=== PATIENT | female | born 1990 | race African-American/Black ===

== ENCOUNTER 2022-05-04 23:57 | Emergency (ER) | payer MEDICAID, SELFPAY ==
[2022-05-05 00:15] VITALS: BP 136/82; PULSE 86; RESP 16; TEMP 36.9; O2SAT 99
[2022-05-05 00:56] LABS: PCR FLU A POSITIVE PCR FLU A (Negative); PCR FLU B Negative PCR FLU B (Negative); PCR RSV Negative PCR RSV (Negative)
[2022-05-05 00:59] LABS: SARS PCR* Negative SARS-CoV-2 (Negative)
--- OUTSIDE RECORDS SUMMARY | 2022-05-05 01:05 | XMS_ITS | Encounter Summary ---
:1990 Author Organization [facility] Address [address] [place] [address] Care Team Providers Name Role Phone Harris Zaidi MD Unavailable No Ref-Primary, Physician Primary Care Provider [phone] Reason for Visit Reason Comments Eye Pain Encounter Details Date Type Department Care Team Description 06/30/2021 Emergency [facility] Candice Cedillo eal ulcer of left [facility] MD [place] [facility] [place] [facility] Leslie m [facility] [place] [address] [place] [address] [employer], [place] [phone] (Wo rk) [address] [phone] Social History Tobacco Use Types Packs/Day Years Used Date Smoking Tobacco: Every Day Smokeless Tobacco: Never Alcohol Use Standard Drinks/Week Comments Yes 0 (1 standard drink = 0.6 oz pure alcoho l) occ Sex Assigned at Date Recorded Not on file COVID-19 Exposure Response Date Recorded In the last month, have you been in contact with No / Unsure 06/29/2021 11:48 PM MOBILE HOME SERVICER someone who was confirmed or suspected to have Coronavirus / COVID-19? documented as of this encounter Last Filed Vital Signs Vital Sign Reading Time Taken Comments Blood Pressure 145/92 06/30/2021 12:21 AM MOBILE HOME SERVICER Pulse 89 06/30/2021 12:21 AM MOBILE HOME SERVICER Temperature 37.6 ??C (99.6 ??F) 06/29/2021 11:51 PM MOBILE HOME SERVICER Respiratory Rate 22 06/29/2021 11:51 PM MOBILE HOME SERVICER Oxygen Saturation 99% 06/29/2021 11:51 PM MOBILE HOME SERVICER Inhaled Oxygen Concentration - - Weight 77.1 kg (170 lb) 06/29/2021 11:51 PM MOBILE HOME SERVICER Height 160 cm (5' 3) 06/29/2021 11:51 PM MOBILE HOME SERVICER Body Mass Index 30.11 06/29/2021 11:51 PM MOBILE HOME SERVICER documented in this encounter Discharge Instructions Discharge InstructionsCandice Cedillo MD - 06/30/2021 12:11 AM MOBILE HOME SERVICER Please be seen by an semiconductor dies loader tomorrow LE HOME SERVICER AttachmentsThe following attachments cannot be sent through Care Everywhere. Corneal Ulcer, Treatment for (Cymro)Corneal Ulcer, Understanding (Cymro) documented in this encounter Medications at Time of Discharge Medication Sig Dispensed Refills Start Date End Date ferrous sulfate (FEROSUL) Daily 0 12/17/2020 325 (65 Fe) MG tablet escitalopram (LEXAPRO) 10 Take 1 tablet (10 30 tablet 1 09/06/2021 MG tabletIndications: mg) by mouth daily Generalized anxiety disorder, Severe major depression (H) hydrOXYzine (ATARAX) 25 Take 1 tablet (25 60 tablet 0 07/0109/06/2021 MG tabletIndications: mg) by mouth 3 times Generalized anxiety daily as needed for disorder anxiety ketoconazole (NIZORAL) 2 Apply to the 120 mL 11 8 09/20/2021 % shampooIndications: affected area and Tinea versicolor wash off after 5 minutes. norelgestromin-ethinyl Remove old patch and 9 patch 3 06/201709/06/2021 estradiol (ORTHO EVRA) apply new patch onto 150-35 MCG/24HR the skin once a week patchIndications: for 3 weeks (21 Encounter for initial days). Do not wear prescription of patch week 4 (days transdermal patch -), then repeat. hormonal contraceptive device ofloxacin (OCUFLOX) 0.3 % Instill 1 drop into 10 mL 0 0 06/30/2021 09/06/2021 ophthalmic solution the left eye every 30 minutes while awake and every 4 hours while asleep for the first two days, then on day 3, instill 1 drop every hour while awake for four days, then 1 drop four times a day until resolved. oxyCODONE (ROXICODONE) 5 Take 1 tablet (5 mg) 6 tablet 0 0 06/30/2021 09/06/2021 MG tablet by mouth every 6 hours as needed for pain documented as of this encounter ED Notes Yara Hood RN - 06/29/2021 11:49 PM CST Put in contacts this morning, took out about 1700, left eye pain and burning and associated headache. Opening eyes makes pain worse LE HOME SERVICER Candice Cedillo MD - 06/29/2021 11:47 PM CST EMERGENCY DEPARTMENT ENCOUNTER NAME: Trinity Odell AGE: [age] year old female DATE OF : 1990 EVALUATION DATE & TIME: No admission date for patient encounter. PCP: Lainey Brito ED PROVIDER: Candice Cedillo M.D. Chief Complaint Patient presents with ??? Eye Pain FINAL IMPRESSION: 1. Corneal ulcer of left eye ED COURSE & MEDICAL DECISION MAKING: Pertinent Labs & Imaging studies reviewed. (See chart for details) 30 year old female presents to the Emergency Department for evaluation of left eye pain. The patientwears contact lenses, first put in her contacts this morning, around 5 PM when she came home from work and she took out her left contacts she had immediate, searing pain in her left eye. The pain is worse with lights. It is a constant pain, slightly improved with closing her eye. She rates the pain a 10 out of 10 and has clear tearing. She otherwise has no constitutional symptoms. She denies any trauma to the eye. She has never had pain like this. On my exam with fluorescein dye and Mares lamp I seea corneal abrasion on her left eye overlying the left pupil. Plan to treat with quinolone eyedrops and follow-up with ophthalmology tomorrow. Patient is comfortable with this plan. The pain did improvewith topical tetracaine drops. At the conclusion of the encounter I discussed the results of all of the tests and the disposition. The questions were answered. The patient or family acknowledged understanding and was agreeable with the care plan. 11:50 PM I met with patient for initial interview and exam. PPE includes N95, protective glasses, gloves. 11:55 AM Performed eye exam with Wood's lamp. We discussed the plan for discharge and the patient isagreeable. Reviewed supportive cares, symptomatic treatment, outpatient follow up, and reasons to return to the Emergency Department. All questions and concerns were addressed. Patient to be discharged by ED RN. MEDICATIONS GIVEN IN THE EMERGENCY: Medications tetracaine (PONTOCAINE) 0.5 % ophthalmic solution 1-2 drop (2 drops Left Eye Given 06/30/21 0003) fluorescein (FUL-SANDY) ophthalmic strip 1 strip (1 strip Left Eye Given 06/30/21 0002) HPI Patient information was obtained from: patient Use of Faculty I On Call Medical Assistant: N/A Trinity Odell is a 30 year old female with no pertinent medical history who presents to this ED by walk in for evaluation of eye pain. Today at 5pm the patient took out her contacts and had sudden onset of severe left eye pain. Describes pain as searing/sharp, rated 10/10. Lights make pain worse; feels better with eyes closed. There are clear tears from the left eye, no discharge. Endorses associated diffuse headache. Denies trauma to eye. No history of similar symptoms. Patient is a smoker. Denies cough, congestion, nausea, vomiting, fever, chills, sweats, or any additional complaints at this time. REVIEW OF SYSTEMS Review of Systems Constitutional: Negative for chills, diaphoresis and fever. HENT: Negative for congestion. Eyes: Positive for photophobia (left eye) and pain (left eye). Negative for discharge. Respiratory: Negative for cough. Gastrointestinal: Negative for nausea and vomiting. Neurological: Positive for headaches. All other systems reviewed and are negative. PAST MEDICAL HISTORY: No past medical history on file. PAST SURGICAL HISTORY: No past surgical history on file. CURRENT MEDICATIONS: No current facility-administered medications for this encounter. Current Outpatient Medications Medication ??? ofloxacin (OCUFLOX) 0.3 % ophthalmic solution ??? oxyCODONE (ROXICODONE) 5 MG tablet ??? escitalopram (LEXAPRO) 10 MG tablet ??? hydrOXYzine (ATARAX) 25 MG tablet ??? ketoconazole (NIZORAL) 2 % shampoo ??? norelgestromin-ethinyl estradiol (ORTHO EVRA) 150-35 MCG/24HR patch ALLERGIES: No Known Allergies FAMILY HISTORY: Family History Problem Relation Age of Onset ??? Depression Mother ??? Anxiety Disorder Mother ??? Bipolar Disorder Mother ??? Depression Brother SOCIAL HISTORY: Social History Socioeconomic History ??? Marital status: Single Spouse name: Not on file ??? Number of children: Not on file ??? Years of education: Not on file ??? Highest education level: Not on file Occupational History ??? Not on file Tobacco Use ??? Smoking status: Current Every Day Smoker ??? Smokeless tobacco: Never Used Substance and Sexual Activity ??? Alcohol use: Yes Comment: occ ??? Drug use: No ??? Sexual activity: Yes Partners: Male control/protection: Injection Other Topics Concern ??? Parent/sibling w/ CABG, IA or angioplasty before 65F 55M? Not Asked Social History Narrative ??? Not on file Social Determinants of Health Financial Resource Strain: Not on file Food Insecurity: Not on file Transportation Needs: Not on file Physical Activity: Not on file Stress: Not on file Social Connections: Not on file Intimate Partner Violence: Not on file Housing Stability: Not on file VITALS: BP (!) 145/92 Pulse 89 Temp 99.6 ??F (37.6 ??C) (Oral) Resp 22 Ht 1.6 m (5' 3) Wt 77.1 kg(170 lb) SpO2 99% BMI 30.11 kg/m?? PHYSICAL EXAM Constitutional: Well developed, Well nourished, NAD HENT: Normocephalic, Atraumatic, Bilateral external ears normal, Oropharynx normal, mucous membranesmoist, Nose normal. Neck- Normal range of motion, No tenderness, Supple, No stridor. Eyes: With florescein dye and mares lamp, patient has a circular corneal ulcer overlying pupil alongthe medial lower quadrant. No foreign bodies. No corneal abrasions. No periorbital edema.PERRL, EOMI, Conjunctiva normal, No discharge. Respiratory: Normal breath sounds, No respiratory distress, No wheezing, Speaks full sentences easily. No cough. Cardiovascular: Normal heart rate, Regular rhythm Musculoskeletal: Good range of motion in all major joints. No tenderness to palpation or major deformities noted. Integument: Warm, Dry, No erythema, No rash. No petechiae. Neurologic: Alert & oriented x 3, Normal motor function, No focal deficits noted. Psychiatric: Affect normal, Judgment normal, Mood normal. Cooperative. I, Minoo Rangel, am serving as a scribe to document services personally performed by Dr. Cedillo based on my observation and the provider's statements to me. I, Candice Cedillo MD attest that Minoo Rangel is acting in a scribe capacity, has observed my performance of the services and has documented them in accordance with my direction. Candice Cedillo M.D. Emergency Medicine [facility] EMERGENCY ROOM [address] [place] [id number] Dept: [phone] Candice Cedillo MD 06/30/21 0045 LE HOME SERVICER documented in this encounter Plan of Treatment Not on filedocumented as of this encounter Visit Diagnoses Diagnosis Corneal ulcer of left eye Corneal ulcer, unspecified documented in this encounter Administered Medications Inactive Administered Medications - up to 3 most recent administrations Medication Order MAR Action Action Date Dose Rate Site fluorescein (FUL-SANDY) ophthalmic Given 06/30/2021 12:02 AM MOBILE HOME SERVICER 1 strip strip 1 strip 1 strip, Left Eye, ONCE, On [place] 06/30/21 at 0000, For 1 dose tetracaine (PONTOCAINE) 0.5 % ophthalmic Given 06/30/2021 12:03 AM MOBILE HOME SERVICER 2 drops solution 1-2 drop 1-2 drop, Left Eye, ONCE, On [place] 06/30/21 at 0000, For 1 dose documented in this encounter Active and Recently Administered Medications Times are shown in MOBILE HOME SERVICER. Scheduled Medication Order 06/28/2021 06/29/202106/3006/30/2021 fluorescein (FUL-SANDY) ophthalmic strip 1 strip (COMPLETED) 0002 (Given - Provider: Yara Hood RN - Comment: provider administered) 1 strip, Left Eye, ONCE, On [place] 06/30/21 at 0000, For 1 dose tetracaine (PONTOCAINE) 0.5 % ophthalmic solution 1-2 drop (COMP LETED) 0003 (Given - Provider: Yara Hood RN - Comment: provider administered) 1-2 drop, Left Eye, ONCE, On [place] 06/30/21 at 0000, For 1 dose documented in this encounter Additional Health Concerns Assessment Noted Time PHQ-9 Depression Total Score: 17 07/01/2019 11:[address] documented as of this encounter Care Teams Wholesale Manager Relationship Specialty Start Date End Date No Ref-Primary, Physician PCP - General 06/30/21 Harris Zaidi MD Assigned PCP 02/13/21 09/10/21 [address] [place] [address] documented as of this encounter
--- OUTSIDE RECORDS SUMMARY | 2022-05-05 01:05 | XMS_ITS | Encounter Summary ---
:1990 Author Organization [facility] Address [address] [place] [address] Care Team Providers Name Role Phone No Ref-Primary, Physician Primary Care Provider [phone] Familia Nicole DO Unavailable Encounter Details Date Type Department Care Team Description 01/31/2022 Travel Social History Tobacco Use Types Packs/Day Years Used Date Smoking Tobacco: Some Days Cigarettes Smokeless Tobacco: Never Comments: pack a week Alcohol Use Standard Drinks/Week Comments Yes 0 (1 standard drink = 0.6 oz pure alcoho l) occ Sex Assigned at Date Recorded Not on file COVID-19 Exposure Response Date Recorded In the last 10 days, have you been in contact with No / Unsu re 01/31/2022 11:04 AM CDT someone who was confirmed or suspected to have Coronavirus/COVID-19? documented as of this encounter Plan of Treatment Not on filedocumented as of this encounter Visit Diagnoses Not on filedocumented in this encounter Additional Health Concerns Assessment Noted Time PHQ-9 Depression Total Score: 2 09/21/2021 7:02 AM CDT documented as of this encounter Care Teams Lumber Yard Worker Relationship Specialty Start Date End Date No Ref-Primary, Physician PCP - General 06/30/21 Familia Nicole DO Assigned PCP 01/28/22 04/07/22 [address] [address] [place], [place] [id number] documented as of this encounter
--- OUTSIDE RECORDS SUMMARY | 2022-05-05 01:05 | XMS_ITS | Encounter Summary ---
:1990 Author Organization [facility] Address [facility] [place] [address] Care Team Providers Name Role Phone No Ref-Primary, Physician Primary Care Provider [phone] Familia Nicole DO Unavailable Encounter Details Date Type Department Care Team Description 09/19/2021 Travel Social History Tobacco Use Types Packs/Day Years Used Date Smoking Tobacco: Every Day Cigarettes Smokeless Tobacco: Never Alcohol Use Standard Drinks/Week Comments Yes 0 (1 standard drink = 0.6 oz pure alcoho l) occ Sex Assigned at Date Recorded Not on file COVID-19 Exposure Response Date Recorded In the last month, have you been in contact with No / Unsure 09/19/2021 8:03 AM CDT someone who was confirmed or suspected to have Coronavirus / COVID-19? documented as of this encounter Plan of Treatment Not on filedocumented as of this encounter Visit Diagnoses Not on filedocumented in this encounter Additional Health Concerns Assessment Noted Time PHQ-9 Depression Total Score: 5 09/07/2021 7:02 AM CDT documented as of this encounter Care Teams Commis Chef Relationship Specialty Start Date End Date No Ref-Primary, Physician PCP - General 06/30/21 Familia Nicole DO Assigned PCP 09/11/21 09/24/21 [address] [place] [address] documented as of this encounter
--- OUTSIDE RECORDS SUMMARY | 2022-05-05 01:05 | XMS_ITS | Encounter Summary ---
:1990 Author Organization [facility] Address [address] [place] [address] Care Team Providers Name Role Phone Harris Zaidi MD Unavailable No Ref-Primary, Physician Primary Care Provider [phone] Encounter Details Date Type Department Care Team Description 09/06/2021 Travel Social History Tobacco Use Types Packs/Day Years Used Date Smoking Tobacco: Every Day Cigarettes Smokeless Tobacco: Never Alcohol Use Standard Drinks/Week Comments Yes 0 (1 standard drink = 0.6 oz pure alcoho l) occ Sex Assigned at Date Recorded Not on file COVID-19 Exposure Response Date Recorded In the last month, have you been in contact with No / Unsure 09/06/2021 2:14 PM CDT someone who was confirmed or suspected to have Coronavirus / COVID-19? documented as of this encounter Plan of Treatment Not on filedocumented as of this encounter Visit Diagnoses Not on filedocumented in this encounter Additional Health Concerns Assessment Noted Time PHQ-9 Depression Total Score: 5 09/07/2021 7:02 AM CDT documented as of this encounter Care Teams Interior Design Teacher Relationship Specialty Start Date End Date No Ref-Primary, Physician PCP - General 06/30/21 Harris Zaidi MD Assigned PCP 02/13/21 09/10/21 [address] [place] [address] documented as of this encounter
--- OUTSIDE RECORDS SUMMARY | 2022-05-05 01:05 | XMS_ITS | Encounter Summary ---
:1990 Author Organization [facility] Address [facility] [place] [address] Care Team Providers Name Role Phone No Ref-Primary, Physician Primary Care Provider [phone] Minoo Daniels PA-C Unavailable [phone] Reason for Visit Reason Onset Date Comments No Show 09/27/2021 Encounter Details Date Type Department Care Team Description 09/27/2021 Office Visit [facility] Minoo Danielss how for Clinic Eliza Arguelles PA-C appointment (Primary [address] [address] [facility] [place], [place] [address] [phone] Social History Tobacco Use Types Packs/Day Years [...] been in contact with No / Unsure 09/20/2021 2:48 PM CDT someone who was confirmed or suspected to have Coronavirus / COVID-19? documented as of this encounter Progress Notes José Johnson - 09/27/2021 1:30 PM CDT Pre-Visit Planning Next 5 appointments (look out 90 days) Sep 27, 2021 1:30 PM (Arrive by 1:15 PM) [facility] Placement with Minoo Daniels PA-C [facility] [address] [facility] [id number] Appointment Notes for this encounter: [facility] placement Questionnaires Reviewed/Assigned No additional questionnaires are needed Patient preferred phone number: [phone] Unable to reach. Left voicemail. Advised patient to call clinic back at [phone]. Minoo Daniels PA-C - 09/27/2021 1:30 PM CDT This patient was a no show for this scheduled appointment. documented in this encounter Plan of Treatment Not on filedocumented as of this encounter Visit Diagnoses Diagnosis No-show for appointment - Primary documented in this encounter Additional Health Concerns Assessment Noted Time PHQ-9 Depression Total Score: 2 09/21/2021 7:02 AM CDT documented as of this encounter Care Teams Perennial House Manager Relationship Specialty Start Date End Date No Ref-Primary, Physician PCP - General 06/30/21 Minoo Daniels PA-C Assigned PCP 09/25/21 01/27/22 [address] [place] [address] documented as of this encounter
--- OUTSIDE RECORDS SUMMARY | 2022-05-05 01:05 | XMS_ITS | Encounter Summary ---
:1990 Author Organization [facility] Address [address] [place] [address] Care Team Providers Name Role Phone No Ref-Primary, Physician Primary Care Provider [phone] Minoo Daniels PA-C Unavailable [phone] Encounter Details Date Type Department Care Team Description 10/25/2021 Travel Social History Tobacco Use Types Packs/Day [...] in contact with No / Unsu re 10/25/2021 1:46 PM CDT someone who was confirmed or suspected to have Coronavirus/COVID-19? documented as of this encounter Plan of Treatment Not on filedocumented as of this encounter Visit Diagnoses Not on filedocumented in this encounter Additional Health Concerns Assessment Noted Time PHQ-9 Depression Total Score: 2 09/21/2021 7:02 AM CDT documented as of this encounter Care Teams Slubber Hand Relationship Specialty Start Date End Date No Ref-Primary, Physician PCP - General 06/30/21 Minoo Daniels PA-C Assigned PCP 09/25/21 01/27/22 [address] [place] [address] documented as of this encounter
--- OUTSIDE RECORDS SUMMARY | 2022-05-05 01:05 | XMS_ITS | Clinical Summary ---
:1990 Author Organization [place] Address [facility] [place] [address] Care Team Providers Name Role Phone No Ref-Primary, Physician Primary Care Provider [phone] Minoo Daniels PA-C Unavailable [phone] Allergies No known active allergies Medications Medication Sig Dispensed Refills Start Date End Date Status norelgestromin-ethinyl Remove old patch 9 patch 3 09/06/2021 Active estradiol (ORTHO EVRA) and apply new 150-35 MCG/24HR patch onto the patchIndications: skin once a week Encounter for initial for 3 weeks (21 prescription of days). Do not transdermal patch wear patch week 4 hormonal contraceptive (days 22-28), device then repeat. venlafaxine TAKE 1 CAPSULE 0 07/18/2021 Ac tive (EFFEXOR-XR) 75 MG 24 (75 MG) BY MOUTH hr capsule DAILY ferrous sulfate Daily 0 12/17/2020 Act дмитрий (FEROSUL) 325 (65 Fe) MG tablet nicotine (NICODERM CQ) Place 1 patch 14 patch 1 09/06/2021 Active 7 MG/24HR 24 hr onto the skin patchIndications: every 24 hours Tobacco use disorder cyclobenzaprine Take 1-2 tablets 30 tablet 0 09/20/2021 Active (FLEXERIL) 5 MG (5-10 mg) by tabletIndications: mouth 3 times Cervicalgia daily as needed for muscle spasms etonogestrel 1 each (68 mg) by 0 Active (NEXPLANON) 68 MG Subdermal route IMPLIndications: once Nexplanon insertion Active Problems Problem Noted Date Nexplanon insertion 09/27/2021 Overview: Placed 10/25/2021, removal due 10/25/24. Lot # [id number] Exp: [id number] [facility] [id number] Major depressive disorder, recurrent episode, severe w ith anxious distress 01/17/2018 Tobacco use disorder 10/24/2017 Resolved Problems Problem Noted Date Resolved Date Injury of right great toe, initial encounter 10/24/2017 09/27/2021 Severe episode of recurrent major depressive disorder, 10/2401/17/2018 without psychotic features Immunizations Name Administration Dates Next Due COVID-19,PF,Diego 10/18/2020 HPV Quadrivalent 09/27/2010, 05/20/2009, 01/19/2009 Hep B, Peds or Adolescent 03/25/2004 Hib, Unspecified 06/14/1992, 08/20/1991, 06/04/1991, 01/29/1991 Historical DTP/aP 06/14/1992, 08/20/1991, 06/04/1991, 01/29/1991 Influenza (IIV3) PF 04/28/2005 Influenza Vaccine IM > 6 months 05/27/2020, 03/31/2016, 12/07/2014, Valent IIV4 (Alfuria,Fluzone) 03/18/2014 MMR 06/02/1992 OPV, trivalent, live 06/14/1992, 08/20/1991, 06/04/1991, 01/29/1991 TD (ADULT, 7+) 03/25/2004 TDAP Vaccine (Boostrix) 08/16/2012, 09/27/2010 Tdap (Adacel,Boostrix) 11/11/2020 Family History Medical History Relation Comments Depression Brother Anxiety Disorder Mother Bipolar Disorder Mother Depression Mother Relation Status Comments Brother Alive Father Alive Mother Alive Social History Tobacco Use Types Packs/Day Years Used Date Smoking Tobacco: Some Days Cigarettes Smokeless Tobacco: Never Tobacco Cessation: Ready to Quit: No; Co unseling Given: Yes Comments: pack a week Alcohol Use Standard Drinks/Week Comments Yes 0 (1 standard drink = 0.6 oz pure alcoho l) occ Sex Assigned at Date Recorded Not on file Last Filed Vital Signs Vital Sign Reading Time Taken Comments Blood Pressure 118/68 10/25/2021 1:58 PM CDT Pulse 76 10/25/2021 1:58 PM CDT Temperature 36.7 ??C (98.1 ??F) 10/25/2021 1:58 PM CDT Respiratory Rate 18 10/25/2021 1:58 PM CDT Oxygen Saturation 98% 10/25/2021 1:58 PM CDT Inhaled Oxygen Concentration - - Weight 84.1 kg (185 lb 8 oz) 10/25/2021 1:58 PM CDT Height 160 cm (5' 3) 10/25/2021 1:58 PM CDT Body Mass Index 32.86 10/25/2021 1:58 PM CDT Plan of Treatment Health Maintenance Due Date Last Done Comments ADVANCE CARE PLANNING 1990 ANNUAL REVIEW OF HM ORDERS 1990 DEPRESSION ACTION PLAN 1990 NICOTINE/TOBACCO CESSATION 1990 COUNSELING Q 1 YR Pneumococcal Vaccine: 1996 Pediatrics (0 to 5 Years) and At-Risk Patients (6 to 64 Years) (1 - PCV) HEPATITIS B IMMUNIZATION 04/22/2004 03/25/2004 (2 of 3 - 3-dose series) HEPATITIS C SCREENING 2008 YEARLY PREVENTIVE VISIT 10/24/2018 10/24/2017 PAP 10/24/2020 10/24/2017, 04/17/2016 COVID-19 Vaccine (2 - 12/13/2020 10/18/2020 Booster for Diego series) INFLUENZA VACCINE (#1) 2022 05/27/2020, 03/31/2016, 05/19/2015, Additional history exists PHQ-9 03/22/2022 09/20/2021, 09/06/2021, 09/06/2021, Additional history exists DTAP/TDAP/TD IMMUNIZATION 11/11/2030 11/11/2020, 08/16/2012 , (9 - Td or Tdap) 09/27/2010, Additional history exists IPV IMMUNIZATION Completed 06/14/1992, 08/20/1991, 06/04/1991, Additional history exists HIV SCREENING Discontinued MENINGITIS IMMUNIZATION Aged Out No longe r eligible based on patient 's age to complete this topic Insurance Payer Benefit Plan / Subscriber ID Effective Dates Phone Addre ss Type Group [facility] [id number] 2021-Present [phone] [address] [place] [address] [facility] 1990 [id number] [facility] (Home) [place] [address] Care Teams Inventory Controller Relationship Specialty Start Date End Date No Ref-Primary, Physician PCP - General 06/30/21 Minoo Daniels PA-C Assigned PCP 04/08/22 [address] [place] [address]
--- OUTSIDE RECORDS SUMMARY | 2022-05-05 01:05 | XMS_ITS | Encounter Summary ---
:1990 Author Organization [place] Address [facility] [place] [address] Care Team Providers Name Role Phone Lainey Brito MD Primary Care Provider [phone] Lainey Brito MD Unavailable Lainey Brito MD Unavailable Reason for Visit Reason Comments Cough chest congestion, heavy ches t, pain in low chest/epigastric area - family is sick with coughs Encounter Details Date Type Department Care Team Description 05/13/2018 Office Visit [facility] Sierra Mcmanus Upper respiratory tract infection, unspecified type (Primary Dx); Clinic Shabbir Mistry PA-C Gastroesophageal reflux disease, esophag itis presence not specified; [place] [address] [place] [address] Constipation, unspecified constipation t ype [address] [id number] Social History Tobacco Use Types Packs/Day Years Used Date Smoking Tobacco: Every Day Smokeless Tobacco: Never Tobacco Cessation: Ready to Quit: No; Co unseling Given: Yes Alcohol Use Standard Drinks/Week Comments Yes 0 (1 standard drink = 0.6 oz pure alcoho l) occ Sex Assigned at Date Recorded Not on file documented as of this encounter Last Filed Vital Signs Vital Sign Reading Time Taken Comments Blood Pressure 108/72 05/13/2018 4:08 PM COMPRESSOR OPERATOR Pulse 76 05/13/2018 4:08 PM COMPRESSOR OPERATOR Temperature 37.2 ??C (98.9 ??F) 05/13/2018 4:08 PM COMPRESSOR OPERATOR Respiratory Rate 16 05/13/2018 4:08 PM COMPRESSOR OPERATOR Oxygen Saturation - - Inhaled Oxygen Concentration - - Weight 83 kg (183 lb) 05/13/2018 4:08 PM COMPRESSOR OPERATOR Height - - Body Mass Index 31.41 03/05/2018 3:27 PM CDT documented in this encounter Patient Instructions Patient InstructionsSierra Mcmanus PA-C - 05/13/2018 4:00 PM COMPRESSOR OPERATOR miralax for constipation Treat the heartburn with omeprazole See primary provider in 1 month is heartburn is not better. RESSOR OPERATOR documented in this encounter Progress Notes Sierra Mcmanus PA-C - 05/13/2018 4:00 PM CST SUBJECTIVE: Trinity Odell is a 27 year old female who presents to clinic today for the following health issues: RESPIRATORY SYMPTOMS ?? Duration: today ?? Description Slight cough and chest pain and congestion ?? Severity: mild ?? Accompanying signs and symptoms: None ?? History (predisposing factors): tobacco abuse ?? Precipitating or alleviating factors: family is sick with coughs and other URI symptoms ?? Therapies tried and outcome: none Constipation ?? Duration: on and off for many years ?? Description: Frequency of bowel movements: 4-5 days Consistency of stool: hard at times ?? Intensity: mild, moderate ?? Accompanying signs and symptoms: Abdominal pain: YES Rectal pain: no Blood in stool: no Nausea/vomitting: no ?? History: Similar problems in past: YES ?? Precipitating or alleviating factors: Medications worsening symptoms: no ?? Therapies tried and outcome: None Chronic laxative use: no Occasion use of stool softner GERD/Heartburn ?? Duration: recently with more issues with this. ?? Did have GERD after and of last child ?? Description (location/character/radiation): epigastric to burning mid sternal pain ?? Intensity: mild, moderate ?? Accompanying signs and symptoms: food getting stuck: no nausea/vomiting/blood: no abdominal pain: YES black/tarry or bloody stools: no : ?? History (similar episodes/previous evaluation): None ?? Precipitating or alleviating factors: worse with fatty foods and spicy foods. current NSAID/Aspirin use: no Therapies tried and outcome: Omeprazole (Prilosec)in the past - 5 years ago when Problem list and histories reviewed & adjusted, as indicated. Additional history: as documented Labs reviewed in [facility] Reviewed and updated as needed this visit by clinical staff Tobacco Allergies Meds Reviewed and updated as needed this visit by Provider Allergies Meds ROS: Constitutional, HEENT, cardiovascular, pulmonary, gi and gu systems are negative, except as otherwise noted. OBJECTIVE: BP 108/72 Pulse 76 Temp 98.9 ??F (37.2 ??C) (Oral) Resp 16 Wt 183 lb (83 kg) LMP 04/17/2018 ? No BMI 31.41 kg/m2 Body mass index is 31.41 kg/(m^2). GENERAL: healthy, alert and no distress HENT: ear canals and TM's normal, nose and mouth without ulcers or lesions NECK: no adenopathy, no asymmetry, masses, or scars and thyroid normal to palpation RESP: lungs clear to auscultation - no rales, rhonchi or wheezes CV: regular rates and rhythm and normal S1 S2, no S3 or S4 ABDOMEN: tenderness epigastric and bowel sounds normal MS: no gross musculoskeletal defects noted, no edema SKIN: no suspicious lesions or rashes Diagnostic Test Results: none ASSESSMENT/PLAN: 1. Upper respiratory tract infection, unspecified type Mild symptoms. Fluids rest Good handwashing Recheck prn 2. Gastroesophageal reflux disease, esophagitis presence not specified - omeprazole (PRILOSEC) [address] capsule; Take 1 capsule (20 mg) by mouth daily Dispense: 30 capsule; Refill: 1 3. Constipation, unspecified constipation type Patient Instructions miralax for constipation Treat the heartburn with omeprazole See primary provider in 1 month is heartburn is not better. 25 minutes spent with patient > 50% of time on counseling and plan of care Letter for work stating ok to work tomorrow. Sierra Mcmanus PA-C [facility] RESSOR OPERATOR documented in this encounter Plan of Treatment Not on filedocumented as of this encounter Visit Diagnoses Diagnosis Upper respiratory tract infection, unspe cified type - Primary Gastroesophageal reflux disease, esophag itis presence not specified Constipation, unspecified constipation t ype documented in this encounter Additional Health Concerns Assessment Noted Time PHQ-9 Depression Total Score: 13 02/14/2018 7:19 AM CD T documented as of this encounter Care Teams Deaf/Hard Of Hearing Specialist Relationship Specialty Start Date End Date Lainey Brito MD PCP - General Family Practice 10/23/17 06/29/21 [id number] [place], [place] [id number] Lainey Brito MD PCP - Assigned PCP 10/05/17 08/20/18 [address] [place] [address] Lainey Brito MD Assigned PCP 10/05/17 07/12/19 [address] [place], [place] [id number] documented as of this encounter
--- OUTSIDE RECORDS SUMMARY | 2022-05-05 01:05 | XMS_ITS | Encounter Summary ---
:1990 Author Organization [facility] Address [address] [place] [address] Care Team Providers Name Role Phone Lainey Brito MD Primary Care Provider [phone] Lainey Brito MD Unavailable Reason for Referral Consultation (Routine) - Closed Specialty Diagnoses / Procedures Referred By Contact Refer red To Contact Podiatry Diagnoses Left foot pain Hermelindo Cary MD [facility] [id number] [place] [phone] [place] [address] Phone: Fax: Referral ID Status Reason Start Date Expiration Date Visits Requ ested Visits Authorized [id number] Closed 10/31/2018 10/31/2019 1 1 edication Prior Authorization (Routine) - Closed Specialty Diagnoses / Procedures Referred By Contact Refer red To Contact Diagnoses [place] [address] [place], [place] [address] Referral ID Status Reason Start Date Expiration Date Visits Requ ested Visits Authorized [id number] Closed iagnostic Imaging XR (Routine) - Closed Specialty Diagnoses / Procedures Referred By Contact Refer red To Contact Diagnoses Left foot pain Hermelindo Cary MD Procedures XR Foot Left G/E 3 Views [id number] [place], [place] [address] Referral ID Status Reason Start Date Expiration Date Visits Requ ested Visits Authorized [id number] Closed 10/31/2018 10/31/2019 1 1 iagnostic Imaging XR (Routine) - Closed Specialty Diagnoses / Procedures Referred By Contact Refer red To Contact Diagnoses Left foot pain Hermelindo Cary MD Procedures XR Ankle Left G/E 3 Views [id number] [facility] [place] [place] [address] Referral ID Status Reason Start Date Expiration Date Visits Requ ested Visits Authorized [id number] Closed 10/31/2018 10/31/2019 1 1 Reason for Visit Reason Comments Foot Injury Encounter Details Date Type Department Care Team Description 10/31/2018 Office Visit [facility] Hermelindo Cary, Left f oot pain Clinic Radha BROOKS (Primary Dx) [address] [facility], [address] [place] [address] [address] [place] [phone] Social History Tobacco Use Types Packs/Day Years Used Date Smoking Tobacco: Every Day Smokeless Tobacco: Never Alcohol Use Standard Drinks/Week Comments Yes 0 (1 standard drink = 0.6 oz pure alcoho l) occ Sex Assigned at Date Recorded Not on file documented as of this encounter Last Filed Vital Signs Vital Sign Reading Time Taken Comments Blood Pressure 110/74 10/31/2018 8:08 AM CDT Pulse 120 10/31/2018 8:08 AM CDT Temperature 37.1 ??C (98.7 ??F) 10/31/2018 8:08 AM CDT Respiratory Rate 20 10/31/2018 8:08 AM CDT Oxygen Saturation - - Inhaled Oxygen Concentration - - Weight - - Height - - Body Mass Index - - documented in this encounter Patient Instructions Patient InstructionsSalazar, Hermelindo, MD - 10/31/2018 8:00 AM CDT 1. Elevate foot 2. Medication 3. Ice daily 10 minutes 4. Follow podiatry documented in this encounter Progress Notes Hermelindo Cary MD - 10/31/2018 8:00 AM CDT SUBJECTIVE: Trinity Odell is a 28 year old female who presents to clinic today for the following health issues: Musculoskeletal problem/pain ?? Duration: yesterday ?? Description Location: LEFT FOOT ?? Intensity: severe, 01/25 ?? Accompanying signs and symptoms: radiation of pain from left knee down to foot, numbness, tingling, weakness of left foot, swelling and discoloration of left foot ?? History Previous similar problem: no Previous evaluation: none ?? 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 Therapies tried and outcome: nothing Additional history: as documented Reviewed and updated as needed this visit by clinical staff Tobacco Allergies Meds Problems Med Hx Surg Hx Fam Hx Soc Hx Reviewed and updated as needed this visit by Provider ROS: Constitutional, HEENT, cardiovascular, pulmonary, gi and gu systems are negative, except as otherwise noted. OBJECTIVE: BP 110/74 (BP Location: Right arm, Patient Position: Sitting, Cuff Size: Adult Regular) Pulse 120 Temp 98.7 ??F (37.1 ??C) (Oral) Resp 20 There is no height or weight on file to calculate BMI. GENERAL: alert and moderate distress RESP: lungs clear to auscultation - no rales, rhonchi or wheezes CV: regular rate and rhythm, normal S1 S2, no S3 or S4, no murmur, click or rub, no peripheral edemaand peripheral pulses strong ABDOMEN: soft, nontender, no hepatosplenomegaly, no masses and bowel sounds normal MS: There are no obvious deformities in her musculoskeletal exam or examination of her extremities however the dorsum of the left foot shows significant swelling and some bruising down to the toes. Shehas decreased range of motion.. Distal pulses are normal as are proximal pulses. Range of motion of her toes is slightly decreased secondary to pain palpation of the underside of her foot reveals some tenderness in the fat pad of thecalcaneus is normal. Range of motion of the ankle flexion extension is decreased secondary to pain no obvious deformitiessqueeze test on the ankle was negative. Diagnostic Test Results: none ASSESSMENT/PLAN: 1. Left foot pain - XR Ankle Left G/E 3 Views; Future - XR Foot Left G/E 3 Views; Future - order for DME; Equipment being ordered: crutches, Dispense: 1 Units; Refill: 0 - nabumetone (RELAFEN) 750 MG tablet; Take 1 tablet (750 mg) by mouth 2 times daily Dispense: 9 tablet; Refill: 0 - HYDROcodone-acetaminophen (NORCO) 5-325 MG tablet; Take 1 tablet by mouth every 6 hours as needed for pain Dispense: 9 tablet; Refill: 0 - PODIATRY/FOOT & ANKLE SURGERY REFERRAL See Patient Instructions Hermelindo Cary MD [facility] 4 visit 25 minutes in exam and counseling greater than 50% of time in counseling regards to her injury to the ankle as well as to the foot. We discussed her x-ray which may indeed show a fracture. We discussed care as well as the need for her crutches and the pain medication that we are giving her which is [place] 1-3 times a day quantity of 9. She may need to follow-up in the next couple of days regarding her pain. Referral for podiatry was also placed in her chart she is seen podiatry in the past. 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 Foot Injury Initial BP 110/74 (BP Location: Right arm, Patient Position: Sitting, Cuff Size: Adult Regular) Pulse 120 Temp 98.7 ??F (37.1 ??C) (Oral) Resp 20 Estimated body mass index is 28.49 kg/m?? as calculated from the following: Height as of 10/10/18: 1.626 m (5' 4). Weight as of 10/10/18: 75.3 kg (166 lb). BP completed using cuff size regular RIGHT arm Tricia Ochoa CMA documented in this encounter Plan of Treatment Scheduled Referrals Name Type Priority Associated Diagnoses Order S chedule PODIATRY/FOOT & ANKLE Referral Routine Left foot pain Orde red: 10/31/2018 SURGERY REFERRAL documented as of this encounter Results XR Ankle Left G/E 3 Views (10/31/2018 8:40 AM CDT) Anatomical Region Laterality Modality Leg, Ankle, Foot Left Computed Radiography Specimen (Source) Anatomical Location Collection Method / Collectio n Time Received Time / Laterality Volume Impressions 10/31/2018 11:27 AM CDT IMPRESSION: Normal ankle. Soft tissue swelling over the dorsum of the forefoot. JOSE WHITTEN MD Narrative 10/31/2018 11:27 AM CDT LEFT ANKLE THREE VIEWS ?? 10/31/2018 8:40 AM HISTORY: ??Left foot pain. COMPARISON: None. Procedure Note Jose Whitten MD - 10/31/2018Formatt ing of this note might be different from the original. LEFT ANKLE THREE VIEWS 10/31/2018 8:40 AM HISTORY: Left foot pain. COMPARISON: None. IMPRESSION: Normal ankle. Soft tissue sw elling over the dorsum of the forefoot. JOSE WHITTEN MD Hermelindo Cary MD IMG DIAGNOSTIC IMAGING ORDER FREDY XR Foot Left G/E 3 Views (10/31/2018 8:32 AM CDT) Anatomical Region Laterality Modality Foot, Ankle Left Computed Radiography Specimen (Source) Anatomical Location Collection Method / Collectio n Time Received Time / Laterality Volume Impressions 10/31/2018 11:00 AM CDT IMPRESSION: Normal. JOSE WHITTEN MD Narrative 10/31/2018 11:00 AM CDT LEFT FOOT THREE VIEWS ??10/31/2018 8:32 AM HISTORY: Left foot pain COMPARISON: None. Procedure Note Jose Whitten MD - 10/31/2018Formatt ing of this note might be different from the original. LEFT FOOT THREE VIEWS 10/31/2018 8:32 AM HISTORY: Left foot pain COMPARISON: None. IMPRESSION: Normal. JOSE WHITTEN MD Hermelindo Cary MD IMG DIAGNOSTIC IMAGING ORDER FREDY documented in this encounter Visit Diagnoses Diagnosis Left foot pain - Primary Pain in limb Left foot pain Pain in limb Left foot pain Pain in limb documented in this encounter Additional Health Concerns Assessment Noted Time PHQ-9 Depression Total Score: 13 10/10/2018 10:20 AM C DT documented as of this encounter Care Teams Print Designer Relationship Specialty Start Date End Date Lainey Brito MD PCP - General Family Practice 10/23/17 06/29/21 [address] [place] [address] Lainey Brito MD Assigned PCP 10/05/17 07/12/19 [address] [place] [address] documented as of this encounter
--- OUTSIDE RECORDS SUMMARY | 2022-05-05 01:05 | XMS_ITS | Encounter Summary ---
:1990 Author Organization [place] Address [facility] [place] [address] Care Team Providers Name Role Phone No Ref-Primary, Physician Primary Care Provider [phone] Minoo Daniels PA-C Unavailable Reason for Visit Reason Comments Procedure implant Encounter Details Date Type Department Care Team Description 10/25/2021 Office Visit [facility] Minoo Daniels lanon insertion (Primary Dx); Clinic Joshua Treerené Arguelles PA-C Insertion of implantable subdermal contr aceptive [address] [facility] [address] [place] [address] Social History Tobacco Use Types Packs/Day Years [...] have Coronavirus/COVID-19? documented as of this encounter Last Filed [...] Mass Index 32.86 10/25/2021 1:58 PM CDT documented in this encounter Progress Notes José Johnson - 10/25/2021 2:00 PM CDT Pre-Visit Planning Next 5 appointments (look out 90 days) October 25, 2021 2:00 PM (Arrive by 1:45 PM) Nexplanon Placement with Minoo Daniels PA-C [facility] ([facility] ) [address] [facility] [address] Appointment Notes for this encounter: LAB TEST Nexplanon placement Questionnaires Reviewed/Assigned No additional questionnaires are needed Patient preferred phone number: [phone] Spoke to patient via phone. Patient does not have additional questions or concerns. Visit is not preventive. Patient is established. Chief complaint confirmed. Health Maintenance Due Topic Date Due ??? ANNUAL REVIEW OF HM ORDERS Never done ??? ADVANCE CARE PLANNING Never done ??? DEPRESSION ACTION PLAN Never done ??? Pneumococcal Vaccine: Pediatrics (0 to 5 Years) and At-Risk Patients (6 to 64 Years) (1 - PCV) Never done ??? HEPATITIS B IMMUNIZATION (2 of 3 - 3-dose primary series) 04/22/2004 ??? HEPATITIS C SCREENING Never done ??? PREVENTIVE CARE VISIT 10/24/2018 ??? PAP 10/24/2020 ??? COVID-19 Vaccine (2 - Booster for Diego series) 12/13/2020 Patient is due for: pap No appointment needed. MyChart Patient is not active on [employer]. Encouraged [employer] activation. Questionnaire Review Offered information on completing questionnaires via [employer]. Call Summary Thank you for your time today. If anything comes up before your appointment, please feel free to contact us at [phone]. Minoo Daniels PA-C - 10/25/2021 2:00 PM CDT Nexplanon Insertion: Is a test required: Yes. Was it positive or negative? Negative Was a consent obtained? Yes Subjective: Triinty Odell is a 31 year old No obstetric history on file. presents for Nexplanon. Patient has been given the opportunity to ask questions about all forms of control, including all options appropriate for Trinity Odell. Discussed that no method of control, except abstinence is 100% effective against or sexually transmitted infection. Trinity Odell understands she may have the Nexplanon removed at any time and it should be removed by a health care provider. The entire insertion procedure was reviewed with the patient, including care after placement. No LMP recorded. Has current contraception. No allergy to betadine or shellfish. Patient declines STD screening HCG Qual Urine Date Value Ref Range Status 04/04/2008 Negative NEG Final hCG Urine Qualitative Date Value Ref Range Status 10/25/2021 Negative Negative Final Comment: This test is for screening purposes. Results should be interpreted along with the clinical picture.Confirmation testing is available if warranted by ordering [id number], HCG Quantitative . BP 118/68 (BP Location: Right arm, Patient Position: Sitting, Cuff Size: Adult Regular) Pulse 76 Temp 98.1 ??F (36.7 ??C) (Oral) Resp 18 Ht 1.6 m (5' 3) Wt 84.1 kg (185 lb 8 oz) SpO2 98% BMI 32.86 kg/m?? PROCEDURE NOTE: -- Nexplanon Insertion Reason for Insertion: contraception Patient was placed supine with left arm exposed. Mela was made 8-10 cm above medial epicondyle and aguiding mela 4 cm above the first. Arm was prepped with Betadine. Insertion point was anesthetized with 2.5 mL 1% lidocaine. After stretching the skin with thumb and index finger around the insertion site, skin punctured with the tip of the needle inserted at 30 degrees and then lowered to horizontal position. The needle was then advanced to its full length. Applicator was then stabilized and slider was unlocked. Slider was pulled back until it stopped and then removed. Correct placement of the implant was confirmed by palpation in the patient's arm and visualizing thepurple top of the obturator. Bandage and pressure dressing applied to insertion site. Lot # [id number] Exp: EBL: minimal Complications: none ASSESSMENT: ICD-10-CM 1. Nexplanon insertion Z30.017 HCG Qual, Urine ([id number]) 2. Insertion of implantable subdermal contraceptive Z30.017 PLAN: Given biodiesel production technician's handouts, including when to have Nexplanon removed, list of danger s/sx, side effects and follow up recommended. Encouraged condom use for prevention of STD. Back up contraception advised for 7 days. Advised to call for any fever, for prolonged or severe pain or bleeding, abnormalvaginal dischage. She was advised to use pain medications (ibuprofen) as needed for mild to moderatepain. Minoo Daniels PA-C documented in this encounter Plan of Treatment Not on filedocumented as of this encounter Procedures Procedure Name Priority Date/Time Associated Comments Diagnosis [place] INSERTION DRUG Routine 10/25/2021 2:16 PM Nexplanon inserti on DELIVERY IMPLANT CDT HCG QUALITATIVE URINE STAT 10/25/2021 1:52 PM Nexplanon ins ertion Results for this CDT procedure are i n the results section. documented in this encounter Results HCG Qual, Urine ([id number]) (10/25/2021 1:52 PM CDT) [facility] Method Time Signature hCG Urine Negative Negative ANDREA 10/25/2021 [facility] Qualitative 1:58 PM CDT Comment: This test is for screening purp oses. Results should be interpreted along with the clinical picture. Confirmation testing is available if warranted by ordering [id number], HCG Quantitative . Specimen Anatomical Collection Method Collection Time Receive d Time (Source) Location / / Volume Laterality Urine URINE SPECIMEN / Non-blood 10/25/2021 1:52 PM 10/25 1:52 Unknown Collection / CDT PM CDT Unknown Minoo Daniels PA-C LAB - URINE ORDERABLE S Performing Organization Address City/State/ZIP Code Phon [place] [address] Lab [address] [facility] (no room number, 1st floor of clinic) [place] [address], [facility] [address] [facility] (no room number, 1st floor of clinic) documented in this encounter Visit Diagnoses Diagnosis Nexplanon insertion - Primary Insertion of implantable subdermal contr aceptive Insertion of implantable subdermal contr aceptive documented in this encounter Administered Medications Inactive Administered Medications - up to 3 most recent administrations Medication Order MAR Action Action Date Dose Rate Site etonogestrel (NEXPLANON) Given 10/25/2021 2:16 PM 68 mg Left Upper Arm subdermal implant 68 mg CDT 68 mg (1 each), Subdermal, ONCE, On Sun10/25/21 at 1430, For 1 dose, For Clinic Use Only. documented in this encounter Additional Health Concerns Assessment Noted Time PHQ-9 Depression Total Score: 2 09/21/2021 7:02 AM CDT documented as of this encounter Care Teams Chef De Cuisine Relationship Specialty Start Date End Date No Ref-Primary, Physician PCP - General 06/30/21 Minoo Daniels PA-C Assigned PCP 09/25/21 01/27/22 [address] [place], [place] [id number] documented as of this encounter
--- OUTSIDE RECORDS SUMMARY | 2022-05-05 01:05 | XMS_ITS | Encounter Summary ---
:1990 Author Organization [place] Address [facility] [place] [address] Care Team Providers Name Role Phone Lainey Brito MD Primary Care Provider [phone] Lainey Brito MD Unavailable Lainey Brito MD Unavailable Reason for Visit Reason Onset Date Comments Panel Management 05/23/2018 Encounter Details Date Type Department Care Team Description 05/23/2018 Telephone [facility] Lainey Brito, Panel Management Eliza BROOKS [address] [facility] [address] [place] [phone] [place] [address] (Wo rk) Social History Tobacco Use Types Packs/Day Years Used Date Smoking Tobacco: Every Day Smokeless Tobacco: Never Alcohol Use Standard Drinks/Week Comments Yes 0 (1 standard drink = 0.6 oz pure alcoho l) occ Sex Assigned at Date Recorded Not on file documented as of this encounter Miscellaneous Notes Telephone Encounter - Gemma Peter - 06/06/2018 9:42 AM CST Sent patient letter and PHQ 9 Gemma Peter Loss Prevention Representative R ASSEMBLER Telephone Encounter - Payton Martinez - 05/30/2018 8:56 AM CST 2nd attempt. LVM to call clinic. Pt is due for a DAP and PHQ9. JOSE Holbrook R ASSEMBLER Telephone Encounter - Jorge Miramontes CMA - 05/23/2018 4:37 PM CST Panel Management Review Patient has the following on her problem list: Depression / Dysthymia review Measure: Needs PHQ-9 score of 4 or less during index window. Administer PHQ-9 and if score is 5 or more, send encounter to provider for next steps. 5 - 7 month window range: yes PHQ-9 SCORE 01/16/2018 02/07/2018 02/13/2018 PHQ-9 Total Score 17 16 13 If PHQ-9 recheck is 5 or more, route to provider for next steps. Patient is due for: PHQ9 and DAP Composite cancer screening Chart review shows that this patient is due/due soon for the following None Summary: Patient is due/failing the following: DAP and PHQ9 Action needed: Patient needs to do PHQ9. Type of outreach: Phone, left message for patient to call back. Questions for provider review: None Jorge Miramontes CMA Chart routed to Care Team . R ASSEMBLER documented in this encounter Plan of Treatment Not on filedocumented as of this encounter Visit Diagnoses Not on filedocumented in this encounter Additional Health Concerns Assessment Noted Time PHQ-9 Depression Total Score: 13 02/14/2018 7:19 AM CD T documented as of this encounter Care Teams Packing Checker Relationship Specialty Start Date End Date Lainey Brito MD PCP - General Family Practice 10/23/17 06/29/21 [address] [place] [address] Lainey Brito MD PCP - Assigned PCP 10/05/17 08/20/18 [address] [place] [address] Lainey Brito MD Assigned PCP 10/05/17 07/12/19 [address] [place] [address] documented as of this encounter
--- OUTSIDE RECORDS SUMMARY | 2022-05-05 01:05 | XMS_ITS | Encounter Summary ---
:1990 Author Organization [place] Address [facility] [place] [address] Care Team Providers Name Role Phone Lainey Brito MD Primary Care Provider [phone] Harris Zaidi MD Unavailable Reason for Visit Reason Onset Date Comments Panel Management 09/05/2019 Encounter Details Date Type Department Care Team Description 09/05/2019 Telephone [facility] Eda Zaidi MD Panel Management [address] [address] [place] [address] [phone] Social History Tobacco Use Types Packs/Day Years Used Date Smoking Tobacco: Every Day Smokeless Tobacco: Never Alcohol Use Standard Drinks/Week Comments Yes 0 (1 standard drink = 0.6 oz pure alcoho l) occ Sex Assigned at Date Recorded Not on file documented as of this encounter Miscellaneous Notes Telephone Encounter - Akhtar, Zoya Tejada BORING MILL OPERATOR FOR METAL - 09/05/2019 2:49 PM CDT Panel Management Review Patient has the following on her problem list: Depression / Dysthymia review Measure: Needs PHQ-9 score of 4 or less during index window. Administer PHQ-9 and if score is 5 or more, send encounter to provider for next steps. 5 - 7 month window range: PHQ-9 SCORE 02/07/2018 02/13/2018 07/01/2019 PHQ-9 Total Score 16 13 17 Some encounter information is confidential and restricted. Go to Review Flowsheets activity to see all data. If PHQ-9 recheck is 5 or more, route to provider for next steps. Patient is due for: PHQ9 Composite cancer screening Chart review shows that this patient is due/due soon for the following None Summary: Patient is due/failing the following: PHQ9 Action needed: Patient needs to do PHQ9. Type of outreach: Dr. Zaidi requesting a phone visit - lmom Questions for provider review: None db Chart routed to . documented in this encounter Plan of Treatment Not on filedocumented as of this encounter Visit Diagnoses Not on filedocumented in this encounter Additional Health Concerns Assessment Noted Time PHQ-9 Depression Total Score: 17 07/01/2019 11:[address] documented as of this encounter Care Teams Sas Bi Developer Relationship Specialty Start Date End Date Lainey Brito MD PCP - General Family Practice 10/23/17 06/29/21 [address] [place] [address] Harris Zaidi MD Assigned PCP 07/13/19 07/03/20 [address] [place] [address] documented as of this encounter
--- OUTSIDE RECORDS SUMMARY | 2022-05-05 01:05 | XMS_ITS | Encounter Summary ---
:1990 Author Organization [place] Address [address] [place] [address] Care Team Providers Name Role Phone Lainey Brito MD Primary Care Provider [phone] Lainey Brito MD Unavailable Encounter Details Date Type Department Care Team Description 11/05/2020 Travel Social History Tobacco Use Types Packs/Day Years Used Date Smoking Tobacco: Every Day Smokeless Tobacco: Never Alcohol Use Standard Drinks/Week Comments Yes 0 (1 standard drink = 0.6 oz pure alcoho l) occ Sex Assigned at Date Recorded Not on file COVID-19 Exposure Response Date Recorded In the last month, have you been in contact with No / Unsure 11/05/2020 9:36 PM CDT someone who was confirmed or suspected to have Coronavirus / COVID-19? documented as of this encounter Plan of Treatment Not on filedocumented as of this encounter Visit Diagnoses Not on filedocumented in this encounter Additional Health Concerns Assessment Noted Time PHQ-9 Depression Total Score: 17 07/01/2019 11:[address] documented as of this encounter Care Teams Cloth Handler Relationship Specialty Start Date End Date Lainey Brito MD PCP - General Family Practice 10/23/17 06/29/21 [address] [place] [address] Lainey Brito MD Assigned PCP 07/04/20 02/12/21 [address] [place], [place] [address] documented as of this encounter
--- OUTSIDE RECORDS SUMMARY | 2022-05-05 01:05 | XMS_ITS | Encounter Summary ---
:1990 Author Organization [place] Address [address] [place] [address] Care Team Providers Name Role Phone Lainey Brito MD Primary Care Provider [phone] Lainey Brito MD Unavailable Reason for Visit Diagnostic Imaging XR (Routine) - Closed Specialty Diagnoses / Procedures Referred By Contact Refer red To Contact Diagnoses Left foot pain Hermelindo Cary MD Procedures XR Foot Left G/E 3 Views [address] [place], [place] [address] Referral ID Status Reason Start Date Expiration Date Visits Requ ested Visits Authorized [id number] Closed 10/31/2018 10/31/2019 1 1 Encounter Details Date Type Department Care Team Description 10/31/2018 Ancillary Procedure [facility] Hermelindo Cary Left foot pain Clinic Radha BROOKS [address] [place] [address], [address] [place] [address] [place], [place] [id number] Social History Tobacco Use Types Packs/Day Years Used Date Smoking Tobacco: Every Day Smokeless Tobacco: Never Alcohol Use Standard Drinks/Week Comments Yes 0 (1 standard drink = 0.6 oz pure alcoho l) occ Sex Assigned at Date Recorded Not on file documented as of this encounter Plan of Treatment Not on filedocumented as of this encounter Procedures Procedure Name Priority Date/Time Associated Diagnosis Comme nts XR FOOT LEFT G/E 3 Routine 10/31/2018 8:32 AM Left foot pain R esults for this VIEWS CDT procedure are i n the results section. documented in this encounter Results XR Foot Left G/E 3 Views (10/31/2018 [...] encounter Visit Diagnoses Diagnosis Left foot pain Pain in limb documented in this encounter Additional Health Concerns Assessment Noted Time PHQ-9 Depression Total Score: 13 10/10/2018 10:20 AM C DT documented as of this encounter Care Teams Grinding Mill Operator Relationship Specialty Start Date End Date Lainey Brito MD PCP - General Family Practice 10/23/17 06/29/21 [address] [place] [address] Lainey Brito MD Assigned PCP 10/05/17 07/12/19 [address] [place] [address] documented as of this encounter
--- OUTSIDE RECORDS SUMMARY | 2022-05-05 01:05 | XMS_ITS | Encounter Summary ---
:1990 Author Organization [place] Address [address] [place] [address] Care Team Providers Name Role Phone Harris Zaidi MD Unavailable No Ref-Primary, Physician Primary Care Provider Familia Nicole DO Unavailable Minoo Daniels PA-C Unavailable [phone] Familia Nicole DO Unavailable Minoo Daniels PA-C Unavailable [phone] Encounter Details Date Type Department Care Team Description 06/30/2021 Documentation Only INTERFACED REPORT Unknown, Provider Social History Tobacco Use Types Packs/Day Years Used Date Smoking Tobacco: Every Day Smokeless Tobacco: Never Alcohol Use Standard Drinks/Week Comments Yes 0 (1 standard drink = 0.6 oz pure alcoho l) occ Sex Assigned at Date Recorded Not on file COVID-19 Exposure Response Date Recorded In the last month, have you been in contact with No / Unsure 06/29/2021 11:48 PM CUSTOMER RETENTION REPRESENTATIVE someone who was confirmed or suspected to have Coronavirus / COVID-19? documented as of this encounter Plan of Treatment Not on filedocumented as of this encounter Visit Diagnoses Not on filedocumented in this encounter Additional Health Concerns Assessment Noted Time PHQ-9 Depression Total Score: 17 07/01/2019 11:[address] documented as of this encounter Care Teams Mortgage Processor Relationship Specialty Start Date End Date No Ref-Primary, Physician PCP - General 06/30/21 Harris Zaidi MD Assigned PCP 02/13/21 09/10/21 [address] [place] [address] Familia Nicole DO Assigned PCP 09/11/21 09/24/21 [address] [place] [address] Minoo Daniels PA-C Assigned PCP 09/25/21 01/27/22 [address] [place] [address] Familia Nicole DO Assigned PCP 01/28/22 04/07/22 [address] [place] [address] Minoo Daniels PA-C Assigned PCP 04/08/22 [address] [place] [address] documented as of this encounter
--- OUTSIDE RECORDS SUMMARY | 2022-05-05 01:05 | XMS_ITS | Encounter Summary ---
:1990 Author Organization [place] Address [facility] [place] [address] Care Team Providers Name Role Phone Lainey Brito MD Primary Care Provider [phone] Lainey Brito MD Unavailable Harris Zaidi MD Unavailable Lainey Brito MD Unavailable Harris Zaidi MD Unavailable No Ref-Primary, Physician Primary Care Provider Familia Nicole DO Unavailable Minoo Daniels PA-C Unavailable [phone] Familia Nicole DO Unavailable Minoo Daniels PA-C Unavailable [phone] Reason for Visit Reason Onset Date Comments CD Outpatient 09/25/2018 eval Encounter Details Date Type Department Care Team Description 09/25/2018 Telephone [facility] Generic, Behavioral CD Outpatient (eval ) Behavioral Health MD Elizabeth Intake [address] [place] [address] Social History Tobacco Use Types Packs/Day Years Used Date Smoking Tobacco: Every Day Smokeless Tobacco: Never Alcohol Use Standard Drinks/Week Comments Yes 0 (1 standard drink = 0.6 oz pure alcoho l) occ Sex Assigned at Date Recorded Not on file documented as of this encounter Miscellaneous Notes Telephone Encounter - Bolivar Williamson - 09/25/2018 12:59 PM CDT Pt seeking eval due etoh No legal No MH dep stopped meds No med documented in this encounter Plan of Treatment Not on filedocumented as of this encounter Visit Diagnoses Not on filedocumented in this encounter Additional Health Concerns Assessment Noted Time PHQ-9 Depression Total Score: 13 02/14/2018 7:19 AM CD T documented as of this encounter Care Teams Cottage Supervisor Relationship Specialty Start Date End Date Lainey Brito MD PCP - General Family Practice 10/23/17 06/29/21 [address] [place] [address] No Ref-Primary, Physician PCP - General 06/30/21 Lainey Brito MD Assigned PCP 10/05/17 07/12/19 [address] [place] [address] Harris Zaidi MD Assigned PCP 07/13/19 07/03/20 [address] [place] [address] Lainey Brito MD Assigned PCP 07/04/20 02/12/21 [address] [place] [address] Harris Zaidi MD Assigned PCP 02/13/21 09/10/21 [address] [place] [address] Familia Nicole DO Assigned PCP 09/11/21 09/24/21 [address] [place] [address] Minoo Daniels PA-C Assigned PCP 09/25/21 01/27/22 [address] [place] [address] Familia Nicole DO Assigned PCP 01/28/22 04/07/22 [address] [place] [address] Minoo Daniels PA-C Assigned PCP 04/08/22 [address] [place] [address] documented as of this encounter
--- OUTSIDE RECORDS SUMMARY | 2022-05-05 01:05 | XMS_ITS | Encounter Summary ---
:1990 Author Organization [place] Address [facility] [place] [address] Care Team Providers Name Role Phone Lainey Brito MD Primary Care Provider [phone] Lainey Brito MD Unavailable Encounter Details Date Type Department Care Team Description 07/01/2019 Travel Social History Tobacco Use Types Packs/Day [...] documented as of this encounter Care Teams Resident Care Associate Relationship Specialty Start Date End Date Lainey Brito MD PCP - General Family Practice 10/23/17 06/29/21 [address] [place] [address] Lainey Brito MD Assigned PCP 10/05/17 07/12/19 [address] [place] [address] documented as of this encounter
--- OUTSIDE RECORDS SUMMARY | 2022-05-05 01:05 | XMS_ITS | Encounter Summary ---
:1990 Author Organization [place] Address [facility] [place] [address] Care Team Providers Name Role Phone Lainey Brito MD Primary Care Provider [phone] Lainey Brito MD Unavailable Encounter Details Date Type Department Care Team Description 10/10/2018 Travel Social History Tobacco Use Types Packs/Day [...] documented as of this encounter Care Teams Dairy Management Specialist Relationship Specialty Start Date End Date Lainey Brito MD PCP - General Family Practice 10/23/17 06/29/21 [address] [place] [address] Lainey Brito MD Assigned PCP 10/05/17 07/12/19 [address] [place] [address] documented as of this encounter
--- OUTSIDE RECORDS SUMMARY | 2022-05-05 01:05 | XMS_ITS | Encounter Summary ---
:1990 Author Organization [place] Address [facility] [place] [address] Care Team Providers Name Role Phone Lainey Brito MD Primary Care Provider [phone] Lainey Brito MD Unavailable Encounter Details Date Type Department Care Team Description 10/31/2018 Travel Social History Tobacco Use Types Packs/Day [...] documented as of this encounter Care Teams Animal Caretaker Relationship Specialty Start Date End Date Lainey Brito MD PCP - General Family Practice 10/23/17 06/29/21 [address] [place] [address] Lainey Brito MD Assigned PCP 10/05/17 07/12/19 [address] [place] [address] documented as of this encounter
--- OUTSIDE RECORDS SUMMARY | 2022-05-05 01:05 | XMS_ITS | Encounter Summary ---
:1990 Author Organization [place] Address [facility] [place] [address] Care Team Providers Name Role Phone No Ref-Primary, Physician Primary Care Provider [phone] Familia Nicole DO Unavailable Reason for Visit Reason Comments Contraception Neck Pain Encounter Details Date Type Department Care Team Description 09/20/2021 Office Visit [facility] Minoo Daniels for initial prescription of transdermal patch hormonal contraceptive device (Primary Dx); Clinic [place] LUIS ALBERTO Arguelles Cervicalgia [address] [facility] [address] [place] [id number] [id number] Social History Tobacco Use Types Packs/Day Years [...] Reading Time Taken Comments Blood Pressure 108/72 09/20/2021 3:01 PM CDT Pulse 84 09/20/2021 3:01 PM CDT Temperature 36.7 ??C (98.1 ??F) 09/20/2021 3:01 PM CDT Respiratory Rate 18 09/20/2021 3:01 PM CDT Oxygen Saturation 99% 09/20/2021 3:01 PM CDT Inhaled Oxygen Concentration - - Weight 82.7 kg (182 lb 4.8 oz) 09/20/2021 3:01 PM CDT Height 160 cm (5' 3) 09/20/2021 3:01 PM CDT Body Mass Index 32.29 09/20/2021 3:01 PM CDT documented in this encounter Progress Notes José Johnson - 09/20/2021 3:00 PM CDT Pre-Visit Planning Next 5 appointments (look out 90 days) Sep 20, 2021 3:00 PM (Arrive by 2:40 PM) Provider Visit with Minoo Daniels PA-C [facility] ([facility] ) [id number] [place] [id number] Appointment Notes for this encounter: NECK AND CONTROL FROM PREVIOUS ISSUES Questionnaires Reviewed/Assigned No additional questionnaires are needed Patient preferred phone number: [phone] Unable to reach. Left voicemail. Advised patient to call clinic back at [phone]. Minoo Daniels PA-C - 09/20/2021 3:00 PM CDT Assessment & Plan Encounter for initial prescription of transdermal patch hormonal contraceptive device Pt would like nexplanon. Will quit smoking. Understands if still smoking by the time she turns 35 she will not be able to use the nexplanon. Cervicalgia - methylPREDNISolone (MEDROL DOSEPAK) 4 MG tablet therapy pack; Follow Package Directions - cyclobenzaprine (FLEXERIL) 5 MG tablet; Take 1-2 tablets (5-10 mg) by mouth 3 times daily as needed for muscle spasms Tobacco Cessation: reports that she has been smoking cigarettes. She has never used smokeless tobacco. BMI: Estimated body mass index is 32.29 kg/m?? as calculated from the following: Height as of this encounter: 1.6 m (5' 3). Weight as of this encounter: 82.7 kg (182 lb 4.8 oz). Return in about 2 days (around 09/22/2021) for Contraception Placement. [facility] 30 year [facility] who presents for the following health issues Contraception [facility]v Hpi General Questionnaire Question 09/20/2021 ??2:55 PM CDT - Incomplete I understand that completing this form is intended to provide my doctor and/or care team with helpful information for my upcoming clinic visit. It is not to notify my doctor and/or care team of medicalmatters requiring urgent attention. If I have an urgent medical matter, I should call 911 or my doctor's office. Acknowledge For what are you coming to see the doctor today? Headaches Other Patient has questions about control: Patient has neck pain: burning sensation between shoulder blades. Has pain leaning forward and backwardAnswers for HPI/ROS submitted by the patient on 09/20/2021 PHQ9 TOTAL SCORE: 2 Additional complaints: None HPI additional notes: Trinity presents today with Chief Complaint Patient presents with ??? Contraception ??? Neck Pain Declines IUD, nuva ring, does not want to take a pill daily. Review of Systems Constitutional, HEENT, cardiovascular, pulmonary, gi and gu systems are negative, except as otherwise noted. Objective BP 108/72 (BP Location: Right arm, Patient Position: Sitting, Cuff Size: Adult Regular) Pulse 84 Temp 98.1 ??F (36.7 ??C) (Oral) Resp 18 Ht 1.6 m (5' 3) Wt 82.7 kg (182 lb 4.8 oz) SpO2 99% BMI 32.29 kg/m?? Body mass index is 32.29 kg/m??. Physical Exam Physical Exam GENERAL: healthy, alert, in no acute distress MS: tenderness to palpation of vertebral bodies of cervical spine. FROM with some pain. SKIN: no suspicious lesions, no rashes PSYCH: Alert and oriented times 3; Able to articulate logical thoughts. Affect is normal. documented in this encounter Plan of Treatment Not on filedocumented as of this encounter Visit Diagnoses Diagnosis Encounter for initial prescription of tr ansdermal patch hormonal contraceptive device - Primary Cervicalgia documented in this encounter Additional Health Concerns Assessment Noted Time PHQ-9 Depression Total Score: 2 09/21/2021 7:02 AM CDT documented as of this encounter Care Teams Analytical Consultant Relationship Specialty Start Date End Date No Ref-Primary, Physician PCP - General 06/30/21 Familia Nicole DO Assigned PCP 09/11/21 09/24/21 [id number] [place] [address] documented as of this encounter
--- OUTSIDE RECORDS SUMMARY | 2022-05-05 01:05 | XMS_ITS | Encounter Summary ---
:1990 Author Organization [place] Address [facility] [place] [address] Care Team Providers Name Role Phone Lainey Brito MD Primary Care Provider Lainey Brito MD Unavailable Reason for Visit Reason Onset Date Comments Foot Pain 10/31/2018 More meds Encounter Details Date Type Department Care Team Description 10/31/2018 Telephone [facility] Lainey Brito Foot P ain (More meds) [place] [address] [place] [address] [phone] Social History Tobacco Use Types Packs/Day Years Used Date Smoking Tobacco: Every Day Smokeless Tobacco: Never Alcohol Use Standard Drinks/Week Comments Yes 0 (1 standard drink = 0.6 oz pure alcoho l) occ Sex Assigned at Date Recorded Not on file documented as of this encounter Miscellaneous Notes Telephone Encounter - Jo Almanza RN - 10/31/2018 12:54 PM CDT Patient calling wondering if there is something you could give her to take every 2 hours or so for pain. She states that she just can't wait every 6 hours to take the Freedom. She is having so much pain.I advised her to take Ibuprofen or Tylenol in between and she said that does not work. She would like something else. Please advise further. Dr. Cary is gone for the rest of the day so sending to patient's PCP who she saw last. Jo Almanza, RN documented in this encounter Plan of Treatment Not on filedocumented as of this encounter Visit Diagnoses Diagnosis Left foot pain - Primary Pain in limb documented in this encounter Additional Health Concerns Assessment Noted Time PHQ-9 Depression Total Score: 13 10/10/2018 10:20 AM C DT documented as of this encounter Care Teams Flight Line Service Attendant Relationship Specialty Start Date End Date Lainey Brito MD PCP - General Family Practice 10/23/17 06/29/21 [address] [place] [address] Lainey Brito MD Assigned PCP 10/05/17 07/12/19 [address] [place] [address] documented as of this encounter
--- OUTSIDE RECORDS SUMMARY | 2022-05-05 01:05 | XMS_ITS | Encounter Summary ---
:1990 Author Organization [employer] Address [facility] [place] [address] Care Team Providers Name Role Phone Harris Zaidi MD Unavailable No Ref-Primary, Physician Primary Care Provider Reason for Visit Reason Comments Neck Pain Contraception Encounter Details Date Type Department Care Team Description 09/06/2021 Office Visit [facility] Familia Nicole, Tobacco use disorder (Primary Dx); Clinic [place] DO Encounter for initial prescription of tr ansdermal patch hormonal contraceptive device [address] [facility] [address] [place] [phone] Social History Tobacco Use Types Packs/Day Years [...] Sign Reading Time Taken Comments Blood Pressure 102/62 09/06/2021 2:37 PM CDT Pulse 104 09/06/2021 2:37 PM CDT Temperature 36.9 ??C (98.4 ??F) 09/06/2021 2:37 PM CDT Respiratory Rate 14 09/06/2021 2:37 PM CDT Oxygen Saturation 98% 09/06/2021 2:37 PM CDT Inhaled Oxygen Concentration - - Weight 83.9 kg (185 lb) 09/06/2021 2:37 PM CDT Height - - Body Mass Index 32.77 06/29/2021 11:51 PM [employer]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 Try to return for a preventive health visit sometime this year. Patient Education Ortho Evra Weekly Transdermal Patch 150 mcg/35 mcg per day Uses For control. Instructions DO NOT take this medicine by mouth. Avoid placing the patch near the breast. Keep the medicine at room temperature. Avoid heat and direct light. This patch should not be cut. Wash your hands before and after handling this medicine. Remove old patch before applying new one. Change the location of the new patch. Do not use if the pouch containing the medicine is torn or damaged. Ask your doctor or pharmacist about locations on your body where this patch can be used. Remove the plastic liner that protects the sticky side of the patch before applying to the skin. Be sure the area of skin is clean and dry before putting on a new patch. Apply the patch to a clean, dry, hairless area. Do not shave the hair. It irritates the skin. If needed, use scissors to cut the hair close to the skin. Do not use soap, oils, or alcohol on the area of the skin before applying the patch. Use only water and gently pat dry. Do not rub the skin. Press the patch firmly for a few seconds to make sure it stays in place. If the patch does not stick, speak with your doctor or pharmacist. Do not cover the patch with bandage or tape unless instructed by your doctor or pharmacist. After removing the patch, fold it together and discard it out of reach of children and pets. Use a patch disposal unit to seal close the used patch before putting it into the trash. Avoid getting the medicine in the eyes, nose, or mouth. Wash the medicine off your fingers after applying it. Do not dispose of a used patch by flushing it into the toilet. Put the patch on a different area each time. Wait at least one week before using the same location again. Apply the patch only to normal looking skin. Avoid areas of the skin that are red, have scrapes, or damaged. You can bathe, swim or shower while wearing the patch. Clothing may be worn over the patch. This medicine may cause dark patches to appear on your face. Avoid sunlight and use sunscreen lotionto minimize further darkening of these skin patches. Avoid prolonged or excessive sunlight exposure. Use sunscreen lotion with SPF 15 or higher. Remove patch if it causes pain or burning. Please tell your doctor and pharmacist about all the medicines you take. Include both prescription and [id number] medicines. Also tell them about any vitamins, herbal medicines, or anything else you take for your health. This medicine may affect your blood sugar levels. If you have diabetes, talk to your doctor before changing the dose of your diabetes medicine. It is very important that you keep all appointments for medical exams and tests while on this medicine. Do not use more than 1 patch at any one time. Cautions Some patients taking this medicine have experienced serious side effects. Please speak with your doctor to understand the risks and benefits associated with this medicine. This medicine is associated with an increased risk for serious blood clots. Speak with your doctor about the benefits and risks from using this medicine. This medicine is associated with an increased risk of serious heart problems, heart attack, and stroke. Please speak with your doctor about the risks and benefits of using this medicine. Contact your doctor immediately if you experience chest pain or difficulty breathing. Tell your doctor and pharmacist if you ever had an allergic reaction to a medicine. Symptoms of an allergic reaction can include trouble breathing, skin rash, itching, swelling, or severe dizziness. Do not use the medication any more than instructed. Avoid smoking while on this medicine. Smoking may increase your risk for stroke, heart attack, bloodclots, high blood pressure, and other diseases of the heart and blood vessels. Ask your doctor to show you how to perform a self breast examination. You should check your breasts once a month and report any changes to your doctor. Talk to your doctor about getting a complete physical exam every year while on this medicine. Tell the doctor or pharmacist if you are , planning to be , or . Do not use this medicine if you are . If you become while on this medicine, contactyour doctor immediately. Do not take [place]'s wort while on this medicine. Ask your pharmacist if this medicine can interact with any of your other medicines. Be sure to tell them about all the medicines you take. Please tell all your doctors and dentists that you are on this medicine before they provide care. It is important that you keep taking each dose of this medicine on time even if you are feeling well. If you forget to take a dose on time, take it as soon as you remember. If it is almost time for the next dose, do not take the missed dose. Return to your normal dosing schedule. Do not take 2 doses ofthis medicine at one time. Do not start or stop any other medicines without first speaking to your doctor or pharmacist. Do not share this medicine with anyone who has not been prescribed this medicine. Call your doctor if you have a skin reaction that does not improve within 2 days of removing the patch. Side Effects The following is a list of some common side effects from this medicine. Please speak with your doctor about what you should do if you experience these or other side effects. ?? bloating ?? breast pain or swelling ?? headaches ?? brown colored patches on the face ?? nausea ?? skin irritation where medicine is applied ?? stomach upset or abdominal pain ?? vomiting ?? weight gain Call your doctor or get medical help right away if you notice any of these more serious side effects: ?? increased risk of a blood clot ?? breast lumps ?? increased risk of cancer ?? chest pain ?? changes in memory, mood, or thinking ?? swelling of the legs, feet, and hands ?? fainting ?? severe or persistent headache ?? jaw pain ?? sudden leg pain, swelling, warmth or redness ?? symptoms of liver damage (such as yellowing of skin or eyes, dark urine, unusual tiredness or weakness; severe stomach or back pain) ?? shortness of breath ?? symptoms of stroke (such as one-sided weakness, slurred speech, confusion) ?? sweating ?? cramping of the uterus or bleeding from the vagina ?? vaginal bleeding or spotting between periods ?? blurring or changes of vision A few people may have an allergic reactions to this medicine. Symptoms can include difficulty breathing, skin rash, itching, swelling, or severe dizziness. If you notice any of these symptoms, seek medical help quickly. Extra Please speak with your doctor, nurse, or pharmacist if you have any questions about this medicine. [email or web address] IMPORTANT NOTE: This document tells you briefly how to take your medicine, but it does not tell you all there is to know about it.Your doctor or pharmacist may give you other documents about your medicine. Please talk to them if you have any questions.Always follow their advice. There is a more complete description of this medicine available in Hungarian.Scan this code on your smartphone or tablet or use the web address below. You can also ask your pharmacist for a printout. If you have any questions,please ask your pharmacist. ?? 2020 [employer]. documented in this encounter Progress Notes José Johnson - 09/06/2021 2:30 PM CDT Pre-Visit Planning Next 5 appointments (look out 90 days) Sep 06, 2021 2:30 PM (Arrive by 2:10 PM) Provider Visit with Familia Nicole DO [facility] ([facility] ) [id number] [place] [id number] Appointment Notes for this encounter: Neck pain and might have pulled something, has pressure, and control options Questionnaires Reviewed/Assigned No additional questionnaires are needed Patient preferred phone number: [phone] Unable to reach. Left voicemail. Advised patient to call clinic back at [phone]. Familia Nicole DO - 09/06/2021 2:30 PM CDT Assessment & Plan See after visit summary for helpful information and advice given to patient. Encounter for initial prescription of transdermal patch hormonal contraceptive device - norelgestromin-ethinyl estradiol (ORTHO EVRA) 150-35 MCG/24HR patch Dispense: 9 patch; Refill: 3 Tobacco use disorder - nicotine (NICODERM CQ) 7 MG/24HR 24 hr patch Dispense: 14 patch; Refill: 1 Tobacco Cessation: reports that she has been smoking cigarettes. She has never used smokeless tobacco. BMI: Estimated body mass index is 32.77 kg/m?? as calculated from the following: Height as of 06/29/21: 1.6 m (5' 3). Weight as of this encounter: 83.9 kg (185 lb). Return in about 3 months (around 12/07/2021). Familia DO [facility] is a 30 year old who presents for the following health issues History of Present Illness Mental Health Follow-up: Today's PHQ-9 PHQ-9 Total Score: 5 PHQ-9 Q9 Thoughts of better off /self-harm past 2 weeks : (P) Not at all How difficult have these problems made it for you to do your work, take care of things at home, or get along with other people: Not difficult at all Today's CARLOS-7 Score: 7 Reason for visit: control Symptom onset: More than a month Symptom intensity: Mild She eats 2-3 servings of fruits and vegetables daily.She consumes 3 sweetened beverage(s) daily.She exercises with enough effort to increase her heart rate 30 to 60 minutes per day. She exercises with enough effort to increase her heart rate 7 days per week. She is missing 2 dose(s) of medications perweek. PHQ-9 SCORE 02/13/2018 07/01/2019 09/06/2021 PHQ-9 Total Score MyChart - - 5 (Mild depression) PHQ-9 Total Score 13 17 5 Some encounter information is confidential and restricted. Go to Review Flowsheets activity to see all data. CARLOS-7 SCORE 02/13/2018 07/01/2019 09/06/2021 Total Score - - 7 (mild anxiety) Total Score 16 13 7 Some encounter information is confidential and restricted. Go to Review Flowsheets activity to see all data. Was on nexplanon before and didn't like it. Gained weight after Depo. Not sure what to go with. Review of Systems Patient is seen for primary reason of wanting to discuss control options. Another concern is neck discomfort. Patient had neck pain in T1 spinus process area which was especially bad about 3 weeks ago. It is trending better. Is hurts with forward and backward neck movement. She states she does not need any referral for treatment or medication management, she will just give it time. No reported head or neck trauma. She does not want to do a BC shot, and she does not want an implant under skin for contraception. She does not feel she will reliably take oral. She is currently menstruating, having started this about 24 hours ago. She tolerated using Ortho Evra patch in the past. Patient smokes 1/4 PPD, and states will quit with starting control. She was agreeable to my suggestion of using a nicotine transdermal patch if needed to help with tobacco use sensation. Objective BP 102/62 Pulse 104 Temp 98.4 ??F (36.9 ??C) (Oral) Resp 14 Wt 83.9 kg (185 lb) SpO2 98% BMI 32.77 kg/m?? Body mass index is 32.77 kg/m??. Physical Exam Vital signs reviewed. Patient is in no acute appearing distress. Breathing appears nonlabored. Patient is alert and oriented ??3. Patient is very pleasant, making good eye contact and responding with clear fluent speech. Neck exam: Patient has normal active range of motion of head and neck with no significant discomfortat exam. Heart: Heart rate is regular without murmur. Lungs: Lungs are clear to auscultation with good airflow bilaterally. Skin/extremities: Warm and dry, with no lower leg edema. documented in this encounter Plan of Treatment Not on filedocumented as of this encounter Visit Diagnoses Diagnosis Tobacco use disorder - Primary Encounter for initial prescription of tr ansdermal patch hormonal contraceptive device documented in this encounter Additional Health Concerns Assessment Noted Time PHQ-9 Depression Total Score: 5 09/07/2021 7:02 AM CDT documented as of this encounter Care Teams Collections Curator Relationship Specialty Start Date End Date No Ref-Primary, Physician PCP - General 06/30/21 Harris Zaidi MD Assigned PCP 02/13/21 09/10/21 [address] [place] [address] documented as of this encounter
--- OUTSIDE RECORDS SUMMARY | 2022-05-05 01:05 | XMS_ITS | Encounter Summary ---
:1990 Author Organization [place] Address [facility]0 [facility] 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 Reason for Visit Reason Comments Establish Care Encounter Details Date Type Department Care Team Description 07/01/2019 Office Visit [facility] Harris Zaidi MD Generalized anxiety disorder (Primary Dx ); Clinic [address] Severe major depression (H) [address] [place] [id number] [phone] Social History Tobacco Use Types Packs/Day Years Used Date Smoking Tobacco: Every Day Smokeless Tobacco: Never Alcohol Use Standard Drinks/Week Comments Yes 0 (1 standard drink = 0.6 oz pure alcoho l) occ Sex Assigned at Date Recorded Not on file documented as of this encounter Last Filed Vital Signs Vital Sign Reading Time Taken Comments Blood Pressure 124/72 07/01/2019 10:43 AM WATERPROOFING MACHINE OPERATOR Pulse 59 07/01/2019 10:43 AM WATERPROOFING MACHINE OPERATOR Temperature 37.2 ??C (98.9 ??F) 07/01/2019 10:43 AM WATERPROOFING MACHINE OPERATOR Respiratory Rate 18 07/01/2019 10:43 AM WATERPROOFING MACHINE OPERATOR Oxygen Saturation 99% 07/01/2019 10:43 AM WATERPROOFING MACHINE OPERATOR Inhaled Oxygen Concentration - - Weight 77.1 kg (170 lb) 07/01/2019 10:43 AM WATERPROOFING MACHINE OPERATOR Height 163.2 cm (5' 4.25) 07/01/2019 10:43 AM WATERPROOFING MACHINE OPERATOR Body Mass Index 28.95 07/01/2019 10:43 AM WATERPROOFING MACHINE OPERATOR documented in this encounter Patient Instructions Patient InstructionsHarris Zaidi MD - 07/01/2019 10:40 AM CST Images from the original note were not included. Patient Education Counseling for Depression For some people, counseling, also called talk therapy, has been found to be as effective as medicinefor mild to moderate depression. When done by a trained professional, this treatment is a powerful way to better understand your thoughts and feelings. Like medicine, it may take time before you noticehow much counseling is helping. Kinds of talk therapy Different counselors use different methods for talk therapy. But all therapy aims to help change howyou think about your problem. Most therapy for depression is often done one-on-one. But it may also be done in a group setting. You and your healthcare provider can discuss the type of therapy you think would work best for you. You can also discuss who the best person is to provide the therapy. How therapy helps Talking about your problems can help them seem less overwhelming. It can help work through problems you have with your life and your relationships. It can also help you understand how depression is clouding your thinking, not letting you see the world the way it really is. Therapy can give you: ?? Insight about your emotions ?? New tools for dealing with your problems ?? Emotional support for making progress Getting better takes time Talk therapy can help you feel better. But change doesn???t happen right away. Depression takes awayyour energy and motivation. So it can be hard to feel like going to therapy and sticking with it. But therapy has been proven to be very valuable in the treatment of depression. Therapy for depression is often done for a set number of sessions. In other cases, you and your therapist decide together atwhat point you no longer need therapy. Additional sources of help In addition to a professional counselor, it may help to talk to other people in your life. You may find support and insight from: ?? A close friend or family member ?? A committee member trained in counseling ?? A local support group or community group ?? A 12-step program (such as Alcoholics Anonymous) for dealing with problems that can contribute todepression, such as alcohol or drug addiction Date Last Reviewed: 06/18/2016 ?? [id number] [employer]. [address] [place] [address]. All rights reserved. This information is not intended as a substitute for professional medical care. Always follow your healthcare professional's instructions. RPROOFING MACHINE OPERATOR documented in this encounter Progress Notes Harris Zaidi MD - 07/01/2019 10:40 AM CST Subjective Trinity Odell is a 28 year old female who presents to clinic today for the following health issues: HPI Patient is a pleasant 28-year-old female who presents the clinic with concerns for anxiety and depression. Is my first encounter with the patient, reportedly she is lost to care and did not follow through with previous appointments from her assigned PCP. Start the visit by saying she needs to get her life together. Has suffered from anxiety and depression throughout her entire life and has only worsened. Per chart review she was prescribed Cymbalta andProzac however did not tolerate the medication well as she had side effects of palpitations and chest tightness. Subsequently self discontinued and was lost to follow-up. She has been on other medical therapy in the past however she does not recall these medications. She is also interested in restarting counseling. Patient reports she had a difficult childhood when growing up, there is a strong family history of anxiety depression and bipolar disorder as her mom was diagnosed with this early on. She grew up only with her mom as her dad was . Her biological dad all for self also suffered from alcoholism.Patient currently works at [employer] and admits that her drinking is also out of control. She oftengoes to the bar where she would drink to excess and sometimes blackout. She has no history of DUIs however she is concerned that she may get one if this habit persists. Current motivating factor is her 6-year-old child's name is Robbie. She wants to get herself yuliya good treatment so that she can be there for him. Continues to smoke however denies using any illicit substances to relax him. She does admit to spending money and access especially after having good tips from a good shift however denies any overt manic symptoms such as the decreased need for sleep, staying up for several nights in a row or feelings of driven by a motor. She does not hear voices or seeing objects that others are not seeing or hearing. She would like to make a follow-up visit and also for a preventative annual exam visit. Reviewed and updated as needed this visit by Provider Review of Systems Cardiovascular: Positive for palpitations. Psychiatric/Behavioral: Negative for hallucinations and suicidal ideas. The patient is nervous/anxious. Medications updated and reviewed. Past, family and surgical history is updated and reviewed in the record. No past medical history on file. Family History Problem Relation Age of Onset ??? Depression Mother ??? Anxiety Disorder Mother ??? Bipolar Disorder Mother ??? Depression Brother Objective BP 124/72 (BP Location: Right arm, Patient Position: Sitting, Cuff Size: Adult Regular) Pulse 59 Temp 98.9 ??F (37.2 ??C) (Oral) Resp 18 Ht 1.632 m (5' 4.25) Wt 77.1 kg (170 lb) SpO2 99% BMI 28.95 kg/m?? Body mass index is 28.95 kg/m??. Physical Exam Vitals signs reviewed. Cardiovascular: Rate and Rhythm: Normal rate and regular rhythm. Pulmonary: Effort: Pulmonary effort is normal. Breath sounds: Normal breath sounds. Neurological: Mental Status: She is alert. Psychiatric: Comments: Appears anxious. Initially guarded however when patient started opening up during the middle of our encounter, she had evidence of some pressured speech. She did have normal and linear thought content. Diagnostic Test Results: Labs reviewed in Epic Assessment & Plan 1. Generalized anxiety disorder Exacerbation of chronic problem due to medical nonadherence and intolerance of medications. CARLOS-7: 13 PHQ-17. Moderate to severe major depression and generalized anxiety disorder. PHQ 9 and CARLOS-7 reviewed. Restart medical therapy with Lexapro to be taken as a daily controller medication and Atarax for as needed for her anxiety. Start outpatient counseling and close follow-up in the next 2 to 4 weeks for reassessment. Continue to monitor for rogerio and gave anticipatory guidance to go to the emergency department if acutely suicidal. At interval visit recommend further discussion and evaluation for binge drinking and alcoholism. - EMOTIONAL / BEHAVIORAL ASSESSMENT - escitalopram (LEXAPRO) 10 MG tablet; Take 1 tablet (10 mg) by mouth daily Dispense: 30 tablet; Refill: 1 - hydrOXYzine (ATARAX) 25 MG tablet; Take 1 tablet (25 mg) by mouth 3 times daily as needed for anxiety Dispense: 60 tablet; Refill: 0 - EMOTIONAL / BEHAVIORAL ASSESSMENT - MENTAL HEALTH REFERRAL - Adult; Outpatient Treatment; Individual/Couples/Family/Group Therapy/Health Psychology; [facility]: [facility] ; We will contact you to schedule the ap pointment or please call with any questions 2. Severe major depression (H) Management as per above. - EMOTIONAL / BEHAVIORAL ASSESSMENT - escitalopram (LEXAPRO) 10 MG tablet; Take 1 tablet (10 mg) by mouth daily Dispense: 30 tablet; Refill: 1 - EMOTIONAL / BEHAVIORAL ASSESSMENT - MENTAL HEALTH REFERRAL - Adult; Outpatient Treatment; Individual/Couples/Family/Group Therapy/Health Psychology; [facility]: [facility] ; We will contact you to schedule the ap pointment or please call with any questions Return in about 1 month (around 08/01/2019) for Anxiety, depression.. Patient declined to make appointment with listed PCP. Harris Zaidi MD [facility] Documentation was prepared using [employer] voice recognition software. Please excuse typographical errors. Please contact me if documentation is unclear. RPROOFING MACHINE OPERATOR documented in this encounter Plan of Treatment Scheduled Referrals Name Type Priority Associated Diagnoses Order S [facility] MENTAL HEALTH REFERRAL - Referral Routine Generalized anxi ety Ordered: 07/01/2019 Adult; Outpatient disorder Treatment; Severe major depression Individual/Couples/Famil (H) y/Group Therapy/Health Psychology; [facility]: [facility] ; We will contact you to schedule the appointment or please call with any questions documented as of this encounter Visit Diagnoses Diagnosis Generalized anxiety disorder - Primary Severe major depression (H) Major depressive disorder, single episod e, severe, without mention of psychotic behavior documented in this encounter Additional Health Concerns Assessment Noted Time PHQ-9 Depression Total Score: 17 07/01/2019 11:[address] documented as of this encounter Care Teams Shear Scrapman Relationship Specialty Start Date End Date Lainey Brito MD PCP - General Family Practice 10/23/17 06/29/21 [address] [place] [address] Lainey Brito MD Assigned PCP 10/05/17 07/12/19 [address] [place] [address] documented as of this encounter
--- OUTSIDE RECORDS SUMMARY | 2022-05-05 01:05 | XMS_ITS | Encounter Summary ---
:1990 Author Organization [place] Address [address] [place] [address] Care Team Providers Name Role Phone Harris Zaidi MD Unavailable No Ref-Primary, Physician Primary Care Provider Encounter Details Date Type Department Care Team Description 08/22/2021 Travel Social History Tobacco Use Types Packs/Day Years Used Date Smoking Tobacco: Every Day Smokeless Tobacco: Never Alcohol Use Standard Drinks/Week Comments Yes 0 (1 standard drink = 0.6 oz pure alcoho l) occ Sex Assigned at Date Recorded Not on file COVID-19 Exposure Response Date Recorded In the last month, have you been in contact with No / Unsure 08/22/2021 8:13 AM VENEER MEASURER someone who was confirmed or suspected to have Coronavirus / COVID-19? documented as of this encounter Plan of Treatment Not on filedocumented as of this encounter Visit Diagnoses Not on filedocumented in this encounter Additional Health Concerns Assessment Noted Time PHQ-9 Depression Total Score: 17 07/01/2019 11:[address] documented as of this encounter Care Teams Corporate Health Consultant Relationship Specialty Start Date End Date No Ref-Primary, Physician PCP - General 06/30/21 Harris Zaidi MD Assigned PCP 02/13/21 09/10/21 [address] [place] [address] documented as of this encounter
--- OUTSIDE RECORDS SUMMARY | 2022-05-05 01:05 | XMS_ITS | Encounter Summary ---
:1990 Author Organization [place] Address [facility] [place] [address] Care Team Providers Name Role Phone No Ref-Primary, Physician Primary Care Provider Familia Nicole DO Unavailable Encounter Details Date Type Department Care Team Description 09/20/2021 Travel Social History Tobacco Use Types Packs/Day [...] documented as of this encounter Care Teams Microsoft Dynamics Ax Developer Relationship Specialty Start Date End Date No Ref-Primary, Physician PCP - General 06/30/21 Familia Nicole DO Assigned PCP 09/11/21 09/24/21 [address] [address] [place], [place] [id number] documented as of this encounter
--- OUTSIDE RECORDS SUMMARY | 2022-05-05 01:05 | XMS_ITS | Encounter Summary ---
:1990 Author Organization [place] Address [address] [place] [address] Care Team Providers Name Role Phone Lainey Brito MD Primary Care Provider [phone] Lainey Brito MD Unavailable Reason for Visit Diagnostic Imaging XR (Routine) - Closed Specialty Diagnoses / Procedures Referred By Contact Refer red To Contact Diagnoses Left foot pain Hermelindo Cary MD Procedures XR Ankle Left G/E [id number] [place] [address] [address] [place], [place] [address] Referral ID Status Reason Start Date Expiration Date Visits Requ ested Visits Authorized [id number] Closed 10/31/2018 10/31/2019 1 1 Encounter Details Date Type Department Care Team Description 10/31/2018 Ancillary Procedure [facility] Hermelindo Cary, Left foot pain Clinic Radha BROOKS [address] [place] [address], [address] [place] [address] [address] [place], [place] [id number] Social History Tobacco Use Types Packs/Day [...] Priority Date/Time Associated Diagnosis Comme nts XR ANKLE LEFT G/E 3 Routine 10/31/2018 8:40 AM Left foot pain Results for this VIEWS CDT procedure are i n the results section. documented in this encounter Results XR Ankle Left G/E [...] documented as of this encounter Care Teams Electrical Worker Relationship Specialty Start Date End Date Lainey Brito MD PCP - General Family Practice 10/23/17 06/29/21 [address] [place] [address] Lainey Brito MD Assigned PCP 10/05/17 07/12/19 [address] [place] [address] documented as of this encounter
--- OUTSIDE RECORDS SUMMARY | 2022-05-05 01:05 | XMS_ITS | Encounter Summary ---
:1990 Author Organization [place] Address [address] [place] [address] Care Team Providers Name Role Phone Harris Zaidi MD Unavailable No Ref-Primary, Physician Primary Care Provider [phone] Encounter Details Date Type Department Care Team Description 08/30/2021 Travel Social History Tobacco Use Types Packs/Day Years Used Date Smoking Tobacco: Every Day Smokeless Tobacco: Never Alcohol Use Standard Drinks/Week Comments Yes 0 (1 standard drink = 0.6 oz pure alcoho l) occ Sex Assigned at Date Recorded Not on file COVID-19 Exposure Response Date Recorded In the last month, have you been in contact with No / Unsure 08/30/2021 8:48 AM CDT someone who was confirmed or suspected to have Coronavirus / COVID-19? documented as of this encounter Plan of Treatment Not on filedocumented as of this encounter Visit Diagnoses Not on filedocumented in this encounter Additional Health Concerns Assessment Noted Time PHQ-9 Depression Total Score: 17 07/01/2019 11:[address] documented as of this encounter Care Teams Tv Technician Relationship Specialty Start Date End Date No Ref-Primary, Physician PCP - General 06/30/21 Harris Zaidi MD Assigned PCP 02/13/21 09/10/21 [address] [place] [address] documented as of this encounter
--- OUTSIDE RECORDS SUMMARY | 2022-05-05 01:05 | XMS_ITS | Encounter Summary ---
:1990 Author Organization [place] Address [facility] [place] [address] Care Team Providers Name Role Phone Lainey Brito MD Primary Care Provider [phone] Lainey Brito MD Unavailable Encounter Details Date Type Department Care Team Description 05/21/2019 Travel Social History Tobacco Use Types Packs/Day [...] documented as of this encounter Care Teams Baby Registry Sales Consultant Relationship Specialty Start Date End Date Lainey Brito MD PCP - General Family Practice 10/23/17 06/29/21 [address] [place] [address] Lainey Brito MD Assigned PCP 10/05/17 07/12/19 [address] [place] [address] documented as of this encounter
--- OUTSIDE RECORDS SUMMARY | 2022-05-05 01:05 | XMS_ITS | Encounter Summary ---
:1990 Author Organization [place] Address [facility]0 [place] [address] Care Team Providers Name Role Phone Lainey Brito MD Primary Care Provider [phone] Lainey Brito MD Unavailable Lainey Brito MD Unavailable Encounter Details Date Type Department Care Team Description 05/26/2018 [facility] Sam Flynn LMF T Major depressive Documentation Services [facility] disorder, [place] [address] [address] recurrent episode, [address] [place], [place] severe with [address] [address] anxious distress [place], [place] [phone] (H) (Primary D x) [phone] (Work) [phone] Social History Tobacco Use Types Packs/Day Years Used Date Smoking Tobacco: Every Day Smokeless Tobacco: Never Alcohol Use Standard Drinks/Week Comments Yes 0 (1 standard drink = 0.6 oz pure alcoho l) occ Sex Assigned at Date Recorded Not on file documented as of this encounter Progress Notes Sam Flynn LMFT - 05/26/2018 4:47 PM CST Images from the original note were not included. Discharge Summary Client not present Client Name: Trinity Odell Date: 1990 Intake / Discharge Date: 01/16/2018 // 05/26/2018 DSM5 Diagnoses: (Sustained by DSM5 Criteria Listed Above) Diagnoses: 296.33 (F33.2) Major Depressive Disorder, Recurrent Episode, Severe With anxious distress 300.02 (F41.1) Generalized Anxiety Disorder ?? Psychosocial &??Contextual Factors: Client is experiencing depression with anxious distress as aresult of accumulating life stressors, unresolved family problems and trauma. In addition, the client has abused alcohol for years which exacerbates her stressors. Presenting Concern: - Sx of depression related to family stress and unresolved family problems/trauma, financial hardship, alcohol use - Sx of anxiety related to financial stressors and family conflict - Hx of alcohol abuse Reason for Discharge: Client did not return Disposition at Time of Last Encounter: Comments: Client was in the preparation stage of treatment. It was recommended she do a CD intake for her issues with alcohol use. She would have benefited from continuing with therapy to learn coping strategiesand work towards her therapy goals. Risk Management: Client has had a history of suicidal ideation: Onset: 13 and frequency: ongoing. Client identified the following triggers to suicidal ideation: everything, family issues and denies a history of suicide attempts, self- injurious behavior, homicidal ideation, homicidal behavior and and other safety concerns A safety and risk management plan has been developed including: Client consented to co-developed safety plan. [facility]'s safety and risk management plan was completed. Client agreed to use safety plan should any safety concerns arise. A copy was given to the patient. Referred To: [facility] CD intake and client may resume counseling services at any time in the future by calling the [facility] Intake Office, . DOMINIQUE [place] 05/26/2018 ER BREWER documented in this encounter Plan of Treatment Not on filedocumented as of this encounter Visit Diagnoses Diagnosis Major depressive disorder, recurrent epi sode, severe with anxious distress (H) - Primary documented in this encounter Additional Health Concerns Assessment Noted Time PHQ-9 Depression Total Score: 13 02/14/2018 7:19 AM CD T documented as of this encounter Care Teams Client Professional Relationship Specialty Start Date End Date Lainey Brito MD PCP - General Family Practice 10/23/17 06/29/21 [address] [place] [address] Lainey Brito MD PCP - Assigned PCP 10/05/17 08/20/18 [address] [place] [address] Lainey Brito MD Assigned PCP 10/05/17 07/12/19 [address] [place] [address] documented as of this encounter
--- OUTSIDE RECORDS SUMMARY | 2022-05-05 01:05 | XMS_ITS | Encounter Summary ---
:1990 Author Organization [place] Address [facility] [place] [address] Care Team Providers Name Role Phone Lainey Brito MD Primary Care Provider [phone] Lainey Brito MD Unavailable Encounter Details Date Type Department Care Team Description 12/12/2018 Travel Social History Tobacco Use Types Packs/Day [...] documented as of this encounter Care Teams Test Center Administrator Relationship Specialty Start Date End Date Lainey Brito MD PCP - General Family Practice 10/23/17 06/29/21 [address] [place] [address] Lainey Brito MD Assigned PCP 10/05/17 07/12/19 [address] [place] [address] documented as of this encounter
--- NOTE | 2022-05-05 01:06 | ED_ITS ---
HPI - General Adult General Date Seen: 05/05/22 Chief complaint: Cough Stated complaint: Cough,congestion, Time Seen by Provider: 05/05/22 00:13 Source: patient Mode of arrival: ambulatory Limitations: no limitations History of Present Illness HPI narrative: 31-year-old female who was exposed to ill children two days ago presents with headaches, body aches, fever, cough. Her son has similar symptoms. She has not been wheezy or short of breath. She is eating and drinking well. No complaints of sore throat or ear pain. Related Data Previous Rx's Medication Instructions Recorded oseltamivir 75 mg capsule (Tamiflu) 75 mg PO BID 5 days #10 caps 05/05/22 Allergies Allergy/AdvReac Type Severity Reaction Status Date / Time No Known Drug Allergies Allergy Verified 05/05/22 00:17 Review of Systems Narrative: Review of systems is outlined above otherwise noted to be negative. [facility] Social History Smoking Status: Current some day smoker What tobacco products do you use: cigarettes How often do you have a drink containing alcohol: never AUDIT-C Alcohol total score: 0 Non-prescribed substance use: denies use Exam Narrative: Exam Narrative: Vitals noted. She does appear ill. HEENT: Conjunctiva clear. Tympanic membranes are pearly white bilaterally. Posterior pharynx is clear without erythema or exudate. Neck is supple without adenopathy, thyromegaly, carotid bruit. Lungs: Clear to auscultation in all bower. No wheezes, rales, rhonchi. Heart: Regular rate and rhythm without murmur. Extremities: No cyanosis or edema. Good distal pulses. Skin: No abnormalities noted of the exposed skin. Neurologic: Awake, alert, fully oriented. Neurologic exam is nonfocal. Const: Vital Signs, click to edit/add: Vital Signs - 24 hr 05/05/22 00:15 Temperature 98.4 F Pulse Rate [Left P ulse Oximeter] 86 Respiratory Rate 16 Blood Pressure [Le ft Upper Arm] 136/82 Pulse Oximetry 99 Oxygen Delivery Me thod Room Air Course Course Hospital Course: Patient was seen and examined. Triple swab was done and came back positive for influenza A. We discussed options of treating with Tamiflu verses just treating symptomatically and she prefers to try the Tamiflu. The natural course of the illness is discussed. Vital Signs Vital signs: Initial Vital Signs Temperature 98.4 F 05/05/22 00:15 Temperature Source Temporal Artery Scan 05/05/22 00:15 Pulse Rate 86 05/05/22 00:15 Pulse Rhythm 05/05/22 00:15 Respiratory Rate 16 05/05/22 00:15 Blood Pressure 136/82 05/05/22 00:15 Blood Pressure Mean 100 05/05/22 00:15 Blood Pressure Position Sitting 05/05/22 00:15 Pulse Oximetry 99 05/05/22 00:15 Oxygen Delivery Method 05/05/22 00:15 Vital Signs Temperature 98.4 F 05/05/22 00:15 Pulse Rate 86 05/05/22 00:15 Respiratory Rate 16 05/05/22 00:15 Blood Pressure 136/82 05/05/22 00:15 Pulse Oximetry 99 05/05/22 00:15 Oxygen Delivery Method 05/05/22 00:15 Temperature 98.4 F 05/05/22 00:15 Pulse Rate 86 05/05/22 00:15 Respiratory Rate 16 05/05/22 00:15 Blood Pressure 136/82 05/05/22 00:15 Pulse Oximetry 99 05/05/22 00:15 Oxygen Delivery Method 05/05/22 00:15 Medical Decision Making Lab Data Labs: Lab Results 05/05/22 Range/Units 00:12 SARS-CoV-2 (PCR) Negative SARS-CoV-2 (Negative) Influenza Type A (PCR) POSITIVE PCR FLU A A (Negative) Influenza Type B (PCR) Negative PCR FLU B (Negative) RSV (PCR) Negative PCR RSV (Negative) Discharge Plan Discharge Clinical Impression: Influenza A Patient Disposition: Home, Self-Care Condition: Stable Additional Instructions: Rest, fluids, Tylenol and ibuprofen for pain and fever. Tamiflu 75 mg twice daily for five days. Follow-up if no better over the next 3-5 days. Prescriptions: New oseltamivir [Tamiflu] 75 mg capsule 75 mg PO BID 5 Days Qty: 10 0RF Follow Up/Referrals: Generic,Amb Provider [Primary Care Provider] - Stand Alone Forms: MyHealth Info Instructions
--- OUTSIDE RECORDS SUMMARY | 2022-05-05 01:06 | XMS_ITS | Encounter Summary ---
:1990 Author Organization [facility] Address [address], [place] [address] Care Team Providers Name Role Phone Unassigned, Provider Primary Care Provider Unavailable Reason for Visit Reason Comments Dental Conversion [facility] EDR to [facility]rix convers ion Encounter Details Date Type Department Care Team Description 11/23/2016 Dental Conversion [facility] Interface, [facility] Dental Conversion [address] [place] [address] Social History Tobacco Use Types Packs/Day Years Used Date Smoking Tobacco: Never Assessed Sex Assigned at Date Recorded Not on file documented as of this encounter Plan of Treatment Not on filedocumented as of this encounter Visit Diagnoses Not on filedocumented in this encounter Care Teams Whale Trainer Relationship Specialty Start Date End Date Unassigned, Provider PCP - General 08/19/[address] [place] [address] documented as of this encounter
--- OUTSIDE RECORDS SUMMARY | 2022-05-05 01:06 | XMS_ITS | Encounter Summary ---
:1990 Author Organization [place] Address [address] [place] [address] Care Team Providers Name Role Phone Lainey Brito MD Primary Care Provider [phone] Lainey Brito MD Unavailable Lainey Brito MD Unavailable Reason for Visit Reason Onset Date Comments Call Back 03/28/2018 Encounter Details Date Type Department Care Team Description 03/28/2018 Telephone [facility] Siddhartha Manzo DPM Call Back [place] [address] [facility] [address] [place], [place] [address] [place] [address] [phone] Social History Tobacco Use Types Packs/Day Years Used Date Smoking Tobacco: Every Day Smokeless Tobacco: Never Alcohol Use Standard Drinks/Week Comments Yes 0 (1 standard drink = 0.6 oz pure alcoho l) occ Sex Assigned at Date Recorded Not on file documented as of this encounter Miscellaneous Notes Telephone Encounter - Siddhartha Gore DPM - 03/28/2018 1:38 PM CDT I called and spoke with Trinity about her MRI results: FINDINGS: 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 This has nonspecific edema which could represent contusion, stress reaction, or sesamoiditis. Mild fluid within the first-second, second-third, and third-fourth intermetatarsal bursae. Minimal first MTP osteoarthritis. She has done the appropriate non-surgical therapies for nearly 2 years with minimal overall improvement. We discussed surgical excision as a reasonable next option, including discussing a generic post-op course. She was given the surgery scheduling handout last visit and will follow up accordingly. Siddhartha Gore DPM FACFAS FACFAOM Podiatric Foot & Ankle Surgeon [facility] [phone] Telephone Encounter - Vineet Pastrana - 03/28/2018 1:29 PM CDT Pt returning call for MRI results. Routing to Dr Gore. Vineet Pastrana on 03/28/2018 at 1:30 PM documented in this encounter Plan of Treatment Not on filedocumented as of this encounter Visit Diagnoses Not on filedocumented in this encounter Additional Health Concerns Assessment Noted Time PHQ-9 Depression Total Score: 13 02/14/2018 7:19 AM CD T documented as of this encounter Care Teams Thermodynamics Teacher Relationship Specialty Start Date End Date Lainey Brito MD PCP - General Family Practice 10/23/17 06/29/21 [address] [place] [address] Lainey Brito MD PCP - Assigned PCP 10/05/17 08/20/18 [address] [place] [address] Lainey Brito MD Assigned PCP 10/05/17 07/12/19 [address] [place] [address] documented as of this encounter
--- OUTSIDE RECORDS SUMMARY | 2022-05-05 01:06 | XMS_ITS | Encounter Summary ---
:1990 [facility] Address [address] [address] Care Team Providers Name Role Phone Unassigned, Provider Primary Care Provider Unavailable Reason for Visit Reason Comments Paperwork Encounter Details Date Type Department Care Team Description 11/12/[address] [facility] [address] , DIGITAL MARKETING MANAGER, ACCOUNTS RECEIVABLE ADMINISTRATOR Paperwork Endocrinology [address] [place] [address] [place] [address] [phone] Social History Tobacco Use Types Packs/Day Years Used Date Smoking Tobacco: Never Alcohol Use Standard Drinks/Week Comments Never 0 (1 standard drink = 0.6 oz pure alcoho l) Alcohol Habits Answer Date Recorded How often do you have a drink containing alcohol? Never 11/11/2020 How many drinks containing alcohol do you have on a typical Not asked day when you are drinking? How often do you have six or more drinks on one occasion? No t asked Sex Assigned at Date Recorded Not on file documented as of this encounter Nursing Notes Sita Diaz RN - 11/12/2020 10:26 AM CDT Visit note faxed to pt's OB at [facility]'s center. #[phone] Sita Diaz RN - 11/12/2020 10:18 AM CDT ----- Message from Karen Walters APRN, DARRION sent at 11/12/2020 9:04 AM CDT ----- Please forward this note to her OB doctor Dr. Awilda Villavicencio at [facility].Thanks. documented in this encounter Plan of Treatment Not on filedocumented as of this encounter Visit Diagnoses Not on filedocumented in this encounter Care Teams Kiln Fireman Relationship Specialty Start Date End Date Unassigned, Provider PCP - General 08/19/[address] [place] [address] documented as of this encounter
--- OUTSIDE RECORDS SUMMARY | 2022-05-05 01:06 | XMS_ITS | Encounter Summary ---
:1990 Author Organization [place] Address [facility] [place] [address] Care Team Providers Name Role Phone Unavailable Primary Care Provider Unavailable Encounter Details Date Type Department Care Team Description 04/04/2008 Emergency room [facility] Robbie Gross , [facility] Results MD EMERGENCY PHYSIC VALORIE GARZA [address] [place], [place] [phone] (Wo rk) Social History Tobacco Use Types Packs/Day Years Used Date Smoking Tobacco: Never Assessed Sex Assigned at Date Recorded Not on file documented as of this encounter Progress Notes Robbie Gross - 04/08/2008 8:23 AM CDT FINAL CHIEF COMPLAINT: Suprapubic abdominal pain. HISTORY OF PRESENT ILLNESS: A 17-year-old female whose last menstrual period is due, reports that she had abrupt onset of suprapubic and right lower quadrant pain starting one hour prior to arrival. The paramedics were called. She had refused transport. Was driven to the ER by her mother. Reports thepain is stabbing, has been constant. She has had pain in her legs last night and then pain worse in her legs today. However, she is able to move her legs now. Describes 7/10 pain. Feels bloated, has had some constipation. Had previous nausea but no vomiting, no fevers, chills, cough, runny nose, sore throat. MEDICATIONS: None. ALLERGIES: No known drug allergies. PAST MEDICAL HISTORY: Negative. SOCIAL HISTORY: The patient does not smoke. Is sexually active. REVIEW OF SYSTEMS: Seven-point review of systems negative except as in the HPI. PHYSICAL EXAMINATION: GENERAL: The patient is a pleasant, well-developed 17-year-old female. VITAL SIGNS: Temperature 98.9, blood pressure 141/81, pulse 111, respirations 16, satting 98% on room air. Vitals prior to discharge, blood pressure 113, pulse 65, heart rate of 66. HEENT: Normocephalic, atraumatic. Sclerae consistent with a non-anemic female. Mucous membranes are moist. NECK: Supple. HEART: Regular. LUNGS: Clear. ABDOMEN: Soft. There is tenderness to palpation in the suprapubic region and right lower quadrant. No guarding or rebound, no flank tenderness. EXTREMITIES: Lower extremities without swelling. PELVIC: Pelvic exam was performed with the nurse present in the room which demonstrated minimal CMT, no discharge. NEUROLOGIC: The patient is intact. PSYCHIATRIC: Appropriate. LABORATORY AND DIAGNOSTICS: White count is elevated at 12.8, no signs of anemia. BMP demonstrates slightly elevated glucose. Urine demonstrates no overt signs of infection. There are 8 red blood cells, UCG is negative. Wet prep demonstrates few PMNs, no trich, no yeast, no clue. Gonorrhea and chlamydia cultures are pending. Flat and upright films demonstrated dilated colon, possibility of obstruction. Was followed up with a CT scan which demonstrated normal appendix, no bowel obstruction. There wasa large 3x2 cm cyst in the right ovary. Ultrasound of that demonstrated a complex hypoechoic region,no torsion. EMERGENCY DEPARTMENT COURSE: The patient complains of suprapubic and right lower quadrant tenderness, due to have her period. IV access was obtained. I considered possibly ectopic in a sexually activefemale. UCG is negative. She was bolused with 1 liter of normal saline, treated with morphine multiple doses for pain, Zofran 4 mg IV push for nausea. The patient had difficulty with urination in the ER which made me suspicious about this being a urinary cause. She did feel bloated. With a dilated colon on her flat and upright film, I followed up with a CT scan which better delineated the cyst. Earlier she had an ultrasound which was negative for torsion. We discussed torsion sign is possible. However, with this patient's story, I empirically started her on Cipro to treat any inflammation around the bladder. The patient was feeling better. It is likely the cyst which is causing the pain. She was told to return if her symptoms worsen or change. PLAN: Tylenol #3 for pain. Colace for constipation. Cipro to treat infection. Monitor symptoms carefully. Return if any problems as discussed. Follow up with your doctor in 2 days. DIAGNOSES: 1. Suprapubic abdominal pain. 2. Right ovarian cyst. 3. Constipation. 4. Urinary retention. Electronically signed on 04/08/2008 08:23 by ROBBIE GROSS MD MT: [id number] Name: PRICE ODELL MRN: [id number] Account: [id number] : 1990 Visit Date: 04/04/2008 Document: [id number] cc: [facility] documented in this encounter Plan of Treatment Not on filedocumented as of this encounter Visit Diagnoses Not on filedocumented in this encounter
--- OUTSIDE RECORDS SUMMARY | 2022-05-05 01:06 | XMS_ITS | Encounter Summary ---
:1990 Author Organization [place] Address [address] [place] [address] Care Team Providers Name Role Phone Lainey Brito MD Primary Care Provider [phone] Lainey Brito MD Unavailable Lainey Brito MD Unavailable Reason for Visit Diagnostic Imaging XR - Closed Specialty Diagnoses / Procedures Referred By Contact Refer red To Contact Diagnoses Foot pain, right Bao, Siddhartha, DPM Procedures XR Foot Right G/E 3 Views [address] [facility] [address] [place] [address] Referral ID Status Reason Start Date Expiration Date Visits Requ ested Visits Authorized [id number] Closed 03/05/2018 03/05/2019 1 1 Encounter Details Date Type Department Care Team Description 03/05/2018 Radiant Appointment [facility] Torsten Gore t pain, right Sports and Siddhartha, DPM Orthopedic Care [address] [facility] [address] [address] [place], [place] [address] [address] [place] [address] [phone] Social History Tobacco Use Types Packs/Day Years [...] Date/Time Associated Diagnosis Comme nts XR FOOT RIGHT G/E 3 Routine 03/05/2018 3:46 PM Foot pain, righ t Results for this VIEWS CDT procedure are i n the results section. documented in this encounter Results XR Foot Right G/E 3 Views (03/05/2018 3:46 PM CDT) Anatomical Region Laterality Modality Foot, Ankle Right Computed Radiography Specimen (Source) Anatomical Location Collection Method / Collectio n Time Received Time / Laterality Volume Impressions 03/05/2018 4:26 PM CDT IMPRESSION: No acute or chronic bony or soft tissue abnormality. JONN GARCIA MD Narrative 03/05/2018 4:26 PM CDT RIGHT FOOT THREE OR MORE VIEWS 03/05/2018 3:46 PM HISTORY: Foot pain, right. COMPARISON: None. Procedure Note Jonn Garcia MD - 03/05/2018Fo rmatting of this note might be different from the original. RIGHT FOOT THREE OR MORE VIEWS 03/05/2018 3:46 PM HISTORY: Foot pain, right. COMPARISON: None. IMPRESSION: No acute or chronic bony or soft tissue abnormality. JONN GARCIA MD Siddhartha Gore DPM IMG DIAGNOSTIC IMAGING ORDER FREDY documented in this encounter Visit Diagnoses Diagnosis Foot pain, right Pain in limb documented in this encounter Additional Health Concerns Assessment Noted Time PHQ-9 Depression Total Score: 13 02/14/2018 7:19 AM CD T documented as of this encounter Care Teams Lamp Cleaner Relationship Specialty Start Date End Date Lainey Brito MD PCP - General Family Practice 10/23/17 06/29/21 [address] [place] [address] Lainey Brito MD PCP - Assigned PCP 10/05/17 08/20/18 [address] [place] [address] Lainey Brito MD Assigned PCP 10/05/17 07/12/19 [address] [place] [address] documented as of this encounter
--- OUTSIDE RECORDS SUMMARY | 2022-05-05 01:06 | XMS_ITS | Encounter Summary ---
:1990 Author Organization [facility] Address [address], [place] [address] Care Team Providers Name Role Phone Unassigned, Provider Primary Care Provider Unavailable Reason for Visit Procedure/Equipment (Routine) - Incomplete Specialty Diagnoses / Procedures Referred By Contact Refer red To Contact Diagnoses Left ankle swelling Samuel Rosenberg, TSELLA Procedures XR Ankle Lt 3 Views [address] [place], [place] [address] Referral ID Status Reason Start Date Expiration Date Visits V isits Requested Authorized [id number] Incomplete 01/08/2021 04/09/2022 1 1 Encounter Details Date Type Department Care Team Description 01/08/2021 Ancillary [facility] Samuel Rosenberg, Left ankle swelling Procedure [address] [place] [address] [address] [facility] [phone] [place] [address] Social History Tobacco Use Types Packs/Day Years [...] Date/Time Associated Diagnosis Comme nts XR ANKLE LT 3 VIEWS STAT 01/08/2021 2:26 PM Left ankle swel ling Results for this CDT procedure are i n the results section. documented in this encounter Results XR Ankle Lt 3 Views (01/08/2021 2:26 PM CDT) Anatomical Region Laterality Modality Lower Extremity, Ankle, Foot & Ankle Dig ital Radiography Specimen (Source) Anatomical Collection Method Collection Time Re ceived Time Location / / Volume Laterality 01/08/2021 2:18 PM CDT Impressions 01/08/2021 2:46 PM CDT COMPARISON: ??None. FINDINGS: ??No definite fracture or disl ocation is identified. ??Ankle mortise appears intact. Procedure Note Cleve Bermudez MD - 01/08/2021Format ting of this note might be different from the original. IMPRESSION COMPARISON: None. FINDINGS: No definite fracture or disloc ation is identified. Ankle mortise appears intact. Samuel [facility] GD documented in this encounter Visit Diagnoses Diagnosis Left ankle swelling Effusion of ankle and foot joint documented in this encounter Care Teams Book Illustrator Relationship Specialty Start Date End Date Unassigned, Provider PCP - General 08/19/[address] [place] [address] documented as of this encounter
--- OUTSIDE RECORDS SUMMARY | 2022-05-05 01:06 | XMS_ITS | Encounter Summary ---
:1990 Author Organization [place] Address [address] [place] [address] Care Team Providers Name Role Phone Unavailable Primary Care Provider Unavailable Encounter Details Date Type Department Care Team Description 04/05/2008 Historic Results INTERFACED REPORT [facility] [address] [place] [address] (Wo rk) Social History Tobacco Use Types Packs/Day Years Used Date Smoking Tobacco: Never Assessed Sex Assigned at Date Recorded Not on file documented as of this encounter Plan of Treatment Not on filedocumented as of this encounter Procedures Procedure Name Priority Date/Time Associated Comments Diagnosis WET PREPARATION Routine 04/05/2008 1:50 AM Result s for this CDT procedure are i n the results section. NEISSERIA GONORRHOEAE Routine 04/05/2008 1:50 AM Results for this PCR CDT procedure are i n the results section. CHLAMYDIA TRACHOMATIS Routine 04/05/2008 1:50 AM Results for this PCR CDT procedure are i n the results section. documented in this encounter Results Wet prep (04/05/2008 1:50 AM CDT) [facility] Method Time Signature Specimen Vagina MISYS Description Micro Report FINAL MISYS Status 04/05/2008 Wet Prep Few PMNs MISYS seen Comment: No Trichomonas seen No yeast seen No clue cells seen Specimen Anatomical Collection Method Collection Time Receive d Time (Source) Location / / Volume Laterality 04/05/2008 1:50 AM 8 1:58 CDT AM CDT Felxi [facility] LAB - MICRO GENERAL ORDERABL ES Performing Organization Address City/State/ZIP Code Phon e Number MISYS Chlamydia trachomatis PCR (04/05/2008 1:50 AM CDT) Component Value Ref Test Analysis Performed At [facility] Range Method Time Signature Specimen Cervical MISYS Description Chlamydia Negative for C. MISYS Trachomatis PCR trachomatis rRNA by video editing intern mediated amplification. Comment: A negative result by video editing intern medi ated amplification does not preclude the presence of C. trachomatis infection be cause results are dependent on proper and adequate collection, absence of inh ibitors, and sufficient rRNA to be detected. Specimen Anatomical Collection Method Collection Time Receive d Time (Source) Location / / Volume Laterality 04/05/2008 1:50 AM 8 1:58 CDT AM CDT [facility] - MICRO GENERAL ORDERABL ES Performing Organization Address City/State/ZIP Code Phon e Number MISYS Neisseria gonorrhoeae PCR (04/05/2008 1:50 AM CDT) [facility] Method Time Signature Specimen Cervical MISYS Descrip N Gonorrhea Negative for N. MISYS PCR gonorrhoeae rRNA by video editing intern mediated amplification. Comment: A negative result by video editing intern medi ated amplification does not preclude the presence of N. gonorrhoeae infection be cause results are dependent on proper and adequate collection, absence of inh ibitors, and sufficient rRNA to be detected. Specimen Anatomical Collection Method Collection Time Receive d Time (Source) Location / / Volume Laterality 04/05/2008 1:50 AM 8 1:58 CDT AM CDT Felix [facility] LAB - MICRO GENERAL ORDERABL ES Performing Organization Address City/State/ZIP Code Phon e Number MISYS documented in this encounter Visit Diagnoses Not on filedocumented in this encounter
--- OUTSIDE RECORDS SUMMARY | 2022-05-05 01:06 | XMS_ITS | Encounter Summary ---
:1990 Author Organization [place] Address [facility] [place] [address] Care Team Providers Name Role Phone Lainey Brito MD Primary Care Provider [phone] Lainey Brito MD Unavailable Lainey Brito MD Unavailable Reason for Visit Reason Comments Consult BC Encounter Details Date Type Department Care Team Description 01/03/2018 Office Visit [facility] Lainey Brito Severe episode of recurrent major depressive disorder, without psychotic features (H) (Primary Dx); Clinic Eliza Torres MD Encounter for initial prescription of tr ansdermal patch hormonal contraceptive device; [address] [facility] [address] [facility] Lumbar [place] [address] [phone] Social History Tobacco Use Types Packs/Day Years Used Date Smoking Tobacco: Every Day Smokeless Tobacco: Never Alcohol Use Standard Drinks/Week Comments Yes 0 (1 standard drink = 0.6 oz pure alcoho l) occ Sex Assigned at Date Recorded Not on file documented as of this encounter Last Filed Vital Signs Vital Sign Reading Time Taken Comments Blood Pressure 108/76 01/03/2018 3:07 PM CDT Pulse 68 01/03/2018 3:07 PM CDT Temperature 36.8 ??C (98.3 ??F) 01/03/2018 3:07 PM CDT Respiratory Rate - - Oxygen Saturation - - Inhaled Oxygen Concentration - - Weight 81.6 kg (180 lb) 01/03/2018 3:07 PM CDT Height 162.6 cm (5' 4) 01/03/2018 3:07 PM CDT Body Mass Index 30.9 01/03/2018 3:07 PM CDT documented in this encounter Patient Instructions Patient InstructionsLainey Brito MD - 01/03/2018 2:40 PM CDT Take the rest of cymbalta at the same time that you take the 10 mg prozac. 6-8 weeks follow up to review medication documented in this encounter Progress Notes Lainey Brito MD - 01/03/2018 2:40 PM CDT SUBJECTIVE: Trinity Odell is a 27 year old female who presents to clinic today for the following health issues: Consult BC - sexually active, using condoms. Would like a longer form of BC. Had nexplanon, worked well but doesn't want to commit to fdc contraception. Used depo, but gained weight. Medrol dose pack for lumbar back pain - diagnosis of herniated disc L4-5 by MRI in 2017, medrol dosepack worked well for her. Over the weekend, tweaked her back bending over. Same pain, Not using OTCs. No radiation, no loss of b/b. Medication Followup of Cymbalta ?? Taking Medication as prescribed: yes ?? Side Effects: Restlessness. ?? Medication Helping Symptoms: NO Doesn't feel any improvement on cymbalta, feels more tired than previous. Long hx of depression, has tried sertraline and lexapro - all gave her side effects, did not continue long enough to see if they would help her mood. Problem list and histories reviewed & adjusted, as indicated. Additional history: none Patient Active Problem List Diagnosis ??? Tobacco use disorder ??? Injury of right great toe, initial encounter ??? Severe episode of recurrent major depressive disorder, without psychotic features (H) History reviewed. No pertinent surgical history. Social History Substance Use Topics ??? Smoking status: Current Every Day Smoker ??? Smokeless tobacco: Never Used ??? Alcohol use Yes Comment: occ History reviewed. No pertinent family history. Reviewed and updated as needed this visit by clinical staff Reviewed and updated as needed this visit by Provider ROS: Constitutional, HEENT, cardiovascular, pulmonary, gi and gu systems are negative, except as otherwise noted. OBJECTIVE: BP 108/76 (BP Location: Right arm, Patient Position: Chair, Cuff Size: Adult Large) Pulse 68 Temp 98.3 ??F (36.8 ??C) (Oral) Ht 5' 4 (1.626 m) Wt 180 lb (81.6 kg) LMP 12/17/2017 ? No BMI 30.9 kg/m2 Body mass index is 30.9 kg/(m^2). GENERAL: healthy, alert and no distress PSYCH: mentation appears normal, affect normal/bright Diagnostic Test Results: PHQ9 - 20 GAD7 - 14 ASSESSMENT/PLAN: 1. Severe episode of recurrent major depressive disorder, without psychotic features (H) - will try more activating option, follow up 6-8 weeks, discussed how to transition from cymbalta to prozac - FLUoxetine (PROZAC) 10 MG capsule; Take 1 capsule for 1 week, then increase to 2 capsules daily Dispense: 60 capsule; Refill: 1 2. Encounter for initial prescription of transdermal patch hormonal contraceptive device - discussedoptions, she would like to try ortho evra patch, discussed when to start, how to place - norelgestromin-ethinyl estradiol (ORTHO EVRA) 150-35 MCG/24HR patch; Remove old patch and apply new patch onto the skin once a week for 3 weeks (21 days). Do not wear patch week 4 (days 22-28), then repeat. Dispense: 9 patch; Refill: 3 3. Lumbar herniated disc - will rx medrol dose pack, worked well in the past - if not improving, needs PT - methylPREDNISolone (MEDROL DOSEPAK) 4 MG tablet; Follow package instructions Dispense: 21 tablet; Refill: 0 Lainey Brito MD [facility] documented in this encounter Nursing Notes Jorge Miramontes, CLARY - 01/03/2018 2:40 PM CDT Chief Complaint Patient presents with ??? Consult BC Initial BP 108/76 (BP Location: Right arm, Patient Position: Chair, Cuff Size: Adult Large) Pulse 68 Temp 98.3 ??F (36.8 ??C) (Oral) Ht 5' 4 (1.626 m) Wt 180 lb (81.6 kg) LMP 12/17/2017 ? No BMI 30.9 kg/m2 Estimated body mass index is 30.9 kg/(m^2) as calculated from the following: Height as of this encounter: 5' 4 (1.626 m). Weight as of this encounter: 180 lb (81.6 kg). Medication Reconciliation: complete Health Maintenance addressed: tangela Miramontes CMA documented in this encounter Plan of Treatment Not on filedocumented as of this encounter Visit Diagnoses Diagnosis Severe episode of recurrent major depres sive disorder, without psychotic features (H) - Primary Encounter for initial prescription of tr ansdermal patch hormonal contraceptive device Lumbar herniated disc Displacement of lumbar intervertebral di sc without myelopathy documented in this encounter Additional Health Concerns Assessment Noted Time PHQ-9 Depression Total Score: 20 01/04/2018 7:11 AM CD T documented as of this encounter Care Teams Retail Shift Manager Relationship Specialty Start Date End Date Lainey Brito MD PCP - General Family Practice 10/23/17 06/29/21 [address] [place] [address] Lainey Brito MD PCP - Assigned PCP 10/05/17 08/20/18 [address] [place] [address] Lainey Brito MD Assigned PCP 10/05/17 07/12/19 [address] [place] [address] documented as of this encounter
--- OUTSIDE RECORDS SUMMARY | 2022-05-05 01:06 | XMS_ITS | Encounter Summary ---
:1990 Author Organization [place] Address [facility] [place] [address] Care Team Providers Name Role Phone Unavailable Primary Care Provider Unavailable Encounter Details Date Type Department Care Team Description 01/14/2005 Historic Histotechnologist Supervisor INTERFACED REPORT Parker Grubbs MD [facility] [address] [facility] [address] [address] [place] [address] (Wo rk) Social History Tobacco Use Types Packs/Day Years Used Date Smoking Tobacco: Never Assessed Sex Assigned at Date Recorded Not on file documented as of this encounter Progress Notes Rosendo Grubbs MD - 05/24/2011 2:18 AM ASSOCIATE DIRECTOR FINANCIAL AID : 1990 CHIEF COMPLAINT: Ankle injury. HISTORY OF PRESENT ILLNESS: This is a 14-year-old who missed the last step of some stairs and hurt her left ankle. She comes in by ambulance and states she cannot walk on it. On initial presentation, there is no outward swelling. The patient states it hurts very badly. She denies any loss of consciousness or hitting her head. She states the pain is mostly on the lateral side of her left ankle. ALLERGIES: None. MEDICATIONS: None. PAST MEDICAL HISTORY: Negative. REVIEW OF SYSTEMS: Negative other than that in the history of present illness. The child denies any numbness or tingling or general weakness but states it just hurts to move. PHYSICAL EXAMINATION: Vital signs: Blood pressure: 126/82. Pulse: 108. Respiratory rate: 22. Temperature: 98.2. Oxygen saturations: 98% on room air. GENERAL: This is a well-appearing 14- year-old female in no acute distress. HEENT examination shows normocephalic, atraumatic. HEART is in a regular rate and rhythm. Breath sounds are clear. Extremities are atraumatic other than the left lower ANKLE, which is tender to palpation over the lateral and medial malleoli. No tenderness to palpation of the FOOT. There is tenderness with dorsiflexion and plantar flexion. I cannot appreciate any outward swelling or bruising at all in the ANKLE. Negative squeeze test. Distal pulses are intact and sensation is intact over the FOOT and ANKLE. EMERGENCY DEPARTMENT COURSE: X-rays of the ankle did not reveal any obvious abnormalities, however, there are some very subtle lines in the distal tibia as well as a small what may be a break in the cortex in the medial distal tibia. It certainly may be artifact and given the patient's clinical scenario of no swelling and no bruising, I would find it hard to believe that there is a fracture. However, the child absolutely refuses to walk on it and I actually stand her up and tell her that if she cannot walk on it we would have to put a cast on it and the child is absolutely not able to walk on it. She does have a very significant amount of tenderness over where these possible fractures lie. Again, clinically it does not appear that she has fractures on exam. However, her pain is right over where these areas of question are on the x-ray. Therefore, we feel it is best to treat her conservatively in a posterior OCL with crutches and have her follow-up with orthopedics. At that point if she is able to walk on it, I would imagine that this certainly likely is not any type of fracture. DIAGNOSES: 1) Left ankle injury. 2) A possible occult or hairline fracture. [id number] _ ROSENDO GRUBBS M.D. [place]: Document: [id number] CC: ROSENDO GRUBBS M.D. [place], [place] Name: MR#: [id number] ODELL -[id number] EMERGENCY ROOM ENCOUNTER Page 2 of 2 LCN: MARCUS DSC: 01/14/2005 [place], [place] Name: MR#: PRICE ODELL -[id number] : Admit Date: Account #: 1990 01/14/2005 [id number] Doctor: ROSENDO GRUBBS M.D. EMERGENCY ROOM ENCOUNTER Page 1 of 2 CIATE DIRECTOR FINANCIAL AID documented in this encounter Plan of Treatment Not on filedocumented as of this encounter Visit Diagnoses Not on filedocumented in this encounter
--- OUTSIDE RECORDS SUMMARY | 2022-05-05 01:06 | XMS_ITS | Clinical Summary ---
:1990 Author Organization [facility] Address [address] [place] [address] Care Team Providers Name Role Phone Unassigned, Provider Primary Care Provider Unavailable Source Comments You are receiving this document as you are listed as the primary care provider,follow-up provider, or the patient has been referred to you for consultation.This is in compliance with the Medicare and Medicaid EHR Incentive Program,which states Providers who transition their patient to another setting of careor provider of care or refers their patient to another provider of care shouldprovide summarycare record for each transition of care or referral. [facility] Allergies No known active allergies Medications Medication Sig Dispensed Refills Start Date End Date Status insulin Inject 1 Each 100 Each 11/12/2020 Activ e syringe-needle subcutaneously every U-100 1ml 31g x evening. Additional Information Patient not taking. Reported on 01/08/2021 NOVOLIN N 100 UNIT/ML Inject 16-30 Units 20 mL 3 Active injectionIndications: Diabetes subcutaneously every Mellitus evening. Indications: Diabetes Mellitus Additional Information Patient not taking. Reported on 01/08/2021 Active Problems No known active problems Social History Tobacco Use Types Packs/Day Years [...] Sign Reading Time Taken Comments Blood Pressure 107/60 01/08/2021 2:14 PM CDT Pulse 88 01/08/2021 2:14 PM CDT Temperature 36.6 ??C (97.9 ??F) 01/08/2021 2:14 PM CDT Respiratory Rate 18 01/08/2021 2:14 PM CDT Oxygen Saturation 98% 01/08/2021 2:14 PM CDT Inhaled Oxygen Concentration - - Weight - - Height - - Body Mass Index - - Plan of Treatment Health Maintenance Due Date Last Done Comments Cervical Cancer Screening 1990 Due Hep C Screening (Preventive 1990 Services) HepB (1) 1990 COVID-19 Vaccine (#1) 04/22/1991 HIV Screening (Preventive 2006 Services) Adult Preventive Visit 2008 Influenza (#1) 2022 05/27/2020, 03/31/2016, 05/19/2015, Additional history exists DTaP/Tdap/Td (9 - Tdap) 11/11/2030 11/11/2020, 08/16/2012, 09/27/2010, Additional history exists Zoster/Shingles (1 of 2) 2040 HPV Vaccine Completed 09/27/2010, 05/20/2009, 01/19/2009 HepA Aged Out No longer eligib le based on patient 's age to complete this topic Hib Aged Out No longer eligib le based on patient 's age to complete this topic IPV (Polio) Aged Out No longer eligib le based on patient 's age to complete this topic MCV4 Aged Out No longer eligib le based on patient 's age to complete this topic Pneumococcal Aged Out No longer eligib le based on patient 's age to complete this topic Care Teams Ethylene Oxide Panelboard Operator Relationship Specialty Start Date End Date Unassigned, Provider PCP - General 08/19/[address] [place] [id number]
--- OUTSIDE RECORDS SUMMARY | 2022-05-05 01:06 | XMS_ITS | Encounter Summary ---
:1990 Author Organization [facility] Address [address], [place] [address] Care Team Providers Name Role Phone Unassigned, Provider Primary Care Provider Unavailable Encounter Details Date Type Department Care Team Description 12/09/2020 Telemedicine [facility] [place] [address]ters Gestati onal diabetes mellitus (GDM) affecting (Primary Dx); Endocrinology DARRION ECKERT Obesity in [address] [facility] [place] [address] [phone] (Wo rk) Social History Tobacco Use Types [...] documented as of this encounter Progress Notes Karen Walters APRN, CNP - 12/09/2020 10:00 AM CDT Referring Provider: Provider Unassigned Medical History: No past medical history on file. Medications: Current Outpatient Medications Medication Sig Dispense Refill ??? insulin syringe-needle U-100 1ml 31g x 15/64 Inject 1 Each subcutaneously every evening. 100 Each prn ??? NOVOLIN N 100 UNIT/ML injection Inject 16-30 Units subcutaneously every evening. Indications: Diabetes Mellitus 20 mL 3 No current facility-administered medications for this visit. All medications reviewed and updated in [employer] today. Chief Complaint: Follow up of gestational diabetes. Visit Diagnosis: ICD-10-CM 1. Gestational diabetes mellitus (GDM) affecting O24.419 2. Obesity in O99.210 History of present illness: Trinity has gestational diabetes. Last video visit with me 11/02/20. Videoapp did not work. Phone visit today. Patient is in a safe place for call and not driving. She follows with Dr. Awilda Villavicencio at [facility] and clinics. She is taking a sleeping pill at night to help her sleep. She states this has been very hard. Her mother gives her insulin injections toher. She is 38 weeks 3 days gestation. Expected delivery date is 12/30/20-will be induced 12/23 or 12/24. First baby was breech and at week 39. BP and weight gain normal according to her OB . Baby movement normal. Baby measures on time. She is currently taking NPH 22 units bedtime-she has been at thisdose for more than a week. Over the past week: fastings ranged 96-119, post lunch and supper 91-131.She is waking about noon every day. Review of systems: No complaints of chest pain, no shortness of breath and lower extremity edema consistent with advanced stages of . Subjective: The patient is awake, alert, oriented, asking some questions, and interacting well with me. Lives with son 8 years old and her parents. 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 Objective: Patient is alert and oriented to person, place and time. Her mood is pleasant and cooperative. No results found for: HGBA1C, [id number] There were no vitals taken for this visit. BP Readings from Last 3 Encounters: No data found for BP There is no height or weight on file to calculate BMI. Wt Readings from Last 3 Encounters: No data found for Wt Assessment: She is ready to manage her gestational diabetes. Plan: No further appointment with endocrinology needed. ICD-10-CM 1. Gestational diabetes mellitus (GDM) affecting O24.419 2. Obesity in O99.210 A. Increase NPH to 24 units tonight and if fasting tomorrow is 95 or higher, then increase to 26 units NPH. This note to be faxed to Dr. Awilda Villavicencio, her OB. B. Following education topics were reviewed:follow up post delivery, risk factors for future GDM anddiabetes, ways to decrease risk for diabetes, potential for umbilical cord failure and to contact OBfor BPP if hypoglycemia occurs without explanation, importance of balancing food to optimize blood gl ucose control and prevent complications, actions of medications, when to test, target levels for blood glucose, expected potential changes in blood glucose control as she continues through . Patient able to do accurate teach back. C. The patient was asked to test glucose levels at fasting and 1 hour after the start of each meal and record. No further appointment with endocrinology needed. Total time 30 minutes spent reviewing lab results, performing exam, and preparing plan of care. documented in this encounter Plan of Treatment Not on filedocumented as of this encounter Visit Diagnoses Diagnosis Gestational diabetes mellitus (GDM) affe cting - Primary Obesity in Obesity complicating , childbir th, or the puerperium, unspecified as to episode of care or not applicable documented in this encounter Care Teams College Counselor Relationship Specialty Start Date End Date Unassigned, Provider PCP - General 08/19/[address] [place] [id number] documented as of this encounter
--- OUTSIDE RECORDS SUMMARY | 2022-05-05 01:06 | XMS_ITS | Encounter Summary ---
:1990 Author Organization [facility] Address [address] [place] [address] Care Team Providers Name Role Phone Lainey Brito MD Primary Care Provider [phone] Lainey Brito MD Unavailable Lainey Brito MD Unavailable Reason for Visit Reason Comments Medication Request Encounter Details Date Type Department Care Team Description 10/29/2017 Office Visit [facility] Jonny Castañeda Tinea brittany sicolor (Primary Dx); Clinic Eliza Kearney MD Tobacco use disorder [address] [place] [address] Social History Tobacco Use Types Packs/Day Years Used Date Smoking Tobacco: Every Day Smokeless Tobacco: Never Alcohol Use Standard Drinks/Week Comments Yes 0 (1 standard drink = 0.6 oz pure alcoho l) occ Sex Assigned at Date Recorded Not on file documented as of this encounter Last Filed Vital Signs Vital Sign Reading Time Taken Comments Blood Pressure 118/66 10/29/2017 3:17 PM CDT Pulse 72 10/29/2017 3:17 PM CDT Temperature 37.4 ??C (99.3 ??F) 10/29/2017 3:17 PM CDT Respiratory Rate - - Oxygen Saturation 99% 10/29/2017 3:17 PM CDT Inhaled Oxygen Concentration - - Weight 83.5 kg (184 lb) 10/29/2017 3:17 PM CDT Height 162.6 cm (5' 4) 10/29/2017 3:17 PM CDT Body Mass Index 31.58 10/29/2017 3:17 PM CDT documented in this encounter Progress Notes Jonny Castañeda MD - 10/29/2017 3:20 PM CDT SUBJECTIVE: Trinity Odell is a 27 year old female who presents to clinic today for the following health issues: Patient with history of tinea versicolor. She reports a rash on her shoulders and chest. The rash worsens with sweating. In the past, it was well controlled with Nizoral shampoo. Patient had gum pain and warmth a few days ago. She also noticed a lump underneath her chin. Patient reports smoking cigarettes socially. Problem list and histories reviewed & adjusted, as indicated. Additional history: as documented Patient Active Problem List Diagnosis ??? Tobacco [...] visit by clinical staff Tobacco Allergies Meds Med Hx Surg Hx Fam Hx Soc Hx Reviewed and updated as needed this visit by Provider ROS: INTEGUMENTARY/SKIN: as noted above ENT/MOUTH: as noted above This document serves as a record of the services and decisions personally performed and made by Jonny Castañeda MD. It was created on his behalf by Caitlyn Lopez, a trained medical device assembler. The creation of this document is based on the provider's statements to the medical device assembler. Caitlyn Lopez 3:22 PM October 29, 2017 OBJECTIVE: BP 118/66 (BP Location: Right arm, Patient Position: Chair, Cuff Size: Adult Regular) Pulse 72 Temp 99.3 ??F (37.4 ??C) (Oral) Ht 1.626 m (5' 4) Wt 83.5 kg (184 lb) LMP 10/06/2017 (Approximate) SpO2 99% ? No BMI 31.58 kg/m2 Body mass index is 31.58 kg/(m^2). GENERAL: healthy, alert and no distress SKIN: brown pigmented rash over shoulders and upper chest ASSESSMENT/PLAN: 1. Tinea versicolor - ketoconazole (NIZORAL) 2 % shampoo; Apply to the affected area and wash off after 5 minutes. Dispense: 120 mL; Refill: 11 2. Tobacco use disorder - nicotine (NICOTROL) 10 MG Inhaler; Inhale 6-16 Cartridges into the lungs daily as needed for smoking cessation Dispense: 180 each; Refill: 1 The information in this document, created by the medical device assembler for me, accurately reflects the services I personally performed and the decisions made by me. I have reviewed and approved this document for accuracy prior to leaving the patient care area. October 29, 2017 3:54 PM Jonny Castañeda MD [facility] documented in this encounter Plan of Treatment Not on filedocumented as of this encounter Visit Diagnoses Diagnosis Tinea versicolor - Primary Pityriasis versicolor Tobacco use disorder documented in this encounter Additional Health Concerns Assessment Noted Time PHQ-9 Depression Total Score: 26 10/25/2017 7:34 AM CD T documented as of this encounter Care Teams 911 Telecommunicator Relationship Specialty Start Date End Date Lainey Brito MD PCP - General Family Practice 10/23/17 06/29/21 [address] [place] [address] Lainey Brito MD PCP - Assigned PCP 10/05/17 08/20/18 [address] [place] [address] Lainey Brito MD Assigned PCP 10/05/17 07/12/19 [address] [place] [address] documented as of this encounter
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
--- OUTSIDE RECORDS SUMMARY | 2022-05-05 01:06 | XMS_ITS | Encounter Summary ---
:1990 Author Organization [place] Address [facility] [place] [address] Care Team Providers Name Role Phone Unavailable Primary Care Provider Unavailable Encounter Details Date Type Department Care Team Description 04/05/2008 Results [facility] Robbie Navarro MD Hospital Results [facility] [address] [place] [address] (Wo rk) Social History Tobacco Use Types Packs/Day Years Used Date Smoking Tobacco: Never Assessed Sex Assigned at Date Recorded Not on file documented as of this encounter Plan of Treatment Not on filedocumented as of this encounter Procedures Procedure Name Priority Date/Time Associated Diagnosis Comme nts CT SCAN Routine 04/05/2008 4:15 AM Results f or this ABDOMEN/PELVIS CDT procedure are in the results section. X-RAY ABDOMEN Routine 04/05/2008 12:21 AM Resu lts for this COMPLETE CDT procedure are i n the results section. US PELVIC Routine 04/05/2008 12:11 AM Results for this NON-OB, COMPLETE CDT procedure a re in the results section. documented in this encounter Results CT SCAN ABDOMEN/PELVIS (04/05/2008 4:15 AM CDT) Anatomical Region Laterality Modality Other Specimen (Source) Anatomical Collection Method Collection Time Re ceived Time Location / / Volume Laterality 04/05/2008 4:15 AM CDT Impressions 04/05/2008 12:06 PM CDT ABDOMEN AND PELVIS CT WITH CONTRAST ??Oc tober 2007 4:15:00 AM HISTORY: Abdominal pain and distention. COMPARISON: None. TECHNIQUE: Axial images through the abdo men and pelvis utilizing 100 mL of Optiray 350 IV contrast and oral c ontrast. Coronal reformatted images were also evaluated. FINDINGS: There is a 3.8 cm cyst in the right ovary. A small amount of free fluid in the pelvis. No evidence of free intraperitoneal air. The appendix is normal. The liver, spleen, p ancreas, adrenal glands and kidneys are unremarkable. IMPRESSION: 1. 3.8 cm right ovarian cyst. A followup ultrasound after one or two menstrual cycles is recommended to docum ent resolution. 2. A small amount of free fluid in the p nayeli. 3. Normal appendix. The preliminary report was given by Dr. Nunez. Robbie Navarro MD SPECIAL IMAGING STUDIES X-RAY ABDOMEN 2 VW (04/05/2008 12:21 AM CDT) Anatomical Region Laterality Modality Other Specimen (Source) Anatomical Collection Method Collection Time Re ceived Time Location / / Volume Laterality 04/05/2008 12:21 AM CDT Impressions 04/05/2008 9:08 AM CDT ABDOMEN 2 - 3 VIEW* Apr 05, 2008 12:21:0 0 AM HISTORY: Abdominal pain IMPRESSION: ?Moderate amount of stoo l in the right colon. No evidence of obstruction or free intraper itoneal air. A few nonspecific air-fluid levels in nondilated bowel. Robbie Navarro MD GENERAL IMAGING SONO PELVIS COMPLETE (04/05/2008 12:11 AM CDT) Anatomical Region Laterality Modality Other Specimen (Source) Anatomical Collection Method Collection Time Re ceived Time Location / / Volume Laterality 04/05/2008 12:11 AM CDT Impressions 04/05/2008 12:08 PM CDT PELVIC ULTRASOUND ??April 05, 2008 12: 11:00 AM HISTORY: Abdominal pain. Evaluate for to rsion. FINDINGS: Transabdominal ultrasound was supplemented by endovaginal imaging for better evaluation of the neno cyril and ovaries. The uterus is normal in appearance. The endometrial st ripe measures 1 cm. There is a complex right ovarian cyst measuring 3.6 cm. This may represent hemorrhagic cyst or endometrioma. The le ft ovary is unremarkable. Doppler waveform analysis shows normal b lood flow in both ovaries. A small amount of fluid in the pelvis. IMPRESSION: 1. Complex cyst in the right ovary. This could represent a hemorrhagic cyst or endometrioma. A followup ultraso und after one or two menstrual cycles is recommended. 2. No evidence of ovarian torsion. The preliminary report was given by Dr. Nunez. Robbie Navarro MD [facility]IES documented in this encounter Visit Diagnoses Not on filedocumented in this encounter
--- OUTSIDE RECORDS SUMMARY | 2022-05-05 01:06 | XMS_ITS | Encounter Summary ---
:1990 Author Organization [facility] Address [address] [address] Care Team Providers Name Role Phone Unassigned, Provider Primary Care Provider Unavailable Reason for Visit Reason Comments Medication Questions Encounter Details Date Type Department Care Team Description 11/30/2020 Telephone [facility] [address] Karen Walters APRN M edication Questions Endocrinology [facility] [address] [facility] [address] [place] [phone] (Wo rk) Social History Tobacco Use Types [...] documented as of this encounter Nursing Notes Meg Lamas RN - 11/30/2020 3:19 PM CDT Pt. Verbalized understanding, agrees with plan, and has no further questions. Karen Walters APRN, CNP - 11/30/2020 3:12 PM CDT Please advise her I sent a new order for Novolin N to her pharmacy. Meg Lamas, RN - 11/30/2020 2:43 PM CDT Pt called to report she thinks she is having an allergic reaction to the Humulin N. She reports it burning when the medication is being injected. No other symptoms. Even when she uses an alcohol wipe to clean the skin she lets it dry before injecting. Pt reports the insulin was left in her car for about 30 minutes in the heat and she questioned if that would cause it to burn. If provider wants her to continue taking it, she is asking if she can get a sample since her insurance will not cover it yet and she wants to try a different pen in case it got to voice network engineer her car documented in this encounter Plan of Treatment Not on filedocumented as of this encounter Visit Diagnoses Not on filedocumented in this encounter Care Teams Worm Farmer Relationship Specialty Start Date End Date Unassigned, Provider PCP - General 08/19/[address] [place] [phone] documented as of this encounter
--- OUTSIDE RECORDS SUMMARY | 2022-05-05 01:06 | XMS_ITS | Encounter Summary ---
:1990 Author Organization [place] Address [facility]ly [facility] [place] [address] Care Team Providers Name Role Phone Beulah Brito MD Primary Care Provider [phone] Beulah Brito MD Unavailable Beulah Brito MD Unavailable Reason for Referral Consultation - Closed Specialty Diagnoses / Procedures Referred By Contact Refer red To Contact Podiatry Diagnoses Injury of right great toe, initial encounter Beulah Brito MD [facility] [address] [facility] [address] [place] [address] [place] [address] Referral ID Status Reason Start Date Expiration Date Visits Requ ested Visits Authorized [id number] Closed 10/24/2017 10/24/2018 1 1 Reason for Visit Reason Comments Physical Encounter Details Date Type Department Care Team Description 10/24/2017 Office Visit [facility] Beulah Brito for routine adult health examination without abnormal findings (Primary Dx); Clinic Eliza Torres MD Severe episode of recurrent major depres sive disorder, without psychotic features (H); [address] [facility] [address] Tobacco use disorder; [place], [place] [address] Injury of right great toe, initial encou nter [address] [phone] Social History Tobacco Use Types Packs/Day Years Used Date Smoking Tobacco: Every Day Smokeless Tobacco: Never Alcohol Use Standard Drinks/Week Comments Yes 0 (1 standard drink = 0.6 oz pure alcoho l) occ Sex Assigned at Date Recorded Not on file documented as of this encounter Last Filed Vital Signs Vital Sign Reading Time Taken Comments Blood Pressure 110/70 10/24/2017 10:22 AM CDT Pulse 80 10/24/2017 10:22 AM CDT Temperature 36.8 ??C (98.2 ??F) 10/24/2017 10:22 AM CDT Respiratory Rate - - Oxygen Saturation - - Inhaled Oxygen Concentration - - Weight 83 kg (183 lb) 10/24/2017 10:22 AM CDT Height 162.6 cm (5' 4) 10/24/2017 10:22 AM CDT Body Mass Index 31.41 10/24/2017 10:22 AM CDT documented in this encounter Patient Instructions Patient InstructionsJorge Miramontes, MATERIALS ENGINEER - 10/24/2017 10:28 AM CDT Preventive Health Recommendations Female Ages 26 - 39 Yearly exam: See your health care provider every year in order to ??? Review health changes. ??? Discuss preventive care. ??? Review your medicines if you your doctor has prescribed any. Until age 30: Get a Pap test every three years (more often if you have had an abnormal result). After age 30: Talk to your doctor about whether you should have a Pap test every 3 years or have a Pap test with HPV screening every 5 years. You do not need a Pap test if your uterus was removed (hysterectomy) and you have not had cancer. You should be tested each year for STDs (sexually transmitted diseases), if you're at risk. Talk to your provider about how often to have your cholesterol checked. If you are at risk for diabetes, you should have a diabetes test (fasting glucose). Shots: Get a flu shot each year. Get a tetanus shot every 10 years. Nutrition: ??? Eat at least 5 servings of fruits and vegetables each day. ??? Eat whole-grain bread, whole-wheat pasta and brown rice instead of white grains and rice. ??? Talk to your provider about Calcium and Vitamin D. Lifestyle ??? Exercise at least 150 minutes a week (30 minutes a day, 5 days of the week). This will help you control your weight and prevent disease. ??? Limit alcohol to one drink per day. ??? No smoking. ?? Wear sunscreen to prevent skin cancer. ?? See your dentist every six months for an exam and cleaning. documented in this encounter Progress Notes Beulah Brito MD - 10/24/2017 10:28 AM CDT SUBJECTIVE: CC: Price Odell is an 27 year old woman who presents for preventive health visit. ?? Healthy Habits:yesDo you get at least three servings of calcium containing foods daily (dairy, green leafy vegetables, etc.)? yes ?? Amount of exercise or daily activities, outside of work: none ?? Problems taking medications regularly No ?? Medication side effects: No ?? Have you had an eye exam in the past two years? yes ?? Do you see a dentist twice per year? yes ?? Do you have sleep apnea, excessive snoring or daytime drowsiness?no Depression concerns - has been dealing with this for years, has been on sertraline, lexapro, and a little pink pill - all gave her side effects, did not continue long enough to see if they would helpher mood. Has seen therapy, did not find this particularly helpful. Has thoughts that she would be better off on occasion, but would never act on it. Has a 5 year old son, feels like she isn't being a good enough mom to him. Weight gain, overeating. Not doing much besides working and sleeping. Hx of right hallux fracture, wore a boot for a month, still has pain following. Lost her insurance during this time so did not follow up. Was seeing podiatry. Would like to establish care with a racing car driver through now. Precontemplative on smoking cessation, feels this is not a good time for her. Today's PHQ-2 Score: No flowsheet data found. Abuse: Current or Past(Physical, Sexual or Emotional)- No Do you feel safe in your environment - Yes Social History Substance Use Topics ??? Smoking status: Current Every Day Smoker ??? Smokeless tobacco: Never Used ??? Alcohol use Yes Comment: occ If you drink alcohol do you typically have >3 drinks per day or >7 drinks per week? No Reviewed orders with patient. Reviewed health maintenance and updated orders accordingly - Yes Patient Active Problem List Diagnosis ??? Tobacco use disorder ??? Injury of right great toe, initial encounter History reviewed. No pertinent surgical history. Social History Substance Use Topics ??? Smoking status: Current Every Day Smoker ??? Smokeless tobacco: Never Used ??? Alcohol use Yes Comment: occ History reviewed. No pertinent family history. Mammogram not appropriate for this patient based on age. Pertinent mammograms are reviewed under the imaging tab. History of abnormal Pap smear: NO - age 21-29 PAP every 3 years recommended Reviewed and updated as needed this visit by clinical staff Tobacco Allergies Meds Problems Med Hx Surg Hx Fam Hx Soc Hx Reviewed and updated as needed this visit by Provider Allergies Meds Problems ROS: CONSTITUTIONAL: NEGATIVE for fever, chills, change in weight INTEGUMENTARU/SKIN: NEGATIVE for worrisome rashes, moles or lesions EYES: NEGATIVE for vision changes or irritation ENT: NEGATIVE for ear, mouth and throat problems RESP: NEGATIVE for significant cough or SOB BREAST: NEGATIVE for masses, tenderness or discharge CV: NEGATIVE for chest pain, palpitations or peripheral edema GI: NEGATIVE for nausea, abdominal pain, heartburn, or change in bowel habits : NEGATIVE for unusual urinary or vaginal symptoms. Periods are regular. MUSCULOSKELETAL: as above NEURO: NEGATIVE for weakness, dizziness or paresthesias PSYCHIATRIC: as above OBJECTIVE: BP 110/70 (BP Location: Right arm, Patient Position: Sitting, Cuff Size: Adult Regular) Pulse 80 Temp 98.2 ??F (36.8 ??C) (Oral) Ht 5' 4 (1.626 m) Wt 183 lb (83 kg) LMP 10/06/2017 (Approximate) ? No BMI 31.41 kg/m2 EXAM: GENERAL: healthy, alert and no distress EYES: Eyes grossly normal to inspection, PERRL and conjunctivae and sclerae normal HENT: ear canals and TM's normal, nose and mouth without ulcers or lesions NECK: no adenopathy, no asymmetry, masses, or scars and thyroid normal to palpation RESP: lungs clear to auscultation - no rales, rhonchi or wheezes BREAST: normal without masses, tenderness or nipple discharge and no palpable axillary masses or adenopathy CV: regular rate and rhythm, normal S1 S2, no S3 or S4, no murmur, click or rub, no peripheral edemaand peripheral pulses strong ABDOMEN: soft, nontender, no hepatosplenomegaly, no masses and bowel sounds normal (female): normal female external genitalia, normal urethral meatus, vaginal mucosa pink, moist, well rugated, and normal cervix/adnexa/uterus without masses or discharge MS: no gross musculoskeletal defects noted, no edema SKIN: no suspicious lesions or rashes NEURO: Normal strength and tone, mentation intact and speech normal PSYCH: mentation appears normal, affect normal/bright ASSESSMENT/PLAN: 1. Encounter for routine adult health examination without abnormal findings - PAP imaged thin layer screen reflex to HPV if ASCUS - recommended age 25 - 29 years - Lipid panel reflex to direct LDL Fasting - Hemoglobin A1c 2. Severe episode of recurrent major depressive disorder, without psychotic features (H) - will start cymbalta - weight neutral, which is important to her. Gave therapy card today, encouraged her to schedule with them. Will check TSH levels considering worsening mood and weight gain - DULoxetine (CYMBALTA) 30 MG EC capsule; Take 1 capsule (30 mg) by mouth daily Dispense: 30 capsule; Refill: 1 - TSH with free T4 reflex 3. Tobacco use disorder - precontemplative, will continue to address 4. Injury of right great toe, initial encounter - will refer to podiatry for further evaluation - PODIATRY/FOOT & ANKLE SURGERY REFERRAL COUNSELING: Reviewed preventive health counseling, as reflected in patient instructions reports that she has been smoking. She has never used smokeless tobacco. Estimated body mass index is 31.41 kg/(m^2) as calculated from the following: Height as of this encounter: 5' 4 (1.626 m). Weight as of this encounter: 183 lb (83 kg). Beulah Brito MD [facility] documented in this encounter Nursing Notes Jorge Miramontes, CLARY - 10/24/2017 10:20 AM CDT Chief Complaint Patient presents with ??? Physical Initial BP 110/70 (BP Location: Right arm, Patient Position: Sitting, Cuff Size: Adult Regular) Pulse 80 Temp 98.2 ??F (36.8 ??C) (Oral) Ht 5' 4 (1.626 m) Wt 183 lb (83 kg) LMP 10/06/2017 (Approximate) ? No BMI 31.41 kg/m2 Estimated body mass index is 31.41 kg/(m^2) as calculated from the following: Height as of this encounter: 5' 4 (1.626 m). Weight as of this encounter: 183 lb (83 kg). Medication Reconciliation: complete Health Maintenance addressed: Pap Smear? documented in this encounter Plan of Treatment Scheduled Referrals Name Type Priority Associated Diagnoses Order S chedule PODIATRY/FOOT & ANKLE Referral Routine Injury of right gre at Ordered: 10/24/2017 SURGERY REFERRAL toe, initial encounter documented as of this encounter Procedures Procedure Name Priority Date/Time Associated Diagnosis Comme nts TSH WITH FREE T4 Routine 10/24/2017 11:20 Severe episode of Re sults for this REFLEX AM CDT recurrent major procedure ar e in depressive disorder, the res ults without psychotic section. features (H) LIPID REFLEX TO Routine 10/24/2017 11:20 Encounter for Results for this DIRECT LDL PANEL AM CDT routine adult health pro cedure are in examination without the resu lts abnormal findings section. HEMOGLOBIN A1C Routine 10/24/2017 11:20 Encounter for Results for this AM CDT routine adult health procedu re are in examination without the resu lts abnormal findings section. PAP IMAGED THIN Routine 10/24/2017 10:53 Encounter for Results for this LAYER SCREEN AM CDT routine adult health procedu re are in examination without the resu lts abnormal findings section. documented in this encounter Results (ABNORMAL) Hemoglobin A1c (10/24/2017 11:20 AM CDT) athologist Signature Hemoglobin A1C 5.7 (H) 0 - 5.6 % 10/24/2017 [facility] 11:36 AM CDT [facility] Comment: Normal <5.7% Prediabetes 5.7-6.4% ??Diab etes 6.5% or higher - adopted from ADA consensus guidelines. Specimen Anatomical Collection Method Collection Time Receive d Time (Source) Location / / Volume Laterality Blood specimen 10/24/2017 11:20 8 (specimen) AM CDT 11:21 AM CDT Beulah Brito MD LAB - BLOOD ORDERABLES Performing Organization Address City/[facility]/ZIP Code Phon e Number [facility] [address] [place] [address] (ABNORMAL) Lipid panel reflex to direct LDL Fasting (10/24/2017 11:20 AM CDT) athologist Signature Cholesterol 174 <200 mg/dL 10/25/2017 [facility] 2:[address] [facility] Triglycerides 122 <150 mg/dL 10/25/2017 [facility] 2:[address] [facility] Comment: Fasting specimen HDL Cholesterol 35 (L) >49 mg/dL 10/25/2017 2:05 PM [facility] T [facility] LDL Cholesterol 115 (H) <100 mg/dL 10/25/2017 2:05 PM [facility] Calculated CDT [facility] Comment: Above desirable: ??100-129 mg/dl Borderline High: ??130-159 mg/dL High: ? 160-189 mg/dL Very high: ? >189 mg/dl Non HDL Cholesterol 139 (H) <130 mg/dL 10/25/2017 2:[address] [facility] Comment: Above Desirable: ??130-159 mg/dl Borderline high: ??160-189 mg/dl High: ? 190-219 mg/dl Very high: ? >219 mg/dl Specimen Anatomical Collection Method Collection Time Receive d Time (Source) Location / / Volume Laterality Blood specimen 10/24/2017 11:20 8 (specimen) AM CDT 11:21 AM CDT Beulah Brito MD LAB - BLOOD ORDERABLES Performing Organization Address City/[facility] Code Phon e Number [facility] [address] [place] [address] TSH with free T4 reflex (10/24/2017 11:20 AM CDT) P athologist Signature TSH 1.71 0.40 - 4.00 10/25/2017 [facility] mU/L 2:[address] [facility] Specimen Anatomical Collection Method Collection Time Receive d Time (Source) Location / / Volume Laterality Blood specimen 10/24/2017 11:20 8 (specimen) AM CDT 11:21 AM CDT Beulah Brito MD LAB - BLOOD ORDERABLES Performing Organization Address City/State/ZIP Code Phon e Number [facility] [address] [place] [address] PAP imaged thin layer screen reflex to HPV if ASCUS - recommended age 25 - 29 years (10/24/2017 10:53 AM CDT) Component Value Ref Test Analysis Performed At [facility] Range Method Time Signature PAP NIL COPATH Copath Report COPATH Patient Name: PRICE ODELL MR#: [id number] Specimen #: [id number] Collected: 10/24/2017 Received: 10/26/2017 Reported: 10/30/2017 10:39 Ordering Phy(s): BEULAH BRITO For improved result formatting, select 'View Enhanced Report Format' under Linked Documents section. SPECIMEN/STAIN PROCESS: Pap imaged thin layer prep screening (Surepath, FocalPoint w ith guided screening) ? Pap-Cyto x 1, Pap with reflex to HPV if ASCUS x 1 SOURCE: Cervical, endocervical ---- Pap imaged thin layer prep screening (Surepath, FocalPoint with guided screening) SPECIMEN ADEQUACY: Satisfactory for evaluation. -Transformation zone component absent. CYTOLOGIC INTERPRETATION: Negative for intraepithelial lesion or malignancy Electronically signed out by: RG Davis ??(ASCP) Processed and screened at [facility], [facility] CLINICAL HISTORY: LMP: 10/06/17 Papanicolaou Test Limitations: ??Cervical cytology is a sc reening test with limited sensitivity; regular screening is critical for cancer prevention; Pap tests are p rimarily effective for the diagnosis/prevention of squamous cell carcinoma, not adenocarcinomas or other cancer s. TESTING LAB LOCATION: [facility] [address] [place], [place] ??[address] COLLECTION SITE: Client: ??[facility] Location: [facility] (R) Specimen (Source) Anatomical Collection Method Collection Time Re ceived Time Location / / Volume Laterality Cytologic 10/24/2017 10:53 10/26/2017 material AM CDT 10:59 AM CDT (specimen) Beulah Brito MD LAB - OPTIME CLINICAL SPECIM EN Performing Organization Address City/State/ZIP Code Phon e Number [place] documented in this encounter Visit Diagnoses Diagnosis Encounter for routine adult health exami nation without abnormal findings - Primary Severe episode of recurrent major depres sive disorder, without psychotic features (H) Tobacco use disorder Injury of right great toe, initial encou nter documented in this encounter Additional Health Concerns Assessment Noted Time PHQ-9 Depression Total Score: 26 10/25/2017 7:34 AM CD T documented as of this encounter Care Teams Supervisor Inspecting Relationship Specialty Start Date End Date Beulah Brito MD PCP - General Family Practice 10/23/17 06/29/21 [address] [place] [address] Beulah Brito MD PCP - Assigned PCP 10/05/17 08/20/18 [address] [place] [address] Beulah Brito MD Assigned PCP 10/05/17 07/12/19 [address] [place] [address] documented as of this encounter
--- OUTSIDE RECORDS SUMMARY | 2022-05-05 01:06 | XMS_ITS | Encounter Summary ---
:1990 Author Organization [facility] Address [address], [place] [address] Care Team Providers Name Role Phone Unassigned, Provider Primary Care Provider Unavailable Encounter Details Date Type Department Care Team Description 12/09/2020 Telephone [facility] [address] Karen Walters TROUBLE SHOOTER, GAS SPECIALIST Endocrinology [address] [place] [address] [place] [address] [phone] Social History Tobacco Use Types Packs/Day Years [...] documented as of this encounter Nursing Notes Alexander Mitchell RN - 12/09/2020 2:45 PM CDT Visit note faxed to pt's OB at [facility]'s center. #[phone] Alexander Mitchell RN - 12/09/2020 2:42 PM CDT ----- Message from Karen Walters APRN, CNP sent at 12/09/2020 10:17 AM CDT ----- Please fax today's dictation to her OB, Dr. Awilda Villavicencio. Thanks. documented in this encounter Plan of Treatment Not on filedocumented as of this encounter Visit Diagnoses Not on filedocumented in this encounter Care Teams Base Remover Relationship Specialty Start Date End Date Unassigned, Provider PCP - General 08/19/[address] [place] [id number] documented as of this encounter
--- OUTSIDE RECORDS SUMMARY | 2022-05-05 01:06 | XMS_ITS | Encounter Summary ---
:1990 Author Organization [facility] Address [address], [place] [address] Care Team Providers Name Role Phone Unassigned, Provider Primary Care Provider Unavailable Reason for Referral Consult/Transfer Care (Routine) - Closed Specialty Diagnoses / Procedures Referred By Contact Refer red To Contact Diagnoses Gestational diabetes mellitus (GDM) affecting Karen Walters APRN, CNP [address] [place], [place] [address] Referral ID Status Reason Start Date Expiration Date Visits Requ ested Visits Authorized [id number] Closed 11/12/2020 02/11/2022 1 1 Scheduling Instructions Your provider has recommended an appoint ment with [facility]. You may call [phone] to schedule yo ur appointment. We suggest you call your health insurance company about your cove rage and benefits for this appointment. Reason for Visit Reason Comments CONSULT Encounter Details Date Type Department Care Team Description 11/12/2020 Telemedicine [facility] [address] Gestati onal diabetes mellitus (GDM) affecting (Primary Dx); Endocrinology DARRION ECKERT Obesity in [address] [place] [address] [phone] (Wo rk) Social History Tobacco Use Types [...] documented as of this encounter Progress Notes Eve Cortez RN - 11/12/2020 8:30 AM CDT Left message for chart prep. Meg Lamas RN - 11/12/2020 8:30 AM CDT Pre-Visit Planning for Phone/Video Visit: Diabetes Pre-visit planning completed. Reviewed the following: - Medications (pended refills) - Pharmacy - Allergies - Last foot & eye exam - Tobacco/alcohol use Current Diabetes Medications None Reported Glucose Results: Date Fasting 1-2 hr post Pre-lunch 1-2 hr post Pre-dinner 1-2 hr post HS 11/04 104 11/05 104 91 95 138 11/06 116 108 104 11/07 104, 129 95 11/08 103 111 11/09 70 11/10 174 after cereal, 167 87 87 11/11 Patient Concerns: Pt taking numerous medications but unsure of names and Pt was driving when she called back. Pt had to guess on times of her readings. Eve Cortez RN - 11/12/2020 8:30 AM CDT I did attempt to reach this pt to obtain addition information on medications prior to her appt today. She did not answer. Message was left. See below for additional information regarding blood sugars in not from Meg. Karen Walters, GAS TORCH SOLDERER, SHEET HEATER - 11/12/2020 8:30 AM CDT Referring Provider: Provider Unassigned Medical History: No past medical history on file. Medications: Current Outpatient Medications Medication Sig Dispense Refill ??? insulin isophane (HUMULIN N) 100 UNIT/ML injection Inject 16 Units subcutaneously every evening.Take 16 units before bed and increase by 2 units every 2 days till fastings under 95. Indications: Diabetes Mellitus 10 mL 1 ??? insulin syringe-needle U-100 1ml 31g x 15/64 Inject 1 Each subcutaneously every evening. 100 Each prn No current facility-administered medications for this visit. All medications reviewed and updated in [employer] today. Chief Complaint: Follow up of gestational diabetes. Visit Diagnosis: ICD-10-CM 1. Gestational diabetes mellitus (GDM) affecting O24.419 Diabetes Education Visit 2. Obesity in O99.210 History of present illness: Trinity has gestational diabetes. She has not had gestational diabetes inthe past. This is her first visit with me. Video fabio did not work. Phone visit today. Patient is in a safe place for call and not driving. She follows with Dr. Awilda Villavicencio at [facility]. She declined education at [facility]-had education about a month ago with dietitian. She is leaving today at 1600 for [place] for a week and wants to get insulin before that time. She has not been taught how to give insulin but states her Uncle knows how since he has diabetes. She is 33 weeks 1 days gestation. Expected delivery date is 12/30/20. First baby was breech and at week 39. Trinity has no family history of diabetes. BP and weight gain normal. Baby movement normal. Baby measures on time. She is currently taking no meds. States she weighs 178 #, height 5 4', BMI 30.6. Meds at home include something for indigestion and muscle relaxer if needed. Reported Glucose Results: she has been testing 2 hours after the finish of her meal ?? Date Fasting 2 hr post Pre-lunch 2 hr post Pre-dinner 2 hr post HS 11/04 ? 104 ?? 11/05 104 ? 91 ?? 95 138 11/06 116 ? 108 ?? 104 ?? 11/07 ? 104, 129 ? 95 11/08 103 ? 111 ?? 11/09 ? 70 ? 11/10 ? 174 after cereal, 167 ?? 87 87 11/11 Higher than 90 but not sure 11/12 Not done yet? Review of systems: No complaints of chest pain, no shortness of breath and lower extremity edema consistent with advanced stages of . Subjective: The patient is awake, alert, oriented, asking some questions, and interacting well with me. Lives with son 8 years old and her parents. 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 Objective: Patient is alert and oriented to person, place and time. Her mood is pleasant and cooperative. No results found for: HGBA1C, [id number] There were no vitals taken for this visit. BP Readings from Last 3 Encounters: No data found for BP There is no height or weight on file to calculate BMI. Wt Readings from Last 3 Encounters: No data found for Wt Assessment: She is ready to learn more about her gestational diabetes. Plan: She will need to schedule in 2 and 4 weeks NEURO UROLOGIST or PA. Will need instruction on how to prepare and give insulin. She is leaving today for [place] at 1600. ICD-10-CM 1. Gestational diabetes mellitus (GDM) affecting O24.419 Diabetes Education Visit 2. Obesity in O99.210 A. Medication options were discussed and patient questions answered. She is willing to take insulin if needed. She will need to schedule in 2 and 4 weeks NEURO UROLOGIST or PA. Will need instruction on how to prepare and give insulin. She is leaving today for [place] at 1600. To start NPH 16 units tonight and increase by 2 units every 2-3 days till fasting under 95. [facility] sent an urgent referral for insulin instruction. This note to be faxed to Dr. Awilda Villavicencio, her OB. B. Following education topics were reviewed: importance of balancing food to optimize blood glucose control and prevent complications, actions of medications, when to test, target levels for blood glucose, expected potential changes in blood glucose control as she continues through . Patient a ble to do accurate teach back. C. The patient was asked to test glucose levels at fasting and 1 hour after the start of each meal and record for next appointments with NEURO UROLOGIST/PA in 2 and 4 weeks today. Total time 30 minutes spent reviewing lab results, performing exam, and preparing plan of care. documented in this encounter Plan of Treatment Scheduled Referrals Name Type Priority Associated Diagnoses Order [facility] Education Referral Routine Gestational diabetes O rdered: 11/12/2020 Visit mellitus (GDM) affecting documented as of this encounter Visit Diagnoses Diagnosis Gestational diabetes mellitus (GDM) affe cting - Primary Obesity in Obesity complicating , childbir th, or the puerperium, unspecified as to episode of care or not applicable documented in this encounter Care Teams Fan Mail Editor Relationship Specialty Start Date End Date Unassigned, Provider PCP - General 08/19/[address] [place] [address] documented as of this encounter
--- OUTSIDE RECORDS SUMMARY | 2022-05-05 01:06 | XMS_ITS | Encounter Summary ---
:1990 Author Organization [facility] Address [address], [place] [address] Care Team Providers Name Role Phone Unassigned, Provider Primary Care Provider Unavailable Reason for Visit Reason Comments Future Appointments needs 2 and 4 wk appts w/ FACE AND FILL PACKER /PA Encounter Details Date Type Department Care Team Description 11/16/2020 Telephone [facility] [address] Karen Walters, Future Appointments Endocrinology LEAD APPLIER, KNOCKOUT MACHINE OPERATOR (needs 2 and 4 wk appts [address] w/ FACE AND FILL PACKER/PA) [place] [address] [phone] (Wo rk) Social History Tobacco Use Types [...] documented as of this encounter Nursing Notes Elham Garcia - 11/16/2020 4:33 PM CDT LVM to call back and schedule appts. documented in this encounter Plan of Treatment Not on filedocumented as of this encounter Visit Diagnoses Not on filedocumented in this encounter Care Teams Operating Room Registered Nurse Relationship Specialty Start Date End Date Unassigned, Provider PCP - General 08/19/00 [address] [place] [address] documented as of this encounter
--- OUTSIDE RECORDS SUMMARY | 2022-05-05 01:06 | XMS_ITS | Encounter Summary ---
:1990 [facility] Address [address] [place] [address] Mobile Phone Home Phone Home Phone Preferred Language Macedonian Marital Status Single Sabianism Affiliation Unknown Race Unknown Ethnic Group Unknown Author Organization [facility] Address [address] [place] [address] Care Team Providers Name Role Phone Lainey Brito MD Primary Care Provider [phone] Lainey Brito MD Unavailable Lainey Brito MD Unavailable Reason for Referral Diagnostic Imaging MRI - Closed Specialty Diagnoses / Procedures Referred By Contact Refer red To Contact Radiology. Diagnoses Sesamoiditis Siddhartha Gore DPM Rh Mri Rscc Procedures MR Foot Right w/o Contrast [address] [place] [address] [place] [address] Phone: Fax: Referral ID Status Reason Start Date Expiration Date Visits Requ ested Visits Authorized [id number] Closed 03/05/2018 03/05/2019 1 1 Diagnostic Imaging XR - Closed Specialty Diagnoses / Procedures Referred By Contact Refer red To Contact Diagnoses Foot pain, right Siddhartha Gore DPM Procedures XR Foot Right G/E [address] [place] [address] Referral ID Status Reason Start Date Expiration Date Visits Requ ested Visits Authorized [id number] Closed 03/05/2018 03/05/2019 1 1 Reason for Visit Reason Comments Fracture 1 year Encounter Details Date Type Department Care Team Description 03/05/2018 Office Visit [facility] Donnydipeshmatilda, Foot pain, right (Primary Dx); [facility] Carl Sesamoiditis Podiatry [address] [address] [facility] [address] [place] [address] [phone] Social History Tobacco Use Types Packs/Day Years Used Date Smoking Tobacco: Every Day Smokeless Tobacco: Never Tobacco Cessation: Ready to Quit: No; Co unseling Given: No Alcohol Use Standard Drinks/Week Comments Yes 0 (1 standard drink = 0.6 oz pure alcoho l) occ Sex Assigned at Date Recorded Not on file documented as of this encounter Last Filed Vital Signs Vital Sign Reading Time Taken Comments Blood Pressure 102/66 03/05/2018 3:27 PM CDT Pulse - - Temperature - - Respiratory Rate - - Oxygen Saturation - - Inhaled Oxygen Concentration - - Weight 83.6 kg (184 lb 3.2 oz) 03/05/2018 3:27 PM CDT Height 162.6 cm (5' 4) 03/05/2018 3:27 PM CDT Body Mass Index 31.62 03/05/2018 3:27 PM CDT documented in this encounter Progress Notes Siddhartha Gore DPM - 03/05/2018 3:30 PM CDT Foot & Ankle Surgery March 05, 2018 CC: fracture in big toe I was asked to see Trinity Odell regarding the chief complaint by: Dr. Marguerite Brito HPI: Pt is a 27 year old female who presents with above complaint. 1 year history of pain associatedwith sesamoids of the R foot. Describes burning, tingling, throbbing, ache, worse in cold or drivepain. Pain 7/10, worse with pushing on driving, cold, on feet to long. Has tried heating pad, cold compress, rubbing, walking boot and this sometimes helps. She was getting cortisone injections forthis by an outside doctor, who she had been seeing for this since 2016, wasn't helping. xrays showedfracture of the tibial sesamoid. She states the doctor talked about removing part!. ROS: Pos for CC. The patient denies current nausea, vomiting, chills, fevers, belly pain, calf pain,chest pain or SOB. Complete remainder of ROS is otherwise neg. VITALS: Vitals: 03/05/18 1527 BP: 102/66 Weight: 184 lb 3.2 oz (83.6 kg) Height: 5' 4 (1.626 m) PMH: No past medical history on file. SXHX: No past surgical history on file. MEDS: Current Outpatient Prescriptions Medication ??? ketoconazole (NIZORAL) 2 % shampoo ??? nicotine (NICOTROL) 10 MG Inhaler No current facility-administered medications for this visit. ALL: No Known Allergies FMH: No family history on file. SocHx: Social History Social History ??? Marital status: Single Spouse name: N/A ??? Number of children: N/A ??? Years of education: N/A Occupational History ??? Not on file. Social History Main Topics ??? Smoking status: Current Every Day Smoker ??? Smokeless tobacco: Never Used ??? Alcohol use Yes Comment: occ ??? Drug use: No ??? Sexual activity: Yes Partners: Male Other Topics Concern ??? Not on file Social History Narrative EXAMINATION: Gen: No apparent distress Neuro: A&Ox3, no deficits Psych: Answering questions appropriately for age and situation with normal affect Head: NCAT Eye: Visual scanning without deficit Ear: Response to auditory stimuli wnl Lung: Non-labored breathing on RA noted Abd: NTND per patient report Lymph: Neg for pitting/non-pitting edema BLE Vasc: Pulses palpable, CFT minimally delayed Neuro: Light touch sensation intact to all sensory nerve distributions without paresthesias Derm: Neg for nodules, lesions or ulcerations MSK: Right lower extremity - very tender @ tibial sesamoid, no fibular sesamoid or flexor tendon pain. Calf: Neg for redness, swelling or tenderness Imaging: xrays today - IMPRESSION: No acute or chronic bony or soft tissue abnormality. 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 Appears more in line with bipartite sesamoid vs fracture -MRI ordered to further assess, will call with results. -conservatively, discussed boot, WBAT/NWB, RICE/NSAID prn -surgically, discussed excision of the bone. She has been dealing bwith this at least a year, although some documentation in her chart indicates this has been going on since 2016. -surg [place] handout dispensed and discussed. 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 Tibial sesamoid excision right lower extremity Consent: above Diagnosis: Sesamoiditis/tibial sesamoid fracture Equipment/Vendor: none Patient's medical history was reviewed today Body mass index is 31.62 kg/(m^2). Weight management plan: Patient was referred to their PCP to discuss a diet and exercise plan. Siddhartha Gore DPM FACFAS FACFAOM Podiatric Foot & Ankle Surgeon [facility] [phone] documented in this encounter Plan of Treatment Not on filedocumented as of this encounter Results MR Foot Right w/o Contrast (03/12/2018 5:18 PM CDT) Anatomical Region Laterality Modality Right Foot, SUBRAD MR MSK, UMP MR MSK, RAD MR Magnetic Resonance Specimen (Source) Anatomical Location Collection Method / Collectio n Time Received Time / Laterality Volume Impressions 03/13/2018 9:51 AM CDT IMPRESSION: Medial sesamoid edema, as above. TORRI CASTRO MD Narrative 03/13/2018 9:51 AM CDT MR FOOT RIGHT WITHOUT CONTRAST March 12, 2018 5:18 PM HISTORY: Evaluate tibial sesamoid. Sesam oiditis. TECHNIQUE: Multiplanar, multisequence wi thout contrast. FINDINGS: There is a bifid great toe med ial sesamoid. This has nonspecific edema which could represent contusion, stress reaction, or sesamoiditis. Mild fluid within the firs t-second, second-third, and third-fourth intermetatarsal bursae. Min imal first MTP osteoarthritis. Procedure Note Torri Castro MD - 03/13/2018Formatting o f this note might be different from the original. MR FOOT RIGHT WITHOUT CONTRAST March 12, 2018 5:18 PM HISTORY: Evaluate tibial sesamoid. Sesam oiditis. TECHNIQUE: Multiplanar, multisequence wi thout contrast. FINDINGS: There is a bifid great toe med ial sesamoid. This has nonspecific edema which could represent contusion, stress reaction, or sesamoiditis. Mild fluid within the firs t-second, second-third, and third-fourth intermetatarsal bursae. Min imal first MTP osteoarthritis. IMPRESSION: Medial sesamoid edema, as ab ove. TORRI CASTRO MD Siddhartha AVILA MRI ORDERABLES XR Foot Right G/E 3 Views (03/05/2018 3:46 PM CDT) Anatomical Region Laterality Modality Foot, Ankle Right Computed Radiography Specimen (Source) Anatomical Location Collection Method / Collectio n Time Received Time / Laterality Volume Impressions 03/05/2018 4:26 PM CDT IMPRESSION: No acute or chronic bony or soft tissue abnormality. JONN SERNA MD Narrative 03/05/2018 4:26 PM CDT RIGHT FOOT THREE OR MORE VIEWS 03/05/2018 3:46 PM HISTORY: Foot pain, right. COMPARISON: None. Procedure Note Jonn Serna MD - 03/05/2018Fo rmatting of this note might be different from the original. RIGHT FOOT THREE OR MORE VIEWS 03/05/2018 3:46 PM HISTORY: Foot pain, right. COMPARISON: None. IMPRESSION: No acute or chronic bony or soft tissue abnormality. JONN SERNA MD Siddhartha AVILA DIAGNOSTIC IMAGING ORDER FREDY documented in this encounter Visit Diagnoses Diagnosis Foot pain, right - Primary Pain in limb Sesamoiditis Other disorders of bone and cartilage Foot pain, right Pain in limb Sesamoiditis Other disorders of bone and cartilage documented in this encounter Additional Health Concerns Assessment Noted Time PHQ-9 Depression Total Score: 13 02/14/2018 7:19 AM CD T documented as of this encounter Care Teams Fire Code Inspector Relationship Specialty Start Date End Date Lainey Brito MD PCP - General Family Practice 10/23/17 06/29/21 [address] [place] [address] Lainey Brito MD PCP - Assigned PCP 10/05/17 08/20/18 [address] [place] [address] Lainey Brito MD Assigned PCP 10/05/17 07/12/19 [address] [place] [address] documented as of this encounter
--- OUTSIDE RECORDS SUMMARY | 2022-05-05 01:06 | XMS_ITS | Encounter Summary ---
:1990 [facility] Address [address] [place] [address] Mobile Phone Home Phone Home Phone Preferred Language Bengali Marital Status Single Amish Affiliation Unknown Race Unknown Ethnic Group Unknown Author Organization [place] Address [facility] [place] [address] Care Team Providers Name Role Phone Lainey Brito MD Primary Care Provider [phone] Lainey Brito MD Unavailable Lainey Brito MD Unavailable Reason for Referral Diagnostic Imaging MRI - Closed Specialty Diagnoses / Procedures Referred By Contact Refer red To Contact Radiology. Diagnoses Macitis Siddhartha Gore DPM Rh Mri Rscc Procedures MR Foot Right w/o Contrast [address] [employer] [address] [address] Phone: Fax: Referral ID Status Reason Start Date Expiration Date Visits Requ ested Visits Authorized [id number] Closed 03/05/2018 03/05/2019 1 1 Reason for Visit Diagnostic Imaging MRI - Closed Specialty Diagnoses / Procedures Referred By Contact Refer red To Contact Radiology. Diagnoses Sushiloiditis Siddhartha Gore DPM Rh Mri Rscc Procedures MR Foot Right w/o Contrast [address] [address] Phone: Fax: Referral ID Status Reason Start Date Expiration Date Visits Requ ested Visits Authorized [id number] Closed 03/05/2018 03/05/2019 1 1 Encounter Details Date Type Department Care Team Description 03/12/2018 Hospital Encounter [facility] Shane Gore, Sesamoiditis [facility] [address] [address] [facility] [address] [place], [place] [address] [phone] Social History Tobacco Use Types Packs/Day Years Used Date Smoking Tobacco: Every Day Smokeless Tobacco: Never Alcohol Use Standard Drinks/Week Comments Yes 0 (1 standard drink = 0.6 oz pure alcoho l) occ Sex Assigned at Date Recorded Not on file documented as of this encounter Medications at Time of Discharge Medication Sig Dispensed Refills Start Date End Date ketoconazole (NIZORAL) 2 Apply to the affected 120 mL 11 10/29/2017 09/20/2021 % shampooIndications: area and wash off Tinea versicolor after 5 minutes. nicotine (NICOTROL) 10 Inhale 6-16 180 each 1 10/29/2017 0 07/01/2019 MG InhalerIndications: Cartridges into the Tobacco use disorder lungs daily as needed for smoking cessation norelgestromin-ethinyl Remove old patch and 9 patch 3 06/201709/06/2021 estradiol (ORTHO EVRA) apply new patch onto 150-35 MCG/24HR the skin once a week patchIndications: for 3 weeks (21 Encounter for initial days). Do not wear prescription of patch week 4 (days transdermal patch 22-28), then repeat. hormonal contraceptive device documented as of this encounter Plan of Treatment Not on filedocumented as of this encounter Procedures Procedure Name Priority Date/Time Associated Diagnosis Comme nts MR FOOT RIGHT W/O Routine 03/12/2018 5:18 PM Sesamoiditis Resu lts for this CONTRAST CDT procedure are i n the results section. documented in this encounter Results MR Foot Right w/o Contrast (03/12/2018 5:18 PM CDT) Anatomical Region Laterality Modality Right Foot, SUBRAD MR MSK, UMP MR MSK, RAD MR Magnetic Resonance Specimen (Source) Anatomical Location Collection Method / Collectio n Time Received Time / Laterality Volume Impressions 03/13/2018 9:51 AM CDT IMPRESSION: Medial sesamoid edema, as above. GERONIMO CASTRO MD Narrative 03/13/2018 9:51 AM CDT [...] Min imal first MTP osteoarthritis. Procedure Note Geronimo Castro MD - 03/13/2018Formatting o f this [...] IMPRESSION: Medial sesamoid edema, as ab ove. GERONIMO CASTRO MD Siddhartha Gore DPM IMG MRI ORDERABLES documented in this encounter Visit Diagnoses Diagnosis Sesamoiditis Other disorders of bone and cartilage documented in this encounter Additional Health Concerns Assessment Noted Time PHQ-9 Depression Total Score: 13 02/14/2018 7:19 AM CD T documented as of this encounter Care Teams Analyst [employer] Relationship Specialty Start Date End Date Lainey Brito MD PCP - General Family Practice 10/23/17 06/29/21 [address] [place] [address] Lainey Brito MD PCP - Assigned PCP 10/05/17 08/20/18 [address] [place] [address] Lainey Brito MD Assigned PCP 10/05/17 07/12/19 [address] [place] [address] documented as of this encounter
--- OUTSIDE RECORDS SUMMARY | 2022-05-05 01:06 | XMS_ITS | Encounter Summary ---
:1990 Author Organization [place] Address [facility] [place] [address] Care Team Providers Name Role Phone Lainey Brito MD Primary Care Provider [phone] Lainey Brito MD Unavailable Lainey Brito MD Unavailable Reason for Referral Mental Health Outpatient - Closed Specialty Diagnoses / Procedures Referred By Contact Refer red To Contact Diagnoses Major depressive disorder, recurrent episode, severe with anxious distress ([place]) [place] [address] [place] [address] Referral ID Status Reason Start Date Expiration Date Visits Requ ested Visits Authorized [id number] Closed 02/07/2018 02/07/2019 1 1 Reason for Visit Reason Comments Recheck Medication Encounter Details Date Type Department Care Team Description 02/07/2018 Office Visit [facility] Lainey Brito Major depressive disorder, recurrent episode, severe with anxious distress (H) (Primary Dx); Clinic Eliza Torres MD Encounter for initial prescription of tr ansdermal patch hormonal contraceptive device [address] [facility] [address] [place] [address] [phone] Social History Tobacco Use Types Packs/Day Years Used Date Smoking Tobacco: Every Day Smokeless Tobacco: Never Alcohol Use Standard Drinks/Week Comments Yes 0 (1 standard drink = 0.6 oz pure alcoho l) occ Sex Assigned at Date Recorded Not on file documented as of this encounter Last Filed Vital Signs Vital Sign Reading Time Taken Comments Blood Pressure 101/68 02/07/2018 3:06 PM CDT Pulse 75 02/07/2018 3:06 PM CDT Temperature 36.9 ??C (98.5 ??F) 02/07/2018 3:06 PM CDT Respiratory Rate - - Oxygen Saturation 98% 02/07/2018 3:06 PM CDT Inhaled Oxygen Concentration - - Weight 83.6 kg (184 lb 3.2 oz) 02/07/2018 3:06 PM CDT Height - - Body Mass Index 31.62 01/03/2018 3:07 PM CDT documented in this encounter Progress Notes Lainey Brito MD - 02/07/2018 3:00 PM CDT SUBJECTIVE: Trinity Odell is a 27 year old female who presents to clinic today for the following health issues: Depression and Anxiety Follow-Up ?? Status since last visit: Worsened, Hallucinations ?? Other associated symptoms:None ?? Complicating factors: ?? Significant life event: No ?? Current substance abuse: Alcohol PHQ-9 10/24/2017 01/03/2018 01/16/2018 Total Score 26 20 17 Q9: Suicide Ideation More than half the days Several days Several days F/U: Thoughts of suicide or self-harm - - No F/U: Safety concerns - - No CARLOS-7 SCORE 10/24/2017 01/03/2018 01/16/2018 Total Score 20 14 17 ?? Amount of exercise or physical activity: None ?? Problems taking medications regularly: not taking ?? Medication side effects: none ?? Diet: regular (no restrictions) Stopped taking prozac because it caused her to be paranoid and to have vivid dreams. Has failed cymbalta, sertraline and lexapro in the past, all gave her side effects. Met with therapy, looking forward to future sessions. Would like to meet with psychiatry regarding a next medication choice. Problem list and histories reviewed & adjusted, as indicated. Additional history: none Patient Active Problem List Diagnosis ??? Tobacco use disorder ??? Injury of right great toe, initial encounter ??? Major depressive disorder, recurrent episode, severe with anxious distress (H) History reviewed. No pertinent surgical history. [...] negative, except as otherwise noted. OBJECTIVE: BP 101/68 (BP Location: Right arm, Patient Position: Chair, Cuff Size: Adult Regular) Pulse 75 Temp 98.5 ??F (36.9 ??C) (Oral) Wt 184 lb 3.2 oz (83.6 kg) LMP 01/21/2018 (Exact Date) SpO2 98% ? No BMI 31.62 kg/m2 Body mass index is 31.62 kg/(m^2). GENERAL: healthy, alert and no distress PSYCH: mentation appears normal, affect normal/bright Diagnostic Test Results: PHQ-9 SCORE 01/03/2018 01/16/2018 02/07/2018 Total Score 20 17 16 CARLOS-7 SCORE 01/03/2018 01/16/2018 02/07/2018 Total Score 14 17 13 ASSESSMENT/PLAN: 1. Major depressive disorder, recurrent episode, severe with anxious distress (H) - will refer to psychiatry for ongoing medication management, as she has had reactions to now 4 different agents. - MENTAL HEALTH REFERRAL - Adult; Psychiatry and Medication Management; Psychiatry; [facility], [facility] . Medication management & future refills will be returned to G PCP upon completion of evaluation; We irvin... Lainey Brito MD [facility] documented in this encounter Miscellaneous Notes Addendum Note - Ada Sands RN - 03/18/2018 11:23 AM CDT Addended by: ADA SANDS on: 03/18/2018 11:23 AM Modules accepted: Orders documented in this encounter Plan of Treatment Scheduled Referrals Name Type Priority Associated Diagnoses Order S [facility] REFERRAL - Referral Routine Major depressive Ordered: 02/07/2018 Adult; Psychiatry and disorder, recurrent Medication Management; episode, severe wi th Psychiatry; [facility]: anxious distress (H) [facility] . Medication management & future refills will be returned to [facility] PCP upon completion of evaluation; We irvin... documented as of this encounter Visit Diagnoses Diagnosis Major depressive disorder, recurrent epi sode, severe with anxious distress (H) - Primary Encounter for initial prescription of tr ansdermal patch hormonal contraceptive device documented in this encounter Additional Health Concerns Assessment Noted Time PHQ-9 Depression Total Score: 16 02/08/2018 7:25 AM CD T documented as of this encounter Care Teams Neonatal Nurse Relationship Specialty Start Date End Date Lainey Brito MD PCP - General Family Practice 10/23/17 06/29/21 [address] [place] [address] Lainey Brito MD PCP - Assigned PCP 10/05/17 08/20/18 [address] [place] [address] Lainey Brito MD Assigned PCP 10/05/17 07/12/19 [address] [place] [address] documented as of this encounter
--- OUTSIDE RECORDS SUMMARY | 2022-05-05 01:06 | XMS_ITS | Encounter Summary ---
:1990 Author Organization [place] Address [facility] [place] [address] Care Team Providers Name Role Phone Lainey Brito MD Primary Care Provider [phone] Lainey Brito MD Unavailable Lainey Brito MD Unavailable Encounter Details Date Type Department Care Team Description 02/13/2018 Office Visit [facility] Sam Flynn LMF T Major depressive Services [facility] [address] disorder, recurrent [place] [address] [facility] episode, severe with [address] [place] [address] anxious distress (H) [place], [place] [phone] (Wo rk) (Primary Dx) [address] [phone] Social History Tobacco Use Types Packs/Day Years Used Date Smoking Tobacco: Every Day Smokeless Tobacco: Never Alcohol Use Standard Drinks/Week Comments Yes 0 (1 standard drink = 0.6 oz pure alcoho l) occ Sex Assigned at Date Recorded Not on file documented as of this encounter Progress Notes Sam Flynn LMFT - 02/13/2018 4:01 PM CDT Images from the original note were not included. Progress Note Client Name: Trinity Odell Date: 02/13/2018 Service Type: Individual Session Start Time: 4pm Session End Time: 4:50pm Session Length: 50 minutes Session #: 2 Attendees: Client attended alone Treatment Plan Last Reviewed: developing Tx plan PHQ-9 / CARLOS-7 : 02/13/2018 DATA Progress Since Last Session (Related to Symptoms / Goals / Homework): Symptoms: No change 2nd session Homework: Completed in session Episode of Care Goals: Satisfactory progress - PREPARATION (Decided to change - considering how); Intervened by negotiating a change plan and determining options / strategies for behavior change, identifying triggers, exploring social supports, and working towards setting a date to begin behavior change Current / Ongoing Stressors and Concerns: - Sx of depression related to family stress and unresolved family problems/trauma, financial hardship, alcohol use - Sx of anxiety related to financial stressors and family conflict - Hx of alcohol abuse Client reports that she has significantly reduced her alcohol use to once since our last meeting. She reports a strong desire to make changes, but struggles with motivation and procrastination. She feels stuck and that is discouraging. The current living environment with her mother is not good becausethey fight a lot and her mother criticizes her a lot, but also prevents her from doing what she needwith other delegated tasks. The client feels that she needs to get out of her mother's home and get a job. With her son returning to all day school she will focus on those 2 things only so that she is not overwhelmed. Treatment Objective(s) Addressed in This Session: identify 2 stressors which contribute to feelings of depression identify 2 initial signs or symptoms of anxiety Increase interest, engagement, and pleasure in doing things Decrease frequency and intensity of feeling down, depressed, hopeless Intervention: CBT: behavioral chain analysis, operant conditioning Motivational Interviewing: validation, OARS Solution Focused: miracle question getting a job and out of her mother's house Psycho-therapy: identifying triggers and problem solving to attain short term goals ASSESSMENT: Current Emotional / Mental Status (status of significant symptoms): Risk status (Self / Other harm or suicidal ideation) Client denies current fears or concerns for personal safety. Client denies current or recent suicidal ideation or behaviors. Client denies current or recent homicidal ideation or behaviors. Client denies current or recent self injurious behavior or ideation. Client denies other safety concerns. Client Client reports there has been no change in risk factors since their last session. Client Client reports there has been no change in protective factors since their last session. A safety and risk management plan has been developed including: Client consented to co-developed safety plan. [facility]'s safety and risk management plan was completed. Client agreed to use safety plan should any safety concerns arise. A copy was given to the patient. Appearance: Appropriate Eye Contact: Good Psychomotor Behavior: Normal Attitude: Cooperative Orientation: All Speech Rate / Production: Normal Volume: Normal Mood: Anxious Depressed Affect: Appropriate Thought Content: Clear Rumination Thought Form: Coherent Goal Directed Circumstantial Insight: Fair Medication Review: Changes to psychiatric medications, see updated Medication List in EPIC. Medication Compliance: client was referred by PCP to psychiatry for med changes Changes in Health Issues: None reported Chemical Use Review: Substance Use: decrease in alcohol . Client reports frequency of use once since our last session. Reviewed information and resources for treatment and ongoing sobriety Patient assessed present costs and future losses as a result of substance use Reviewed concerns related to health related substance abuse risk Provided encouragement towards sobriety Provided support and affirmation for steps taken towards sobriety Referred client for formal CD evaluation Client shared she was too busy to schedule the intake since being referred at our last session Tobacco Use: No change in amount of tobacco use since last session. Patient declined discussion at this time Collateral Reports Completed: Not Applicable PLAN: (Client Tasks / Therapist Tasks / Other) Client will continue to prioritize her sobriety and getting out of her mother's house to job [employer] better environment while her son is in school. Next session will do [id number]. DOMINIQUE Lawton, TRAVEL NURSE Treatment Plan Client's Name: Trinity Odell Date Of : 1990 Date: 02/13/2018 DSM-V Diagnoses: 296.33 (F33.2) Major Depressive Disorder, Recurrent Episode, Severe With anxious distress 300.02 (F41.1) Generalized Anxiety Disorder Psychosocial & Contextual Factors: Client is experiencing depression with anxious distress as a result of accumulating life stressors, unresolved family problems and trauma. In addition, the clienthas abused alcohol for years which exacerbates her stressors. Referral / Collaboration: Referral to another professional/service is not indicated at this time. Anticipated number of session or this episode of care: 8-10 MeasurableTreatment Goal(s) related to diagnosis / functional impairment(s) Goal 1: Client's depression will remit as evidenced by a decrease in PHQ9 score by at least 4 pointsor below a 5, where symptoms occur fewer than half the days. Objective #A (Client Action) Client will decrease frequency and intensity of feeling down, depressed, hopeless Client will increase self-awareness of symptom onset/escalation Status: New - Date: TBD Intervention(s) Therapist will assign homework track symptoms, patterns and triggers provide psycho-education on depression Therapist will teach CBT strategies for attending to negative self-talk and cognitive distortions. ACT: experiential exercises and mindfulness practices, how to live with life barriers Objective #B Client will Increase interest, engagement, and pleasure in doing things Identify negative self-talk and behaviors: challenge core beliefs, myths, and actions Status: New - Date: TBD Intervention(s) Therapist will assign homework to practice using coping skills outside the therapy encounter, worksheets, behavioral activation/operant conditioning teach distraction skills. explore and tailor enjoyable activities, increase social activities, strengthen social supports ACT: life values and being mindful of values for goals and daily living Objective #C Client will Improve quantity and quality of night time sleep / decrease daytime naps Improve concentration, focus, and mindfulness in daily activities Status: New - Date: TBD Intervention(s) Therapist will assign homework to track and improve sleep hygiene provide safe space to address hx of presenting problem and root cause teach emotional regulation skills. mindfulness practices, grounding skills, affirmations, strengths based approach Sandtray: exercise to stage presenting problem, reflect, process and problem solve. Goal 2: Client's anxiety will remit as evidenced by a decrease in CARLOS-7 score by at least 4 points or below a 5, where symptoms occur fewer than half the days. Objective #A (Client Action) Client will identify at least 2 fears / thoughts that contribute to feeling anxious. Status: New - Date: TBD Intervention(s) Therapist will assign homework to track patterns, fears and symptoms provide psycho-education on anxiety, teach the client how to perform a behavioral chain analysis, ACT experiential exercises and mindfulness techniques Objective #B Client will use at least 4 coping skills for anxiety management in the next 10 weeks. Status: New - Date: TBD Intervention(s) Therapist will assign homework worksheet to challenge anxious thoughts, values and barriers, rational counter-statements teach emotional regulation skills. deep breathing, grounding, progressive muscle relaxation, TIP skills Objective #C Client will use thought-stopping strategy daily to reduce intrusive thoughts. Status: New - Date: TBD Intervention(s) provide safe space to address hx of presenting problem and root cause Teach mindfulness practices, silent observer, ACT metaphors and managing stressors Sandtray: exercise to stage presenting problem, reflect, process and problem solve. Goal 3: Client will no longer have thoughts or feelings to harm themselves, or take their own life, maintained for at least 1 month. Objective #A (Client Action) Client will identify warning signs that crisis is developing (thoughts, situations, mood, behaviors). Status: New - Date: TBD Intervention(s) Therapist will help and support client to gain awareness and understanding of personal warning signs. Utilize FCC safety plan Objective #B Client will develop effective coping strategies. Status: New - Date: TBD Intervention(s) Therapist will teach client distress tolerance skills, relaxation, self-soothing techniques, deep breaths Therapist will provide client space to identify healthy distractions, utilize physical activity. Objective #C Client will identify members of her support system that can help client when in crisis (family, friends, professionals). Client will know process to contact crisis line, suicide line or 911 in case of an emergency. Status: New - Date: TBD Intervention(s) Therapist will help client develop action steps to contact help during crisis Client will role play and practice steps safety plan steps. Client has not reviewed nor agreed to the above plan. DOMINIQUE Lawton, TRAVEL NURSE February 13, 2018 documented in this encounter Plan of Treatment Not on filedocumented as of this encounter Visit Diagnoses Diagnosis Major depressive disorder, recurrent epi sode, severe with anxious distress (H) - Primary documented in this encounter Additional Health Concerns Assessment Noted Time PHQ-9 Depression Total Score: 13 02/14/2018 7:19 AM CD T documented as of this encounter Care Teams Quarter Lining Smoother Relationship Specialty Start Date End Date Lainey Brito MD PCP - General Family Practice 10/23/17 06/29/21 [address] [place] [address] Lainey Brito MD PCP - Assigned PCP 10/05/17 08/20/18 [address] [place] [address] Lainey Brito MD Assigned PCP 10/05/17 07/12/19 [address] [place], [place] [id number] documented as of this encounter
--- OUTSIDE RECORDS SUMMARY | 2022-05-05 01:06 | XMS_ITS | Encounter Summary ---
:1990 Author Organization [facility] Address [id number] [place] [address] Care Team Providers Name Role Phone Unavailable Primary Care Provider Unavailable Encounter Details Date Type Department Care Team Description 04/04/2008 Historic Results INTERFACED REPORT Dr Salinas MD [address] [facility] [address] [place] [address] (Wo rk) Social History Tobacco Use Types Packs/Day Years Used Date Smoking Tobacco: Never Assessed Sex Assigned at Date Recorded Not on file documented as of this encounter Plan of Treatment Not on filedocumented as of this encounter Procedures Procedure Name Priority Date/Time Associated Comments Diagnosis HCG QUALITATIVE URINE Routine 04/04/2008 11:45 Re sults for this PM CDT procedure are i n the results section. ROUTINE UA WITH STAT 04/04/2008 11:44 Results for this MICROSCOPIC PM CDT procedure are i n the results section. CBC WITH PLATELETS & STAT 04/04/2008 11:30 Res ults for this DIFFERENTIAL PM CDT procedure are i n the results section. BASIC METABOLIC PANEL STAT 04/04/2008 11:30 Re sults for this PM CDT procedure are i n the results section. documented in this encounter Results HCG qualitative urine (04/04/2008 11:45 PM CDT) P athologist Signature HCG Qual Urine Negative NEG MISYS Specimen Anatomical Collection Method Collection Time Receive d Time (Source) Location / / Volume Laterality 04/04/2008 11:45 04/05/2008 PM CDT 12:[address] Rita BROOKS LAB - URINE ORDERABLES Performing Organization Address City/State/ZIP Code Phon e Number MISYS (ABNORMAL) Routine UA with microscopic (04/04/2008 11:44 PM CDT) [facility] Method Time Signature Source Midstream MISYS Urine Color Urine Yellow MISYS Appearance Urine Clear MISYS Glucose Urine Negative NEG mg/dL MISYS Bilirubin Urine Negative NEG MISYS Ketones Urine Negative NEG mg/dL MISYS Specific [place] 1.016 1.003 - MISYS Urine 1.035 Blood Urine Negative NEG MISYS pH Urine 6.5 5.0 - 7.0 MISYS pH Protein Albumin Negative NEG mg/dL MISYS Urine Urobilinogen Normal 0.0 - 2.0 MISYS mg/dL mg/dL Nitrite Urine Negative NEG MISYS Leukocyte Negative NEG MISYS Esterase Urine WBC Urine 2 0 - 2 MISYS /HPF RBC Urine 8 (H) 0 - 2 MISYS /HPF Squamous 4 (H) 0 - 1 MISYS Epithelial /HPF /HPF Urine Bacteria Urine Few (A) NEG /HPF MISYS Yeast Urine Few (A) NEG /HPF MISYS Amorphous Few (A) NEG /HPF MISYS Crystals Mucous Urine Present (A) NEG /LPF MISYS Specimen Anatomical Collection Method Collection Time Receive d Time (Source) Location / / Volume Laterality 04/04/2008 11:44 04/04/2008 PM CDT 11:25 PM CDT Robbie Navarro MD LAB - URINE ORDERABLES Performing Organization Address City/State/ZIP Code Phon e Number MISYS (ABNORMAL) CBC with platelets differential (04/04/2008 11:30 PM CDT) [facility] Method Time Signature MCV 86 77 - 100 MISYS fl MCH 29.0 26.5 - MISYS 33.0 pg MCHC 33.8 31.5 - MISYS 36.5 g/dL RDW 13.0 10.0 - MISYS 15.0 % WBC 12.8 (H) 4.0 - MISYS 11.0 10e9/L RBC Count 4.62 3.7 - 5.3 MISYS 10e12/L Hemoglobin 13.4 11.7 - MISYS 15.7 g/dL Hematocrit 39.6 35.0 - MISYS 47.0 % % Neutrophils 69 (H) 32 - 64 % MISYS % Lymphocytes 22 (L) 26 - 50 % MISYS % Monocytes 8 0 - 12 % MISYS % Eosinophils 1 0 - 6 % MISYS % Basophils 0 0 - 2 % MISYS Platelet Count 203 150 - 450 MISYS 10e9/L Absolute 8.8 (H) 1.3 - 7.0 MISYS Neutrophil 10e9/L Absolute 2.8 1.0 - 5.8 MISYS Lymphocytes 10e9/L Absolute 1.1 0.0 - 1.3 MISYS Monocytes 10e9/L Absolute 0.1 0.0 - 0.7 MISYS Eosinophils 10e9/L Absolute 0.0 0.0 - 0.2 MISYS Basophils 10e9/L Diff Method Automated MISYS Method Specimen Anatomical Collection Method Collection Time Receive d Time (Source) Location / / Volume Laterality 04/04/2008 11:30 04/04/2008 PM CDT 11:25 PM CDT Robbie Navarro MD LAB - BLOOD ORDERABLES Performing Organization Address City/State/ZIP Code Phon e Number MISYS (ABNORMAL) Basic metabolic panel (04/04/2008 11:30 PM CDT) P athologist Signature Sodium 140 133 - 144 MISYS mmol/L Potassium 3.8 3.4 - 5.3 MISYS mmol/L Chloride 108 96 - 110 MISYS mmol/L Carbon Dioxide 24 20 - 32 MISYS mmol/L Glucose 102 (H) 60 - 99 MISYS mg/dL Urea Nitrogen 10 5 - 24 MISYS mg/dL Creatinine 0.57 0.50 - MISYS 1.00 mg/dL Comment: New IDMS-traceable calibration beginning 10/17/07 GFR Estimate >90 >60 mL/min/1.7m2 MISYS GFR Estimate If Black >90 >60 mL/min/1.7m2 M ISYS Calcium 9.2 8.7 - 10.8 mg/dL MISYS Anion Gap 8 6 - 17 mmol/L MISYS Specimen Anatomical Collection Method Collection Time Receive d Time (Source) Location / / Volume Laterality 04/04/2008 11:30 04/04/2008 PM CDT 11:25 PM CDT Robbie Navarro MD LAB - BLOOD ORDERABLES Performing Organization Address City/State/ZIP Code Phon e Number MISYS documented in this encounter Visit Diagnoses Not on filedocumented in this encounter
--- OUTSIDE RECORDS SUMMARY | 2022-05-05 01:06 | XMS_ITS | Encounter Summary ---
:1990 Author Organization [facility] Address [address] [place] [address] Care Team Providers Name Role Phone Lainey Brito MD Primary Care Provider [phone] Lainey Brito MD Unavailable Lainey Brito MD Unavailable Encounter Details Date Type Department Care Team Description 03/28/2018 [facility] Siddhartha Manzo DPM [place] [address] [facility] [address] [place], [place] [address] [place], [place] [id number] [phone] Social History Tobacco Use Types Packs/Day Years Used Date Smoking Tobacco: Every Day Smokeless Tobacco: Never Alcohol Use Standard Drinks/Week Comments Yes 0 (1 standard drink = 0.6 oz pure alcoho l) occ Sex Assigned at Date Recorded Not on file documented as of this encounter Miscellaneous Notes Telephone Encounter - Vineet Pastrana - 03/28/2018 3:27 PM CDT Routing to Dr. Gore. 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 This has nonspecific edema which could represent contusion, stress reaction, or sesamoiditis. Mild fluid within the first-second, second-third, and third-fourth intermetatarsal bursae. Minimal first MTP osteoarthritis. ? IMPRESSION: Medial sesamoid edema, as above. I advised she call back in to clinic to review imaging. Siddhartha Gore DPM FACFAS FACFAOM [facility] [phone] documented in this encounter Plan of Treatment Not on filedocumented as of this encounter Visit Diagnoses Not on filedocumented in this encounter Additional Health Concerns Assessment Noted Time PHQ-9 Depression Total Score: 13 02/14/2018 7:19 AM CD T documented as of this encounter Care Teams Building Construction Contractor Relationship Specialty Start Date End Date Lainey Brito MD PCP - General Family Practice 10/23/17 06/29/21 [address] [place] [address] Lainey Brito MD PCP - Assigned PCP 10/05/17 08/20/18 [address] [place] [address] Lainey Brito MD Assigned PCP 10/05/17 07/12/19 [address] [place] [address] documented as of this encounter
--- OUTSIDE RECORDS SUMMARY | 2022-05-05 01:06 | XMS_ITS | Encounter Summary ---
:1990 [facility] [address], [place] [address] Care Team Providers Name Role Phone Unassigned, Provider Primary Care Provider Unavailable Reason for Referral Procedure/Equipment (Routine) - Incomplete Specialty Diagnoses / Procedures Referred By Contact Refer red To Contact Diagnoses Sprain of left ankle, unspecified ligament, initial encounter Cristopher Modi PA-C Procedures Airselect Elite/Standard Tall boot ([id number]) [address] [place] [address] Referral ID Status Reason Start Date Expiration Date Visits V isits Requested Authorized [id number] Incomplete 01/08/2021 04/09/2022 1 1 Procedure/Equipment (Routine) - Incomplete Specialty Diagnoses / Procedures Referred By Contact Refer red To Contact Diagnoses Left ankle swelling Samuel Rosenberg MBBS Procedures XR Ankle Lt 3 Views [address] [place], [place] [address] Referral ID Status Reason Start Date Expiration Date Visits V isits Requested Authorized [id number] Incomplete 01/08/2021 04/09/2022 1 1 Reason for Visit Reason Comments INJURY, ANKLE Encounter Details Date Type Department Care Team Description 01/08/2021 Office Visit [facility] [address] Cristopher Modi, Rodney an kle swelling; Urgent [facility] ALBERTO Sprain of left ankle, unspecified ligame nt, initial encounter [address] [address] [place] [address] [phone] (Wo rk) Social History Tobacco Use Types [...] documented in this encounter Patient Instructions Patient InstructionsCristopher Modi PA-C - 01/08/2021 1:35 PM CDT Images from the original note were not included. Rest Ibuprofen or tylenol, which ever you can tolerate with benadryl Elevate Icing Avoid activities that increase pain Follow up as directed Follow range of motion exercises as discussed Boot as long as needed Ankle Sprain: Rehab Exercises Introduction Here are some examples of exercises for you to try. The exercises may be suggested for a condition or for rehabilitation. Start each exercise slowly. Ease off the exercises if you start to have pain. You will be told when to start these exercises and which ones will work best for you. How to do the exercises 'Alphabet' exercise 1. Trace the alphabet with your toe. This helps your ankle move in all directions. Yxnd-cn-upei knee swing exercise 1. Sit in a chair with your foot flat on the floor. 2. Slowly move your knee from side to side. Keep your foot pressed flat. 3. Continue this exercise for 2 to 3 minutes. Towel curl 1. While sitting, place your foot on a towel on the floor. Scrunch the towel toward you with your toes. 2. Then use your toes to push the towel away from you. 3. To make this exercise more challenging you can put something on the other end of the towel. A canof soup is about the right weight for this. Towel stretch 1. Sit with your legs extended and knees straight. 2. Place a towel around your foot just under the toes. 3. Hold each end of the towel in each hand, with your hands above your knees. 4. Pull back with the towel so that your foot stretches toward you. 5. Hold the position for at least 15 to 30 seconds. 6. Repeat 2 to 4 times a session. Do up to 5 sessions a day. Ankle eversion exercise 1. Start by sitting with your foot flat on the floor. Push your foot outward against a wall or a piece of furniture that doesn't move. Hold for about 6 seconds, and relax. Repeat 8 to 12 times. 2. After you feel comfortable with this, try using rubber tubing looped around the outside of your feet for resistance. Push your foot out to the side against the tubing, and then count to 10 as you slowly bring your foot back to the middle. Repeat 8 to 12 times. Isometric opposition exercises 1. While sitting, put your feet together flat on the floor. 2. Press your injured foot inward against your other foot. Hold for about 6 seconds, and relax. Repeat 8 to [address] the heel of your other foot on top of the injured one. Push down with the top heel while trying to push up with your injured foot. Hold for about 6 seconds, and relax. Repeat 8 to 12 times. Resisted ankle inversion 1. Sit on the floor with your good leg crossed over your other leg. 2. Hold both ends of an exercise band and loop the band around the inside of your affected foot. Then press your other foot against the band. 3. Keeping your legs crossed, slowly push your affected foot against the band so that foot moves away from your other foot. Then slowly relax. 4. Repeat 8 to 12 times. Resisted ankle eversion 1. Sit on the floor with your legs straight. 2. Hold both ends of an exercise band and loop the band around the outside of your affected foot. Then press your other foot against the band. 3. Keeping your leg straight, slowly push your affected foot outward against the band and away from your other foot without letting your leg rotate. Then slowly relax. 4. Repeat 8 to 12 times. Resisted ankle dorsiflexion 1. Tie the ends of an exercise band together to form a loop. Attach one end of the loop to a secure object or shut a door on it to hold it in place. (Or you can have someone hold one end of the loop toprovide resistance.) 2. While sitting on the floor or in a chair, loop the other end of the band over the top of your affected foot. 3. Keeping your knee and leg straight, slowly flex your foot to pull back on the exercise band, and then slowly relax. 4. Repeat 8 to 12 times. Single-leg balance 1. Stand on a flat surface with your arms stretched out to your sides like you are making the letterT. Then lift your good leg off the floor, bending it at the knee. If you are not steady on your feet, use one hand to hold on to a chair, counter, or wall. 2. Standing on the leg with your affected ankle, keep that knee straight. Try to balance on that legfor up to 30 seconds. Then rest for up to 10 seconds. 3. Repeat 6 to 8 times. 4. When you can balance on your affected leg for 30 seconds with your eyes open, try to balance on it with your eyes closed. 5. When you can do this exercise with your eyes closed for 30 seconds and with ease and no pain, trystanding on a pillow or piece of foam, and repeat steps 1 through 4. Follow-up care is a emerson part of your treatment and safety. Be sure to make and go to all appointments, and call your doctor if you are having problems. It's also a good idea to know your test results and keep a list of the medicines you take. Where can you learn more? 1. Go to https://www.[employer]/healthlibrary. 2. Enter X002 in the search box. Current as of: May 03, 2020?Content Version: 12.8 ?? [employer]. Care instructions adapted under license by your healthcare professional. If you have questions abouta medical condition or this instruction, always ask your healthcare professional. [employer] disclaims any warranty or liability for your use of this information. documented in this encounter Progress Notes Cristopher Modi PA-C - 01/08/2021 1:35 PM CDT Trinity Odell is a 30 y.o.female presents to the Urgent Care for INJURY, ANKLE Patient presents with a R ankle injury that she sustained yesterday after falling off of a chair while trying to hand something up. Pain is 9/10. No OTC meds taken. Area is swollen and tender to the touch. Ice applied to the area with no relief. Past Medical History: No past medical history on file. Adverse Drug Reactions: Patient has no known allergies. Medications: insulin isophane and insulin syringe-needle U-100 Family History: No family history on file. Social History: Social History Tobacco Use ??? Smoking status: Never Smoker Vaping Use ??? Vaping Use: Never used Substance Use Topics ??? Alcohol use: Never ??? Drug use: Not on file Vital Signs: BP 107/60 Pulse 88 Temp 36.6 ??C (97.9 ??F) Resp 18 SpO2 98% Review of Systems: All systems were reviewed and found to be negative except as noted below. OBJECTIVE: General: NAD Skin: Mucous membranes are moist, no sign of dehydration. Obvious swelling around the left lateral malleolus. No swelling medially musculoskeletal: Pulses and sensation are normal. Pain to palpation along the left lateral malleolus. Achilles is intact. The foot is nontender to palpation. No calf or knee tenderness. Orders Placed This Encounter ??? XR Ankle Lt 3 Views Labs: No results found for this visit on 01/08/21. X-Rays: Negative for fracture X-rays are initially evaluated myself independently. XR Ankle Lt 3 Views Result Date: 01/08/2021 COMPARISON: None. FINDINGS: No definite fracture or dislocation is identified. Ankle mortise appearsintact. ASSESSMENT: 1. Left ankle swelling Medical Decision Making: Left ankle injury without obvious fracture, most likely sprain PLAN: Patient Instructions Rest Ibuprofen or tylenol, which ever you can tolerate Elevate Icing Avoid activities that increase pain Follow up as directed Follow range of motion exercises as discussed Shayan vick was ordered to help with pain and facilitate healing. Gentle range of motion. She may takethe foot out and exercise a few times daily as long as it is not causing increasing pain. Rest ice compression elevation. Follow-up if pain persists. Tylenol or ibuprofen for discomfort may be used Benadryl at bedtime RTC p.r.n. documented in this encounter Nursing Notes Kindra Orlando RN - 01/08/2021 1:35 PM CDT Trinity Odell is a 30 y.o.female presents to the Urgent Care for INJURY, ANKLE Patient presents with a R ankle injury that she sustained yesterday after falling off of a chair while trying to hand something up. Pain is 9/10. No OTC meds taken. Area is swollen and tender to the touch. Ice applied to the area with no relief. documented in this encounter Plan of Treatment Not on filedocumented as of this encounter Results XR Ankle Lt 3 [...] is identified. Ankle mortise appears intact. Samuel Rosenberg MBBS RAD GD documented in this encounter Visit Diagnoses Diagnosis Left ankle swelling Effusion of ankle and foot joint Sprain of left ankle, unspecified ligame nt, initial encounter Left ankle swelling Effusion of ankle and foot joint documented in this encounter Care Teams Cap Cutter Relationship Specialty Start Date End Date Unassigned, Provider PCP - General 08/19/[address] [place] [address] documented as of this encounter
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
== END 2022-05-05 01:32 | disposition home or self-care (01) ==
PROVIDERS: Emergency Provider Family Medicine
DX: J10.1 Influenza due to other identified influenza virus with other respiratory manifestations (principal)
CPT/HCPCS: 87502; 87634; 87635; 99282; 99283; 99284

== ENCOUNTER 2022-05-14 08:37 | Emergency (ER) | payer MEDICAID, SELFPAY ==
[2022-05-14 09:21] VITALS: BP 134/91; PULSE 75; RESP 14; TEMP 36.6; O2SAT 98; BMI 32.6
--- NOTE | 2022-05-14 11:28 | ED.GENADULT ---
HPI - General Adult General Time Seen by Provider: 11:28 Date Seen: 05/14/22 Chief complaint: Ear/Nose/Throat Problem Stated complaint: Influenza trouble breathing Time Seen by Provider: 05/14/22 11:17 Source: patient and RN notes reviewed Mode of arrival: ambulatory Limitations: no limitations History of Present Illness HPI narrative: Patient is a 31-year-old female with anterior neck pain and difficulty swallowing which she thinks is from an underlying cyst she has. The symptoms started yesterday. She has not had a documented fever but has felt hot and cold. She did throw up 3 times this morning but thinks it is because she is more anxious and tense from this. It is hurting to swallow, she feels like her airway could close. She states she has had a cyst that swollen in her neck before but they can only see it when it is inflamed. Does not sound like there has ever been any surgery. Her history is complicated by a diagnosis of influenza on May 05, did complete a 5 day course of Tamiflu, states she felt much better. She still has some coughing in feels like the coughing from the influenza may have irritated this cyst in her throat. When ask her if it is possibly in her thyroid, she thinks it might be. Will try to review any prior records on her. It is not hurting on either side of her throat but hurts more anteriorly, points to the anterior base of her neck just below the jaw where she is feeling this. It feels swollen to her. She has Nexplanon in for contraception. Related Data Previous Rx's Medication Instructions Recorded oseltamivir 75 mg capsule (Tamiflu) 75 mg PO BID 5 days #10 caps 05/05/22 amoxicillin 875 mg-potassium 1 tab PO BID #20 tabs 05/14/22 clavulanate 125 mg tablet Allergies Allergy/AdvReac Type Severity Reaction Status Date / Time No Known Drug Allergies Allergy Verified 05/05/22 00:17 Review of Systems Status of ROS: Reports: 10 or more systems reviewed and unremarkable except as noted in History and below PFSH PFS Social History Smoking Status: Former smoker What tobacco products do you use: cigarettes Smoking quit date/years: <= 15 years ago How often do you have a drink containing alcohol: never AUDIT-C Alcohol total score: 0 Non-prescribed substance use: denies use Exam Const: Vital Signs, click to edit/add: Vital Signs - 24 hr 05/14/22 09:21 05/14/22 12:21 05/14/22 13:30 Temperature 97.9 F Pulse Rate [Pulse Oximeter] 75 79 Respiratory Rate 14 18 Blood Pressure [Ri ght Upper Arm] 134/91 H 134/91 H Pulse Oximetry 98 98 99 Oxygen Delivery Me thod Room Air Patient is sitting upright along the ED bed. Looks uncomfortable but is pleasant with me, able to speak in complete sentences, do not hear any hoarseness. Seems to be managing secretions just fine. Documenting provider has reviewed patient's vital signs: yes Common normals: no apparent distress, average body habitus, oriented x3, no limitations, healthy appearing and alert General appearance: cooperative and well kempt HENMT: Common normals: normocephalic, head/scalp atraumatic, hearing grossly normal bilaterally, external ears normal, TM's normal bilaterally, external nose normal, nasal mucous membranes and turbinates normal, moist oral mucous membranes (Some trismus which she states is coming from below the jaw), oropharynx normal (Still can see her posterior oropharynx looks normal), dentition normal and gingiva normal Head and scalp: normal to inspection, normocephalic and atraumatic Nose: external nose normal and nasal mucous membranes and turbinates normal External ear: external ears normal Tympanic membrane: TM's normal bilaterally Throat: posterior oropharynx normal, tonsils normal and uvula midline Eye: Common normals: PERRL, EOMs intact bilaterally, conjunctivae normal and no scleral icterus Conjunctiva: conjunctiva(e) normal Pupil: PERRL Neck & C-Spine: Common normals: full ROM, no lymphadenopathy, supple, no meningeal signs, no JVD and thyroid normal Thyroid: thyroid normal Other: Has pain just along the reflection of the jaw onto the anterior neck. Cannot say can find a discrete mass in there but she complains of tenderness. Difficult to palpate below the jaw an on this upper anterior neck as she states it hurts. Thyroid seems to be normal to me and she states it is not tender when I palpate her thyroid. Lymph: Lymphatic: no lymphadenopathy noted Chest: Common normals: inspection of chest normal and palpation of chest normal Resp: Common normals: normal respiratory effort, no retractions, no use of accessory muscles and clear to auscultation bilaterally Auscultation: clear to auscultation bilaterally Cardio: Common normals: no JVD, regular rate, regular rhythm, S1 normal heart sound, S2 normal heart sound, no gallops, no clicks and no murmurs Rate: regular rate Rhythm: regular rhythm Heart sounds: S1 normal and S2 normal GI: Common normals: Normal to inspection, nondistended, normoactive bowel sounds present, soft to palpation, non-tender, no hepatosplenomegaly and no masses Palpation: soft and no hepatosplenomegaly Neuro: Common normals: oriented x3 Sensorium/orientation: alert Meningeal signs: no meningeal signs Psych: Appearance: well kempt Course Course Hospital Course: We will continue to monitor on pulse oximetry. We will stab lotion IV, start some IV fluids, 4 mg IV Zofran and morphine for some initial pain management. I will be obtaining a CT soft tissue neck with IV contrast. We will get appropriate labs. There certainly are congenital cystic structures that can remain in the neck. This does not sound clinically like a tonsillitis or peritonsillar abscess. Does not sound like it is a retropharyngeal abscess either as it is in her anterior neck. Thyroid does not seem palpably affected but thyroiditis or issues with the thyroid certainly could be a possibility. We just need this CT to further elucidate the structures in the neck. Right now she is hemodynamically stable, managing her airway. Will continue to watch her closely. Reevaluation(s) Reevaluation #1: Reviewed CT scan on labs with patient. Did provider copy of her CT scan. I am not sure why she is having such as severe sore throat other than possibly may be postnasal drainage that is going on noted from her sinusitis. We certainly do not see anything on the neck CT that would show any mass or any lesion in her neck. Time: 14:10 Vital Signs Vital signs: Initial Vital Signs Temperature 97.9 F 05/14/22 09:21 Temperature Source Oral 05/14/22 09:21 Pulse Rate 75 05/14/22 09:21 Pulse Rhythm 05/14/22 09:21 Respiratory Rate 14 05/14/22 09:21 Blood Pressure 134/91 H 05/14/22 09:21 Blood Pressure Mean 105 05/14/22 09:21 Blood Pressure Position Sitting 05/14/22 09:21 Pulse Oximetry 98 05/14/22 09:21 Oxygen Delivery Method 05/14/22 09:21 Vital Signs Temperature 97.9 F 05/14/22 09:21 Pulse Rate 75 05/14/22 09:21 Respiratory Rate 14 05/14/22 09:21 Blood Pressure 134/91 H 05/14/22 09:21 Pulse Oximetry 98 05/14/22 09:21 Oxygen Delivery Method 05/14/22 09:21 Temperature 97.9 F 05/14/22 09:21 Pulse Rate 79 05/14/22 13:30 Respiratory Rate 18 05/14/22 13:30 Blood Pressure 134/91 H 05/14/22 13:30 Pulse Oximetry 99 05/14/22 13:30 Oxygen Delivery Method 05/14/22 09:21 Medical Decision Making Lab Data Lab results reviewed: Yes I reviewed the patient's lab results Labs: Lab Results 05/14/22 05/14/22 05/14/22 Range/Units 12:55 13:07 13:07 WBC 13.76 H (4.50-11.00) K/uL RBC 4.32 (4.00-5.20) m/uL Hgb 12.2 (12.0-16.0) gm/dL Hct 36.5 (33.0-51.0) % MCV 85 (80-100) fL MCH 28 (26-34) pg MCHC 33 (32-36) gm/dL RDW Coeff of Robert 12.7 (11.5-15.5) % Plt Count 224 (140-440) K/uL Neut % (Auto) 70.8 (42.0-72.0) % Lymph % (Auto) 21.7 (20-44) % [place] % (Auto) 6.5 (0.0-11.0) % Eos % (Auto) 0.7 (0.0-7.0) % Baso % (Auto) 0.2 (0.0-3.0) % Neut # (Auto) 9.70 H (1.7-7.0) K/uL Lymph # (Auto) 3.00 H (0.90-2.90) K/uL [place] # (Auto) 0.90 (0.00-0.90) K/UL Eos # (Auto) 0.10 (0.00-0.50) K/uL Baso # (Auto) 0.00 (0.00-0.30) K/uL Abs Immat Gran (auto) 0.00 (0.00-0.30) K/uL Imm/Tot Granulo (auto) 0.1 % Sodium 135 (135-149) mmol/L Potassium 4.0 (3.6-5.1) mmol/L Chloride 107 (96-114) mmol/L Carbon Dioxide 22 (20-32) mmol/L BUN 12 (5-24) mg/dL Creatinine 0.6 (0.5-1.5) mg/dL Estimated Creat Clear 117.31 Estimated GFR 123 ml/min Glucose 100 (60-115) mg/dL Lactate (0.5-1.9) mmol/L Calcium 8.6 (8.4-10.6) mg/dL Total Bilirubin 0.9 (0.1-1.5) mg/dL AST 41 H (12-35) U/L ALT 16 (4-35) U/L Alkaline Phosphatase 84 (40-150) U/L C-Reactive Protein 1.5 H (0.5-1.0) mg/dL Total Protein 7.2 (6.0-8.3) g/dL Albumin 4.1 (3.3-5.0) g/dL Procalcitonin 0.05 (<0.50) ng/mL SARS-CoV-2 (PCR) Negative SARS-CoV-2 (Negative) 05/14/22 Range/Units 13:07 WBC (4.50-11.00) K/uL RBC (4.00-5.20) m/uL Hgb (12.0-16.0) gm/dL Hct (33.0-51.0) % MCV (80-100) fL MCH (26-34) pg MCHC (32-36) gm/dL RDW Coeff of Robert (11.5-15.5) % Plt Count (140-440) K/uL Neut % (Auto) (42.0-72.0) % Lymph % (Auto) (20-44) % [place] % (Auto) (0.0-11.0) % Eos % (Auto) (0.0-7.0) % Baso % (Auto) (0.0-3.0) % Neut # (Auto) (1.7-7.0) K/uL Lymph # (Auto) (0.90-2.90) K/uL [place] # (Auto) (0.00-0.90) K/UL Eos # (Auto) (0.00-0.50) K/uL Baso # (Auto) (0.00-0.30) K/uL Abs Immat Gran (auto) (0.00-0.30) K/uL Imm/Tot Granulo (auto) % Sodium (135-149) mmol/L Potassium (3.6-5.1) mmol/L Chloride (96-114) mmol/L Carbon Dioxide (20-32) mmol/L BUN (5-24) mg/dL Creatinine (0.5-1.5) mg/dL Estimated Creat Clear Estimated GFR ml/min Glucose (60-115) mg/dL Lactate 1.0 (0.5-1.9) mmol/L Calcium (8.4-10.6) mg/dL Total Bilirubin (0.1-1.5) mg/dL AST (12-35) U/L ALT (4-35) U/L Alkaline Phosphatase (40-150) U/L C-Reactive Protein (0.5-1.0) mg/dL Total Protein (6.0-8.3) g/dL Albumin (3.3-5.0) g/dL Procalcitonin (<0.50) ng/mL SARS-CoV-2 (PCR) (Negative) Imaging Data CT- Other: Attestation: I have reviewed the pertinent imaging results. My impression: I did review her CT, I can see left maxillary sinus disease. Otherwise, I do not appreciate an acute mass in the neck but certainly need to await radiology over-read on this. Radiologist's impression: Patient: PRICE FIGUEROA Facility:?[facility] Patient ID:?[id number] Site Patient ID:?[id number]. Site :?1990 Study:?CT ST Neck W/IV ONLY-05/14/2022 12:43:12 PM Ordering Physician:Дмитрий Garrett Final Report: INDICATION: ANTERIOR NECK PAIN TECHNIQUE: CT of the neck with 93 ml iodinated contrast agent. Coronal and sagittal reconstructions are included. COMPARISON: None FINDINGS: There is no mass or other lesion within the soft tissues of the suprahyoid or infrahyoid neck. Multiple prominent level 1, level 2, level 3 cervical lymph nodes are nonspecific but may be reactive in etiology. The oral cavity, nasopharyngeal, oropharyngeal and hypopharyngeal mucosal spaces are normal. No periapical dental disease. The supraglottic, glottic and infraglottic larynx are normal. The airway including the trachea is normal and is patent. The parotid glands, submandibular and sublingual glands are normal in appearance. The thyroid gland is normal in appearance. The vascular structures opacify normally with contrast material. No suspicious lytic or blastic osseous lesions. Mild disc bulge and endplate osteophytic spurring at C5-6 without significant spinal canal stenosis or neural foramen narrowing. Mild mucosal thickening in the left frontal sinus. Moderate mucosal thickening in the left maxillary sinus. The nasal septum is deviated to left the remaining paranasal sinuses are clear. The mastoid air cells and middle ear cavities and external ear canals are clear. Visualized orbital and intracranial contents are normal. Supraclavicular regions, mediastinum and soft tissues of the imaged chest wall are normal. Visualized portions of the upper lungs are clear. IMPRESSION: 1. No suspicious enhancement or neck mass. 2. Multiple prominent level 1, level 2, level 3 cervical lymph nodes are nonspecific but may be reactive in etiology. 3. Moderate left maxillary sinus disease with air-fluid level, as well as moderate mucosal thickening in the left anterior ethmoid air cells. Please correlate for acute sinus disease. Please note that all CT scans at this facility use dose modulation, iterative reconstruction, and/or weight-based dosing when appropriate to reduce radiation dose to as low as reasonably achievable. Dictated by Cody Chavez MD @ 05/14/2022 1:11:38 PM (Electronic Signature) Discharge Plan Discharge Clinical Impression: Left maxillary sinusitis, Acute sore throat Condition: Stable Instructions: Pharyngitis (ED), Sinusitis (ED) Additional Instructions: Start oral antibiotic and take as prescribed. The etiology of your sore throat is not definitively identified. It could be postnasal drainage that is happening from the sinusitis. Your CT scan is certainly indicative of acute left maxillary sinusitis. Tylenol and ibuprofen per bottle directions. Recommend follow-up with your primary care provider this next week for recheck. If once you are on antibiotics your symptoms are not improving over the next few days, are worsening at any point, please seek re-evaluation. Activity Level: Activity as Tolerated Discharge Diet: Regular Prescriptions: New amoxicillin-pot clavulanate 875-125 mg tablet 1 tab PO BID Qty: 20 0RF No Action oseltamivir [Tamiflu] 75 mg capsule 75 mg PO BID 5 Days Qty: 10 0RF Follow Up/Referrals: Generic,Amb Provider [Primary Care Provider] - Stand Alone Forms: [employer]erie Info Instructions
--- NOTE | 2022-05-14 11:37 | CRLHL7_ITS ---
For Patients: As a result of the Century Cures Act, medical imaging exams and procedure reports are released immediately into your electronic medical record. You may view this report before your referring provider. If you have questions, please contact your health care provider. INDICATION: ANTERIOR NECK PAIN TECHNIQUE: CT of the neck with 93 ml iodinated contrast agent. Coronal and sagittal reconstructions are included. COMPARISON: None FINDINGS: There is no mass or other lesion within the soft tissues of the suprahyoid or infrahyoid neck. Multiple prominent level 1, level 2, level 3 cervical lymph nodes are nonspecific but may be reactive in etiology. The oral cavity, nasopharyngeal, oropharyngeal and hypopharyngeal mucosal spaces are normal. No periapical dental disease. The supraglottic, glottic and infraglottic larynx are normal. The airway including the trachea is normal and is patent. The parotid glands, submandibular and sublingual glands are normal in appearance. The thyroid gland is normal in appearance. The vascular structures opacify normally with contrast material. No suspicious lytic or blastic osseous lesions. Mild disc bulge and endplate osteophytic spurring at C5-6 without significant spinal canal stenosis or neural foramen narrowing. Mild mucosal thickening in the left frontal sinus. Moderate mucosal thickening in the left maxillary sinus. The nasal septum is deviated to left the remaining paranasal sinuses are clear. The mastoid air cells and middle ear cavities and external ear canals are clear. Visualized orbital and intracranial contents are normal. Supraclavicular regions, mediastinum and soft tissues of the imaged chest wall are normal. Visualized portions of the upper lungs are clear. IMPRESSION: 1. No suspicious enhancement or neck mass. 2. Multiple prominent level 1, level 2, level 3 cervical lymph nodes are nonspecific but may be reactive in etiology. 3. Moderate left maxillary sinus disease with air-fluid level, as well as moderate mucosal thickening in the left anterior ethmoid air cells. Please correlate for acute sinus disease. Please note that all CT scans at this facility use dose modulation, iterative reconstruction, and/or weight-based dosing when appropriate to reduce radiation dose to as low as reasonably achievable. Dictated by Cody Chavez MD @ 05/14/2022 1:11:38 PM (Electronically Signed)
--- OUTSIDE RECORDS SUMMARY | 2022-05-14 11:41 | XMS_ITS | Encounter Summary ---
:1990 Author Organization [facility] Address [address] [place] [address] Care Team Providers Name Role Phone Harris Zaidi MD Unavailable No Ref-Primary, Physician Primary Care Provider [phone] Encounter Details Date Type Department Care [...] documented as of this encounter Care Teams Director Information Security Relationship Specialty Start Date End Date No Ref-Primary, Physician PCP - General 06/30/21 Harris Zaidi MD Assigned PCP 02/13/21 09/10/21 [address] [place] [address] documented as of this encounter
--- OUTSIDE RECORDS SUMMARY | 2022-05-14 11:41 | XMS_ITS | Encounter Summary ---
:1990 Author Organization [facility] Address [address] [place] [address] Care Team Providers Name Role Phone Harris Zaidi MD Unavailable No Ref-Primary, Physician Primary Care Provider [phone] Encounter Details Date Type Department Care [...] documented as of this encounter Care Teams Integrated Logistics Operations Manager Relationship Specialty Start Date End Date No Ref-Primary, Physician PCP - General 06/30/21 Harris Zaidi MD Assigned PCP 02/13/21 09/10/21 [address] [place] [address] documented as of this encounter
--- OUTSIDE RECORDS SUMMARY | 2022-05-14 11:41 | XMS_ITS | Encounter Summary ---
:1990 Author Organization [facility] Address [facility] [place] [address] Care Team Providers Name Role Phone Harris Zaidi MD Unavailable No Ref-Primary, Physician Primary Care Provider Reason for Visit Reason Comments Neck Pain Contraception Encounter Details Date Type Department Care Team Description 09/06/2021 Office Visit [facility] Familia Nicole, Tobacco use disorder (Primary Dx); Clinic Beccaria DO Encounter for initial prescription of tr ansdermal patch hormonal contraceptive device [id number] [facility] [id number] [place] [id number] [phone] Social History Tobacco Use Types Packs/Day Years [...] Body Mass Index 32.77 06/29/2021 11:51 PM HAM SMOKER documented in this encounter Patient Instructions Patient [...] medicines you take. Include both prescription and [id number] medicines. Also tell them about any vitamins, [...] medicine, contactyour doctor immediately. Do not take [place]'s wort while on this medicine. Ask your [...] you have any questions about this medicine. [email or web address] IMPORTANT NOTE: This document tells you briefly how to take your medicine, but it does not tell you all there is to know about it.Your doctor or pharmacist may give you other documents about your medicine. Please talk to them if you have any questions.Always follow their advice. There is a more complete description of this medicine available in [place]ut.Scan this code on your smartphone or tablet or use the web address below. You can also ask your pharmacist for a printout. If you have any questions,please ask your pharmacist. ?? 2020 [place]. documented in this encounter Progress Notes José Johnson - 09/06/2021 2:30 PM CDT Pre-Visit Planning Next 5 appointments (look out 90 days) Sep 06, 2021 2:30 PM (Arrive by 2:10 PM) Provider Visit with Familia Nicole DO [facility] ([facility] ) [id number] [place] [id number] Appointment Notes for this encounter: Neck pain and might have pulled something, has pressure, and control options Questionnaires Reviewed/Assigned No additional questionnaires are needed Patient preferred phone number: [phone] Unable to reach. Left voicemail. Advised patient to call clinic back at [phone]. Familia Nicole DO - 09/06/2021 2:30 PM [...] 3 months (around 12/07/2021). Familia DO [facility] is a 30 year old who presents [...] documented as of this encounter Care Teams Canvas Baster Jumpbasting Relationship Specialty Start Date End Date No Ref-Primary, Physician PCP - General 06/30/21 Harris Zaidi MD Assigned PCP 02/13/21 09/10/21 [address] [place] [address] documented as of this encounter
--- OUTSIDE RECORDS SUMMARY | 2022-05-14 11:41 | XMS_ITS | Encounter Summary ---
:1990 Author Organization [place] Address [facility] [place] [address] Care Team Providers Name Role Phone No Ref-Primary, Physician Primary Care Provider [phone] Familia Nicole DO Unavailable Encounter Details [...] documented as of this encounter Care Teams Warehouse Receiving Clerk Relationship Specialty Start Date End Date No Ref-Primary, Physician PCP - General 06/30/21 Familia Nicole DO Assigned PCP 09/11/21 09/24/21 [address] [place] [address] documented as of this encounter
--- OUTSIDE RECORDS SUMMARY | 2022-05-14 11:41 | XMS_ITS | Clinical Summary ---
:1990 Author Organization [facility] Address [facility] [place] [address] Care Team Providers Name Role Phone No Ref-Primary, Physician Primary Care Provider [phone] Minoo Daniels PA-C Unavailable [phone] Allergies No known active allergies Medications Medication [...] Placed 10/25/2021, removal due 10/25/24. Lot # [id number] Exp: [id number] [facility] [id number] Major depressive disorder, recurrent episode, severe w ith anxious distress 01/17/2018 Tobacco use disorder 10/24/2017 Resolved Problems Problem Noted Date Resolved Date Injury of right great toe, initial encounter 10/24/2017 09/27/2021 Severe episode of recurrent major depressive disorder, 10/2401/17/2018 without psychotic features Immunizations Name Administration Dates Next Due COVID-19 Vaccine (Diego) 10/18/2020 HPV Quadrivalent 09/27/2010, 05/20/2009, 01/19/2009 Hep B, Peds or Adolescent 03/25/2004 Hib, Unspecified 06/14/1992, 08/20/1991, 06/04/1991, 01/29/1991 Historical DTP/aP 06/14/1992, 08/20/1991, 06/04/1991, 01/29/1991 Influenza (IIV3) PF 04/28/2005 Influenza Vaccine >6 months 05/27/2020, 03/31/2016, 05/19/20 15, (Alfuria,Fluzone) 03/18/2014 MMR 06/02/1992 OPV, trivalent, live [...] Effective Dates Phone Addre ss Type Group [facility] [id number] 2021-Present [phone] [address] [place] [address] [facility] 1990 [address] [facility] [place] [address] Care Teams Shot Hole Driller Relationship Specialty Start Date End Date No Ref-Primary, Physician PCP - General 06/30/21 Minoo Daniels PA-C Assigned PCP 04/08/22 [address] [place], [place] [id number]
--- OUTSIDE RECORDS SUMMARY | 2022-05-14 11:41 | XMS_ITS | Encounter Summary ---
:1990 Author Organization [facility] Address [address] [place] [address] Care Team Providers Name Role Phone Harris Zaidi MD Unavailable No Ref-Primary, Physician Primary Care Provider Familia Nicole DO Unavailable Minoo Daniels PA-C Unavailable [phone] Familia Nicole DO Unavailable Minoo Daniels PA-C Unavailable [phone] Encounter Details Date Type Department Care Team [...] with No / Unsure 06/29/2021 11:48 PM CLINICAL EDUCATION SPECIALIST someone who was confirmed or suspected to have Coronavirus / COVID-19? documented as of this encounter Plan of Treatment Not on filedocumented as of this encounter Visit Diagnoses Not on filedocumented in this encounter Additional Health Concerns Assessment Noted Time PHQ-9 Depression Total Score: 17 07/01/2019 11:[address] documented as of this encounter Care Teams Typing Bookkeeper Relationship Specialty Start Date End Date No Ref-Primary, Physician PCP - General 06/30/21 Harris Zaidi MD Assigned PCP 02/13/21 09/10/21 [address] [place] [address] Familia Nicloe DO Assigned PCP 09/11/21 09/24/21 [address] [place] [address] Minoo Daniels PA-C Assigned PCP 09/25/21 01/27/22 [address] [place] [address] Familia Nicole DO Assigned PCP 01/28/22 04/07/22 [address] [place] [address] Minoo Daniels PA-C Assigned PCP 04/08/22 [address] [place] [address] documented as of this encounter
--- OUTSIDE RECORDS SUMMARY | 2022-05-14 11:41 | XMS_ITS | Encounter Summary ---
:1990 Author Organization [place] Address Pending sale to [facility] [place] [address] Care Team Providers Name Role Phone No Ref-Primary, Physician Primary Care Provider Minoo Daniels PA-C Unavailable [phone] Reason for Visit Reason Comments Procedure implant Encounter Details Date Type Department Care Team Description 10/25/2021 Office Visit [facility] Minoo Daniels lanon insertion (Primary Dx); Clinic Aurorareén Arguelles PA-C Insertion of implantable subdermal contr aceptive [address] [facility] [address] [place] [address] Social History Tobacco Use Types [...] PM) Nexplanon Placement with Minoo Daniels PA-C [facility] ([facility] ) [address] [facility] [address] Appointment Notes for this encounter: LAB TEST Nexplanon placement Questionnaires Reviewed/Assigned No additional questionnaires are needed Patient preferred phone number: [phone] Spoke to patient via phone. Patient does [...] needed. MyChart Patient is not active on [employer]. Encouraged [employer] activation. Questionnaire Review Offered information on completing questionnaires via [employer]. Call Summary Thank you for your time today. If anything comes up before your appointment, please feel free to contact us at [phone]. Minoo Daniels PA-C - 10/25/2021 2:00 PM CDT Nexplanon Insertion: Is a test required: Yes. Was it positive or negative? Negative Was a consent obtained? Yes Subjective: Trinity Odell is a 31 year old No [...] testing is available if warranted by ordering [id number], HCG Quantitative . BP 118/68 (BP Location: [...] dressing applied to insertion site. Lot # [id number] Exp: EBL: minimal Complications: none ASSESSMENT: ICD-10-CM 1. Nexplanon insertion Z30.017 HCG Qual, Urine ([id number]) 2. Insertion of implantable subdermal contraceptive Z30.017 PLAN: Given light bulb assembler's handouts, including when to have Nexplanon removed, [...] Procedure Name Priority Date/Time Associated Comments Diagnosis MT INSERTION DRUG Routine 10/25/2021 2:16 PM Nexplanon inserti on DELIVERY IMPLANT CDT HCG QUALITATIVE URINE STAT 10/25/2021 1:52 PM Nexplanon ins ertion Results for this CDT procedure are i n the results section. documented in this encounter Results HCG Qual, Urine ([id number]) (10/25/2021 1:52 PM CDT) [facility] Method Time Signature hCG Urine Negative Negative ANDREA 10/25/2021 [facility] Qualitative 1:58 PM CDT Comment: This test is for screening purp oses. Results should be interpreted along with the clinical picture. Confirmation testing is available if warranted by ordering [id number], HCG Quantitative . Specimen Anatomical Collection Method Collection Time Receive d Time (Source) Location / / Volume Laterality Urine URINE SPECIMEN / Non-blood 10/25/2021 1:52 PM 10/25 1:52 Unknown Collection / CDT PM CDT Unknown Minoo Daniels PA-C LAB - URINE ORDERABLE S Performing Organization Address City/State/ZIP Code Phon [place] [address] [facility] Lab (no room number, 1st floor of clinic) [place] [address], [facility] [address] [facility] (no room number, 1st floor of [...] documented as of this encounter Care Teams Statistician Relationship Specialty Start Date End Date No Ref-Primary, Physician PCP - General 06/30/21 Minoo Daniels PA-C Assigned PCP 09/25/21 01/27/22 [address] [place], [place] [id number] documented as of this encounter
--- OUTSIDE RECORDS SUMMARY | 2022-05-14 11:41 | XMS_ITS | Encounter Summary ---
:1990 Author Organization [place] Address [facility] [place] [address] Care Team Providers Name Role Phone No Ref-Primary, Physician Primary Care Provider [phone] Familia Nicole DO Unavailable Reason for Visit Reason Comments Contraception Neck Pain Encounter Details Date Type Department Care Team Description 09/20/2021 Office Visit [facility] Minoo Daniels for initial prescription of transdermal patch hormonal contraceptive device (Primary Dx); Clinic [place] LUIS ALBERTO Arguelles Cervicalgia [address] [facility] [address] [place] [address] [id number] Social History Tobacco Use Types Packs/Day Years [...] PM) Provider Visit with Minoo Daniels PA-C [facility] ([facility] ) [address] [place] [address] Appointment Notes for this encounter: NECK AND CONTROL FROM PREVIOUS ISSUES Questionnaires Reviewed/Assigned No additional questionnaires are needed Patient preferred phone number: [phone] Unable to reach. Left voicemail. Advised patient to call clinic back at [phone]. Minoo Daniels PA-C - 09/20/2021 3:00 PM [...] 09/22/2021) for Contraception Placement. Minoo Daniels PA-C [facility] is a 30 year old who [...] documented as of this encounter Care Teams Dermatology Physician Relationship Specialty Start Date End Date No Ref-Primary, Physician PCP - General 06/30/21 Familia Nicole DO Assigned PCP 09/11/21 09/24/21 [address] [place] [address] documented as of this encounter
--- OUTSIDE RECORDS SUMMARY | 2022-05-14 11:41 | XMS_ITS | Encounter Summary ---
:1990 Author Organization [place] Address [address] [place] [address] Care Team Providers Name Role Phone No Ref-Primary, Physician Primary Care Provider [phone] Familia Nicole DO Unavailable Encounter Details [...] documented as of this encounter Care Teams Grocery Specialist Relationship Specialty Start Date End Date No Ref-Primary, Physician PCP - General 06/30/21 Familia Nicole DO Assigned PCP 01/28/22 04/07/22 [address] [address] [place], [place] [id number] documented as of this encounter
--- OUTSIDE RECORDS SUMMARY | 2022-05-14 11:41 | XMS_ITS | Encounter Summary ---
:1990 Author Organization [place] Address [facility] [place] [address] Care Team Providers Name Role Phone Harris Zaidi MD Unavailable No Ref-Primary, Physician Primary Care Provider Familia Nicole DO Unavailable Minoo Daniels PA-C Unavailable Familia Nicole DO Unavailable Minoo Daniels PA-C Unavailable Reason for Visit Reason Onset Date Comments Prior Auth - Medication 09/07/2021 norelgestromin-e thinyl estradiol (ORTHO EVRA) 150-35 MCG/24HR pat h Encounter Details Date Type Department Care Team Description 09/07/2021 [facility] Familia Nicole DO Prior Auth - Medication [address] (norelgestromin-ethinyl [address] [place] [address] estradiol (ORTHO EVRA) [place] [address] 150-35 MCG/24HR patch) [address] Social History Tobacco Use Types Packs/Day [...] / COVID-19? 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 Called Pharmacy to question reason for PA request. Electrical/Instrument Technician ran Xulane as opposed to Zafemy as used in past and it went through with zero co-pay. PA Not Needed. Telephone Encounter - Carlos Witt - 09/07/2021 9:21 AM CDT Prior Authorization Retail Medication Request Medication/Dose: norelgestromin-ethinyl estradiol (ORTHO EVRA) 150-35 MCG/24HR patch ICD code (if different than what is on RX): Previously Tried and Failed: None Rationale: Patient has been using this medication since 01/03/2018. Insurance Name: [employer] Pharmacy Information (if different than what is on RX) Name: Phone: Carlos Witt XRT documented in this encounter Plan of Treatment Not on filedocumented as of this encounter Visit Diagnoses Not on filedocumented in this encounter Additional Health Concerns Assessment Noted Time PHQ-9 Depression Total Score: 5 09/07/2021 7:02 AM CDT documented as of this encounter Care Teams Cosmetic Manager Relationship Specialty Start Date End Date No Ref-Primary, Physician PCP - General 06/30/21 Harris Zaidi MD Assigned PCP 02/13/21 09/10/21 [address] [place] [address] Familia Nicole DO Assigned PCP 09/11/21 09/24/21 [address] [place] [address] Minoo Daniels PA-C Assigned PCP 09/25/21 01/27/22 [address] [place] [address] Familia Nicole DO Assigned PCP 01/28/22 04/07/22 [address] [place] [address] Minoo Daniels PA-C Assigned PCP 04/08/22 [address] [place] [address] documented as of this encounter
--- OUTSIDE RECORDS SUMMARY | 2022-05-14 11:41 | XMS_ITS | Encounter Summary ---
:1990 Author Organization [place] Address [address] [place] [address] Care Team Providers Name Role Phone Harris [...] with No / Unsure 08/22/2021 8:13 AM SHIP MATE someone who was confirmed or suspected to have Coronavirus / COVID-19? documented as of this encounter Plan of Treatment Not on filedocumented as of this encounter Visit Diagnoses Not on filedocumented in this encounter Additional Health Concerns Assessment Noted Time PHQ-9 Depression Total Score: 17 07/01/2019 11:[address] documented as of this encounter Care Teams Resident In Diagnostic Radiology Relationship Specialty Start Date End Date No Ref-Primary, Physician PCP - General 06/30/21 Harris Zaidi MD Assigned PCP 02/13/21 09/10/21 [address] [place] [address] documented as of this encounter
--- OUTSIDE RECORDS SUMMARY | 2022-05-14 11:41 | XMS_ITS | Encounter Summary ---
:1990 Author Organization [place] Address [facility] [place] [address] Care Team Providers Name Role Phone No Ref-Primary, Physician Primary Care Provider [phone] Minoo Daniels PA-C Unavailable [phone] Reason for Visit Reason Onset Date Comments No Show 09/27/2021 Encounter Details Date Type Department Care Team Description 09/27/2021 Office Visit [facility] Minoo Danielss how for Clinic Eliza Arguelles PA-C appointment (Primary [address] [address] [facility] Dx) [place], [place] [address] [phone] Social History Tobacco Use Types Packs/Day Years [...] PM) Nexplanon Placement with Minoo Daniels PA-C [facility] ([facility] ) [address] [facility] [address] Appointment Notes for this encounter: Nexplanon placement Questionnaires Reviewed/Assigned No additional questionnaires are needed Patient preferred phone number: [phone] Unable to reach. Left voicemail. Advised patient to call clinic back at [phone]. Minoo Daniels PA-C - 09/27/2021 1:30 PM [...] documented as of this encounter Care Teams Ramp Manager Relationship Specialty Start Date End Date No Ref-Primary, Physician PCP - General 06/30/21 Minoo Daniels PA-C Assigned PCP 09/25/21 01/27/22 [address] [place] [address] documented as of this encounter
--- OUTSIDE RECORDS SUMMARY | 2022-05-14 11:41 | XMS_ITS | Encounter Summary ---
:1990 Author Organization [place] Address [address] [place] [address] Care Team Providers Name Role Phone No Ref-Primary, Physician Primary Care Provider [phone] Minoo Daniels PA-C Unavailable [phone] Encounter Details Date Type Department Care Team [...] documented as of this encounter Care Teams Salt Operator Relationship Specialty Start Date End Date No Ref-Primary, Physician PCP - General 06/30/21 Minoo Daniels PA-C Assigned PCP 09/25/21 01/27/22 [address] [place] [address] documented as of this encounter
--- OUTSIDE RECORDS SUMMARY | 2022-05-14 11:41 | XMS_ITS | Encounter Summary ---
:1990 Author Organization [place] Address [facility] [place] [address] Care Team Providers Name Role Phone No Ref-Primary, Physician Primary Care Provider [phone] Familia Nicole DO Unavailable Encounter Details [...] documented as of this encounter Care Teams Wet Inspector Optical Glass Relationship Specialty Start Date End Date No Ref-Primary, Physician PCP - General 06/30/21 Familia Nicole DO Assigned PCP 09/11/21 09/24/21 [address] [address] [place], [place] [address] documented as of this encounter
--- OUTSIDE RECORDS SUMMARY | 2022-05-14 11:42 | XMS_ITS | Encounter Summary ---
:1990 Author Organization [place] Address [address] [place] [address] Care Team Providers Name Role Phone Lainey Brito MD Primary Care Provider [phone] Lainey Brito MD Unavailable Encounter Details [...] documented as of this encounter Care Teams Lap Welder Relationship Specialty Start Date End Date Lainey Brito MD PCP - General Family Practice 10/23/17 06/29/21 [address] [place] [address] Lainey Brito MD Assigned PCP 07/04/20 02/12/21 [address] [place], [place] [address] documented as of this encounter
--- OUTSIDE RECORDS SUMMARY | 2022-05-14 11:42 | XMS_ITS | Encounter Summary ---
:1990 Author Organization [place] Address [address] [place] [address] Care Team Providers Name Role Phone Lainey Brito MD Primary Care Provider [phone] Lainey Brito MD Unavailable Lainey Brito MD Unavailable Reason for Visit Reason Comments Medication Request Encounter Details Date Type Department Care Team Description 10/29/2017 Office Visit [facility] Jonny Castañeda Tinea brittany sicolor (Primary Dx); Clinic Eliza Kearney MD Tobacco use disorder [address] [place] [address] Social History Tobacco Use Types [...] behalf by Caitlyn Lopez, a trained medical payment poster. The creation of this document is based on the provider's statements to the medical payment poster. Caitlyn Lopez 3:22 PM October 29, 2017 [...] in this document, created by the medical payment poster for me, accurately reflects the services I personally performed and the decisions made by me. I have reviewed and approved this document for accuracy prior to leaving the patient care area. October 29, 2017 3:54 PM Jonny Castañeda MD [facility] documented in this encounter Plan of Treatment Not on filedocumented as of this encounter Visit Diagnoses Diagnosis Tinea versicolor - Primary Pityriasis versicolor Tobacco use disorder documented in this encounter Additional Health Concerns Assessment Noted Time PHQ-9 Depression Total Score: 26 10/25/2017 7:34 AM CD T documented as of this encounter Care Teams Matrix Bath Attendant Relationship Specialty Start Date End Date Lainey rBito MD PCP - General Family Practice 10/23/17 06/29/21 [address] [place] [address] Lainey Brito MD PCP - Assigned PCP 10/05/17 08/20/18 [address] [place] [address] Lainey Brito MD Assigned PCP 10/05/17 07/12/19 [address] [place] [address] documented as of this encounter
--- OUTSIDE RECORDS SUMMARY | 2022-05-14 11:42 | XMS_ITS | Encounter Summary ---
:1990 Author Organization [place] Address [facility] [place] [address] Care Team Providers Name Role Phone Lainey Brito MD Primary Care Provider [phone] Lainey Brito MD Unavailable Harris Zaidi MD Unavailable Lainey Brito MD Unavailable Harris Zaidi MD Unavailable No Ref-Primary, Physician Primary Care Provider [phone] Familia Nicole DO Unavailable Minoo Daniels PA-C Unavailable [phone] Familia Nicole DO Unavailable Minoo Daniels PA-C Unavailable [phone] Reason for Visit Reason Onset Date Comments CD Outpatient 09/25/2018 eval Encounter Details Date Type Department Care Team Description 09/25/2018 Telephone [facility] Generic, Behavioral CD Outpatient (eval ) Behavioral Health MD Elizabeth Intake [address] [place] [address] Social History Tobacco Use Types Packs/Day [...] documented as of this encounter Care Teams Electronic Console Display Operator Relationship Specialty Start Date End Date Lainey Brito MD PCP - General Family Practice 10/23/17 06/29/21 [address] [place] [address] No Ref-Primary, Physician PCP - General 06/30/21 Lainey Brito MD Assigned PCP 10/05/17 07/12/19 [address] [place] [address] Harris Zaidi MD Assigned PCP 07/13/19 07/03/20 [address] [place] [address] Lainey Brito MD Assigned PCP 07/04/20 02/12/21 [address] [place] [address] Harris Zaidi MD Assigned PCP 02/13/21 09/10/21 [address] [place] [address] Familia Nicole DO Assigned PCP 09/11/21 09/24/21 [address] [place] [address] Minoo Daniels PA-C Assigned PCP 09/25/21 01/27/22 [address] [place] [address] Familia Nicole DO Assigned PCP 01/28/22 04/07/22 [address] [place] [address] Minoo Daniels PA-C Assigned PCP 04/08/22 [address] [place] [address] documented as of this encounter
--- OUTSIDE RECORDS SUMMARY | 2022-05-14 11:42 | XMS_ITS | Encounter Summary ---
:1990 Author Organization [place] Address [facility] [place] [address] Care Team Providers Name Role Phone Lainey Brito MD Primary Care Provider [phone] Lainey Brito MD Unavailable Lainey Brito MD Unavailable Reason for Visit Reason Comments Consult BC Encounter Details Date Type Department Care Team Description 01/03/2018 Office Visit [facility] Lainey Brito Severe episode of recurrent major depressive disorder, without psychotic features (H) (Primary Dx); Clinic Eliza Torres MD Encounter for initial prescription of tr ansdermal patch hormonal contraceptive device; [address] [facility] [address] [facility] [facility] Lumbar [place] [address] [phone] Social History Tobacco Use Types Packs/Day Years [...] well but doesn't want to commit to assisted contraception. Used depo, but gained weight. Medrol [...] 21 tablet; Refill: 0 Lainey Brito MD [facility] documented in this encounter Nursing Notes Jorge [...] documented as of this encounter Care Teams Case Loader Operator Relationship Specialty Start Date End Date Lainey Brito MD PCP - General Family Practice 10/23/17 06/29/21 [address] [place] [address] Lainey Brito MD PCP - Assigned PCP 10/05/17 08/20/18 [address] [place] [address] aLiney Brito MD Assigned PCP 10/05/17 07/12/19 [address] [place] [address] documented as of this encounter
--- OUTSIDE RECORDS SUMMARY | 2022-05-14 11:42 | XMS_ITS | Encounter Summary ---
:1990 Author Organization [place] Address [facility] [place] [address] Care Team Providers Name Role Phone Lainey Brito MD Primary Care Provider [phone] Lainey Brito MD Unavailable Reason for Visit Reason Onset Date Comments Nurse Advice Line 11/01/2018 foot pain-requests s tronger med Encounter Details Date Type Department Care Team Description 11/01/2018 [facility] Lainey Brito Nurse Advice Line Clinic Eliza Torres MD (foot pain-requests [address] stronger med) [place], [place] [address] [phone] Social History Tobacco Use Types Packs/Day Years Used Date Smoking Tobacco: Every Day Smokeless Tobacco: Never Alcohol Use Standard Drinks/Week Comments Yes 0 (1 standard drink = 0.6 oz pure alcoho l) occ Sex Assigned at Date Recorded Not on file documented as of this encounter Miscellaneous Notes Telephone Encounter - Angelica Fuentes - 11/04/2018 10:41 AM CDT Pt returned call-no longer needs scoofloyd. Megan Fuentes/TC Telephone Encounter - Ada Sands RN - 11/04/2018 9:25 AM CDT LM for call back - see below Where do they want RX sent Ada Sands RN Telephone Encounter - Ada Sands RN - 11/01/2018 4:15 PM CDT Chart closed in error Ada Sands RN Telephone Encounter - Ada Sands RN - 11/01/2018 4:13 PM CDT JMEA below is closing per VM and not taking new order Ada Sands RN Telephone Encounter - Jonny Castañeda MD - 11/01/2018 3:40 PM CDT Ok for scooter. Telephone Encounter - Angeilca Fuentes - 11/01/2018 9:27 AM CDT Pt's mother Angelica Joya called back with name and number of where to send request for a scooter, please call when sent. [employer], [place] [phone]. Megan Cutter/TC Telephone Encounter - Xochitl Leslie RN - 11/01/2018 8:41 AM CDT Pt calling upset regarding getting into podiatry and the results of her x-ray. Pt states she was told he has a fracture but according to the radiology impression she does not. Advised she continue to rest, ice, and elevate her leg and follow up with [facility] on Sunday. Pt states the [place] is not helping her pain and requests something stronger. Pt has been taking 1 tablet of [place] every six hours according to her mom who has been giving it to her. Pt is also having a hard time with crutches and requests a roller scooter. Pt saw Dr Cary in [place] and Dr Brito is out of the office until next week. Please advise Xochitl Leslie RN, BSN documented in this encounter Plan of Treatment Not on filedocumented as of this encounter Visit Diagnoses Diagnosis Foot injury, left, initial encounter - P rimary documented in this encounter Additional Health Concerns Assessment Noted Time PHQ-9 Depression Total Score: 13 10/10/2018 10:20 AM C DT documented as of this encounter Care Teams Rn Patient Services Relationship Specialty Start Date End Date Lainey Brito MD PCP - General Family Practice 10/23/17 06/29/21 [address] [place] [address] Lainey Brito MD Assigned PCP 10/05/17 07/12/19 [address] [place] [address] documented as of this encounter
--- OUTSIDE RECORDS SUMMARY | 2022-05-14 11:42 | XMS_ITS | Encounter Summary ---
:1990 [facility] Address [address] [place] [address] Mobile Phone Home Phone Home Phone Preferred Language Yakut Marital Status Single Congregational Affiliation Unknown Race Unknown Ethnic Group Unknown Author Organization [place] Address [address] [place] [address] Care Team Providers Name Role Phone Lainey Brito MD Primary Care Provider [phone] Lainey Brito MD Unavailable Lainey Brito MD Unavailable Reason for Referral Diagnostic Imaging MRI - Closed Specialty Diagnoses / Procedures Referred By Contact Refer red To Contact Radiology. Diagnoses Sesamoiditis Siddhartha Gore DPM Rh Mri Rscc Procedures MR Foot Right w/o Contrast [address] [place] [address] [place] [address] Phone: Fax: Referral ID Status Reason Start Date Expiration Date Visits Requ ested Visits Authorized [id number] Closed 03/05/2018 03/05/2019 1 1 Diagnostic Imaging XR - Closed Specialty Diagnoses / Procedures Referred By Contact Refer red To Contact Diagnoses Foot pain, right Siddhartha Gore DPM Procedures XR Foot Right G/E [address] [place] [address] Referral ID Status Reason Start Date Expiration Date Visits Requ ested Visits Authorized [id number] Closed 03/05/2018 03/05/2019 1 1 Reason for Visit Reason Comments Fracture 1 year Encounter Details Date Type Department Care Team Description 03/05/2018 Office Visit [facility] Donnydipeshmatilda, Foot pain, right (Primary Dx); [facility] [place] Carl Sesamoiditis Podiatry [address] [address] [facility] [address] [place] [address] [phone] Social History Tobacco Use Types Packs/Day Years [...] issues 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; 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 @ [employer] Smoking history - 1 pack/week Vit D [...] FACFAS FACFAOM Podiatric Foot & Ankle Surgeon [facility] [phone] documented in this encounter Plan of Treatment [...] documented as of this encounter Care Teams Engagement Mgr Relationship Specialty Start Date End Date Lainey Brito MD PCP - General Family Practice 10/23/17 06/29/21 [address] [place] [address] Lainey Brito MD PCP - Assigned PCP 10/05/17 08/20/18 [address] [place] [address] Lainey Brito MD Assigned PCP 10/05/17 07/12/19 [address] [place] [address] documented as of this encounter
--- OUTSIDE RECORDS SUMMARY | 2022-05-14 11:42 | XMS_ITS | Encounter Summary ---
:1990 [facility] Address [address] [place] [address] Mobile Phone Home Phone Home Phone Preferred Language Turkmen Marital Status Single Anabaptist Affiliation Unknown Race Unknown Ethnic Group Unknown Author Organization [place] Address [facility] [place] [address] Care Team Providers Name Role Phone Lainey Brito MD Primary Care Provider [phone] Lainey Brito MD Unavailable Lainey Brito MD Unavailable Reason for Referral Diagnostic Imaging MRI - Closed Specialty Diagnoses / Procedures Referred By Contact Refer red To Contact Radiology. Diagnoses Macitis Siddhartha Gore DPM Rh Mri Rscc Procedures MR Foot Right w/o Contrast [address] [employer] [address] [address] [address] Phone: Fax: Referral ID Status Reason Start Date Expiration Date Visits Requ ested Visits Authorized [id number] Closed 03/05/2018 03/05/2019 1 1 Reason for Visit Diagnostic Imaging MRI - Closed Specialty Diagnoses / Procedures Referred By Contact Refer red To Contact Radiology. Diagnoses Sushiloiditis Siddhartha Gore DPM Rh Mri Rscc Procedures MR Foot Right w/o Contrast [address] [address] [address] [address] Phone: Fax: Referral ID Status Reason Start Date Expiration Date Visits Requ ested Visits Authorized [id number] Closed 03/05/2018 03/05/2019 1 1 Encounter Details Date Type Department Care Team Description 03/12/2018 Hospital Encounter [facility] Shane Gore, Sesamoiditis [facility] DPM [address] [address] [facility] [address] [place], [place] [address] [phone] Social History Tobacco Use Types Packs/Day Years [...] documented as of this encounter Care Teams Truck Hopper Relationship Specialty Start Date End Date Lainey Brito MD PCP - General Family Practice 10/23/17 06/29/21 [address] [place] [address] Lainey Brito MD PCP - Assigned PCP 10/05/17 08/20/18 [address] [place] [address] Lainey Brito MD Assigned PCP 10/05/17 07/12/19 [address] [place] [address] documented as of this encounter
--- OUTSIDE RECORDS SUMMARY | 2022-05-14 11:42 | XMS_ITS | Encounter Summary ---
:1990 Author Organization [place] Address [facility] [place] [address] Care Team Providers Name Role Phone Lainey Brito MD Primary Care Provider [phone] Lainey Brito MD Unavailable Lainey Brito MD Unavailable Reason for Visit Reason Comments Cough chest congestion, heavy ches t, pain in low chest/epigastric area - family is sick with coughs Encounter Details Date Type Department Care Team Description 05/13/2018 Office Visit [facility] Sierra Mcmanus Upper respiratory tract infection, unspecified type (Primary Dx); Clinic Shabbir Mistry PA-C Gastroesophageal reflux disease, esophag itis presence not specified; [place] [address] [place] [address] Constipation, unspecified constipation t ype [address] [address] Social History Tobacco Use Types Packs/Day [...] Comments Blood Pressure 108/72 05/13/2018 4:08 PM SR. STRATEGIC SOURCING MANAGER Pulse 76 05/13/2018 4:08 PM SR. STRATEGIC SOURCING MANAGER Temperature 37.2 ??C (98.9 ??F) 05/13/2018 4:08 PM SR. STRATEGIC SOURCING MANAGER Respiratory Rate 16 05/13/2018 4:08 PM SR. STRATEGIC SOURCING MANAGER Oxygen Saturation - - Inhaled Oxygen Concentration - - Weight 83 kg (183 lb) 05/13/2018 4:08 PM SR. STRATEGIC SOURCING MANAGER Height - - Body Mass Index 31.41 03/05/2018 3:27 PM CDT documented in this encounter Patient Instructions Patient InstructionsSierra Mcmanus PA-C - 05/13/2018 4:00 PM SR. STRATEGIC SOURCING MANAGER miralax for constipation Treat the heartburn with omeprazole See primary provider in 1 month is heartburn is not better. . STRATEGIC SOURCING MANAGER documented in this encounter Progress Notes Sierra [...] Additional history: as documented Labs reviewed in [facility] Reviewed and updated as needed this visit [...] ok to work tomorrow. Sierra Mcmanus PA-C [facility] . STRATEGIC SOURCING MANAGER documented in this encounter Plan of Treatment [...] documented as of this encounter Care Teams Tax Professional Relationship Specialty Start Date End Date Lainey Brito MD PCP - General Family Practice 10/23/17 06/29/21 [address] [place], [place] [id number] Lainey Brito MD PCP - Assigned PCP 10/05/17 08/20/18 [address] [place] [address] Lainey Brito MD Assigned PCP 10/05/17 07/12/19 [address] [place], [place] [address] documented as of this encounter
--- OUTSIDE RECORDS SUMMARY | 2022-05-14 11:42 | XMS_ITS | Encounter Summary ---
:1990 Author Organization [place] Address [facility] [place] [address] Care Team Providers Name Role Phone Lainey Brito MD Primary Care Provider [phone] Lainey Brito MD Unavailable Lainey Brito MD Unavailable Encounter Details Date Type Department Care Team Description 01/16/2018 Office Visit [facility] Sam Flynn LMF T Major depressive Services [facility] [address] R disorder, recurrent [place] [address] [facility] episode, severe with [address] [place] [address] anxious distress (H) [place], [place] [phone] (Wo rk) (Primary Dx) [address] [phone] Social History Tobacco Use Types Packs/Day Years [...] I can contact during a crisis: ?? [facility] Daytime and After Hours Crisis Number: 810-907-8711 ?? Suicide Prevention Lifeline: 6-375-491-TALK (7013) ?? Crisis Text Line Service (available 24 hours a day, 7 days a week): Text [place] to [address]44342 [place] Therapist: Sam Flynn [phone] Call 911 or go to my nearest [...] authors at [email or web address] or [email or web address]. documented in this encounter Progress Notes Sam Flynn LMFT - 01/16/2018 10:11 AM CDT Images from the original note were not included. Adult Intake Structured Interview Standard Diagnostic Assessment CLIENT'S NAME: Trinity Odell : 1990 [employer]. NUMBER: [id number] DATE OF SERVICE: 01/16/18 Identifying Information: Client is a 27 year old, mixed, black and white, single female. Client was referred for counselingby self and Dr. Brito at [facility]. 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 Client attended the session alone. Client's Statement [...] History: Client reported she grew up in [facility], [place]. They were the second born of [...] problems. There are no ethnic, cultural or mandaeism factors that may be relevant for therapy. Client identified her preferred language to be Faroese. Client reported she does not need the assistance of an site interpreter or other supportinvolved in therapy. Modifications will [...] and medication(s) from physician / PCP. Hospitalizations: [facility] at age 13 for suicidal ideation. 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 client was referred to [place] CD intake and AA meetings. Discussed the [...] exam with PCP. The client has a [place] Primary Care Provider, who is named Lainey [...] Plan: The client reports no currently identified mandaeism, ethnic or cultural issues relevant to therapy. Court Deputy services are not indicated. Modifications to assist [...] techniques. The following referral(s) will be initiated: [place] [facility] intake. A Release of Information is not needed at this time. Report to child / adult protection services was NA. Client will have access to their [facility]' medical record. DOMINIQUE Lawton, COLLECTION SUPPORT SPECIALIST January 16, 2018 documented in this encounter Plan of Treatment Not on filedocumented as of this encounter Visit Diagnoses Diagnosis Major depressive disorder, recurrent epi sode, severe with anxious distress (H) - Primary documented in this encounter Additional Health Concerns Assessment Noted Time PHQ-9 Depression Total Score: 17 01/17/2018 7:11 AM CD T documented as of this encounter Care Teams Oil Program Compliance Specialist Relationship Specialty Start Date End Date Lainey Brito MD PCP - General Family Practice 10/23/17 06/29/21 [address] [place] [address] Lainey Brito MD PCP - Assigned PCP 10/05/17 08/20/18 [address] [place] [address] Lainey Brito MD Assigned PCP 10/05/17 07/12/19 [address] [place], [place] [id number] documented as of this encounter
--- OUTSIDE RECORDS SUMMARY | 2022-05-14 11:42 | XMS_ITS | Encounter Summary ---
:1990 Author Organization [place] Address [facility] [place] [address] Care Team Providers Name Role Phone Lainey Brito MD Primary Care Provider [phone] Lainey Brito MD Unavailable Lainey Brito MD Unavailable Encounter Details Date Type Department Care Team Description 02/13/2018 Office Visit [facility] Sam Flynn LMF T Major depressive Services [facility] [address] R disorder, recurrent [place] [address] [facility] episode, severe with [address] [place] [address] anxious distress (H) [place], [place] [phone] (Wo rk) (Primary Dx) [address] [phone] Social History Tobacco Use Types Packs/Day Years [...] including: Client consented to co-developed safety plan. [facility]'s safety and risk management plan [...] is in school. Next session will do [id number]. DOMINIQUE Lawton, PRODUCE CLERK Treatment Plan Client's Name: Trinity Odell Date [...] agreed to the above plan. DOMINIQUE Lawton, PRODUCE CLERK February 13, 2018 documented in this encounter Plan of Treatment Not on filedocumented as of this encounter Visit Diagnoses Diagnosis Major depressive disorder, recurrent epi sode, severe with anxious distress (H) - Primary documented in this encounter Additional Health Concerns Assessment Noted Time PHQ-9 Depression Total Score: 13 02/14/2018 7:19 AM CD T documented as of this encounter Care Teams Centrifugal Screen Tender Relationship Specialty Start Date End Date Lainey Brito MD PCP - General Family Practice 10/23/17 06/29/21 [address] [place] [address] Lainey Brito MD PCP - Assigned PCP 10/05/17 08/20/18 [address] [place] [address] Lainey Brito MD Assigned PCP 10/05/17 07/12/19 [address] [address] [place], [place] [address] documented as of this encounter
--- OUTSIDE RECORDS SUMMARY | 2022-05-14 11:42 | XMS_ITS | Encounter Summary ---
:1990 Author Organization [place] Address [facility] [place] [address] Care Team Providers Name Role Phone Lainey Brito MD Primary Care Provider [phone] Lainey Brito MD Unavailable Encounter Details [...] documented as of this encounter Care Teams Edger Runner Relationship Specialty Start Date End Date Lainey Brito MD PCP - General Family Practice 10/23/17 06/29/21 [address] [place] [address] Lainey Brito MD Assigned PCP 10/05/17 07/12/19 [address] [place] [address] documented as of this encounter
--- OUTSIDE RECORDS SUMMARY | 2022-05-14 11:42 | XMS_ITS | Encounter Summary ---
:1990 Author Organization [place] Address [address] [place] [address] Care Team Providers Name Role Phone Harris Zaidi MD Unavailable No Ref-Primary, Physician Primary Care Provider Reason for Visit Reason Comments Eye Pain Encounter Details Date Type Department Care Team Description 06/30/2021 Emergency [facility] Candice Cedillo eal ulcer of left [facility] MD [place] [facility] Leslie m Counts include 234 beds at the [facility] [place] [address] [place] [address] [place], [place] [phone] (Wo rk) [address] [phone] Social History Tobacco Use Types Packs/Day Years Used Date Smoking Tobacco: Every Day Smokeless Tobacco: Never Alcohol Use Standard Drinks/Week Comments Yes 0 (1 standard drink = 0.6 oz pure alcoho l) occ Sex Assigned at Date Recorded Not on file COVID-19 Exposure Response Date Recorded In the last month, have you been in contact with No / Unsure 06/29/2021 11:48 PM CATERING SALES MANAGER someone who was confirmed or suspected to have Coronavirus / COVID-19? documented as of this encounter Last Filed Vital Signs Vital Sign Reading Time Taken Comments Blood Pressure 145/92 06/30/2021 12:21 AM CATERING SALES MANAGER Pulse 89 06/30/2021 12:21 AM CATERING SALES MANAGER Temperature 37.6 ??C (99.6 ??F) 06/29/2021 11:51 PM CATERING SALES MANAGER Respiratory Rate 22 06/29/2021 11:51 PM CATERING SALES MANAGER Oxygen Saturation 99% 06/29/2021 11:51 PM CATERING SALES MANAGER Inhaled Oxygen Concentration - - Weight 77.1 kg (170 lb) 06/29/2021 11:51 PM CATERING SALES MANAGER Height 160 cm (5' 3) 06/29/2021 11:51 PM CATERING SALES MANAGER Body Mass Index 30.11 06/29/2021 11:51 PM CATERING SALES MANAGER documented in this encounter Discharge Instructions Discharge InstructionsCandice Cedillo MD - 06/30/2021 12:11 AM CATERING SALES MANAGER Please be seen by an maxillofacial surgeon tomorrow RING SALES MANAGER AttachmentsThe following attachments cannot be sent through Care Everywhere. Corneal Ulcer, Treatment for (Djiboutian)Corneal Ulcer, Understanding (Djiboutian) documented in this encounter Medications at Time [...] associated headache. Opening eyes makes pain worse RING SALES MANAGER Candice Cedillo MD - 06/29/2021 11:47 PM [...] information was obtained from: patient Use of Park Activities Coordinator: N/A Trinity Odell is a 30 year [...] Other Topics Concern ??? Parent/sibling w/ CABG, [place] or angioplasty before 65F 55M? Not Asked [...] my direction. Candice Cedillo M.D. Emergency Medicine [facility] EMERGENCY ROOM [address] [place] [address] Dept: [phone] Candice Cedillo MD 06/30/21 0045 RING SALES MANAGER documented in this encounter Plan of Treatment Not on filedocumented as of this encounter Visit Diagnoses Diagnosis Corneal ulcer of left eye Corneal ulcer, unspecified documented in this encounter Administered Medications Inactive Administered Medications - up to 3 most recent administrations Medication Order MAR Action Action Date Dose Rate Site fluorescein (FUL-SANDY) ophthalmic Given 06/30/2021 12:02 AM CATERING SALES MANAGER 1 strip strip 1 strip 1 strip, Left Eye, ONCE, On Shalonda 06/30/21 at 0000, For 1 dose tetracaine (PONTOCAINE) 0.5 % ophthalmic Given 06/30/2021 12:03 AM CATERING SALES MANAGER 2 drops solution 1-2 drop 1-2 drop, Left Eye, ONCE, On Shalonda 06/30/21 at 0000, For 1 dose documented in this encounter Active and Recently Administered Medications Times are shown in CATERING SALES MANAGER. Scheduled Medication Order 06/28/2021 06/29/202106/3006/30/2021 fluorescein (FUL-SANDY) [...] documented as of this encounter Care Teams A&P Mechanic Relationship Specialty Start Date End Date No Ref-Primary, Physician PCP - General 06/30/21 Harris Zaidi MD Assigned PCP 02/13/21 09/10/21 [address] [place] [address] documented as of this encounter
--- OUTSIDE RECORDS SUMMARY | 2022-05-14 11:42 | XMS_ITS | Encounter Summary ---
:1990 Author Organization [place] Address [facility] [place] [address] Care Team Providers Name Role Phone Lainey Brito MD Primary Care Provider [phone] Lainey Brito MD Unavailable Reason for Visit Reason Onset Date Comments Foot Pain 10/31/2018 More meds Encounter Details Date Type Department Care Team Description 10/31/2018 Telephone [facility] Lainey Brito Foot P ain (More meds) Clinic Eliza Torres [place] [address] [place] [address] [phone] Social History Tobacco Use Types Packs/Day Years [...] wait every 6 hours to take the Courtenay. She is having so much pain.I advised [...] documented as of this encounter Care Teams Forest Fire Lookout Relationship Specialty Start Date End Date Lainey Brito MD PCP - General Family Practice 10/23/17 06/29/21 [address] [place] [address] Lainey Brito MD Assigned PCP 10/05/17 07/12/19 [address] [place] [address] documented as of this encounter
--- OUTSIDE RECORDS SUMMARY | 2022-05-14 11:42 | XMS_ITS | Encounter Summary ---
:1990 Author Organization [place] Address [address] [place] [address] Care Team Providers Name Role Phone Lainey Brito MD Primary Care Provider [phone] Lainey Brito MD Unavailable Lainey Brito MD Unavailable Encounter Details Date Type Department Care Team Description 03/28/2018 [facility] Siddhartha Manzo DPM [place] [address] [facility], [address] [place], [place] [address] [place], [place] [address] 6-4688 [phone] Social History Tobacco Use Types Packs/Day Years [...] FACFAS FACFAOM Podiatric Foot & Ankle Surgeon [facility] [phone] documented in this encounter Plan of Treatment Not on filedocumented as of this encounter Visit Diagnoses Not on filedocumented in this encounter Additional Health Concerns Assessment Noted Time PHQ-9 Depression Total Score: 13 02/14/2018 7:19 AM CD T documented as of this encounter Care Teams Carpet Installation Specialist Relationship Specialty Start Date End Date Lainey Brito MD PCP - General Family Practice 10/23/17 06/29/21 [address] [place] [address] Lainey Brito MD PCP - Assigned PCP 10/05/17 08/20/18 [address] [place] [address] Lainey Brito MD Assigned PCP 10/05/17 07/12/19 [address] [place] [address] documented as of this encounter
--- OUTSIDE RECORDS SUMMARY | 2022-05-14 11:42 | XMS_ITS | Encounter Summary ---
:1990 Author Organization [place] Address [address] [place] [address] Care Team Providers Name Role Phone Lainey Brito MD Primary Care Provider [phone] Lainey Brito MD Unavailable Reason for Visit Diagnostic Imaging XR (Routine) - Closed Specialty Diagnoses / Procedures Referred By Contact Refer red To Contact Diagnoses Left foot pain Hermelindo Cary MD Procedures XR Foot Left G/E [address] [place], [place] [address] Referral ID Status Reason Start Date Expiration Date Visits Requ ested Visits Authorized [id number] Closed 10/31/2018 10/31/2019 1 1 Encounter Details Date Type Department Care Team Description 10/31/2018 Ancillary Procedure [facility] Hermelindo Cary Left foot pain Clinic Radha BROOKS [address] [place] [address], [address] [place] [address] [place], [place] [address] Social History Tobacco Use Types Packs/Day [...] foot pain COMPARISON: None. IMPRESSION: Normal. JOSE WHITETN MD Hermelindo Cary MD IMG DIAGNOSTIC IMAGING ORDER FREDY documented in this encounter Visit Diagnoses Diagnosis Left foot pain Pain in limb documented in this encounter Additional Health Concerns Assessment Noted Time PHQ-9 Depression Total Score: 13 10/10/2018 10:20 AM C DT documented as of this encounter Care Teams Drywall Mechanic Relationship Specialty Start Date End Date Lainey Brito MD PCP - General Family Practice 10/23/17 06/29/21 [address] [place] [address] Lainey Brito MD Assigned PCP 10/05/17 07/12/19 [address] [place] [address] documented as of this encounter
--- OUTSIDE RECORDS SUMMARY | 2022-05-14 11:42 | XMS_ITS | Encounter Summary ---
:1990 Author Organization [place] Address [facility] [place] [address] Care Team Providers Name Role Phone Lainey Brito MD Primary Care Provider [phone] Lainey Brito MD Unavailable Encounter Details [...] documented as of this encounter Care Teams Card Processing Clerk Relationship Specialty Start Date End Date Lainey Brito MD PCP - General Family Practice 10/23/17 06/29/21 [address] [place] [address] Lainey Brito MD Assigned PCP 10/05/17 07/12/19 [address] [place] [address] documented as of this encounter
--- OUTSIDE RECORDS SUMMARY | 2022-05-14 11:42 | XMS_ITS | Encounter Summary ---
:1990 Author Organization [place] Address [address] [place] [address] Care Team Providers Name Role Phone Lainey Brito MD Primary Care Provider [phone] Lainey Brito MD Unavailable Lainey Brito MD Unavailable Reason for Visit Reason Onset Date Comments Call Back 03/28/2018 Encounter Details Date Type Department Care Team Description 03/28/2018 Telephone [facility] Siddhartha Manzo DPM Call Back [place] [address] [facility], [address] [place], [place] [address] [place] [address] 6-[address]88 [phone] Social History Tobacco Use Types Packs/Day Years [...] FACFAS FACFAOM Podiatric Foot & Ankle Surgeon [facility] [phone] Telephone Encounter - Vineet Pastrana - 03/28/2018 [...] documented as of this encounter Care Teams Clerk Operator Relationship Specialty Start Date End Date Lainey Brito MD PCP - General Family Practice 10/23/17 06/29/21 [address] [place] [address] Lainey Brito MD PCP - Assigned PCP 10/05/17 08/20/18 [address] [place] [address] Lainey Brito MD Assigned PCP 10/05/17 07/12/19 [address] [place] [address] documented as of this encounter
--- OUTSIDE RECORDS SUMMARY | 2022-05-14 11:42 | XMS_ITS | Encounter Summary ---
:1990 Author Organization [place] Address [facility] [place] [address] Care Team Providers Name Role Phone Lainey Brito MD Primary Care Provider [phone] Lainey Brito MD Unavailable Encounter Details [...] documented as of this encounter Care Teams Floor Layer Apprentice Relationship Specialty Start Date End Date Lainey Brito MD PCP - General Family Practice 10/23/17 06/29/21 [address] [place] [address] Lainey Brito MD Assigned PCP 10/05/17 07/12/19 [address] [place] [address] documented as of this encounter
--- OUTSIDE RECORDS SUMMARY | 2022-05-14 11:42 | XMS_ITS | Encounter Summary ---
:1990 Author Organization [place] Address [address] [place] [address] Care Team Providers Name Role Phone Lainey Brito MD Primary Care Provider [phone] Lainey Brito MD Unavailable Lainey Brito MD Unavailable Reason for Visit Diagnostic Imaging XR - Closed Specialty Diagnoses / Procedures Referred By Contact Refer red To Contact Diagnoses Foot pain, right Bao, Siddhartha, DPM Procedures XR Foot Right G/E 3 Views [address] [facility] [address] [place] [address] Referral ID Status Reason Start Date Expiration Date Visits Requ ested Visits Authorized [id number] Closed 03/05/2018 03/05/2019 1 1 Encounter Details Date Type Department Care Team Description 03/05/2018 Radiant Appointment [facility] Torsten Gore t pain, right Sports and Siddhartha, DPM [facility] [address] [facility] [address] [address] [place], [place] [address] [address] [place] [address] [phone] Social History Tobacco Use Types Packs/Day Years [...] documented as of this encounter Care Teams Trucker Hand Relationship Specialty Start Date End Date Lainey Brito MD PCP - General Family Practice 10/23/17 06/29/21 [address] [place] [address] Lainey Brito MD PCP - Assigned PCP 10/05/17 08/20/18 [address] [place] [address] Lainey Brito MD Assigned PCP 10/05/17 07/12/19 [address] [place] [address] documented as of this encounter
--- OUTSIDE RECORDS SUMMARY | 2022-05-14 11:42 | XMS_ITS | Encounter Summary ---
:1990 Author Organization [place] Address [facility] [place] [facility] [place] [address] Care Team Providers Name Role Phone Lainey Brito MD Primary Care Provider [phone] Lainey Brito MD Unavailable Reason for Referral Mental Health Outpatient (Routine) - Closed Specialty Diagnoses / Procedures Referred By Contact Refer red To Contact Diagnoses Generalized anxiety disorder Severe major depression (H) [place] [address] [place] [address] Referral ID Status Reason Start Date Expiration Date Visits Requ ested Visits Authorized [id number] Closed 07/01/2019 06/30/2020 1 1 OL LUNCH MANAGER Reason for Visit Reason Comments Establish Care Encounter Details Date Type Department Care Team Description 07/01/2019 Office Visit [facility] Harris Zaidi MD Generalized anxiety disorder (Primary Dx ); Clinic [address] Severe major depression (H) [address] [place] [address] [phone] Social History Tobacco Use Types Packs/Day Years Used Date Smoking Tobacco: Every Day Smokeless Tobacco: Never Alcohol Use Standard Drinks/Week Comments Yes 0 (1 standard drink = 0.6 oz pure alcoho l) occ Sex Assigned at Date Recorded Not on file documented as of this encounter Last Filed Vital Signs Vital Sign Reading Time Taken Comments Blood Pressure 124/72 07/01/2019 10:43 AM SCHOOL LUNCH MANAGER Pulse 59 07/01/2019 10:43 AM SCHOOL LUNCH MANAGER Temperature 37.2 ??C (98.9 ??F) 07/01/2019 10:43 AM SCHOOL LUNCH MANAGER Respiratory Rate 18 07/01/2019 10:43 AM SCHOOL LUNCH MANAGER Oxygen Saturation 99% 07/01/2019 10:43 AM SCHOOL LUNCH MANAGER Inhaled Oxygen Concentration - - Weight 77.1 kg (170 lb) 07/01/2019 10:43 AM SCHOOL LUNCH MANAGER Height 163.2 cm (5' 4.25) 07/01/2019 10:43 AM SCHOOL LUNCH MANAGER Body Mass Index 28.95 07/01/2019 10:43 AM SCHOOL LUNCH MANAGER documented in this encounter Patient Instructions Patient [...] close friend or family member ?? A earth science faculty member trained in counseling ?? A local support group or community group ?? A 12-step program (such as Alcoholics Anonymous) for dealing with problems that can contribute todepression, such as alcohol or drug addiction Date Last Reviewed: 06/18/2016 ?? [phone] [employer]. [address] [place] [address]. All rights reserved. This information is not intended as a substitute for professional medical care. Always follow your healthcare professional's instructions. OL LUNCH MANAGER documented in this encounter Progress Notes Harris [...] also suffered from alcoholism.Patient currently works at [employer] and admits that her drinking is also [...] - Adult; Outpatient Treatment; Individual/Couples/Family/Group Therapy/Health Psychology; [facility] [facility] ; We will contact you to schedule [...] - Adult; Outpatient Treatment; Individual/Couples/Family/Group Therapy/Health Psychology; [facility] [place] [facility] ; We will contact you to schedule the ap pointment or please call with any questions Return in about 1 month (around 08/01/2019) for Anxiety, depression.. Patient declined to make appointment with listed PCP. Harris Zaidi MD [facility] Documentation was prepared using [employer] voice recognition software. Please excuse typographical errors. Please contact me if documentation is unclear. OL LUNCH MANAGER documented in this encounter Plan of Treatment Scheduled Referrals Name Type Priority Associated Diagnoses Order S [facility] MENTAL HEALTH REFERRAL - Referral Routine Generalized anxi ety Ordered: 07/01/2019 Adult; Outpatient disorder Treatment; Severe major depression Individual/Couples/Famil (H) y/Group Therapy/Health Psychology; [facility] [place] [facility] ; We will contact you to schedule [...] documented as of this encounter Care Teams Art Therapy Specialist Relationship Specialty Start Date End Date Lainey Brito MD PCP - General Family Practice 10/23/17 06/29/21 [address] [place] [address] Lainey Brito MD Assigned PCP 10/05/17 07/12/19 [address] [place] [address] documented as of this encounter
--- OUTSIDE RECORDS SUMMARY | 2022-05-14 11:42 | XMS_ITS | Encounter Summary ---
:1990 Author Organization [place] Address [facility] [place] [address] Care Team Providers Name Role Phone Lainey Brito MD Primary Care Provider [phone] Lainey Brito MD Unavailable Lainey Brito MD Unavailable Encounter Details Date Type Department Care Team Description 05/26/2018 [facility] Sam Flynn LMF T Major depressive Documentation Services [facility] [address] disorder, [place] [address] [address] recurrent episode, [address] [place], [place] severe with [address] [address] anxious distress [place], [place] [phone] (H) (Primary D x) [phone] (Work) [phone] Social History Tobacco Use Types Packs/Day Years [...] including: Client consented to co-developed safety plan. [facility]'s safety and risk management plan was completed. Client agreed to use safety plan should any safety concerns arise. A copy was given to the patient. Referred To: Gabe CD intake and client may resume counseling services at any time in the future by calling the [facility] Intake Office, . DOMINIQUE Lawton 05/26/2018 E PRACTITIONER PER DIEM documented in this encounter Plan of Treatment Not on filedocumented as of this encounter Visit Diagnoses Diagnosis Major depressive disorder, recurrent epi sode, severe with anxious distress (H) - Primary documented in this encounter Additional Health Concerns Assessment Noted Time PHQ-9 Depression Total Score: 13 02/14/2018 7:19 AM CD T documented as of this encounter Care Teams Skidder Lever Operator Relationship Specialty Start Date End Date Lainey Brito MD PCP - General Family Practice 10/23/17 06/29/21 [address] [place] [address] Lainey Brito MD PCP - Assigned PCP 10/05/17 08/20/18 [address] [place] [address] Lainey Brito MD Assigned PCP 10/05/17 07/12/19 [address] [place] [address] documented as of this encounter
--- OUTSIDE RECORDS SUMMARY | 2022-05-14 11:42 | XMS_ITS | Encounter Summary ---
:1990 Author Organization [place] Address [address] [place] [address] Care Team Providers Name Role Phone Lainey Brito MD Primary Care Provider [phone] Lainey Brito MD Unavailable Reason for Visit Diagnostic Imaging XR (Routine) - Closed Specialty Diagnoses / Procedures Referred By Contact Refer red To Contact Diagnoses Left foot pain Hermelindo Cary MD Procedures XR Ankle Left G/E [id number] [place] [address] [address] [place], [place] [address] Referral ID Status Reason Start Date Expiration Date Visits Requ ested Visits Authorized [id number] Closed 10/31/2018 10/31/2019 1 1 Encounter Details Date Type Department Care Team Description 10/31/2018 Ancillary Procedure [facility] Hermelindo Cary, Left foot pain Clinic Radha BROOKS [address] [place] [address], [address] [place] [address] [address] [place], [place] [id number] Social History Tobacco Use Types Packs/Day [...] as of this encounter Care Teams Flight Operation Coordinator Relationship Specialty Start Date End Date Lainey Brito MD PCP - General Family Practice 10/23/17 06/29/21 [address] [place] [address] Lainey Brito MD Assigned PCP 10/05/17 07/12/19 [address] [place] [address] documented as of this encounter
--- OUTSIDE RECORDS SUMMARY | 2022-05-14 11:42 | XMS_ITS | Encounter Summary ---
:1990 Author Organization [place] Address [address] [place] [address] Care Team Providers Name Role Phone Lainey Brito MD Primary Care Provider [phone] Harris Zaidi MD Unavailable Encounter Details Date Type Department Care Team Description 06/29/2021 Travel Social History Tobacco Use Types Packs/Day Years Used Date Smoking Tobacco: Every Day Smokeless Tobacco: Never Alcohol Use Standard Drinks/Week Comments Yes 0 (1 standard drink = 0.6 oz pure alcoho l) occ Sex Assigned at Date Recorded Not on file COVID-19 Exposure Response Date Recorded In the last month, have you been in contact with No / Unsure 06/29/2021 11:48 PM VP MARKETING someone who was confirmed or suspected to have Coronavirus / COVID-19? documented as of this encounter Plan of Treatment Not on filedocumented as of this encounter Visit Diagnoses Not on filedocumented in this encounter Additional Health Concerns Assessment Noted Time PHQ-9 Depression Total Score: 17 07/01/2019 11:[address] documented as of this encounter Care Teams Inter Fold Roll Cutter Relationship Specialty Start Date End Date Lainey Brito MD PCP - General Family Practice 10/23/17 06/29/21 [address] [place] [address] Harris Zaidi MD Assigned PCP 02/13/21 09/10/21 [address] [place] [address] documented as of this encounter
--- OUTSIDE RECORDS SUMMARY | 2022-05-14 11:42 | XMS_ITS | Encounter Summary ---
:1990 Author Organization [place] Address [facility] [address] Care Team Providers Name Role Phone Lainey Brito MD Primary Care Provider [phone] Harris Zaidi MD Unavailable Reason for Visit Reason Onset Date Comments Panel Management 09/05/2019 Encounter Details Date Type Department Care Team Description 09/05/2019 Telephone [facility] Eda Zaidi MD Panel Management [address] [address] [place] [address] [phone] Social History Tobacco Use Types Packs/Day Years Used Date Smoking Tobacco: Every Day Smokeless Tobacco: Never Alcohol Use Standard Drinks/Week Comments Yes 0 (1 standard drink = 0.6 oz pure alcoho l) occ Sex Assigned at Date Recorded Not on file documented as of this encounter Miscellaneous Notes Telephone Encounter - Akhtar, Zoya Tejada SAT ACT INSTRUCTOR - 09/05/2019 2:49 PM CDT Panel Management [...] documented as of this encounter Care Teams Stock Feeder Relationship Specialty Start Date End Date Lainey Brito MD PCP - General Family Practice 10/23/17 06/29/21 [address] [place] [address] Harris Zaidi MD Assigned PCP 07/13/19 07/03/20 [address] [place] [address] documented as of this encounter
--- OUTSIDE RECORDS SUMMARY | 2022-05-14 11:42 | XMS_ITS | Encounter Summary ---
:1990 Author Organization [place] Address [facility] [place] [address] Care Team Providers Name Role Phone Lainey Brito MD Primary Care Provider [phone] Lainey Brito MD Unavailable Lainey Brito MD Unavailable Reason for Referral Mental Health Outpatient - Closed Specialty Diagnoses / Procedures Referred By Contact Refer red To Contact Diagnoses Major depressive disorder, recurrent episode, severe with anxious distress ([place] [address] [place] [address] Referral ID Status Reason Start Date Expiration Date Visits Requ ested Visits Authorized [id number] Closed 02/07/2018 02/07/2019 1 1 Reason for Visit Reason Comments Recheck Medication Encounter Details Date Type Department Care Team Description 02/07/2018 Office Visit [facility] Lainey Brito Major depressive disorder, recurrent episode, severe with anxious distress (H) (Primary Dx); Clinic Eliza Torres MD Encounter for initial prescription of tr ansdermal patch hormonal contraceptive device [address] [facility] [address] [place] [id number] [phone] Social History Tobacco Use Types Packs/Day Years [...] - Adult; Psychiatry and Medication Management; Psychiatry; [facility]: [facility] . Medication management & future refills will be returned to G PCP upon completion of evaluation; We irvin... Lainey Brito MD [facility] documented in this encounter Miscellaneous Notes Addendum Note - Ada Sands RN - 03/18/2018 11:23 AM CDT Addended by: ADA SANDS on: 03/18/2018 11:23 AM Modules accepted: Orders documented in this encounter Plan of Treatment Scheduled Referrals Name Type Priority Associated Diagnoses Order S [facility] REFERRAL - Referral Routine Major depressive Ordered: 02/07/2018 Adult; Psychiatry and disorder, recurrent Medication Management; episode, severe wi th Psychiatry; FMG: anxious distress (H) Collaborative [facility] Psychiatry Service . Medication management & future [...] documented as of this encounter Care Teams Circular Saw Edge Fuser Relationship Specialty Start Date End Date Lainey Brito MD PCP - General Family Practice 10/23/17 06/29/21 [address] [place] [address] Lainey Brito MD PCP - Assigned PCP 10/05/17 08/20/18 [address] [place] [address] Lainey Brito MD Assigned PCP 10/05/17 07/12/19 [address] [place] [address] documented as of this encounter
--- OUTSIDE RECORDS SUMMARY | 2022-05-14 11:42 | XMS_ITS | Encounter Summary ---
:1990 Author Organization [place] Address [facility] [place] [address] Care Team Providers Name Role Phone Beulah Brito MD Primary Care Provider [phone] Beulah Brito MD Unavailable Beulah Brito MD Unavailable Reason for Referral Consultation - Closed Specialty Diagnoses / Procedures Referred By Contact Refer red To Contact Podiatry Diagnoses Injury of right great toe, initial encounter Beulah Brito MD [facility] [address] [facility] [address] [place] [address] [place] [address] Referral ID Status Reason Start Date Expiration Date Visits Requ ested Visits Authorized [id number] Closed 10/24/2017 10/24/2018 1 1 Reason for Visit Reason Comments Physical Encounter Details Date Type Department Care Team Description 10/24/2017 Office Visit [facility] Beulah Brito for routine adult health examination without abnormal findings (Primary Dx); Clinic Eliza Torres MD Severe episode of recurrent major depres sive disorder, without psychotic features (H); [address] [facility] [address] Tobacco use disorder; [place], [place] [address] Injury of right great toe, initial encou nter [address] [phone] Social History Tobacco Use Types Packs/Day Years [...] this encounter Patient Instructions Patient InstructionsJorge Miramontes, AREA DIRECTOR - 10/24/2017 10:28 AM CDT Preventive Health [...] Would like to establish care with a medical geneticist through now. Precontemplative on smoking cessation, feels [...] 183 lb (83 kg). Beulah Brito MD [facility] documented in this encounter Nursing Notes [...] 5.7 (H) 0 - 5.6 % 10/24/2017 [place] 11:36 AM CDT [facility] Comment: Normal <5.7% Prediabetes 5.7-6.4% ??Diab etes 6.5% or higher - adopted from ADA consensus guidelines. Specimen Anatomical Collection Method Collection Time Receive d Time (Source) Location / / Volume Laterality Blood specimen 10/24/2017 11:20 8 (specimen) AM CDT 11:21 AM CDT Beulah Brito MD LAB - BLOOD ORDERABLES Performing Organization Address City/[facility]/ZIP Code Phon e Number [facility] [address] [place] [address] (ABNORMAL) Lipid panel reflex to direct LDL Fasting (10/24/2017 11:20 AM CDT) athologist Signature Cholesterol 174 <200 mg/dL 10/25/2017 [facility] 2:05 PM T [facility] Triglycerides 122 <150 mg/dL 10/25/2017 [facility] 2:05 PM T [facility] Comment: Fasting specimen HDL Cholesterol 35 (L) >49 mg/dL 10/25/2017 2:05 PM [facility] T [facility] LDL Cholesterol 115 (H) <100 mg/dL 10/25/2017 2:05 PM [facility] Calculated CDT [facility] Comment: Above desirable: ??100-129 mg/dl Borderline High: ??130-159 mg/dL High: ? 160-189 mg/dL Very high: ? >189 mg/dl Non HDL Cholesterol 139 (H) <130 mg/dL 10/25/2017 2:05 PM [facility] Comment: Above Desirable: ??130-159 mg/dl Borderline high: ??160-189 mg/dl High: ? 190-219 mg/dl Very high: ? >219 mg/dl Specimen Anatomical Collection Method Collection Time Receive d Time (Source) Location / / Volume Laterality Blood specimen 10/24/2017 11:20 8 (specimen) AM CDT 11:21 AM CDT Beulah Brito MD LAB - BLOOD ORDERABLES Performing Organization Address City/[facility] Code Phon e Number [facility] [address] [place] [address] TSH with free T4 reflex (10/24/2017 11:20 AM CDT) P athologist Signature TSH 1.71 0.40 - 4.00 10/25/2017 [facility] mU/L 2:05 PM CDT [facility] Specimen Anatomical Collection Method Collection Time Receive d Time (Source) Location / / Volume Laterality Blood specimen 10/24/2017 11:20 8 (specimen) AM CDT 11:21 AM CDT Beulah Brito MD LAB - BLOOD ORDERABLES Performing Organization Address City/State/ZIP Code Phon e Number [facility] [address] [place] [address] PAP imaged thin layer screen reflex to HPV if ASCUS - recommended age 25 - 29 years (10/24/2017 10:53 AM CDT) Component Value Ref Test [facility] Range Method Time Signature PAP NIL COPATH Copath Report COPATH Patient Name: PRICE ODELL MR#: [id number] Specimen #: [id number] Collected: 10/24/2017 Received: 10/26/2017 Reported: 10/30/2017 10:39 [...] RG Davis ??(ASCP) Processed and screened at [facility], [facility] CLINICAL HISTORY: LMP: 10/06/17 Papanicolaou Test Limitations: ??Cervical cytology is a sc reening test with limited sensitivity; regular screening is critical for cancer prevention; Pap tests are p rimarily effective for the diagnosis/prevention of squamous cell carcinoma, not adenocarcinomas or other cancer s. TESTING LAB LOCATION: [facility] [address] [place], [place] ??[address] COLLECTION SITE: Client: ??[facility] Location: [facility] (R) Specimen (Source) Anatomical Collection [...] documented as of this encounter Care Teams Oxygen Therapist Relationship Specialty Start Date End Date Beulah Brito MD PCP - General Family Practice 10/23/17 06/29/21 [address] [place] [address] Beulah Brito MD PCP - Assigned PCP 10/05/17 08/20/18 [address] [place] [address] Beulah Brito MD Assigned PCP 10/05/17 07/12/19 [address] [place] [address] documented as of this encounter
--- OUTSIDE RECORDS SUMMARY | 2022-05-14 11:42 | XMS_ITS | Encounter Summary ---
:1990 Author Organization [place] Address [facility] [place] [address] Care Team Providers Name Role Phone Lainey Brito MD Primary Care Provider [phone] Lainey Brito MD Unavailable Encounter Details [...] documented as of this encounter Care Teams Manager Medical Affairs Relationship Specialty Start Date End Date Lainey Brito MD PCP - General Family Practice 10/23/17 06/29/21 [address] [place] [address] Lainey Brito MD Assigned PCP 10/05/17 07/12/19 [address] [place] [address] documented as of this encounter
--- OUTSIDE RECORDS SUMMARY | 2022-05-14 11:42 | XMS_ITS | Encounter Summary ---
:1990 Author Organization [place] Address [facility] [place] [address] Care Team Providers Name Role Phone Lainey Brito MD Primary Care Provider [phone] Lainey Brito MD Unavailable Encounter Details [...] documented as of this encounter Care Teams Marketing Database Consultant Relationship Specialty Start Date End Date Lainey Brito MD PCP - General Family Practice 10/23/17 06/29/21 [address] [place] [address] Lainey Brito MD Assigned PCP 10/05/17 07/12/19 [address] [place] [address] documented as of this encounter
--- OUTSIDE RECORDS SUMMARY | 2022-05-14 11:42 | XMS_ITS | Encounter Summary ---
:1990 Author Organization [place] Address [facility] [place] [address] Care Team Providers Name Role Phone Lainey Brito MD Primary Care Provider [phone] Lainey Brito MD Unavailable Lainey Brito MD Unavailable Reason for Visit Reason Onset Date Comments Panel Management 05/23/2018 Encounter Details Date Type Department Care Team Description 05/23/[address] 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 LVM to call clinic. Pt is due for a DAP and PHQ9. JOSE Holbrook T LIAISON Telephone Encounter - Jorge Miramontes CMA - [...] CMA Chart routed to Care Team . T LIAISON documented in this encounter Plan of Treatment Not on filedocumented as of this encounter Visit Diagnoses Not on filedocumented in this encounter Additional Health Concerns Assessment Noted Time PHQ-9 Depression Total Score: 13 02/14/2018 7:19 AM CD T documented as of this encounter Care Teams Filling Machine Operator Relationship Specialty Start Date End Date Lainey Brito MD PCP - General Family Practice 10/23/17 06/29/21 [address] [place] [address] Lainey Brito MD PCP - Assigned PCP 10/05/17 08/20/18 [address] [place] [address] Lainey Brito MD Assigned PCP 10/05/17 07/12/19 [address] [place] [address] documented as of this encounter
--- OUTSIDE RECORDS SUMMARY | 2022-05-14 11:42 | XMS_ITS | Encounter Summary ---
:1990 Author Organization [place] Address [address] [place] [address] Care Team Providers Name Role Phone Unavailable Primary Care Provider Unavailable Encounter Details Date Type Department Care Team Description 04/05/2008 Historic Results INTERFACED REPORT Felix [facility] [address] [place] [address] (Wo rk) Social History Tobacco Use Types [...] Results Wet prep (04/05/2008 1:50 AM CDT) [facility] Method Time Signature Specimen Vagina MISYS Description Micro Report FINAL MISYS Status 04/05/2008 Wet Prep Few PMNs MISYS seen Comment: No Trichomonas seen No yeast seen No clue cells seen Specimen Anatomical Collection Method Collection Time Receive d Time (Source) Location / / Volume Laterality 04/05/2008 1:50 AM 8 1:58 CDT AM CDT Felix Fulton LAB - MICRO GENERAL ORDERABL ES Performing Organization Address City/State/ZIP Code Phon e Number MISYS Chlamydia trachomatis PCR (04/05/2008 1:50 AM CDT) Component Value Ref Test Analysis Performed At [facility] Range Method Time Signature Specimen Cervical MISYS Description Chlamydia Negative for C. MISYS Trachomatis PCR trachomatis rRNA by behavior therapist mediated amplification. Comment: A negative result by behavior therapist medi ated amplification does not preclude the presence of C. trachomatis infection be cause results are dependent on proper and adequate collection, absence of inh ibitors, and sufficient rRNA to be detected. Specimen Anatomical Collection Method Collection Time Receive d Time (Source) Location / / Volume Laterality 04/05/2008 1:50 AM 8 1:58 CDT AM CDT [facility] LAB - MICRO GENERAL ORDERABL ES Performing Organization Address City/State/ZIP Code Phon e Number MISYS Neisseria gonorrhoeae PCR (04/05/2008 1:50 AM CDT) [facility] Method Time Signature Specimen Cervical MISYS Descrip N Gonorrhea Negative for N. MISYS PCR gonorrhoeae rRNA by behavior therapist mediated amplification. Comment: A negative result by behavior therapist medi ated amplification does not preclude the [...]
--- OUTSIDE RECORDS SUMMARY | 2022-05-14 11:42 | XMS_ITS | Encounter Summary ---
:1990 Author Organization [employer] Address [address] [place] [address] Care Team Providers Name Role Phone Lainey Brito MD Primary Care Provider [phone] Lainey Brito MD Unavailable Reason for Referral Consultation (Routine) - Closed Specialty Diagnoses / Procedures Referred By Contact Refer red To Contact Podiatry Diagnoses Left foot pain Hermelindo Cary MD [facility] [id number] [place] [address] 74 [address] [facility] [address] Phone: Fax: Referral ID Status Reason Start Date Expiration Date Visits Requ ested Visits Authorized [id number] Closed 10/31/2018 10/31/2019 1 1 edication Prior Authorization (Routine) - Closed Specialty Diagnoses / Procedures Referred By Contact Refer red To Contact Diagnoses [place] [address] [place], [place] [address] Referral ID Status Reason Start Date Expiration Date Visits Requ ested Visits Authorized [id number] Closed iagnostic Imaging XR (Routine) - Closed Specialty Diagnoses / Procedures Referred By Contact Refer red To Contact Diagnoses Left foot pain Hermelindo Cary MD Procedures XR Foot Left G/E 3 Views [address] [place], [place] [address] Referral ID Status Reason Start Date Expiration Date Visits Requ ested Visits Authorized [id number] Closed 10/31/2018 10/31/2019 1 1 iagnostic Imaging XR (Routine) - Closed Specialty Diagnoses / Procedures Referred By Contact Refer red To Contact Diagnoses Left foot pain Hermelindo Cary MD Procedures XR Ankle Left G/E 3 Views [address] [facility] [place] [place] [address] Referral ID Status Reason Start Date Expiration Date Visits Requ ested Visits Authorized [id number] Closed 10/31/2018 10/31/2019 1 1 Reason for Visit Reason Comments Foot Injury Encounter Details Date Type Department Care Team Description 10/31/2018 Office Visit [facility] Hermelindo Cary, Left f oot pain Clinic Radha BROOKS (Primary Dx) [address] [facility], [address] [place] [address] [address] [place] [phone] Social History Tobacco Use Types Packs/Day Years [...] REFERRAL See Patient Instructions Hermelindo Cary MD [facility] 4 visit 25 minutes in exam and counseling greater than 50% of time in counseling regards to her injury to the ankle as well as to the foot. We discussed her x-ray which may indeed show a fracture. We discussed care as well as the need for her crutches and the pain medication that we are giving her which is [place] 1-3 times a day quantity of 9. 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
--- OUTSIDE RECORDS SUMMARY | 2022-05-14 11:43 | XMS_ITS | Encounter Summary ---
:1990 Author Organization [facility] Address [address], [place] [address] Care Team Providers Name Role Phone Unassigned, Provider Primary Care Provider Unavailable Reason for Visit Reason Comments Future Appointments needs 2 and 4 wk appts w/ SQL DATABASE DEVELOPER /PA Encounter Details Date Type Department Care Team Description 11/16/2020 Telephone [facility] [address] Karen Walters, Future Appointments Endocrinology EMBROIDERY PATTERNMAKER, AMPHIBIOUS OPERATIONS OFFICER (needs 2 and 4 wk appts [address] w/ SQL DATABASE DEVELOPER/PA) [place] [address] [phone] (Wo rk) Social History Tobacco Use Types [...] on filedocumented in this encounter Care Teams Soldering Machine Feeder Relationship Specialty Start Date End Date Unassigned, Provider PCP - General 08/19/00 [address] [place] [address] documented as of this encounter
--- OUTSIDE RECORDS SUMMARY | 2022-05-14 11:43 | XMS_ITS | Encounter Summary ---
:1990 Author Organization [place] Address [facility] [place] [address] Care Team Providers Name Role Phone Unavailable Primary Care Provider Unavailable Encounter Details Date Type Department Care Team Description 05/23/2005 Emergency room [facility] VALORIE GARZA [address] [place] [address] (Wo rk) Social History Tobacco Use Types Packs/Day Years Used Date Smoking Tobacco: Never Assessed Sex Assigned at Date Recorded Not on file documented as of this encounter Progress Notes Interface, Paper Final Inspector - 05/23/2005 11:59 PM ACO COORDINATOR PRELIMINARY CHIEF COMPLAINT: Whyte. HISTORY OF PRESENT ILLNESS: Trinity is a healthy 14-year-old female who was cooking at home and put in a cold piece of meat into a hot frying zaldivar of grease and the grease splattered. She got splatter baird of grease essentially on both arms, little on her neck and on her face, these truly were just splatter baird. She got the greatest grouping of burn on her left inner aspect of her distal forearm. She is here for evaluation of these whyte. There are no blisters. They did put some hydrocortisone cream on this. She does have tenderness. Again, there are none on the hands, a few spots of burn on the face and the biggest confluence would be on the left inner wrist. Here for evaluation of these whyte. PAST MEDICAL HISTORY: She is healthy. MEDICATIONS: None. ALLERGIES: No known drug allergies. PRIMARY MEDICAL DOCTOR: [facility]. IMMUNIZATIONS: Up-to-date. FAMILY HISTORY: Noncontributory. SOCIAL HISTORY: Lives with her family. REVIEW OF SYSTEMS: SKIN: Whyte on both arms and a little bit on the neck and face and most of the whyte are splattered, scatter baird. RESPIRATORY: No difficulty breathing. All other systems are negative. PHYSICAL EXAMINATION: VITAL SIGNS: Temperature 99.2, respirations 16, pulse 78 and room air pulse ox is 100%. SKIN: She has truly spot-like splatter baird on her face, neck and arms bilaterally but the inner aspect of the distal forearm has the largest confluence of superficial whyte and that area is about 4 cm x 2 cm. There is mild erythema. No blistering yet. HEENT: Otherwise, within normal limits. LUNGS: Clear to auscultation in all bower. Breath sounds are equal bilaterally. Excellent air exchange. HEART: Regular rate and rhythm without murmur. ABDOMEN: Soft, nontender and nondistended without guarding or rebound. EXTREMITIES: Without clubbing, cyanosis, edema or deformity except for the whyte as described abovein skin. NEUROLOGIC: Very quiet but appropriate, no distress. EMERGENCY DEPARTMENT COURSE: Her wounds were washed. She did not require any meds. Her wounds were cleansed with Shur-Clens and antibiotic ointment was applied and this was covered with Adaptic and Jorge. I told her parents that if there develops any blisters, they are not to pop it, but essentially they should keep the area of the arms that are covered, covered until followed up with the doctor next day and on the face and neck, just apply the bacitracin. The ED course was unremarkable. The woundswere cleansed well, dressed and she tolerated it well. DIAGNOSIS: Superficial second-degree whyte to the bilateral upper extremities, head and neck. PLAN: Keep dressed until followed up by PMD within 24 hours. They were given a prescription for Vicodin and told to take 1 for discomfort every 6-8 hours as needed. Parents and Trinity had no further questions or concerns. These were addressed. NELL HAYS MD CAITLIN parmar Name: TRINITY ODELL MRN: [id number] Account: [id number] : 1990 Visit Date: 05/23/2005 Document: [id number] COORDINATOR documented in this encounter Plan of Treatment Not on filedocumented as of this encounter Visit Diagnoses Not on filedocumented in this encounter
--- OUTSIDE RECORDS SUMMARY | 2022-05-14 11:43 | XMS_ITS | Encounter Summary ---
:1990 Author Organization [employer] Address [address], [place] [address] Care Team Providers Name Role Phone Unassigned, Provider Primary Care Provider Unavailable Encounter Details Date Type Department Care Team Description 12/09/2020 Telemedicine [facility] [address] Karen Walters Gestati onal diabetes mellitus (GDM) affecting (Primary Dx); Endocrinology DARRION ECKERT Obesity in [address] [facility] [place] [address] [phone] (Wo rk) Social History Tobacco Use Types [...] visit. All medications reviewed and updated in [employer] today. Chief Complaint: Follow up of gestational diabetes. Visit Diagnosis: ICD-10-CM 1. Gestational diabetes mellitus (GDM) affecting O24.419 2. Obesity in O99.210 History of present illness: Trinity has gestational diabetes. Last video visit with me 11/02/20. Videoapp did not work. Phone visit today. Patient is in a safe place for call and not driving. She follows with Dr. Awilda Villavicencio at [facility]. She is taking a sleeping [...] son 8 years old and her parents. 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 Objective: Patient is alert and oriented to person, place and time. Her mood is pleasant and cooperative. No results found for: HGBA1C, [id number] There were no vitals taken for this [...] applicable documented in this encounter Care Teams Hot Top Liner Relationship Specialty Start Date End Date Unassigned, Provider PCP - General 08/19/[address] [place] [address] documented as of this encounter
--- OUTSIDE RECORDS SUMMARY | 2022-05-14 11:43 | XMS_ITS | Encounter Summary ---
:1990 Author Organization [facility] Address [address], [place] [address] Care Team Providers Name Role Phone Unassigned, Provider Primary Care Provider Unavailable Reason for Visit Reason Comments Dental Conversion Legacy EDR to [place] convers ion Encounter Details Date Type Department Care Team Description 11/23/2016 Dental Conversion [facility] Interface, In Ed r [facility] Dental Conversion [address] [place] [address] Social History Tobacco Use Types Packs/Day Years Used Date Smoking Tobacco: Never Assessed Sex Assigned at Date Recorded Not on file documented as of this encounter Plan of Treatment Not on filedocumented as of this encounter Visit Diagnoses Not on filedocumented in this encounter Care Teams Skidway Man Relationship Specialty Start Date End Date Unassigned, Provider PCP - General 08/19/[address] [place] [address] documented as of this encounter
--- OUTSIDE RECORDS SUMMARY | 2022-05-14 11:43 | XMS_ITS | Encounter Summary ---
:1990 Author Organization [facility] Address [address] [address] Care Team Providers Name Role Phone Unassigned, Provider Primary Care Provider Unavailable Reason for Visit Reason Comments Medication Questions Encounter Details Date Type Department Care Team Description 11/30/2020 Telephone [facility] 38[address] Karen Walters APRN M edication Questions Endocrinology [facility] [address] [facility] [address] [place] [phone] (Wo rk) Social History Tobacco Use Types [...] different pen in case it got to director meetings her car documented in this encounter Plan of Treatment Not on filedocumented as of this encounter Visit Diagnoses Not on filedocumented in this encounter Care Teams Filling Machine Operator Relationship Specialty Start Date End Date Unassigned, Provider PCP - General 08/19/[address] [place] [address] documented as of this encounter
--- OUTSIDE RECORDS SUMMARY | 2022-05-14 11:43 | XMS_ITS | Encounter Summary ---
:1990 Author Organization [facility] Address [address], [place] [address] Care Team Providers Name Role Phone Unassigned, Provider Primary Care Provider Unavailable Reason for Referral Consult/Transfer Care (Routine) - Closed Specialty Diagnoses / Procedures Referred By Contact Refer red To Contact Diagnoses Gestational diabetes mellitus (GDM) affecting Karen Walters APRN, CNP [address] [place], [place] [address] Referral ID Status Reason Start Date Expiration Date Visits Requ ested Visits Authorized [id number] Closed 11/12/2020 02/11/2022 1 1 Scheduling Instructions Your provider has recommended an appoint ment with Marg[facility]ita Peralta [facility]. You may call [phone] to schedule yo ur appointment. We suggest you call your health insurance company about your cove rage and benefits for this appointment. Reason for Visit Reason Comments CONSULT Encounter Details Date Type Department Care Team Description 11/12/2020 Telemedicine [facility] [address] Karen Walters Gestati onal diabetes mellitus (GDM) affecting (Primary Dx); Endocrinology DARRION ECKERT Obesity in [address] [place] [address] [phone] (Wo rk) Social History Tobacco Use Types [...] sugars in not from Meg. Karen Walters, TELEGRAPH SERVICE CLERK, ARCHEOLOGY FACULTY MEMBER - 11/12/2020 8:30 AM CDT Referring Provider: [...] visit. All medications reviewed and updated in [employer] today. Chief Complaint: Follow up of gestational [...] She follows with Dr. Awilda Villavicencio at [facility]. She declined education at [facility]-had education about a month ago with dietitian. She is leaving today at 1600 for [place] for a week and wants to get [...] son 8 years old and her parents. 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 Objective: Patient is alert and oriented to person, place and time. Her mood is pleasant and cooperative. No results found for: HGBA1C, [id number] There were no vitals taken for this visit. BP Readings from Last 3 Encounters: No data found for BP There is no height or weight on file to calculate BMI. Wt Readings from Last 3 Encounters: No data found for Wt Assessment: She is ready to learn more about her gestational diabetes. Plan: She will need to schedule in 2 and 4 weeks TEACHER VOCATIONAL TRAINING or PA. Will need instruction on how to prepare and give insulin. She is leaving today for [place] at 1600. ICD-10-CM 1. Gestational diabetes mellitus (GDM) affecting O24.419 Diabetes Education Visit 2. Obesity in O99.210 A. Medication options were discussed and patient questions answered. She is willing to take insulin if needed. She will need to schedule in 2 and 4 weeks TEACHER VOCATIONAL TRAINING or PA. Will need instruction on how to prepare and give insulin. She is leaving today for [place] at 1600. To start NPH 16 units [...] meal and record for next appointments with TEACHER VOCATIONAL TRAINING/PA in 2 and 4 weeks today. Total time 30 minutes spent reviewing lab results, performing exam, and preparing plan of care. documented in this encounter Plan of Treatment Scheduled Referrals Name Type Priority Associated Diagnoses [facility] Referral Routine Gestational diabetes O rdered: 11/12/2020 Visit mellitus (GDM) affecting documented as of this encounter Visit Diagnoses Diagnosis Gestational diabetes mellitus (GDM) affe cting - Primary Obesity in Obesity complicating , childbir th, or the puerperium, unspecified as to episode of care or not applicable documented in this encounter Care Teams Title Insurance Examiner Relationship Specialty Start Date End Date Unassigned, Provider PCP - General 08/19/[address] [place] [address] documented as of this encounter
--- OUTSIDE RECORDS SUMMARY | 2022-05-14 11:43 | XMS_ITS | Encounter Summary ---
:1990 Author Organization [place] Address [facility] [place] [address] Care Team Providers Name Role Phone Unavailable Primary Care Provider Unavailable Encounter Details Date Type Department Care Team Description 04/04/2008 Historic Results INTERFACED REPORT Dr Salinas MD [address] [facility] [address] [place] [address] (Wo rk) Social History Tobacco [...] UA with microscopic (04/04/2008 11:44 PM CDT) [facility] Sandboxx Method Time Signature Source Midstream MISYS Urine Color Urine Yellow MISYS Appearance Urine Clear MISYS Glucose Urine Negative NEG mg/dL MISYS Bilirubin Urine Negative NEG MISYS Ketones Urine Negative NEG mg/dL MISYS Specific [place] 1.016 1.003 - MISYS Urine 1.035 Blood [...] with platelets differential (04/04/2008 11:30 PM CDT) [facility] Sandboxx Method Time Signature MCV 86 77 - [...]
--- OUTSIDE RECORDS SUMMARY | 2022-05-14 11:43 | XMS_ITS | Encounter Summary ---
:1990 Author Organization [facility] Address [address] [address] Care Team Providers Name Role Phone Unassigned, Provider Primary Care Provider Unavailable Reason for Visit Procedure/Equipment (Routine) - Incomplete Specialty Diagnoses / Procedures Referred By Contact Refer red To Contact Diagnoses Left ankle swelling Samuel Rosenberg, STELLA Procedures XR Ankle Lt 3 Views [address] [place], [place] [address] Referral ID Status Reason Start Date Expiration Date Visits V isits Requested Authorized [id number] Incomplete 01/08/2021 04/09/2022 1 1 Encounter Details Date Type Department Care Team Description 01/08/2021 Ancillary [facility] Samuel Rosenberg, Left ankle swelling Procedure [address] [place], [place] [address] [place] [address] [facility] [phone] [place] [address] Social History Tobacco Use Types [...] joint documented in this encounter Care Teams Veneer Gluer Relationship Specialty Start Date End Date Unassigned, Provider PCP - General 08/19/[address] [place] [address] documented as of this encounter
--- OUTSIDE RECORDS SUMMARY | 2022-05-14 11:43 | XMS_ITS | Encounter Summary ---
:1990 Author Organization [facility] Address [address], [place] [address] Care Team Providers Name Role Phone Unassigned, Provider Primary Care Provider Unavailable Reason for Visit Reason Comments Paperwork Encounter Details Date Type Department Care Team Description 11/12/2020 Telephone [facility] [address] KinseysKaren , PLYWOOD MATCHER, PROCESSING CLERK Paperwork Endocrinology [address] [place] [address] [place] [address] [phone] Social History Tobacco Use Types Packs/Day Years [...] Visit note faxed to pt's OB at [facility]. #[phone] Sita Diaz RN - 11/12/2020 10:18 AM CDT ----- Message from Karen Walters APRN, DARRION sent at 11/12/2020 9:04 AM CDT ----- Please forward this note to her OB doctor Dr. Awilda Villavicencio at [facility].Thanks. documented in this encounter Plan of Treatment Not on filedocumented as of this encounter Visit Diagnoses Not on filedocumented in this encounter Care Teams Online Advertising Manager Relationship Specialty Start Date End Date Unassigned, Provider PCP - General 08/19/[address] [place] [address] documented as of this encounter
--- OUTSIDE RECORDS SUMMARY | 2022-05-14 11:43 | XMS_ITS | Encounter Summary ---
:1990 Author Organization [place] Address [facility] [place] [address] Care Team Providers Name Role Phone Unavailable Primary Care Provider Unavailable Encounter Details Date Type Department Care Team Description 01/14/2005 Historic Systems Support Specialist INTERFACED REPORT Parker Grubbs MD [facility] [address] [facility] [address] [place] [address] (Wo rk) Social History Tobacco Use Types Packs/Day Years Used Date Smoking Tobacco: Never Assessed Sex Assigned at Date Recorded Not on file documented as of this encounter Progress Notes Rosendo Grubbs MD - 05/24/2011 2:18 AM CUSTOMER SUPPORT PROFESSIONAL : 1990 CHIEF COMPLAINT: Ankle injury. HISTORY [...] [id number] _ ROSENDO GRUBBS M.D. [place]: Document: [id number] CC: ROSENDO GRUBBS M.D. [place], [place] Name: MR#: PRICE ODELL -[id number] EMERGENCY ROOM ENCOUNTER Page 2 of 2 LCN: MARCUS DSC: 01/14/2005 [place], [place] Name: MR#: PRICE ODELL -[id number] : Admit Date: Account #: 1990 01/14/2005 [id number] Doctor: ROSENDO GRUBBS M.D. EMERGENCY ROOM ENCOUNTER Page 1 of 2 OMER SUPPORT PROFESSIONAL documented in this encounter Plan of Treatment Not on filedocumented as of this encounter Visit Diagnoses Not on filedocumented in this encounter
--- OUTSIDE RECORDS SUMMARY | 2022-05-14 11:43 | XMS_ITS | Encounter Summary ---
:1990 Author Organization [place] Address [facility] [place] [address] Care Team Providers Name Role Phone Unavailable Primary Care Provider Unavailable Encounter Details Date Type Department Care Team Description 04/04/2008 Emergency room [facility] Robbie Gross , [facility] Results MD EMERGENCY PHYSIC VALORIE GARZA [address] [facility] [address] [place], [place] [phone] (Wo rk) Social History Tobacco Use [...] [id number][id number] Name: PRICE ODELL MRN: [id number] Account: [id number] : 1990 Visit Date: 04/04/2008 Document: [id number] cc: [facility] documented in this encounter Plan of Treatment Not on filedocumented as of this encounter Visit Diagnoses Not on filedocumented in this encounter
--- OUTSIDE RECORDS SUMMARY | 2022-05-14 11:43 | XMS_ITS | Clinical Summary ---
:1990 Author Organization [facility] Address [address] [place] [address] Care Team Providers Name Role Phone Unassigned, [...] for each transition of care or referral. [facility] Allergies No known active allergies Medications Medication [...] age to complete this topic Care Teams Meter Installer And Remover Relationship Specialty Start Date End Date Unassigned, Provider PCP - General 08/19/[address] [place] [address]
--- OUTSIDE RECORDS SUMMARY | 2022-05-14 11:43 | XMS_ITS | Encounter Summary ---
:1990 Author Organization [place] Address [facility] [place] [address] Care Team Providers Name Role Phone Unavailable Primary Care Provider Unavailable Encounter Details Date Type Department Care Team Description 04/05/2008 Results [facility] Robbie Navarro MD Hospital Results EMERGENCY PHYSI ALEX GARZA [address] [place] [address] (Wo rk) Social History [...]
--- OUTSIDE RECORDS SUMMARY | 2022-05-14 11:43 | XMS_ITS | Encounter Summary ---
:1990 Author Organization [facility] Address [address], [place] [address] Care Team Providers Name Role Phone Unassigned, Provider Primary Care Provider Unavailable Reason for Referral Procedure/Equipment (Routine) - Incomplete Specialty Diagnoses / Procedures Referred By Contact Refer red To Contact Diagnoses Sprain of left ankle, unspecified ligament, initial encounter Cristopher Modi PA-C Procedures Airselect Elite/Standard Tall boot (Q1619) [address] [place] [address] Referral ID Status Reason Start Date Expiration Date Visits V isits Requested Authorized [id number] Incomplete 01/08/2021 04/09/2022 1 1 Procedure/Equipment (Routine) - Incomplete Specialty Diagnoses / Procedures Referred By Contact Refer red To Contact Diagnoses Left ankle swelling Samuel Rosenberg MBBS Procedures XR Ankle Lt 3 Views [address] [place], [place] [address] Referral ID Status Reason Start Date Expiration Date Visits V isits Requested Authorized [id number] Incomplete 01/08/2021 04/09/2022 1 1 Reason for Visit Reason Comments INJURY, ANKLE Encounter Details Date Type Department Care Team Description 01/08/2021 Office Visit [place] [address] Cristopher Modi, Rodney an kle swelling; Urgent [facility]ERT[facility] Sprain of left ankle, unspecified ligame nt, initial encounter [address] [place] [address] [phone] (Wo rk) Social History Tobacco Use Types [...] helps your ankle move in all directions. [id number] knee swing exercise 1. Sit in a [...] can you learn more? 1. Go to [email or web address]/healthlibrary. 2. Enter X002 in the search box. Current as of: May 03, 2020?Content Version: 12.8 ?? [employer]. Care instructions adapted under license by your healthcare professional. If you have questions abouta medical condition or this instruction, always ask your healthcare professional. [employer] disclaims any warranty or liability for your [...] joint documented in this encounter Care Teams Assistant Credit Manager Relationship Specialty Start Date End Date Unassigned, Provider PCP - General 08/19/[address] [place] [address] documented as of this encounter
--- OUTSIDE RECORDS SUMMARY | 2022-05-14 11:43 | XMS_ITS | Encounter Summary ---
:1990 Author Organization [facility] Address [address] [address] Care Team Providers Name Role Phone Unassigned, Provider Primary Care Provider Unavailable Encounter Details Date Type Department Care Team Description 12/09/2020 Telephone [facility] [address] REMOTE SENSING ADVISOR, TRACK LAYING EQUIPMENT OPERATOR Endocrinology [address] [place] [address] [place] [address] [phone] Social History Tobacco Use Types Packs/Day Years [...] Visit note faxed to pt's OB at [facility] center. #[phone] Alexander Mitchell RN - 12/09/2020 2:42 PM CDT ----- Message from Karen Walters APRN, CNP sent at 12/09/2020 10:17 AM CDT ----- Please fax today's dictation to her OB, Dr. Awilda Villavicencio. Thanks. documented in this encounter Plan of Treatment Not on filedocumented as of this encounter Visit Diagnoses Not on filedocumented in this encounter Care Teams Steam And Power Supervisor Relationship Specialty Start Date End Date Unassigned, Provider PCP - General 08/19/[address] [place] [address] documented as of this encounter
--- OUTSIDE RECORDS SUMMARY | 2022-05-14 11:43 | XMS_ITS | Encounter Summary ---
:1990 Author Organization [facility] Address [address], [place] [address] Care Team Providers Name Role Phone Unassigned, Provider Primary Care Provider Unavailable Reason for Referral Medication Prior Authorization - Closed Specialty Diagnoses / Procedures Referred By Contact Refer red To Contact Karen Hui APRN, CNP [address] [place], [place] [address] Referral ID Status Reason Start Date Expiration Date Visits Requ ested Visits Authorized [id number] Closed 1 1 Reason for Visit Reason Comments Other Encounter Details Date Type Department Care Team Description 11/30/2020 Telephone [facility] [address] Karen Hui APRN, CNP Other Endocrinology [address] [place] [address] [place] [address] [phone] Social History Tobacco Use Types Packs/Day Years [...] documented as of this encounter Nursing Notes Fabio Erwin RN - 11/30/2020 3:43 PM CDT Pt calling stating that she was unable to fill Novolin N Rx sent earlier today. Called the pharmacy appears this is because the Rx was sent for pens instead of Vials. Pens are not covered by pt's insurance, but vials are. Appears patient was using Humulin N Vials previously. Rx for Novolin N vials sent to replace pens. Pt updated. Renewed medication per medication refill protocol. Requested Prescriptions Signed Prescriptions Disp Refills ??? NOVOLIN N 100 UNIT/ML injection 20 mL 3 Sig: Inject 16-30 Units subcutaneously every evening. Indications: Diabetes Mellitus Authorizing Provider: KAREN HUI Ordering User: FABIO ERWIN documented in this encounter Plan of Treatment Not on filedocumented as of this encounter Visit Diagnoses Not on filedocumented in this encounter Care Teams Microbiology Coordinator Relationship Specialty Start Date End Date Unassigned, Provider PCP - General 08/19/[address] [place] [address] documented as of this encounter
--- OUTSIDE RECORDS SUMMARY | 2022-05-14 11:44 | XMS_ITS | Clinical Summary ---
:1990 Author Organization [facility] [place] [address] Care Team Providers Name Role Phone Ish [...] 36.9 ??C (98.5 ??F) 08/08/2016 2:06 PM TOBACCO WETTER Respiratory Rate 16 08/16/2016 11:38 AM TOBACCO WETTER Oxygen Saturation 99% 10/16/2016 1:02 PM CDT [...] C screening for age Completed 09/27/2010 18-79 HIV for age 15-65 Completed 05/30/2012, 09/27/2010 Tdap Completed 08/16/2012, 09/27/2010 Results Not on filefrom Last 3 Months Care Teams Potable Water Treatment Operator Relationship Specialty Start Date End Date Pcp, No PCP - General 02/06/17 . Ish Mortensen, DPM PODIATRY Podiatry 06/28/[address] [place] [address]
[2022-05-14 12:21] VITALS: O2SAT 98
[2022-05-14] MEDS: ONDANSETRON 2 MG/ML inj 4 MG IVP (12:45)
[2022-05-14] MEDS: 0.9 % SODIUM CHLORIDE 1000 ml 1,000 ML 500 ML IV (12:45)
[2022-05-14] MEDS: MORPHINE 4 MG/ML INJ IVP (12:45)
[2022-05-14 13:16] LABS: Basophils Percent Auto 0.2 % (0.0-3.0); Eosinophils Percent Auto 0.7 % (0.0-7.0); Hematocrit 36.5 % (33.0-51.0); Hemoglobin* 12.2 gm/dL (12.0-16.0); Immature Granulocytes Pct Auto 0.1 %; Lymphocytes Percent Auto 21.7 % (20-44); Mean Corpuscular HGB Conc 33 gm/dL (32-36); Mean Corpuscular Hemoglobin 28 pg (26-34); Mean Corpuscular Volume 85 fL (80-100); Monocytes Percent Auto 6.5 % (0.0-11.0); Neutrophils Percent Auto 70.8 % (42.0-72.0); Platelet Count* 224 K/uL (140-440); RDW Coefficient of Variation % 12.7 % (11.5-15.5); Red Blood Count 4.32 m/uL (4.00-5.20); White Blood Count* 13.76 K/uL (4.50-11.00)
[2022-05-14 13:19] LABS: Slide Review Reflex No
[2022-05-14 13:30] VITALS: BP 134/91; PULSE 79; RESP 18; O2SAT 99
[2022-05-14 13:36] LABS: SARS PCR* Negative SARS-CoV-2 (Negative)
[2022-05-14 13:38] LABS: Albumin* 4.1 g/dL (3.3-5.0); Chloride* 107 mmol/L (96-114)
[2022-05-14 13:39] LABS: Sodium* 135 mmol/L (135-149)
[2022-05-14 13:41] LABS: Creatinine* 0.6 mg/dL (0.5-1.5); Est. Creatinine Clearance* 117.31; Estimated Glomerular Filt Rate 123 ml/min
[2022-05-14 13:42] LABS: Alanine Aminotransferase* 16 U/L (4-35); Alkaline Phosphatase* 84 U/L (40-150); Aspartate Amino Transferase* 41 U/L (12-35); Bilirubin Total* 0.9 mg/dL (0.1-1.5); Blood Urea Nitrogen* 12 mg/dL (5-24); Calcium* 8.6 mg/dL (8.4-10.6); Carbon Dioxide* 22 mmol/L (20-32); Glucose* 100 mg/dL (60-115); Total Protein* 7.2 g/dL (6.0-8.3)
[2022-05-14 13:45] LABS: C Reactive Protein* 1.5 mg/dL (0.5-1.0)
[2022-05-14 13:59] LABS: Procalcitonin* 0.05 ng/mL (<0.50)
== END 2022-05-14 14:45 | disposition home or self-care (01) ==
PROVIDERS: Emergency Provider Family Medicine
DX: J02.9 Acute pharyngitis, unspecified (principal); J32.0 Chronic maxillary sinusitis
CPT/HCPCS: 36415; 70491; 80053; 83605; 84145; 85025; 86140; 87635; 94761; 96374; 96375; 99284; J2270; J2405; J7030; Q9967

== ENCOUNTER 2022-09-24 13:04 | Emergency (ER) | payer MEDICAID, SELFPAY ==
[2022-09-24 13:15] VITALS: BP 126/84; PULSE 68; RESP 18; TEMP 36.2; O2SAT 99; BMI 30.9
--- NOTE | 2022-09-24 13:33 | CRLHL7_ITS ---
For Patients: As a result of the Century Cures Act, medical imaging exams and procedure reports are released immediately into your electronic medical record. You may view this report before your referring provider. If you have questions, please contact your health care provider. INDICATION: Shortness of breath TECHNIQUE: Two view chest. FINDINGS: The lungs are clear. The heart, mediastinum and pulmonary vessels are of normal size. There is no evidence of pleural disease. IMPRESSION: Negative chest. Dictated by Clarice Ku MD @ 09/24/2022 2:15:08 PM (Electronically Signed)
[2022-09-24 13:57] LABS: Lactate* 0.7 mmol/L (0.5-1.9)
[2022-09-24] MEDS: SUCRALFATE 1 GM TABLET PO (14:02)
[2022-09-24 14:03] LABS: Basophils Absolute Auto 0.03 K/uL (0.00-0.30); Basophils Percent Auto 0.3 % (0.0-3.0); Eosinophils Absolute Auto 0.08 K/uL (0.00-0.50); Eosinophils Percent Auto 0.8 % (0.0-7.0); Hematocrit 37.9 % (33.0-51.0); Hemoglobin* 12.6 gm/dL (12.0-16.0); Immature Granulocytes Abs Auto 0.01 K/uL (0.00-0.30); Immature Granulocytes Pct Auto 0.1 %; Lymphocytes Absolute Auto 3.74 K/uL (0.90-2.90); Lymphocytes Percent Auto 37.4 % (20-44); Mean Corpuscular HGB Conc 33 gm/dL (32-36); Mean Corpuscular Hemoglobin 29 pg (26-34); Mean Corpuscular Volume 86 fL (80-100); Monocytes Percent Auto 6.9 % (0.0-11.0); Neutrophils Absolute Auto 5.45 K/uL (1.7-7.0); Neutrophils Percent Auto 54.5 % (42.0-72.0); Platelet Count* 227 K/uL (140-440); RDW Coefficient of Variation % 13.1 % (11.5-15.5); Red Blood Count 4.39 m/uL (4.00-5.20)
[2022-09-24 14:06] LABS: Slide Review Reflex No
[2022-09-24 14:07] VITALS: BP 129/89; PULSE 62; O2SAT 99
[2022-09-24 14:08] VITALS: PULSE 65; O2SAT 99
[2022-09-24 14:20] LABS: Chloride* 105 mmol/L (96-114)
[2022-09-24 14:21] LABS: Albumin* 4.3 g/dL (3.3-5.0); Sodium* 136 mmol/L (135-149)
[2022-09-24 14:23] LABS: Creatinine* 0.9 mg/dL (0.5-1.5); Est. Creatinine Clearance* 78.21; Estimated Glomerular Filt Rate 88 ml/min
[2022-09-24 14:24] LABS: Alanine Aminotransferase* 17 U/L (4-35); Alkaline Phosphatase* 70 U/L (40-150); Aspartate Amino Transferase* 31 U/L (12-35); Bilirubin Direct* 0.2 mg/dL (0.0-0.5); Bilirubin Total* 0.9 mg/dL (0.1-1.5); Blood Urea Nitrogen* 14 mg/dL (5-24); Calcium* 8.9 mg/dL (8.4-10.6); Carbon Dioxide* 26 mmol/L (20-32); Glucose* 107 mg/dL (60-115); Lipase* 48 U/L (23-300); Total Protein* 7.5 g/dL (6.0-8.3)
--- NOTE | 2022-09-24 14:25 | ED_ITS ---
HPI - General Adult General Chief complaint: Chest Pain Stated complaint: Chest pain Time Seen by Provider: 09/24/22 13:07 Source: patient Mode of arrival: ambulatory Limitations: no limitations History of Present Illness HPI narrative: 31-year-old female coming in today complaining of chest pressure that started yesterday afternoon. Nothing seems to make it better or worse. She describes it as just a sensation that someone is sitting on her chest. Pressure radiates across the entire chest wall from the epigastric area all the way to her neck, bilaterally. She is not short of breath although she states that it feels difficult to catch a full breath when she has to take big deep breaths frequently. She has not been coughing. She denies any recent illness. No nausea, vomiting, diaphoresis or dizziness. No abdominal discomfort. She denies any recent diarrhea. She denies any urinary symptoms such as frequency, urgency or dysuria. She denies any recent traveling. She is on any control. She has no personal history of blood clots. She is not taking any medications. She is a social tobacco user, social alcohol use. She denies vaping or smoking other drugs. She denies any cocaine use. Of note, patient states that she slept well last night. She has no difficulty lying down. Related Data Home Medications Medication Instructions Recorded Confirmed No Known Home Medications 09/24/22 09/24/22 Allergies Allergy/AdvReac Type Severity Reaction Status Date / Time No Known Drug Allergies Allergy Verified 09/24/22 13:21 Review of Systems Status of ROS: Reports: 10 or more systems reviewed and unremarkable except as noted in History and below [facility] Social History Smoking Status: Former smoker What tobacco products do you use: cigarettes Smoking quit date/years: <= 15 years ago How often do you have a drink containing alcohol: never AUDIT-C Alcohol total score: 0 Non-prescribed substance use: denies use Exam Narrative: Exam Narrative: Well-nourished well-developed patient in no acute distress. Alert and oriented. Answers questions appropriately. Mood and affect are appropriate. Thoughts are goal oriented and rational. No tangential or magical thinking noted. Patient speaks in full sentences without needing to catch their breath. HEENT: Normocephalic atraumatic. Pupils are equally round reactive to light. Extraocular muscles are intact. Conjunctivae are moist without any icterus noted. Moist mucous membranes. Posterior pharynx is normal. Neck is soft without any lymphadenopathy or thyromegaly. No masses are appreciated. Cardiovascular: Heart is regular rate and rhythm S1 and S2 are present without any murmurs. No tenderness with palpation of the chest wall. Discomfort does not change with positions. Lungs: Clear to auscultation bilaterally no wheezes rhonchi or rales are appreciated. Patient takes deep breaths without any discomfort. Abdomen: Soft and nontender nondistended with normal bowel sounds. No guarding or rebound. No masses or organomegaly appreciated. Extremities: Bilateral lower extremities are without edema. Normal DP and PT pulses. Skin: Well perfused without any obvious rashes. Const: Vital Signs, click to edit/add: Vital Signs - 24 hr 09/24/22 13:15 09/24/22 14:07 09/24/22 14:08 Temperature 97.1 F L Pulse Rate 62 65 Pulse Rate [Right Pulse Oximeter] 68 Respiratory Rate 18 Blood Pressure 129/89 Blood Pressure [Ri ght Upper Arm] 126/84 Pulse Oximetry 99 99 99 Oxygen Delivery Me thod Room Air Course Course Hospital Course: EKG, read by me, shows normal sinus rhythm. Chest x-ray, read by me, does not show any acute infiltrates or pathology. Troponin 0. Remainder of blood work entirely normal. Patient did receive a dose of oral Carafate while she was here and she felt like her symptoms did get better. She also tells me that she has had several people in her life recently and she is very anxious about that. Vital Signs Vital signs: Initial Vital Signs Temperature 97.1 F L 09/24/22 13:15 Temperature Source Temporal Artery Scan 09/24/22 13:15 Pulse Rate 68 09/24/22 13:15 Respiratory Rate 18 09/24/22 13:15 Blood Pressure 126/84 09/24/22 13:15 Blood Pressure Mean 98 09/24/22 13:15 Blood Pressure Position Sitting 09/24/22 13:15 Pulse Oximetry 99 09/24/22 13:15 Oxygen Delivery Method Room Air 09/24/22 13:15 Vital Signs Temperature 97.1 F L 09/24/22 13:15 Pulse Rate 68 09/24/22 13:15 Respiratory Rate 18 09/24/22 13:15 Blood Pressure 126/84 09/24/22 13:15 Pulse Oximetry 99 09/24/22 13:15 Oxygen Delivery Method Room Air 09/24/22 13:15 Temperature 97.1 F L 09/24/22 13:15 Pulse Rate 65 09/24/22 14:08 Respiratory Rate 18 09/24/22 13:15 Blood Pressure 129/89 09/24/22 14:07 Pulse Oximetry 99 09/24/22 14:08 Oxygen Delivery Method Room Air 09/24/22 13:15 Medical Decision Making MDM Narrative Medical decision making narrative: 31-year-old female with chest pressure differential diagnosis at this time include GERD, chest wall discomfort, anxiety. I do not think that this is cardiovascular in nature. We discussed things that she could do including trying Prilosec, heat to the chest wall. Patient was agreeable with everything we discussed understands to follow up with things get worse. Lab Data Lab results reviewed: Yes I reviewed the patient's lab results Labs: Lab Results 09/24/22 09/24/22 Range/Units 13:50 15:00 WBC 10.00 (4.50-11.00) K/uL RBC 4.39 (4.00-5.20) m/uL Hgb 12.6 (12.0-16.0) gm/dL Hct 37.9 (33.0-51.0) % MCV 86 (80-100) fL MCH 29 (26-34) pg MCHC 33 (32-36) gm/dL RDW Coeff of Robert 13.1 (11.5-15.5) % Plt Count 227 (140-440) K/uL Neut % (Auto) 54.5 (42.0-72.0) % Lymph % (Auto) 37.4 (20-44) % [place] % (Auto) 6.9 (0.0-11.0) % Eos % (Auto) 0.8 (0.0-7.0) % Baso % (Auto) 0.3 (0.0-3.0) % Neut # (Auto) 5.45 (1.7-7.0) K/uL Lymph # (Auto) 3.74 H (0.90-2.90) K/uL [place] # (Auto) 0.70 (0.00-0.90) K/UL Eos # (Auto) 0.08 (0.00-0.50) K/uL Baso # (Auto) 0.03 (0.00-0.30) K/uL ESR 14 (2-20) mm/hr D-Dimer Quant (PE/DVT) < 0.27 (0.00-0.50) ug/ml Sodium 136 (135-149) mmol/L Potassium 4.0 (3.6-5.1) mmol/L Chloride 105 (96-114) mmol/L Carbon Dioxide 26 (20-32) mmol/L BUN 14 (5-24) mg/dL Creatinine 0.9 (0.5-1.5) mg/dL Estimated Creat Clear 78.21 Estimated GFR 88 ml/min Glucose 107 (60-115) mg/dL Lactate 0.7 (0.5-1.9) mmol/L Calcium 8.9 (8.4-10.6) mg/dL Total Bilirubin 0.9 (0.1-1.5) mg/dL Direct Bilirubin 0.2 (0.0-0.5) mg/dL AST 31 (12-35) U/L ALT 17 (4-35) U/L Alkaline Phosphatase 70 (40-150) U/L C-Reactive Protein 0.7 (0.5-1.0) mg/dL Total Protein 7.5 (6.0-8.3) g/dL Albumin 4.3 (3.3-5.0) g/dL Lipase 48 (23-300) U/L HCG, Qual Negative (Negative) POC Troponin I 0.00 L (0.01-0.04) ng/ml Imaging Data Chest x-ray: Attestation: I have reviewed the pertinent imaging results. Radiologist's impression: Two view chest. FINDINGS: The lungs are clear. The heart, mediastinum and pulmonary vessels are of normal size. There is no evidence of pleural disease. IMPRESSION: Negative chest. ECG Data Attestation: I personally reviewed and interpreted this ECG as follows: Discharge Plan Discharge Clinical Impression: Atypical chest pain Patient Disposition: Home, Self-Care Condition: Stable Additional Instructions: Several things can cause chest pressure and discomfort including reflux, sore muscles, or stress. Would recommend you starting a daily omeprazole for couple weeks to see if this makes a difference, can try using heat to the chest wall but do not apply heat directly to skin. Follow-up with primary care provider if you feel like you are not improving. Prescriptions: No Action No Known Home Medications Follow Up/Referrals: Generic,Amb Provider [Primary Care Provider] - Stand Alone Forms: [facility] Info Instructions
[2022-09-24 14:27] LABS: C Reactive Protein* 0.7 mg/dL (0.5-1.0)
[2022-09-24 14:39] LABS: D Dimer Quantitative* < 0.27 ug/ml (0.00-0.50)
[2022-09-24 14:53] LABS: Erythrocyte SedimentationRate* 14 mm/hr (2-20)
[2022-09-24 15:15] LABS: HCG Qualitative* Negative (Negative)
== END 2022-09-24 15:35 | disposition home or self-care (01) ==
PROVIDERS: Emergency Provider Family Medicine
DX: R11.10 Vomiting, unspecified (principal)
CPT/HCPCS: 36415; 71046; 80048; 80076; 83605; 83690; 84484; 84703; 85025; 85379; 85651; 86140; 93005; 94761; 99284; A9270

== ENCOUNTER 2025-05-15 15:23 | Emergency (ER) | payer MEDICAID, SELFPAY ==
--- OUTSIDE RECORDS SUMMARY | 2025-05-15 15:25 | XMS_ITS | Encounter Summary ---
Author Organization [facility] Address [address] [place] [address] Care Team Providers Care Training Project Manager Name Role Phone Carmenza Charley ECKERT CNP Primary Care Provider + [phone] Charley Herr APRN PAYROLL REPRESENTATIVE Unavailable [phone] Lainey Brito MD Primary Care Provider [phone] Kaitlin Whalen PA-C Unavailable [phone] Kaitlin Whalen PA-C Unavailable [phone] Kareem Acuna MD Unavailable Lainey Brito MD Unavailable [phone] Kareem Acuna MD Unavailable Maida Hermosillo PA-C Unavailable [phone] Encounter Details Date Type Department Care Team (Late st Contact Info) Description 07/17/2024 [facility] Medical Advice [address] [address] Benoit Hui, PEANUT SHELLER Social History Tobacco Use Types Packs/Day Years Used Date Smoking Tobacco: Some Days Cigarettes Smokeless Tobacco: Never Comments:pack a week Alcohol Use Standard Drinks/Week Comments Yes 0 (1 standard drink = 0.6 oz pur e alcohol) occ PHQ-2 Answer Date Recorded PHQ-2 Score 2 07/03/2024 Adolescent Education Answer Date Record ed Getting School Help Needed Not on file 03/10 Food Insecurity Answer Date Recorded Within the past 12 months, d id you worry that your food would run out before you got money to buy more? No 07/03/2024 Within the past 12 months, d id the food you bought just not last and you didn t have money to get more? No 07/03/2024 Housing Stability Answer Date Recorded Do you have housing? (Elida taveras is defined as stable permanent housing and does not include staying outside in a car, in a tent, in an abandoned building, in an overnight senior living, or couch-surfing.) Yes 07/03/2024 Are you worried about losing your housing? No 07/03/2024 Financial Resource Strain Answer Date R ecorded Within the past 12 months, h ave you or your family members you live with been unable to get utilities (heat, electricity) when it was really needed? No 07/03/2024 Transportation Needs Answer Date Record ed Within the past 12 months, h as lack of transportation kept you from medical appointments, getting your medicines, non-medical meetings or appointments, work, or from getting things that you need? No 07/03/2024 Interpersonal Safety Answer Date Record ed Do you feel physically and e motionally safe where you currently live? Yes 07/03/2024 Within the past 12 months, h ave you been hit, slapped, kicked or otherwise physically hurt by someone? No 07/03/2024 Within the past 12 months, h ave you been humiliated or emotionally abused in other ways by your partner or ex-partner? No 07/03/2024 Comments No Sex and Gender Information Value Date Recorded Sex Assigned at Not on file Legal Sex Female 4:38 AM CLIENT TECHNOLOGIES SPECIALIST Gender Identity Not on file Sexual Orientation Not on file documented as of this encounter Plan of Treatment Upcoming Encounters Date Type Department Care Team (Late st Contact Info) Description 10/22/2025 12:45 PM CDT Office Visit [address] [id number] Maida Hermosillo PA-C Dermatology [address] [place] [address] documented as of this encounter Visit Diagnoses Not on filedocumented in this encounter Additional Health Concerns Assessment Noted Time PHQ-9 Depression Total Score: 9 07/03/19 25 1:13 PM CLIENT TECHNOLOGIES SPECIALIST documented as of this encounter Care Teams Training Project Manager Relationship Specialty Start Date End Date Charley Herr APRN PAYROLL REPRESENTATIVE [address] [place] [address] PCP - General Nurse Practitioner Primary Care 07/09/24 11/13/24 [place] [address] [place] [address] PCP - General Family Medicine 11/14/24 Charley Herr APRN PAYROLL REPRESENTATIVE [address] [place] [address] Assigned PCP 07/10/24 01/06/25 Kaitlin Whalen PA-C [address] [facility] [address] [place] [address] Physician Collateral Analyst lacquer coater 11/17/24 Kaitlin Whalen PA-C [address] [facility] [address] [place] [address] Assigned OBGYN Provider 12/08/24 Kareem Acuna MD [address] [place] [address] Physician Rheumatology 01/05/25 [place] [address] [place] [address] Assigned PCP 01/07/25 Kareem Acuna MD [address] [place] [address] Assigned Rheumatology Provider 03/10/25 Maida Hermosillo PA-C Dermatology [address] [place] [id number] Physician Collateral Analyst Dermatology 03/24/25 documented as of this encounter
--- OUTSIDE RECORDS SUMMARY | 2025-05-15 15:26 | XMS_ITS | Patient Health Record ---
Author Organization [facility] Address [address] [place] [address] Care Team Providers Care Pharmacy Tech Customer Service Name Role Phone Latisha Alvarenga Primary Care Provider JAD Sadler Unavailable [phone] Candace Post Unavailable Unavailable Reason For Referral No Information Medications Medication SIG (Take, Route, Frequency, Duration) Notes Start Date End Date Status sertraline ; Duration: 30 05/26/2014 Ac tive Social History Tobacco Use: Social History Observation Description Date Details (start date - stop date) Former Smoker NA - NA Social History : Social Info Question Answer Notes How often do you consume alcohol? Answer: less th an 6 per week Recreational drug use Social Info Question Answer Notes Did you ever use recreational drugs? Answer: No Tobacco Use: Social Info Question Answer Notes Tobacco use/smoking Are you a former smoker Problems Problem Type SNOMED Code ICD Code Onset Dates Problem Status W/U Status Risk Notes Problem Impacted cerumen (93853217) Cerumen impaction (380.4) Active confirmed Problem Neck pain (80163215) Neck pain (723.1) Active confirmed Problem Mass of neck (417761621) Mass in neck (784.2) Active confirmed Problem Chronic pharyngitis (209426) Pharyngitis, chronic (472.1) 5 0 confirmed [id number] Problem Dysphagia (09226861) Dysphagia, unspecified (787.20) 5 0 confirmed [id number] Plan Of Treatment No Information Insurance Providers Payer Name Payer Address Payer Phone Subscriber Number Group Number Insured Name Patient Relationship to Insured Coverage Start Date Coverage End Date [facility] [address] [address] [place] [address] [phone] [id number] Trinity Odell Self - patient is the insured
--- OUTSIDE RECORDS SUMMARY | 2025-05-15 15:26 | XMS_ITS | Encounter Summary ---
Author Organization [facility] Address [address] [place] [address] Care Team Providers Care String Winding Machine Operator Name Role Phone Sheila Abernahty NP Primary Care Provider Sheila Brooks NP Unavailable Unavailable Lainey Brito MD Unavailable [phone] No Ref-Primary, Physician Primary Care Provider Charley Herr APRN OIL PAINTER Primary Care Provider + [phone] Charley Herr APRN OIL PAINTER Unavailable [phone] Lainey Brito MD Primary Care Provider [phone] Kaitlin Whalen PA-C Unavailable [phone] Kaitlin Whalen PA-C Unavailable [phone] Kareem Acuna MD Unavailable Lainey Brito MD Unavailable [phone] Kareem Acuna MD Unavailable Maida Hermosillo PA-C Unavailable [phone] Encounter Details Date Type Department Care Team (Late st Contact Info) Description 08/23/2023 [facility] Medical Advice [facility] [address] [place] [address] Shabnam Paul, RAMP SERVICE MAN Social History Tobacco Use Types Packs/Day Years Used Date Smoking Tobacco: Some Days Cigarettes Smokeless Tobacco: Never Comments:pack a week Alcohol Use Standard Drinks/Week Comments Yes 0 (1 standard drink = 0.6 oz pur e alcohol) occ PHQ-2 Answer Date Recorded PHQ-2 Score 1 04/10/2023 Adolescent Education Answer Date Record ed Getting School Help Needed Not on file 03/10 Food Insecurity Answer Date Recorded Within the past 12 months, d id you worry that your food would run out before you got money to buy more? No 03/08/2023 Within the past 12 months, d id the food you bought just not last and you didn t have money to get more? No 03/08/2023 Housing Stability Answer Date Recorded Do you have housing? (Housin g is defined as stable permanent housing and does not include staying outside in a car, in a tent, in an abandoned building, in an overnight alf, or couch-surfing.) Yes 03/08/2023 Are you worried about losing your housing? No 03/08/2023 Financial Resource Strain Answer Date R ecorded Within the past 12 months, h ave you or your family members you live with been unable to get utilities (heat, electricity) when it was really needed? No 03/08/2023 Transportation Needs Answer Date Record ed Within the past 12 months, h as lack of transportation kept you from medical appointments, getting your medicines, non-medical meetings or appointments, work, or from getting things that you need? No 03/08/2023 Interpersonal Safety Answer Date Record ed Do you feel physically and e motionally safe where you currently live? Yes 03/08/2023 Within the past 12 months, h ave you been hit, slapped, kicked or otherwise physically hurt by someone? No 03/08/2023 Within the past 12 months, h ave you been humiliated or emotionally abused in other ways by your partner or ex-partner? No 03/08/2023 Comments No Sex and Gender Information Value Date Recorded Sex Assigned at Not on file Legal Sex Female 4:38 AM ENGINEER FISHING VESSEL Gender Identity Not on file Sexual Orientation Not on file documented as of this encounter Plan of Treatment Upcoming Encounters Date Type Department Care Team (Late st Contact Info) Description 10/22/2025 12:45 PM CDT Office Visit [address] [address] Maida Hermosillo PA-C Dermatology [address] [place] [address] documented as of this encounter Visit Diagnoses Not on filedocumented in this encounter Additional Health Concerns Assessment Noted Time PHQ-9 Depression Total Score: 3 04/10/20 23 3:50 PM CDT documented as of this encounter Care Teams String Winding Machine Operator Relationship Specialty Start Date End Date Sheila Abernathy NP PCP - General Family Medicine 03/08/23 10/04/23 No Ref-Primary, Physician PCP - General 04/29/24 07/08/24 Charley Herr APRN OIL PAINTER [address] [place] [address] PCP - General Nurse Practitioner Primary Care 07/09/24 11/13/24 [place] [address] [place] [address] PCP - General Family Medicine 11/14/24 Sheila Abernathy NP Assigned PCP 03/17/23 10/08/23 [place] [address] [place] [address] Assigned PCP 10/09/23 07/09/24 Charley Herr APRN OIL PAINTER [address] [place] [address] Assigned PCP 07/10/24 01/06/25 Kaitlin Whalen PA-C [address] [address] Physician Sales Representative Trainee intervention analyst 11/17/24 Kaitlin Whalen PA-C [address] [address] Assigned OBGYN Provider 12/08/24 Kareem Acuna MD [address] [place] [address] Physician Rheumatology 01/05/25 [place] [address] [place] [address] Assigned PCP 01/07/25 Kareem Acuna MD [address] [place] [address] Assigned Rheumatology Provider 03/10/25 Maida Hermosillo PA-C Dermatology [address] [place] [address] Physician Sales Representative Trainee Dermatology 03/24/25 documented as of this encounter
--- OUTSIDE RECORDS SUMMARY | 2025-05-15 15:26 | XMS_ITS | Encounter Summary ---
Author Organization [facility] Address [address] [place] [address] Care Team Providers Care Endodontic Assistant Name Role Phone Lainey Brito MD Primary Care Provider [phone] Kaitlin Whalen-C Unavailable [phone] Kaitlin Whalen-C Unavailable [phone] Kareem Acuna MD Unavailable Lainey Brito MD Unavailable [phone] Kareem Acuna MD Unavailable Maida Hermosillo-C Unavailable [phone] Encounter Details Date Type Department Care Team (Late st Contact Info) Description 03/06/2025 [facility] Medical Advice [facility] Specialty [address] [phone] Kareem Acuna MD [address] [place] [id number] Social History Tobacco Use Types Packs/Day Years Used Date Smoking Tobacco: Some Days Cigarettes 0.3 17.9 Started: 06/18/2007 Passive Smoke Exposure: Current Smokeless Tobacco: Never Comments:pack a week Alcohol Use Standard Drinks/Week Comments Yes 0 (1 standard drink = 0.6 oz pur e alcohol) occ Social Connection and Isolation Panel Answer Date Recorded Frequency of Communication with Friends and Fami ly Not on file 12/25/2024 How often do you get together with friends or re latives? Once a week 12/25/2024 Attends Bahai Services Not on file 12/25 Active Member of Clubs or Organizations Not on f ile 12/25/2024 Attends Club or Organization Meetings Not on hood e 12/25/2024 Marital Status Not on file 12/25/2024 PHQ-2 Answer Date Recorded PHQ-2 Score 1 02/19/2025 [facility] - Occupational Stress Questionnaire Answer Date Recorded Do you feel stress - tense, restless, nervous, or anxious, or unable to sleep at night because your mind is troubled all the time - these days? Only a little 12/25/2024 Exercise Vital Sign Answer Date Recorde d On average, how many days pe r week do you engage in moderate to strenuous exercise (like a brisk walk)? 2 days Minutes of Exercise per Session Not on file 12/25/2024 Adolescent Education Answer Date Record ed Getting School Help Needed Not on file 03/10 Food Insecurity Answer Date Recorded Within the past 12 months, d id you worry that your food would run out before you got money to buy more? No 12/25/2024 Within the past 12 months, d id the food you bought just not last and you didn t have money to get more? No 12/25/2024 Housing Stability Answer Date Recorded Do you have housing? (Elida g is defined as stable permanent housing and does not include staying outside in a car, in a tent, in an abandoned building, in an overnight usp, or couch-surfing.) No 12/25/2024 Are you worried about losing your housing? No 12/25/2024 Financial Resource Strain Answer Date R ecorded Within the past 12 months, h ave you or your family members you live with been unable to get utilities (heat, electricity) when it was really needed? No 12/25/2024 Transportation Needs Answer Date Record ed Within the past 12 months, h as lack of transportation kept you from medical appointments, getting your medicines, non-medical meetings or appointments, work, or from getting things that you need? No 12/25/2024 Interpersonal Safety Answer Date Record ed Do you feel physically and e motionally safe where you currently live? Yes 12/25/2024 Within the past 12 months, h ave you been hit, slapped, kicked or otherwise physically hurt by someone? No 12/25/2024 Within the past 12 months, h ave you been humiliated or emotionally abused in other ways by your partner or ex-partner? No 12/25/2024 Comments No Sex and Gender Information Value Date Recorded Sex Assigned at Not on file Legal Sex Female 4:38 AM PATTERNMAKER SAMPLE Gender Identity Not on file Sexual Orientation Not on file documented as of this encounter Plan of Treatment Upcoming Encounters Date Type Department Care Team (Late st Contact Info) Description 10/22/2025 12:45 PM CDT Office Visit [address] [address] Maida Hermosillo PA-C Dermatology [address] [place] [address] documented as of this encounter Visit Diagnoses Not on filedocumented in this encounter Additional Health Concerns Assessment Noted Time PHQ-9 Depression Total Score: 4 02/20/20 25 9:29 AM CDT documented as of this encounter Care Teams Endodontic Assistant Relationship Specialty [place] [address] [place] [address] PCP - General Family Medicine 11/14/24 Kaitlin Whalen PA-C [address] [address] Physician Tactical Air Defense Controller technical staff engineer 11/17/24 Kaitlin Whalen PA-C [address] [address] Assigned OBGYN Provider 12/08/24 Kareem Acuna MD [address] [place] [address] Physician Rheumatology 01/05/25 [place] [address] [place] [address] Assigned PCP 01/07/25 Kareem Acuna MD [address] [place] [address] Assigned Rheumatology Provider 03/10/25 Maida Hermosillo, PA-C Dermatology [address] [place] [address] Physician Tactical Air Defense Controller Dermatology 03/24/25 documented as of this encounter
--- OUTSIDE RECORDS SUMMARY | 2025-05-15 15:26 | XMS_ITS | Encounter Summary ---
Author Organization [facility] Address [address] [place] [address] Care Team Providers Care Adult School Teacher Name Role Phone Lainey Brito MD Primary Care Provider [phone] Kaitlin Whalen PA-C Unavailable [phone] Kaitlin Whalen PA-C Unavailable [phone] Kareem Acuna MD Unavailable Lainey Brito MD Unavailable [phone] Kareem Acuna MD Unavailable Maida Hermosillo-C Unavailable [phone] Encounter Details Date Type Department Care Team (Late st Contact Info) Description 03/02/2025 Orders Only [facility] [address] [place] [address] Outside, Provider Social History Tobacco Use Types Packs/Day [...] re latives? 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 Gender Identity Not on file Sexual Orientation Not on file documented as of this encounter Plan of Treatment Upcoming Encounters Date Type Department Care Team (Late st Contact Info) Description 10/22/2025 12:45 PM CDT Office Visit [address] [address] Maida Hermosillo PA-C Dermatology [address] [place] [address] documented as of this encounter Procedures Procedure Name Priority Date/Time Associated Diagnosis Comments HLA RESULT REPORT 03/02/2025 1:11 PM CDT documented in this encounter Results * HLA Result Report (03/02/2025 1:11 PM CDT) us Provider Outside LAB - IMMUNOLOGY ORDERABLES Fin al Result documented in this encounter Visit Diagnoses Not on filedocumented in this encounter Additional Health Concerns Assessment Noted Time PHQ-9 Depression Total Score: 4 02/20/20 25 9:29 AM CDT documented as of this encounter Care Teams Adult School Teacher Relationship Specialty [place] [address] [place] [address] PCP - General Family Medicine 11/14/24 Kaitlin Whalen PA-C [address] [facility] [address] [place] [address] Physician Fork Assembler manager trade 11/17/24 Kaitlin Whalen PA-C [address] [facility] [address] [place] [address] Assigned OBGYN Provider 12/08/24 Kareem Acuna MD [address] [place] [address] Physician Rheumatology 01/05/25 [place] [address] [place] [address] Assigned PCP 01/07/25 Kareem Acuna MD [address] [place] [address] Assigned Rheumatology Provider 03/10/25 Maida Hermosillo PA-C Dermatology [address] [place] [address] Physician Fork Assembler Dermatology 03/24/25 documented as of this encounter
--- OUTSIDE RECORDS SUMMARY | 2025-05-15 15:26 | XMS_ITS | Encounter Summary ---
Author Organization [facility] Address [address] [place] [address] Care Team Providers Care Automatic Coin Machine Mechanic Name Role Phone Lainey Brito MD Primary Care Provider [phone] Lainey Brito MD Unavailable [phone] Harris Zaidi MD Unavailable Lainey Brito MD Unavailable [phone] Harris Zaidi MD Unavailable No Ref-Primary, Physician Primary Care Provider Familia Nicole DO Unavailable [phone] Minoo Daniels PA-C Unavailable Familia Nicole DO Unavailable [phone] Minoo Daniels PA-C Unavailable Familia Nicole DO Unavailable [phone] Sheila Abernathy NP Primary Care Provider Sheila Brooks NP Unavailable Unavailable Lainey Brito MD Unavailable [phone] No Ref-Primary, Physician Primary Care Provider Charley Herr APRN LUMBER CARRIER OPERATOR Primary Care Provider [phone] Charley Herr APRN LUMBER CARRIER OPERATOR Unavailable [phone] Lainey Brito MD Primary Care Provider [phone] Kaitlin Whalen PA-C Unavailable [phone] Kaitlin Whalen PA-C Unavailable [phone] Kareem Acuna MD Unavailable Lainey Brito MD Unavailable [phone] Kareem Acuna MD Unavailable Maida Hermosillo PA-C Unavailable [phone] Encounter Details Date Type Department Care Team (Latest Contact Info) Description 07/01/2019 Historic Results Social History Tobacco Use Types Packs/Day Years Used Date Smoking Tobacco: Every Day Smokeless Tobacco: Never Alcohol Use Standard Drinks/Week Comments Yes 0 (1 standard drink = 0.6 oz pur e alcohol) occ PHQ-2 Answer Date Recorded PHQ-2 Score 6 07/01/2019 Comments No Sex and Gender Information Value Date Recorded Sex Assigned at Not on file Legal Sex Female 4:38 AM SKIDDER Gender Identity Not on file Sexual Orientation Not on file documented as of this encounter Plan of Treatment Upcoming Encounters Date Type Department Care Team (Late st Contact Info) Description 10/22/2025 12:45 PM CDT Office Visit [address] [address] Maida Hermosillo PA-C Dermatology [address] [place] [address] documented as of this encounter Visit Diagnoses Not on filedocumented in this encounter Additional Health Concerns Assessment Noted Time PHQ-9 Depression Total Score: 17 020 11:20 AM SKIDDER documented as of this encounter Care Teams Automatic Coin Machine Mechanic Relationship Specialty [place] [address] [place] [address] PCP - General Family Practice 10/23/17 06/29/21 No Ref-Primary, Physician PCP - General 06/30/21 03/07/23 [place] [address] [place] [address] PCP - General Family Medicine 03/08/23 10/04/23 No Ref-Primary, Physician PCP - General 04/29/24 07/08/24 Charley Herr APRN CNP [address] [place] [address] PCP - General Nurse Practitioner Primary Care 07/09/24 11/13/24 [place] [address] [place] [address] PCP - General Family Medicine 11/14/24 [place] [address] [place] [address] Assigned PCP 10/05/17 07/12/19 [place] [address] [place] [address] Assigned PCP 07/13/19 07/03/20 [place] [address] [place] [address] Assigned PCP 07/04/20 02/12/21 [place] [address] [place] [address] Assigned PCP 02/13/21 09/10/21 [place] [address] [place] [address] Assigned PCP 09/11/21 09/24/21 Minoo Daniels PA-C [place] [id number] [place] [address] Assigned PCP 09/25/21 01/27/22 [place] [address] [place] [address] Assigned PCP 01/28/22 04/07/22 Minoo Daniels PA-C [place] [address] [place] [address] Assigned PCP 04/08/22 07/14/22 [place] [address] [place] [address] Assigned PCP 07/15/22 03/09/23 Sheila Abernathy NP Assigned PCP 03/17/23 10/08/23 [place] [address] [place] [address] Assigned PCP 10/09/23 07/09/24 Charley Herr APRN CNP [address] [place] [address] Assigned PCP 07/10/24 01/06/25 Kaitlin Whalen PA-C [address] [facility] [address] [place] [address] Physician Mobility Engineer meeting planner 11/17/24 Kaitlin Whalen PA-C [address] [facility] [address] [place] [address] Assigned OBGYN Provider 12/08/24 Kareem Acuna MD [address] [place] [address] Physician Rheumatology 01/05/25 [place] [address] [place] [address] Assigned PCP 01/07/25 Kareem Acuna MD [address] [place] [address] Assigned Rheumatology Provider 03/10/25 Maida Hermosillo PA-C Dermatology [address] [place] [address] Physician Mobility Engineer Dermatology 03/24/25 documented as of this encounter
--- OUTSIDE RECORDS SUMMARY | 2025-05-15 15:26 | XMS_ITS | Encounter Summary ---
Author Organization [facility] Address [address] [place] [address] Care Team Providers Care Hydraulic Auto Jack Mechanic Name Role Phone Familia Nicole DO Unavailable [phone] Sheila Abernathy NP Primary Care Provider Sheila Brooks NP Unavailable Unavailable Lainey Brito MD Unavailable [phone] No Ref-Primary, Physician Primary Care Provider Charley Herr VISITOR INFORMATION ASSISTANT INTERNATIONAL RELATIONS TEACHER Primary Care Provider + [phone] Charley Herr VISITOR INFORMATION ASSISTANT INTERNATIONAL RELATIONS TEACHER Unavailable [phone] Lainey Brito MD Primary Care Provider [phone] Kaitlin Whalen PA-C Unavailable [phone] Kaitlin Whalen PA-C Unavailable [phone] Kareem Acuna MD Unavailable Lainey Brito MD Unavailable [phone] Kareem Acuna MD Unavailable Maida Hermosillo PA-C Unavailable [phone] Encounter Details Date Type Department Care Team (Latest Contact Info) Description 03/08/2023 Historic Results Social History Tobacco Use Types Packs/Day Years Used Date Smoking Tobacco: Former Cigarettes Smokeless Tobacco: Never Comments:pack a week Alcohol Use Standard Drinks/Week Comments Yes 0 (1 standard drink = 0.6 oz pur e alcohol) occ PHQ-2 Answer Date Recorded PHQ-2 Score 3 03/08/2023 Adolescent Education Answer Date Record ed Getting [...] in an abandoned building, in an overnight residential, or couch-surfing.) Yes 03/08/2023 Are you worried [...] on file 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 No / Unsure 03/08/2023 8:18 AM CDT documented as of this encounter Plan of Treatment Upcoming Encounters Date Type Department Care Team (Late st Contact Info) Description 10/22/2025 12:45 PM CDT Office Visit [address] [address] Maida Hermosillo PA-C Dermatology [address] [place] [address] documented as of this encounter Visit Diagnoses Not on filedocumented in this encounter Additional Health Concerns Assessment Noted Time PHQ-9 Depression Total Score: 11 023 8:22 AM CDT documented as of this encounter Care Teams Hydraulic Auto Jack Mechanic Relationship Specialty Start [place] [address] [place] [address] PCP - General Family Medicine 03/08/23 10/04/23 No Ref-Primary, Physician PCP - General 04/29/24 07/08/24 Charley Herr APRN CNP [address] [place] [address] PCP - General Nurse Practitioner Primary Care 07/09/24 11/13/24 [place] [address] [place] [address] PCP - General Family Medicine 11/14/24 [place] [address] [place] [address] Assigned PCP 07/15/22 03/09/23 Sheila Abernathy NP Assigned PCP 03/17/23 10/08/23 [place] [address] [place] [address] Assigned PCP 10/09/23 07/09/24 Charley Herr APRN INTERNATIONAL RELATIONS TEACHER [address] [place] [address] Assigned PCP 07/10/24 01/06/25 Kaitlin Whalen PA-C [address] [address] Physician Excel Developer fiberglasser 11/17/24 Kaitlin Whalen PA-C [address] [address] Assigned OBGYN Provider 12/08/24 Kareem Acuna MD [address] [place] [address] Physician Rheumatology 01/05/25 [place] [address] [place] [address] Assigned PCP 01/07/25 Kareem Acuna MD [address] [place] [address] Assigned Rheumatology Provider 03/10/25 Maida Hermoisllo PA-C Dermatology [address] [place] [address] Physician Excel Developer Dermatology 03/24/25 documented as of this encounter
--- OUTSIDE RECORDS SUMMARY | 2025-05-15 15:26 | XMS_ITS | Encounter Summary ---
Author Organization [facility] Address [address] [place] [address] Care Team Providers Care Assistant Paralegal Name Role Phone Charley Herr APRN, CNP Primary Care Provider + [phone] Charley Herr APRN, CNP Unavailable [phone] Lainey Brito MD Primary Care Provider [phone] Kaitlin Whalen PA-C Unavailable [phone] Kaitlin Whalen PA-C Unavailable [phone] Kareem Acuna MD Unavailable Lainey Brito MD Unavailable [phone] Kareem Acuna MD Unavailable Maida Hermosillo PA-C Unavailable [phone] Encounter Details Date Type Department Care Team (Late st Contact Info) Description 08/25/2024 [facility] [place] Medical Advice [address] [address] Gemma Birch, PUBLIC WORKS INSPECTOR Social History Tobacco Use Types Packs/Day Years [...] in an abandoned building, in an overnight fdc, or couch-surfing.) Yes 07/03/2024 Are you worried [...] on file Legal Sex Female 4:38 AM GAS PUMPER Gender Identity Not on file Sexual Orientation Not on file documented as of this encounter Plan of Treatment Upcoming Encounters Date Type Department Care Team (Late st Contact Info) Description 10/22/2025 12:45 PM CDT Office Visit [address] [phone] Maida Hermosillo PA-C Dermatology [address] [place] [address] documented as of this encounter Visit Diagnoses Not on filedocumented in this encounter Additional Health Concerns Assessment Noted Time PHQ-9 Depression Total Score: 9 07/03/19 25 1:13 PM GAS PUMPER documented as of this encounter Care Teams Assistant Paralegal Relationship Specialty Start Date End Date Charley Herr APRN MEDICAL TECHNOLOGIST CHIEF [address] [place] [address] PCP - General Nurse Practitioner Primary Care 07/09/24 11/13/24 [place] [address] [place] [address] PCP - General Family Medicine 11/14/24 Charley Herr APRN MEDICAL TECHNOLOGIST CHIEF [address] [place] [address] Assigned PCP 07/10/24 01/06/25 Kaitlin Whalen PA-C [address] [address] Physician Loss Mitigation Specialist hemodialysis rn 11/17/24 Kaitlin Whalen PA-C [address] [address] Assigned OBGYN Provider 12/08/24 Kareem Acuna MD [address] [place] [address] Physician Rheumatology 01/05/25 [place] [address] [place] [address] Assigned PCP 01/07/25 Kareem Acuna MD [address] [place] [address] Assigned Rheumatology Provider 03/10/25 Maida Hermosillo PA-C Dermatology [address] [place] [id number] Physician Loss Mitigation Specialist Dermatology 03/24/25 documented as of this encounter
--- OUTSIDE RECORDS SUMMARY | 2025-05-15 15:26 | XMS_ITS | Encounter Summary ---
Author Organization [place] Address [address] [place] [address] Care Team Providers Care Corporate Wellness Coordinator Name Role Phone Lainey Brito MD Primary Care Provider [phone] Kaitlin Whalen PA-C Unavailable [phone] Kaitlin Whalen PA-C Unavailable [phone] Kareem Acuna MD Unavailable Lainey Brito MD Unavailable [phone] Kareem Acuna MD Unavailable Maida Hermosillo-C Unavailable [phone] Reason for Visit * Reason Onset Date Comments Prior Auth - Medication 04/28/2025 buPROPio n (WELLBUTRIN XL) 150 MG 24 hr tablet Encounter Details Date Type Department Care Team (Late st Contact Info) Description 04/28/2025 Telephone [facility] [id number] [place] [id number] Lainey Westbrook APRN [facility] [address] [place] [address] Prior Auth - Medication (buPROPion (WELLBUTRIN XL) 150 MG 24 hr tablet) Social History Tobacco Use Types Packs/Day Years [...] re latives? Once a week 12/25/2024 Attends [employer] Services Not on file 12/25 Active Member of Clubs or Organizations Not on f ile 12/25/2024 Attends Club or Organization Meetings Not on hood e 12/25/2024 Marital Status Not on file 12/25/2024 PHQ-2 Answer Date Recorded PHQ-2 Score 0 04/02/2025 [facility] Questionnaire Answer [...] in an abandoned building, in an overnight care home, or couch-surfing.) No 12/25/2024 Are you worried [...] on file Legal Sex Female 4:38 AM FUNDRAISING SPECIALIST Gender Identity Not on file Sexual Orientation Not on file documented as of this encounter Miscellaneous Notes * Telephone Encounter - Richie Scruggs - 04/30/2025 3:32 PM CST Images from the original note were not included. PRIOR AUTHORIZATION DENIED Medication: buPROPion (WELLBUTRIN XL) 150 MG 24 hr tablet Denial Date: 04/30/2025 Denial Rational: Appeal Information: If you would like to appeal, please supply P/A team with a letter of medical necessity with clinical reason. RAISING SPECIALIST * Telephone Encounter - Richie Scruggs - 04/29/2025 11:44 AM CST Retail Medication Prior Authorization Team PA Initiation Medication: buPROPion (WELLBUTRIN XL) 150 MG 24 hr tablet Insurance Company: [employer] - Pharmacy Filling the Rx: [id number] [place], [place] - [address] [facility] Filling Pharmacy Filling Pharmacy Fax: Start Date: 04/29/2025 [facility] [place]: [id number] RAISING SPECIALIST * Telephone Encounter - Carlos Witt - 04/28/2025 9:28 AM CST Prior Authorization Retail Medication Request Medication/Dose: buPROPion (WELLBUTRIN XL) 150 MG 24 hr tablet Diagnosis and ICD code (if different than what is on RX): New/renewal/insurance change PA/secondary ins. PA: Previously Tried and Failed: escitalopram (LEXAPRO) 10 MG tablet, FLUoxetine (PROZAC) 10 MG capsule, DULoxetine (CYMBALTA) 30 MG EC capsule Rationale: Previos medications non effective. Insurance [employer] [place]: [id number] PATIENT LAST NAME: CASS : 1990 Secondary (if applicable): Insurance ID: Pharmacy Information (if different than what is on RX) Name: Phone: Fax: Clinic Information Preferred routing pool for dept communication: Carlos Witt XRT RAISING SPECIALIST documented in this encounter Plan of Treatment Upcoming Encounters Date Type Department Care Team (Late st Contact Info) Description 10/22/2025 12:45 PM CDT Office Visit [address] [phone] Maida Hermosillo PA-C Dermatology [address] [place] [address] documented as of this encounter Visit Diagnoses Not on filedocumented in this encounter Additional Health Concerns Assessment Noted Time PHQ-9 Depression Total Score: 5 04/03/20 25 2:17 PM CDT documented as of this encounter Care Teams Corporate Wellness Coordinator Relationship Specialty [place] [address] [place] [address] PCP - General Family Medicine 11/14/24 Kaitlin Whalen PA-C [address] [address] Physician Funeral Planning Counselor hot kettle tender 11/17/24 Kaitlin Whalen PA-C [address] [address] Assigned OBGYN Provider 12/08/24 Kareem Acuna MD [address] [place] [address] Physician Rheumatology 01/05/25 [place] [address] [place] [address] Assigned PCP 01/07/25 Kareem Acuna MD [address] [place] [address] Assigned Rheumatology Provider 03/10/25 Maida Hermosillo PA-C Dermatology [address] [place] [address] Physician Funeral Planning Counselor Dermatology 03/24/25 documented as of this encounter
--- OUTSIDE RECORDS SUMMARY | 2025-05-15 15:26 | XMS_ITS | Encounter Summary ---
Author Organization [place] Address [address] [place] [address] Care Team Providers Care New Account Interviewer Name Role Phone Lainey Brito MD Primary Care Provider [phone] Kaitlin Whalen PA-C Unavailable [phone] Kaitlin Whalen PA-C Unavailable [phone] Kareem Acuna MD Unavailable Lainey Brito MD Unavailable [phone] Kareem Acuna MD Unavailable Maida Hermosillo-C Unavailable [phone] Encounter Details Date Type Department Care Team (Latest Contact Info) Description 04/02/2025 Travel Social History Tobacco Use Types Packs/Day [...] re latives? 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 Gender Identity Not on file Sexual Orientation Not on file documented as of this encounter Plan of Treatment Upcoming Encounters Date Type Department Care Team (Late st Contact Info) Description 10/22/2025 12:45 PM CDT Office Visit [address] [phone] Maida Hermosillo PA-C Dermatology [address] [place] [address] documented as of this encounter Visit Diagnoses Not on filedocumented in this encounter Additional Health Concerns Assessment Noted Time PHQ-9 Depression Total Score: 5 04/03/20 25 2:17 PM CDT documented as of this encounter Care Teams New Account Interviewer Relationship Specialty [place] [address] [place] [address] PCP - General Family Medicine 11/14/24 Kaitlin Whalen PA-C [address] [address] Physician Nurses Aide apple turner 11/17/24 Kaitlin Whalen PA-C [address] [address] Assigned OBGYN Provider 12/08/24 Kareem Acuna MD [facility] [place] [address] Physician Rheumatology 01/05/25 [place] [address] [place] [address] Assigned PCP 01/07/25 Kareem Acuna MD [address] [place] [id number] Assigned Rheumatology Provider 03/10/25 Maida Hermosillo PA-C Dermatology [address] [place] [id number] Physician Nurses Aide Dermatology 03/24/25 documented as of this encounter
--- OUTSIDE RECORDS SUMMARY | 2025-05-15 15:26 | XMS_ITS | Clinical Summary ---
Author Organization [facility] Address [address] [place] [address] Care Team Providers Care Imaging Analyst Name Role Phone Lainey Brito MD Primary Care Provider [phone] Kaitlin Whalen PA-C Unavailable [phone] Kaitlin Whalen PA-C Unavailable [phone] Kareem Acuna MD Unavailable Lainey Brito MD Unavailable [phone] Kareem Acuna MD Unavailable Maida Hermosillo PA-C Unavailable [phone] Allergies No known active allergies Medications * This document contains information received from the source organization and may not represent a complete record from that organization. ketoconazole (NIZORAL) 2 % external shampooIndicati ons:Tinea versicolor Apply to the affected area and wash off after 5 minutes. 120 mL 11 04/10/2023 Active buPROPion (WELLBUTRIN XL) 150 MG 24 hr tabletIndicatio ns:Major depressive disorder, recurrent episode, severe with anxious distress (H) Take 2 tablets (300 mg) by mouth every morning. 180 tablet 3 03/19/2025 Active Hospital, Clinic, or Other Facility Administered Medication Ordered Dose Route Frequency Start Date End Date Status etonogestrel (NEXPLANON) subdermal implant 68 mgIndications:Encoun ter for removal and reinsertion of Nexplanon 68 mg SD SEE ADMIN INSTRUCTIONS 11/18/2024 Active Active Problems Problem Noted Date Diagnosed Date Nexplanon in place 12/25/2024 Migraine without aura and wi thout status migrainosus, not intractable 12/25/2024 Major depressive disorder, r ecurrent episode, severe with anxious distress 01/17/2018 Tobacco use disorder 10/24/2017 Resolved Problems Problem Noted Date Diagnosed Date Resolved Date Nexplanon insertion 09/27/2021 12/26/19 Overview (10/25/2021): Placed 10/25/2021, removal due 10/25/24. Lot # [id number] Exp: [id number] [facility] [id number] Injury of right great toe, initial encounter 8 09/27/2021 Severe episode of recurrent major depressive disorder, without psychotic features 10/24/201707/2017 Encounters * This document contains information received from the source organization and may not represent a complete record from that organization. Date Type Department Care Team Description 04/28/[address] [phone] Lainey Westbrook APRN OBSTETRICS GYNECOLOGY PHYSICIAN Prior Auth - Medication (buPROPion (WELLBUTRIN XL) 150 MG 24 hr tablet) 04/02/2025 Travel 03/24/2025 Telephone [facility] [address] [address] Generic, Behavioral Intake, Eval/Assessment 03/19/2025 10:00 AM CDT Office Visit [address] [phone] Lainey Westbrook APRN OBSTETRICS GYNECOLOGY PHYSICIAN Alcohol use (Primary Dx); Major depressive disorder, recurrent episode, severe with anxious distress (H) 03/19/2025 Travel 03/06/2025 MyC Medical Advice [facility] [address] [place] [phone] Kareem Acuna MD 03/02/2025 Orders Only [facility] [address] [place] [phone] Outside, Provider 02/25/2025 2:00 PM CDT Lab [facility] [address] [place] [address] Kareem Acuna MD Elevated antinuclear antibody (NATALYA) level; Pain in joint of left hip; Pain in joint of right hip 02/25/2025 1:48 PM CDT - 02/25/2025 11:59 PM CDT Hospital Encounter [facility] [address] [place] [address] Kareem Acuna MD Elevated antinuclear antibody (NATALYA) level; Pain in joint of left hip; Pain in joint of right hip Discharge Disposition: Home or Self Care 02/25/2025 1:00 PM CDT Office Visit [facility] [place] [address] [place] [address] Lainey Brito MD Khan, Waseem, MD Pain in joint of left hip (Primary Dx); Elevated antinuclear antibody (NATALYA) level; Pain in joint of right hip 02/25/2025 Travel 02/19/2025 9:30 AM CDT Office Visit [address] [phone] Lainey Westbrook APRN CNP Major depressive disorder, recurrent episode, severe with anxious distress (H) (Primary Dx); Skin tag 02/19/2025 Travel from Last 3 Months Immunizations Immunization Administration Dates Next Due COVID-19 Vaccine (Diego) 10/18/2020 HIB, Unspecified 06/14/1992, 2,06/04/1991,1990 HPV Quadrivalent 09/27/2010,05/20/2009, 9 Hepatitis B, Peds (Engerix-B/Recombivax HB) 03/25/2004 Historical DTP/aP 06/14/1992, 2,06/04/1991,1990 Influenza (IIV3) PF 04/28/2005 Influenza Vaccine >6 months,quad, PF 03/2020,03/31/2016,05/19/2015,2013 MMR (MMRII) 06/02/1992 OPV, trivalent, live 06/14/1992,08/19/18 92,06/04/1991,1990 TD,PF 7+ (Tenivac) 03/25/2004 TDAP (Adacel,Boostrix) 11/11/2020 TDAP Vaccine (Boostrix) 08/16/2012,09/27/2010 Family History Medical History Relation Comments Depression [...] re latives? 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 Gender Identity Not on file Sexual Orientation Not on file Last Filed Vital Signs Vital Sign Reading Time Taken Comments Blood Pressure 134/77 03/19/2025 9:53 AM CDT Pulse 64 03/19/2025 9:53 AM CDT Temperature 36.3 C (97.3 F) 03/19/2025 9:53 AM CDT Respiratory Rate 16 03/19/2025 9:53 AM CDT Oxygen Saturation 98% 03/19/2025 9:53 AM CDT Inhaled Oxygen Concentration - - Weight 82.1 kg (180 lb 14.4 oz) 03/19/2025 9:53 AM CDT Height 162.6 cm (5' 4) 03/19/2025 9:53 AM CDT Body Mass Index 31.05 03/19/2025 9:53 AM CDT Plan of Treatment Upcoming Encounters Date Type Department Care Team (Late st Contact Info) Description 10/22/2025 12:45 PM CDT Office Visit [address] [phone] Maida Hermosillo PA-C Dermatology [address] [place] [phone] Health Maintenance Due Date Last Done Comments PNEUMOCOCCAL VACCINE: PEDIATRICS (0 to 5 YEARS) AND AT-RISK PATIENTS (6 to 49 YEARS) (1 of 2 - PCV) 2009 COVID-19 VACCINE (2 - season) 2025 10/18/2020 INFLUENZA VACCINE (#1) 2025 , 03/31/2016, 05/19/2015, Additional history exists NICOTINE/TOBACCO CESSATION COUNSELING Q 1 YR 07/03/2025 07/03/2024, 04/10/2023 PHQ-9 10/01/2025 04/02/2025, 0909/2024, 12/25/2024, Additional history exists ANNUAL REVIEW OF HM ORDERS 11/14/2025 11/14/2024, YEARLY PREVENTIVE VISIT 12/25/2025 12/26/19 25, 03/08/2023, 10/24/2017 ADVANCE CARE PLANNING 12/25/2029 12/25/2024 HPV TEST 12/25/2029 12/25/2024 PAP 12/25/2029 12/25/2024, 07/, 02/14/2021, Additional history exists DTAP/TDAP/TD VACCINE (9 - Td or Tdap) 11/11/2030 11/11/2020, 08/16/2012, 09/27/2010, Additional history exists ZOSTER VACCINE (1 of 2) 2040 HEPATITIS B VACCINE Discontinued 03/25/2004 HPV VACCINE Completed 09/27/2010, 08/2008, 01/19/2009 HIV SCREENING Discontinued 05/30/2012 DEPRESSION ACTION PLAN Completed 03/08/2023 HEPATITIS C SCREENING Completed 03/08/2023, 011 MENINGITIS VACCINE Aged Out No longer eligible based on patient's age to complete this topic Procedures Procedure Name Priority Date/Time Associated Diagnosis Comments HLA RESULT REPORT 03/02/2025 1:1 1 PM CDT XR PELVIS AND HIP BILATERAL 2 VIEWS Routine 02/25/2025 2:21 PM CDT Elevated antinuclear antibody (NATALYA) level Pain in joint of left hip Pain in joint of right hip VILLANUEVA MISCELLANEOUS TEST Routine 02/25/2025 2:05 PM CDT Elevated antinuclear antibody (NATALYA) level Pain in joint of left hip Pain in joint of right hip MICHELL ANTIBODY PANEL Routine 02/25/2025 2: 05 PM CDT Elevated antinuclear antibody (NATALYA) level Pain in joint of left hip Pain in joint of right hip LABORATORY MISCELLANEOUS ORDER Routine 02/25/2025 2:05 PM CDT Elevated antinuclear antibody (NATALYA) level Pain in joint of left hip Pain in joint of right hip RHEUMATOID FACTOR Routine 02/25/2025 2:0 5 PM CDT Elevated antinuclear antibody (NATALYA) level Pain in joint of left hip Pain in joint of right hip CYCLIC CITRULLINATED PEPTIDE ANTIBODY IGG Routine 02/25/2025 2:05 PM CDT Elevated antinuclear antibody (NATALYA) level Pain in joint of left hip Pain in joint of right hip HLA-B27 TYPING Routine 02/25/2025 2:05 PM CDT Elevated antinuclear antibody (NATALYA) level Pain in joint of left hip Pain in joint of right hip HPV AND GYNECOLOGIC CYTOLOGY PANEL Routine 12/25/2024 4:43 PM CDT Cervical cancer screening HEPATITIS C SCREEN REFLEX TO HCV RNA QUANT AND GENOTYPE Routine 03/08/2023 9:11 AM CDT Need for hepatitis C screening test from Last 3 Months or Most Recently Relevant to Health Maintenance Results * HLA Result Report (03/02/2025 1:11 PM CDT) us Provider Outside LAB - IMMUNOLOGY ORDERABLES Fin al Result * XR Pelvis and Hip Bilateral 2 Views (02/25/2025 2:21 PM CDT) Anatomical Region Laterality Modality Hip, Abdomen/Pelvis Bilateral Digital Radi ography 02/25/2025 2:21 PM CDT Impressions 02/26/2025 1:30 PM CDT IMPRESSION: Normal joint spaces and alignment. No fracture. Narrative 02/26/2025 1:30 PM CDT EXAM: XR PELVIS AND HIP BILATERAL 2 VIEWS LOCATION: [facility] DATE: 02/25/2025 INDICATION: Elevated antinuclear antibody (NATALYA) level, Pain in joint of left hip, Pain in joint of right hip COMPARISON: None. Procedure Note Lainey Aguilar MD - 02/26/2025 EXAM: XR PELVIS AND HIP BILATERAL 2 VIEWS LOCATION: [facility] DATE: 02/25/2025 INDICATION: Elevated antinuclear antibody (NATALYA) level, Pain in joint ofleft hip, Pain in joint of right hip COMPARISON: None. IMPRESSION: Normal joint spaces and alignment. No fracture. Kareem Acuna MD [facility] DIAGNOSTIC IMAGING ORDERABLE S Final Result * [place]; NIURKA; dsDNA Ab by Crithidia IFA, IgG, S (Laboratory Miscellaneous Order) (02/25/2025 2:05 PM CDT) Specimen Status Specimen received. Reordered and sent to performing laboratory. Report to follow upon completion. [facility] 02/25/2025 2:47 PM CDT [facility] Performing Laboratory [facility] 02/25/2025 2:47 PM CDT [facility] Test Name dsDNA Ab by Crithidia IFA, IgG, S [facility] 02/25/2025 2:47 PM CDT [facility] Test Code CRITH [facility] 02/25/2025 2:47 PM CDT [facility] Blood STRUCTURE OF LEFT UPPER LIMB / Unknown Venipuncture / Unknown 02/25/2025 2:05 PM CDT 02/25/2025 2:07 PM CDT Kareem Acuna MD LAB - BLOOD ORDERABLES Final Res ult [facility] [address] [facility] [place], [place] [phone] [place] [address] * Cyclic Citrullinated Peptide Antibody IgG (02/25/2025 2:05 PM CDT) [facility] Cyclic Citrullinated Peptide Antibody IgG <0.4 <7.0 U/mL 02/26/2025 2:30 PM CDT SPECIALTY CORE/PROT/END O Comment:Negative Blood STRUCTURE OF LEFT UPPER LIMB / Unknown Venipuncture / Unknown 02/25/2025 2:05 PM CDT 02/25/2025 2:07 PM CDT us Kareem Acuna MD LAB - BLOOD ORDERABLES Final Res ult [facility]/PROT/ENDO [facility] Core/Prot/Endo [address] [facility], [address] * CRITH; dsDNA Ab by Crithidia IFA, IgG, S [place] Miscellaneous Test (02/25/2025 2:05 PM CDT) [facility] [place] Result SEE NOTE 02/27/2025 6:00 PM CDT [facility] Comment: Test Result Flag Unit RefValue dsDNA Ab by Crithidia IFA, IgG, S Negative Negative Crithidia Interpretation SEE NOTE RESULT: Testing for dsDNA antibody by Crithidia IFA was negative. Test Performed by: [facility] [address] [id number] Traffic Worker: Carl Dodge Ph.D.; CLIA# [id number] Blood STRUCTURE OF LEFT UPPER LIMB / Unknown Venipuncture / Unknown 02/25/2025 2:05 PM CDT 02/25/2025 2:07 PM CDT us Kareem Acuna MD LAB - BLOOD ORDERABLES Final Res ult [facility] [address] [phone] * HLA-B27 Typing (02/25/2025 2:05 PM CDT) [id number] METHOD NGS 03/02/2025 1:12 PM CDT [facility] B locus B27 Neg 03/02/2025 1:12 PM CDT [facility] Blood STRUCTURE OF LEFT UPPER LIMB / Unknown Venipuncture / Unknown 02/25/2025 2:05 PM CDT 02/25/2025 2:07 PM CDT us Kareem Acuna MD LAB - IMMUNOLOGY ORDERABLES Rosy l Result U HLA LABORATORY Immunology/Histocomp atability CLIA: [id number] [facility] [address] [facility] [address], Room [address] [place] [address], [place] [phone] * Rheumatoid factor (02/25/2025 2:05 PM CDT) Rheumatoid Factor <10 <14 IU/mL 02/25/2025 8:17 PM CDT [facility] Blood STRUCTURE OF LEFT UPPER LIMB / Unknown Venipuncture / Unknown 02/25/2025 2:05 PM CDT 02/25/2025 2:07 PM CDT us Kareem Acuna MD LAB - BLOOD ORDERABLES Final Res ult [facility] [place] Core Lab [address] [facility] [address], [address] [place] [address] * MICHELL antibody panel (02/25/2025 2:05 PM CDT) MINE DEPUTY [place]uri IgG Instrument Value <1.1 <5.0 U/mL 02/26/2025 2:30 PM CDT SPECIALTY CORE/PROT/END O MINE DEPUTY Antibody IgG Negative Negative 02/26/2025 2:30 PM CDT SPECIALTY CORE/PROT/END O Chi MICHELL [place] IgG Instrument Value <0.7 <7.0 U/mL 02/26/2025 2:30 PM CDT SPECIALTY CORE/PROT/END O Chi MICHELL Antibody IgG Negative Negative 02/26/2025 2:30 PM CDT SPECIALTY CORE/PROT/END O SSA Maryuri IgG Instrument Value <0.5 <7.0 U/mL 02/26/2025 2:30 PM CDT SPECIALTY CORE/PROT/END O SSA (Ro) Antibody IgG Negative Negative 02/26/2025 2:30 PM CDT SPECIALTY CORE/PROT/END O SSB Maryuri IgG Instrument Value <0.6 <7.0 U/mL 02/26/2025 2:30 PM CDT SPECIALTY CORE/PROT/END O SSB (La) Antibody IgG Negative Negative 02/26/2025 2:30 PM CDT SPECIALTY CORE/PROT/END O Blood STRUCTURE OF LEFT UPPER LIMB / Unknown Venipuncture / Unknown 02/25/2025 2:05 PM CDT 02/25/2025 2:07 PM CDT us Kareem Acuna MD LAB - BLOOD ORDERABLES Final Res ult SPECIALTY CORE/PROT/ENDO Specialty Core/Prot/Endo [address] [facility] [address], Room [address] * HPV and Gynecologic Cytology Panel - Recommended Age 30 - 65 Years (12/25/2024 4:43 PM CDT) Human Papilloma Virus 16 DNA Negative Negative 12/29/2024 12:11 PM CDT [facility]TY LABS Human Papilloma Virus 18 DNA Negative Negative 12/29/2024 12:11 PM CDT [facility] LAB[facility] Human Papilloma Virus Other Negative Negative 12/29/2024 12:11 PM CDT [facility] LAB[facility] FINAL DIAGNOSIS This patient's sample is negative for high risk HPV DNA. METHODOLOGY: The [employer] system uses automated extraction, simultaneous amplification of HPV (E6/E7 oncogenes) and beta-globin, followed by real time detection of fluorescent labeled HPV and beta globin using specific oligonucleotide probes. The test specifically identifies types HPV 16 DNA and HPV 18 DNA while concurrently detecting the rest of the high risk types (31, 33, 35, 39, 45, 51, 52, 56, 58, 59, 66 or 68). COMMENTS: This test is not intended for use as a screening device for woman under age 30 with normal cervical cytology. Results should be correlated with cytologic and histologic findings. Close clinical follow up is recommended. Please see the separate Gynecologic Cytology (Pap) report from the same collection date. 12/29/2024 12:11 PM CDT MOLECULAR DIAGNOSTICS Brushing ENDOCERVICAL STRUCTURE / Unknown Non-blood Collection / Unknown 12/25/2024 4:43 PM CDT 12/25/2024 5:26 PM CDT us Lainey Brito MD LAB - BLOOD ORDERABLES Fi nal Result [facility] LAB[facility] Specialty Lab [address] [facility], [address] [phone], [facility] MOLECULAR DIAGNOSTICS Molecular Diagnostics [address] [facility], Room [address] [place] [phone], [place] * Hepatitis C Screen Reflex to HCV RNA Quant and Genotype (03/08/2023 9:11 AM CDT) Hepatitis C Antibody Nonreactive Nonreactive 03/09/2023 12:03 PM CDT SPECIALTY CORE/PROT/EN DO Blood BLOOD SPECIMEN / Unknown Venipuncture / Unknown 03/08/2023 9:11 AM CDT 03/08/2023 9:15 AM CDT Narrative [facility] SPECIALTY CORE/PROT/ENDO - 03/09/2023 12:03 PM CDT Assay performance characteristics have not been established for newborns, infants, and children. Sheila Abernathy NP LAB - BLOOD ORDERABLES Final Result [facility] SPECIALTY CORE/PROT/ENDO [facility] Specialty Core/Prot/Endo [address] [facility] Building, Room 3[address] [phone] from Last 3 Months or Most Recently Relevant to Health Maintenance Insurance [facility] Care Teams Imaging Analyst Relationship Specialty [place] [address] [place] [address] PCP - General Family Medicine 11/14/24 Kaitlin Whalen PA-C [address] [address] Physician Bmx Rider primary clinician 11/17/24 Kaitlin Whalen PA-C [address] [phone] Assigned OBGYN Provider 12/08/24 Kareem Acuna MD [address] [place] [address] Physician Rheumatology 01/05/25 [place] [address] [place] [address] Assigned PCP 01/07/25 Kareem Acuna MD [address] [place] [address] Assigned Rheumatology Provider 03/10/25 Maida Hermosillo PA-C Dermatology [address] [place] [id number] Physician [employer]mx Rider Dermatology 03/24/25
[2025-05-15 15:28] VITALS: BP 142/85; PULSE 77; RESP 16; TEMP 36.7; O2SAT 97; BMI 30.9
--- NOTE | 2025-05-15 15:47 | CRLHL7_ITS ---
For Patients: As a result of the Century Cures Act, medical imaging exams and procedure reports are released immediately into your electronic medical record. You may view this report before your referring provider. If you have questions, please contact your health care provider. Indication: Fell off counter Technique: Noncontrast axial CT of the cervical spine with coronal and sagittal reformats. Comparison: None. Findings: Straightening of the normal cervical lordosis. Craniocervical junction appears within normal limits. Vertebral body heights are grossly maintained. No acute fracture identified. Posterior disc-osteophyte complex at C5-6 contributes to mild-moderate spinal canal narrowing. No pulmonary apical pneumothorax. Impression: 1. No evidence of acute fracture or traumatic malalignment in the cervical spine. 2. Posterior disc-osteophyte complex at C5-6 contributes to mild-moderate spinal canal narrowing. Please note that all CT scans at this facility use dose modulation, iterative reconstruction, and/or weight-based dosing when appropriate to reduce radiation dose to as low as reasonably achievable. Dictated by Angelica Joiner MD @ 05/15/2025 4:27:32 PM (Electronically Signed)
--- NOTE | 2025-05-15 15:47 | CRLHL7_ITS ---
For Patients: As a result of the Century Cures Act, medical imaging exams and procedure reports are released immediately into your electronic medical record. You may view this report before your referring provider. If you have questions, please contact your health care provider. INDICATION: Fell off the counter TECHNIQUE: Noncontrast axial CT of the head. Coronal and sagittal reformats. Bone and soft tissue algorithms. COMPARISON: None. FINDINGS: The ventricles and cortical sulci appear age-appropriate. No midline shift or mass effect. No acute intracranial hemorrhage or extra-axial fluid collection. Capellan-white matter differentiation is grossly maintained. White matter attenuation is within normal limits. Intracranial vessels are unremarkable for technique. Midline structures are unremarkable. The calvarium appears grossly intact. Paranasal sinuses and mastoid air cells are clear. Orbits are unremarkable. IMPRESSION: 1. No skull fracture or acute intracranial hemorrhage identified. Please note that all CT scans at this facility use dose modulation, iterative reconstruction, and/or weight-based dosing when appropriate to reduce radiation dose to as low as reasonably achievable. Dictated by Angelica Joiner MD @ 05/15/2025 4:29:04 PM (Electronically Signed)
--- NOTE | 2025-05-15 15:48 | ED.FALL ---
HPI - Fall General Chief Complaint: Fall/Minor Trauma Stated Complaint: Fell, hit head Time Seen by Provider: 05/15/25 15:24 History of Present Illness HPI Narrative: This 34-year-old female comes in for evaluation of injuries from a fall that occurred prior to arrival. She states that she was standing on a kitchen counter attempting to get a CAT down from the top of a cabinet when she fell off of the counter. She landed on her left side and did hit her head. She did not have loss of consciousness but states that she was dazed. She does complain of headache and some generalized neck pain. She does not have any other injury. She was able to get up and ambulate afterwards. She does report some nausea but did not have any vomiting. An ambulance was called and evaluated her at home. She did not come in by ambulance but came by private car for evaluation. Related Data Home Medications ?Medication ?Instructions ?Recorded ?Confirmed bupropion HCl 150 mg 24 hr tablet, 150 mg PO QAM 05/15/25 05/15/25 extended release Previous Rx's ?Medication ?Instructions ?Recorded ketorolac 10 mg tablet 10 mg PO TID 5 days #15 tabs 05/15/25 ondansetron HCl 4 mg tablet 4 mg PO Q6H #10 tabs 05/15/25 Allergies Allergy/AdvReac Type Severity Reaction Status Date / Time No Known Drug Allergies Allergy Verified 09/24/22 13:21 Review of Systems Status of ROS: Reports: 10 or more systems reviewed and unremarkable except as noted in History and below Narrative: Constitutional: No fevers, no weight gain or loss. Eyes: No discharge. No vision changes. HENT: No congestion, no sore throat, no ear pain. Cardiovascular: No chest pain, no palpitations. Respiratory: No shortness of breath, no wheezes, no cough. Gastrointestinal: No abdominal pain, no vomiting, no diarrhea. Genitourinary: No dysuria, no hematuria. Musculoskeletal: Normal range of motion. Skin: No rashes, no pruritis. Neurological: No dizziness, weakness, sensory change, speech change. Endo/Heme/Allergies: No bruising or bleeding. No polydipsia. Pysch: no suicidality, no anxiety, no insomnia. All other systems reviewed and are negative. PFSH PFSH Social History Smoking Status: Former smoker What tobacco products do you use: cigarettes Smoking quit date/years: <= 15 years ago How often do you have a drink containing alcohol: never AUDIT-C Alcohol total score: 0 Non-prescribed substance use: denies use Exam Narrative: Exam Narrative: Constitutional: Well-developed, well-nourished, no acute distress. HEENT: Normocephalic, atraumatic. No sign of injury. Neck: Normal range of motion. Nontender. Supple. No midline tenderness when palpating along the spine. Heart: Regular. No murmurs. Normal rate. Intact distal pulses. Lungs: Clear to auscultation. No chest discomfort. No wheezes, rhonchi, or rales. Abdomen: Normal bowel sounds. Nontender. No rebound tenderness. Genitalia: Deferred. Back: No midline tenderness. Normal range of motion. Extremities: Normal range of motion. No injury. Skin: Intact. No rash. Warm. No erythema or pallor. Neurologic: No altered sensation. No weakness. Alert and oriented. No neurologic deficits. Psychiatric: No suicidality. No anxiety or depression. No insomnia. Nursing notes and vitals signs are reviewed. Const: Vital Signs, click to edit/add: Vital Signs - 24 hr 05/15/25 15:28 Temperature 98.0 F Pulse Rate [Pulse Oximeter] 77 Respiratory Rate 16 Blood Pressure [Ri ght Upper Arm] 142/85 H Pulse Oximetry 97 Oxygen Delivery Me thod Room Air Course Vital Signs Vital signs: Initial Vital Signs Temperature 98.0 F 05/15/25 15:28 Temperature Source Temporal Artery Scan 05/15/25 15:28 Pulse Rate 77 05/15/25 15:28 Pulse Rhythm Regular 05/15/25 15:28 Respiratory Rate 16 05/15/25 15:28 Blood Pressure 142/85 H 05/15/25 15:28 Blood Pressure Mean 104 05/15/25 15:28 Blood Pressure Position Sitting 05/15/25 15:28 Pulse Oximetry 97 05/15/25 15:28 Oxygen Delivery Method Room Air 05/15/25 15:28 Vital Signs Temperature 98.0 F 05/15/25 15:28 Pulse Rate 77 05/15/25 15:28 Respiratory Rate 16 05/15/25 15:28 Blood Pressure 142/85 H 05/15/25 15:28 Pulse Oximetry 97 05/15/25 15:28 Oxygen Delivery Method Room Air 05/15/25 15:28 Temperature 98.0 F 05/15/25 15:28 Pulse Rate 77 05/15/25 15:28 Respiratory Rate 16 05/15/25 15:28 Blood Pressure 142/85 H 05/15/25 15:28 Pulse Oximetry 97 05/15/25 15:28 Oxygen Delivery Method Room Air 05/15/25 15:28 Medications Administered Medications: Discontinued Medications Generic Name Dose Route Start Last Admin Trade Name Anuj PRN Reason Stop Dose Admin Ketorolac Tromethamine 10 mg 05/15/25 16:35 05/15/25 16:40 Ketorolac 10 Mg Tablet PO 05/15/25 16:36 10 mg ONCE ONE Administration Ondansetron HCl 4 mg 05/15/25 16:13 05/15/25 16:18 Ondansetron Odt 4 Mg Tab PO 05/15/25 16:14 4 mg ONCE ONE Administration MDM - Fall MDM Narrative Medical decision making narrative: This patient comes in for evaluation of injuries from a fall as described above. Her exam appears normal but she is complaining of headache, nausea, and diffuse neck pain. I did obtain CT imaging of head and C-spine and these returned with no acute findings. The patient did receive oral doses of Toradol and Zofran and experience some symptomatic relief. She may have sustained a concussion from this fall and I did discuss matters pertaining to recovery from a concussion type injury. I provided prescriptions for Toradol and Zofran. Imaging Data CT Cervical Spine: Radiologist's impression: 1. No evidence of acute fracture or traumatic malalignment in the cervical spine. 2. Posterior disc-osteophyte complex at C5-6 contributes to mild-moderate spinal canal narrowing. CT scan - head: Radiologist's impression: No intracranial abnormality identified. Discharge Plan Discharge Clinical Impression: Concussion without loss of consciousness Patient Disposition: Home w/ Parent or Adult Condition: Stable Additional Instructions: Take medication as needed and indicated. Increase activity as tolerated. Follow up with MD return if worsening. Prescriptions: New ondansetron HCl 4 mg tablet 4 mg PO Q6H Qty: 10 0RF ketorolac 10 mg tablet 10 mg PO TID 5 Days Qty: 15 0RF No Action bupropion HCl 150 mg tablet extended release 24 hr 150 mg PO QAM Follow Up/Referrals: Adis Rueda Provider [Staff Physician, Family Practice] Stand Alone Forms: [employer] Info Instructions
--- OUTSIDE RECORDS SUMMARY | 2025-05-15 15:57 | XMS_ITS | Clinical Summary ---
Author Organization [facility] Address [id number] [address] Care Team Providers Care Production Statistical Clerk Name Role Phone Unassigned, Provider Primary Care Provider Unava ilable Source Comments You are receiving this document as you are listed as the primary care provider,follow-up provider, or the patient has been referred to you for consultation.This is in compliance with the Medicare and[facility] EHR Incentive Program,which states Providers who transition their patient to another setting of careor provider of care or refers their patient to another provider of care shouldprovide summary care record for each transition of care or referral. [facility] Allergies No known active allergies Medications insulin syringe-needle U-100 1ml 31g x 15/64 Inject 1 Each subcutaneously every evening. 100 Each Active Additional Information Patient not taking.Reported on 01/08/2021 NOVOLIN N 100 UNIT/ML injectionIndic ations:Diabete s Mellitus Inject 16-30 Units subcutaneously every evening. Indications: Diabetes Mellitus 20 mL 3 Active Additional Information Patient not taking.Reported on 01/08/2021 Active Problems No known active problems Social History Tobacco Use Types Packs/Day Years Used Date Smoking Tobacco: Never Alcohol Use Standard Drinks/Week Comments Never 0 (1 standard drink = 0.6 oz pur e alcohol) Comments Unknown Sex and Gender Information Value Date Recorded Sex Assigned at Not on file Legal Sex Female 7:34 AM CDT Gender Identity Not on file Sexual Orientation Not on file Last Filed Vital Signs Vital Sign Reading Time Taken Comments Blood Pressure 107/60 01/08/2021 2:14 PM CDT Pulse 88 01/08/2021 2:14 PM CDT Temperature 36.6 C (97.9 F) 01/08/2021 2:14 PM CDT Respiratory Rate 18 01/08/2021 2:14 PM CDT Oxygen Saturation 98% 01/08/2021 2:14 PM CDT Inhaled Oxygen Concentration - - Weight - - Height - - Body Mass Index - - Plan of Treatment Health Maintenance Due Date Last Done Comments Cervical Cancer Screening Due 1990 Hep C Screening (Preventive Services) 1990 HIV Screening (Preventive Services) 2006 Adult Preventive Visit 2008 HepB Vaccine (1) 2009 COVID-19 Vaccine (2 - season) 2025 10/18/2020 Influenza Vaccine (#1) 2025 , 03/31/2016, 05/19/2015, Additional history exists DTaP/Tdap/Td Vaccine (9 - Tdap) 11/11/2030 11/11/2020, 08/16/2012, 09/27/2010, Additional history exists Zoster/Shingles Vaccine (1 of 2) 2040 Hib Vaccine Completed 06/14/1992, 09/1991, 06/04/1991, Additional history exists IPV (Polio) Vaccine Completed 06/14/1992, 08/20/1991, 06/04/1991, Additional history exists HPV Vaccine Completed 09/27/2010, 08/2008, 01/19/2009 HepA Vaccine Aged Out No longer eligi ble based on patient's age to complete this topic MCV4 Vaccine Aged Out No longer eligi ble based on patient's age to complete this topic Meningococcal B Vaccine Aged Out No l onger eligible based on patient's age to complete this topic Pneumococcal Vaccine Aged Out No long er eligible based on patient's age to complete this topic Care Teams Production Statistical Clerk Relationship Specialty Start Date End Date Unassigned, Provider [address] [place] [address] PCP - General 08/19/00
[2025-05-15] MEDS: ONDANSETRON ODT 4 MG TAB PO (16:18)
[2025-05-15] MEDS: KETOROLAC 10 MG TABLET PO (16:40)
== END 2025-05-15 17:04 | disposition home or self-care (01) ==
PROVIDERS: Emergency Provider Emergency Medicine Emergency Medical Services
DX: S06.0X0A Concussion without loss of consciousness, initial encounter (principal); R51.9 Headache, unspecified; M54.2 Cervicalgia; R11.0 Nausea; W17.89XA Other fall from one level to another, initial encounter; Y92.000 Kitchen of unspecified non-institutional (private) residence as the place of occurrence of the external cause
CPT/HCPCS: 70450; 72125; 99284; A9270